=== PATIENT | male | born 1955 | race Caucasian/White ===

== ENCOUNTER 2016-11-26 14:43 | Inpatient (IN) | payer OTHER ==
[~2016-11-26] VITALS: Ht 177.8 cm; Wt 92.1 kg
[2016-11-26] VITALS (14 sets, daily range): BP systolic 104–161; BP diastolic 73–104; PULSE 106–140; RESP 16–26; TEMP 97.7–98.8; O2SAT 97–100
[~2016-11-26 14:43] MED LIST: Z.0.NO CURRENT MEDS
[2016-11-26] MEDS ORDERED: LORazepam 2 MG/ML VIAL IV PUSH ONE (15:15)
[2016-11-26] MEDS ORDERED: SODIUM CHLOR 0.9% 1000 ML INJ 1,000 ML IV ONE (15:15)
[2016-11-26] MEDS ORDERED: THIAMINE INJ 100 MG in SODIUM CHLORIDE 0.9% INJ 100 ML IV ONE (15:15)
--- NOTE | 2016-11-26 15:18 | PD ---
HPI Chief Complaint: Alcohol/Drug Intoxication Time Seen by Provider: 14:57 Travel History International Travel<30 days: No Contact w/Intl Traveler<30days: No Traveled to known affect area: No History of Present Illness HPI 61-year-old male complains of feeling shaky generalized malaise and weakness. Patient states that the symptoms started a few months ago and got worse today. Patient denies any headache. Patient denies any visual change. Patient denies any chest pain or shortness of breath. Patient face that he has nausea but no vomiting or diarrhea. Patient denies abdominal pain. Patient denies any dysuria or frequency. Patient denies any fever chills. Patient states that he used to drink a lot of vodka daily. Patient states that he changes to drinking beers recently. Patient states that he usually drinks about 9 beers a day. Patient states that he had one beer today. Patient denies illicit drug use. Patient denies any past medical problem. Patient states that he is not on any regular medication. Patient states that he is allergic to penicillin. PFSH Past Medical History Medical History: Denies Significant Hx Diminished Hearing: No Tetanus Vaccination: Unknown Influenza Vaccination: No Past Surgical History Surgical History: No Previous Surgery Social History Alcohol Use: Yes (8 BEERS DAILY) Tobacco Use: Yes (1 CIG DAILY) Substance Use: No Allergies-Medications (Allergen,Severity, Reaction): Coded Allergies: No Known Allergies (Verified , 11/26/16) Reported Meds & Prescriptions Reported Meds & Active Scripts Active No Active Prescriptions or Reported Medications Review of Systems General / Constitutional: No: Fever Eyes: No: Visual changes HENT: No: Headaches Cardiovascular: No: Chest Pain or Discomfort Respiratory: No: Shortness of Breath Gastrointestinal: No: Abdominal Pain Genitourinary: No: Dysuria Musculoskeletal: No: Pain Skin: No Rash Neurologic: No: Weakness Psychiatric: No: Depression Endocrine: No: Polydipsia Hematologic/Lymphatic: No: Easy Bruising Physical Exam Narrative GENERAL: Well-nourished, well-developed patient. SKIN: Warm and dry. HEAD: Normocephalic. EYES: No scleral icterus. No injection or drainage. NECK: Supple, trachea midline. No JVD or lymphadenopathy. CARDIOVASCULAR: Regular rate and rhythm without murmurs, gallops, or rubs. RESPIRATORY: Breath sounds equal bilaterally. No accessory muscle use. GASTROINTESTINAL: Abdomen soft, non-tender, nondistended. MUSCULOSKELETAL: No cyanosis, or edema. BACK: Nontender without obvious deformity. No CVA tenderness. Neurologic exam normal. Data Data Last Documented VS Vital Signs Date Time Temp Pulse Resp B/P Pulse Ox O2 Delivery O2 Flow Rate FiO2 11/26/16 16:33 120 17 140/92 98 Room Air 11/26/16 14:59 97.7 Orders Complete Blood Count With Diff (11/26/16 15:03) Comprehensive Metabolic Panel (11/26/16 15:03) Prothrombin Time / Inr (Pt) (11/26/16 15:03) Act Partial Throm Time (Ptt) (11/26/16:03) Lipase (11/26/16 15:03) Urinalysis - C+S If Indicated (11/26/16 15:03) Alcohol (Ethanol) (11/26/16 15:03) Thyroid Stimulating Hormone (11/26/16 15:03) Chest, Single Ap (11/26/16 15:03) Iv Access Insert/Monitor (11/26/16 15:03) Ecg Monitoring (11/26/16 15:03) Oximetry (11/26/16 15:03) Sodium Chlor 0.9% 1000 Ml Inj (Ns 1000 M (11/26/16 15:15) Thiamine Inj (Thiamine Inj) (11/26/16 15:15) Lorazepam Inj (Ativan Inj) (11/26/16 15:15) Pantoprazole Inj (Protonix Inj) (11/26/16 16:00) Al-Mag Hy-Si 40-40-4 Mg/Ml Liq (Mag-Al P (11/26/16 16:00) Diet Regular Basic (11/26/16 Dinner) Bedside Glucose JULIET.AC&HS (11/26/16 16:18) Alcohol Withdrawal Asmt-Ciwa ONCE (11/26/16 16:18) Ondansetron Inj (Zofran Inj) (11/26/16 16:30) Flumazenil Inj (Romazicon Inj) (11/26/16 16:30) Lorazepam (Ativan) (11/26/16 16:30) Lorazepam Inj (Ativan Inj) (11/26/16 16:30) Lorazepam (Ativan) (11/26/16 16:30) Lorazepam Inj (Ativan Inj) (11/26/16 16:30) Lorazepam Inj (Ativan Inj) (11/26/16 16:30) Lorazepam Inj (Ativan Inj) (11/26/16 16:30) Place In Observation (11/26/16 ) Vital Signs (Adult) Q4H (11/26/16 16:39) Activity Bed Rest With Brp (11/26/16 16:39) Sodium Chloride 0.9% Flush (Ns Flush) (11/26/16 16:45) Sodium Chloride 0.9% Flush (Ns Flush) (11/26/16 21:00) Acetaminophen (Tylenol) (11/26/16 16:45) Basic Metabolic Panel (Bmp) (11/27/16 06:00) Complete Blood Count With Diff (11/27/16 06:00) Admit Order (Ed Use Only) (11/26/16 16:42) Labs Laboratory Tests Test 11/26/16 15:18 White Blood Count 6.9 TH/MM3 Red Blood Count 4.54 MIL/MM3 Hemoglobin 14.2 GM/DL Hematocrit 42.0 % Mean Corpuscular Volume 92.3 FL Mean Corpuscular Hemoglobin 31.3 PG Mean Corpuscular Hemoglobin 33.9 % Concent Red Cell Distribution Width 14.7 % Platelet Count 220 TH/MM3 Mean Platelet Volume 8.2 FL Neutrophils (%) (Auto) 67.6 % Lymphocytes (%) (Auto) 15.7 % Monocytes (%) (Auto) 14.8 % Eosinophils (%) (Auto) 0.9 % Basophils (%) (Auto) 1.0 % Neutrophils # (Auto) 4.6 TH/MM3 Lymphocytes # (Auto) 1.1 TH/MM3 Monocytes # (Auto) 1.0 TH/MM3 Eosinophils # (Auto) 0.1 TH/MM3 Basophils # (Auto) 0.1 TH/MM3 CBC Comment DIFF FINAL Differential Comment Prothrombin Time 10.6 SEC Prothromb Time International 1.0 RATIO Ratio Activated Partial 25.5 SEC Thromboplast Time Sodium Level 127 MEQ/L Potassium Level 4.6 MEQ/L Chloride Level 91 MEQ/L Carbon Dioxide Level 21.2 MEQ/L Anion Gap 15 MEQ/L Blood Urea Nitrogen 10 MG/DL Creatinine 1.30 MG/DL Estimat Glomerular Filtration 56 ML/MIN Rate Random Glucose 204 MG/DL Calcium Level 9.5 MG/DL Total Bilirubin 1.6 MG/DL Aspartate Amino Transf 188 U/L (AST/SGOT) Alanine Aminotransferase 133 U/L (ALT/SGPT) Alkaline Phosphatase 118 U/L Total Protein 7.5 GM/DL Albumin 3.0 GM/DL Lipase 571 U/L Thyroid Stimulating Hormone 4.870 uIU/ML 3rd Gen Ethyl Alcohol Level 45 MG/DL [facility] Medical Decision Making Medical Screen Exam Complete: Yes Emergency Medical Condition: Yes Interpretation(s) 1613 PM. CBC within normal limit. Sodium 127. Glucose 204. Total bili 1.6. AST 188. ALT 133. Alkaline phosphatase 118. Lipase 571. Alcohol 45 Differential Diagnosis Differential diagnosis including dehydration, electrolyte imbalance, alcohol withdrawal, impending DT Narrative Course 61-year-old male with urine shaky, history EtOH abuse. EKG shows sinus tachycardia rate 121. Normal saline solution 1 L IV bolus. Thiamine 100 mg IV. Ativan 1 mg IV. May repeat Ativan for shakiness. WA protocol started Diagnosis Primary Impression: Alcohol withdrawal Qualified Code: F10.230 - Alcohol withdrawal, uncomplicated Additional Impressions: Elevated LFTs Hyponatremia Scripts No Active Prescriptions or Reported Meds Alex Neal MD Nov 26, 2016 15:18
[2016-11-26 15:27] LABS: AUTOMATED NEUTROPHIL # 4.6 TH/MM3 (1.8-7.7); BASOPHIL # 0.1 TH/MM3 (0-0.2); EOSINOPHIL # 0.1 TH/MM3 (0-0.4); EOSINOPHIL % 0.9 % (0.0-4.0); HEMO FLAGS DIFF FINAL; LYMPH % 15.7 % (9.0-44.0); LYMPHOCYTE # 1.1 TH/MM3 (1.0-4.8); MEAN CELL VOLUME 92.3 FL (80.0-100.0); MEAN CORPUSCULAR HEMOGLOBIN 31.3 PG (27.0-34.0); MEAN CORPUSCULAR HGB CONC 33.9 % (32.0-36.0); MONO % 14.8 % (0.0-8.0); NEUT % 67.6 % (16.0-70.0); PLATELET COUNT 220 TH/MM3 (150-450); RED BLOOD COUNT 4.54 MIL/MM3 (4.50-5.90); RED CELL DISTRIBUTION WIDTH 14.7 % (11.6-17.2); WHITE BLOOD COUNT 6.9 TH/MM3 (4.0-11.0)
[2016-11-26 15:39] LABS: CHLORIDE 91 MEQ/L (98-107); POTASSIUM 4.6 MEQ/L (3.5-5.1); SODIUM (NA) 127 MEQ/L (136-145)
[2016-11-26 15:43] LABS: ANION GAP 15 MEQ/L (5-15); APTT (PATIENT) 25.5 SEC (24.3-30.1); BICARBONATE 21.2 MEQ/L (21.0-32.0); BLOOD UREA NITROGEN 10 MG/DL (7-18); PROTHROMBIN TIME - PATIENT 10.6 SEC (9.8-11.6)
[2016-11-26 15:46] LABS: ALT (GPT) 133 U/L (12-78); AST (GOT) 188 U/L (15-37); GLOMERULAR FILTRATION RATE 56 ML/MIN (>89)
[2016-11-26 15:47] LABS: TOTAL BILIRUBIN ADULT 1.6 MG/DL (0.2-1.0)
--- NOTE | 2016-11-26 15:47 | RADHPO ---
EXAM DATE/TIME: 11/26/2016 15:35 [facility] COMPARISON: No previous studies available for comparison. INDICATIONS : Shortness of breath and general weakness. MEDICAL HISTORY : None. SURGICAL HISTORY : None. ENCOUNTER: Initial ACUITY: 1 month PAIN SCORE: 0/10 LOCATION: Bilateral chest FINDINGS: Portable AP view of the chest demonstrates a normal-sized cardiac silhouette. No effusion, consolidat ion, or pneumothorax is visualized. The bones and soft tissues demonstrate no acute abnormality. Ther e are old left rib fractures. CONCLUSION: No acute cardiopulmonary abnormality is identified. Chato Meyer MD on November 26, 2016 at 15:46 Board Certified Radiologist. This report was verified electronically.
[2016-11-26 15:49] LABS: ALKALINE PHOSPHATASE 118 U/L (45-117)
[2016-11-26] MEDS ORDERED: PANTOPRAZOLE SODIUM 40 MG VIAL IV PUSH ONE (16:00)
[2016-11-26] MEDS ORDERED: ALUMINUM/MAGNESIUM/SIMETH 30 ML CUP PO ONE (16:00)
[2016-11-26] MEDS ORDERED: FLUMAZENIL 1 MG/10 ML VIAL IV PUSH PRN (16:30)
[2016-11-26] MEDS ORDERED: LORazepam 2 MG/ML VIAL IV PUSH PRN ×3 (16:30)
[2016-11-26] MEDS ORDERED: ONDANSETRON HCL 4 MG/2 ML VIAL IV PUSH PRN (16:30)
[2016-11-26] MEDS ORDERED: SODIUM CHLORIDE 0.9% FLUSH 5 ML FLUSH FLUSH PRN (16:45)
[2016-11-26] MEDS ORDERED: ACETAMINOPHEN 325 MG TAB PO PRN (16:45)
[2016-11-26 17:05] LABS: BLOOD, URINE NEG (NEG); GLUCOSE,URINE NEG (NEG); KETONE, URINE NEG (NEG); NITRITE,URINE NEG (NEG)
--- NOTE | 2016-11-26 17:07 | HHI.HP ---
[facility] Service [facility] Primary Care Physician No Primary Care Physician Admission Diagnosis alcohol withdrawal. Hyponatremia. Elevated LFTs. Diagnoses: Chief Complaint: EtOH withdrawal Travel History International Travel<30 Days: No Contact w/Intl Traveler <30 Da: No Traveled to Known Affected Are: No History of Present Illness Patient seen in ER as a 61 year old man with minimal PMHx who was brought in by his brothers due to severe and worsening EtOH dependence issues. He has a longstanding history of alcoholism and has become increasingly withdrawn, not eating and had lost his job. They have tried to get him help before and he has been at rehab before. Today he appears disheveled and has abnormal labs with will require medical management. On my review the xray is negative for acute cardiopulmonary disease. Review of Systems Constitutional: DENIES: Diaphoretic episodes, Fatigue, Fever, Weight gain, Weight loss, Chills, Dizziness, Change in appetite, Night Sweats Eyes: DENIES: Blurred vision, Diplopia, Eye inflammation, Eye pain, Vision loss , Photosensitivity, Double Vision Ears, nose, mouth, throat: DENIES: Tinnitus, Hearing loss, Vertigo, Nasal discharge, Oral lesions, Throat pain, Hoarseness, Ear Pain, Running Nose, Epistaxis, Sinus Pain, Toothache, Odynophagia Respiratory: DENIES: Apneas, Cough, Snoring, Wheezing, Hemoptysis, Sputum production, Shortness of breath Cardiovascular: DENIES: Chest pain, Palpitations, Syncope, Dyspnea on Exertion , PND, Lower Extremity Edema, Orthopnea, Claudication Gastrointestinal: DENIES: Abdominal pain, Black stools, Bloody stools, Constipation, Diarrhea, Nausea, Vomiting, Difficulty Swallowing, Anorexia Genitourinary: DENIES: Sexual dysfunction, Urinary frequency, Urinary incontinence, Urgency, Hematuria, Dysuria, Nocturia, Penile Discharge, Testicular Pain, Testicular Swelling Musculoskeletal: DENIES: Joint pain, Muscle aches, Stiffness, Joint Swelling, Back pain, Neck pain Integumentary: DENIES: Abnormal pigmentation, Nail changes, Pruritus, Rash Hematologic/lymphatic: DENIES: Bruising, Lymphadenopathy Immunologic/allergic: DENIES: Eczema, Urticaria Neurologic: DENIES: Abnormal gait, Headache, Localized weakness, Paresthesias, Seizures, Speech Problems, Tremor, Poor Balance Psychiatric: DENIES: Anxiety, Confusion, Mood changes, Depression, Hallucinations, Agitation, Suicidal Ideation, Homicidal Ideation, Delusions Past Family Social History Past Medical History Denies Past Surgical History None Reported Medications None Allergies: Coded Allergies: No Known Allergies (Verified , 11/26/16) Active Ordered Medications reviewed in the ER Family History DM, HTN Social History lives alone; No tobacco, EtOH Daily Physical Exam Vital Signs Vital Signs Date Time Temp Pulse Resp B/P Pulse Ox O2 Delivery O2 Flow Rate FiO2 11/26/16 16:33 120 17 140/92 98 Room Air 11/26/16 15:27 115 17 119/87 98 Room Air 11/26/16 15:05 100 Room Air 11/26/16 14:59 97.7 130 19 108/73 98 Room Air Physical Exam GENERAL: This is a well-nourished, well-developed patient, in no apparent distress. SKIN: No rashes, ecchymoses or lesions. Cool and dry. HEAD: Atraumatic. Normocephalic. No temporal or scalp tenderness. EYES: Bilat eye conjunctival erythema and discharge; Pupils equal round and reactive. Extraocular motions intact. No scleral icterus. No injection or drainage. ENT: Nose without bleeding, purulent drainage or septal hematoma. Throat without erythema, tonsillar hypertrophy or exudate. Uvula midline. Airway patent. NECK: Trachea midline. No JVD or lymphadenopathy. Supple, nontender, no meningeal signs. CARDIOVASCULAR: Regular rate and rhythm without murmurs, gallops, or rubs. RESPIRATORY: Clear to auscultation. Breath sounds equal bilaterally. No wheezes , rales, or rhonchi. GASTROINTESTINAL: Abdomen soft, non-tender, nondistended. No hepato-splenomegaly , or palpable masses. No guarding. MUSCULOSKELETAL: Extremities without clubbing, cyanosis, or edema. No joint tenderness, effusion, or edema noted. No calf tenderness. Negative Homans sign bilaterally. NEUROLOGICAL: Awake and alert. Cranial nerves II through XII intact. Motor and sensory grossly within normal limits. Five out of 5 muscle strength in all muscle groups. Normal speech. Laboratory Laboratory Tests Test 11/26/16 15:18 White Blood Count 6.9 Red Blood Count 4.54 Hemoglobin 14.2 Hematocrit 42.0 Mean Corpuscular Volume 92.3 Mean Corpuscular Hemoglobin 31.3 Mean Corpuscular Hemoglobin 33.9 Concent Red Cell Distribution Width 14.7 Platelet Count 220 Mean Platelet Volume 8.2 Neutrophils (%) (Auto) 67.6 Lymphocytes (%) (Auto) 15.7 Monocytes (%) (Auto) 14.8 Eosinophils (%) (Auto) 0.9 Basophils (%) (Auto) 1.0 Neutrophils # (Auto) 4.6 Lymphocytes # (Auto) 1.1 Monocytes # (Auto) 1.0 Eosinophils # (Auto) 0.1 Basophils # (Auto) 0.1 CBC Comment DIFF FINAL Differential Comment Prothrombin Time 10.6 Prothromb Time International 1.0 Ratio Activated Partial 25.5 Thromboplast Time Sodium Level 127 Potassium Level 4.6 Chloride Level 91 Carbon Dioxide Level 21.2 Anion Gap 15 Blood Urea Nitrogen 10 Creatinine 1.30 Estimat Glomerular Filtration 56 Rate Random Glucose 204 Calcium Level 9.5 Total Bilirubin 1.6 Aspartate Amino Transf 188 (AST/SGOT) Alanine Aminotransferase 133 (ALT/SGPT) Alkaline Phosphatase 118 Total Protein 7.5 Albumin 3.0 Lipase 571 Thyroid Stimulating Hormone 4.870 3rd Gen Ethyl Alcohol Level 45 Result Diagram: 11/26/16 1518 11/26/16 1518 Imaging Last Impressions Chest X-Ray 11/26/16 1503 Signed Impressions: Service Date/Time: Saturday, November 26, 2016 15:35 - CONCLUSION: No acute cardiopulmonary abnormality is identified. Chato Meyer MD Assessment and Plan Problem List: (1) Alcohol withdrawal ICD Code: F10.239 Status: Acute Plan: CIWA protocol, add librium MVi, thiamin folic acid Consider outpatient drug rehab (2) Hyponatremia ICD Code: E87.1 Status: Acute Plan: Beer potomania? Work up in progress; osmolarity pending, echo lipids (3) Elevated LFTs ICD Code: R94.5 Status: Acute Plan: Hepatitis profile pending US liver pending likely due to EtOH Ammonia pending (4) Conjunctivitis ICD Code: H10.9 Status: Acute Plan: Cipro eye gtts BID (5) Hyperglycemia ICD Code: R73.9 Status: Acute Plan: Likely due to poor pancreatic function, HG a1 c Pending Assessment and Plan plan of care to be determined by hospital course Discussed Condition With patient. family and ER MD Physician Certification 2 Midnight Certification Type: Admission for Inpatient Services Order for Inpatient Services The services are ordered in accordance with Medicare regulations or non- Medicare payer requirements, as applicable. In the case of services not specified as inpatient-only, they are appropriately provided as inpatient services in accordance with the 2-midnight benchmark. Estimated LOS (days): 3 3 days is the estimated time the patient will need to remain in the hospital, assuming treatment plan goals are met and no additional complications. Post-Hospital Plan: Not yet determined Problem Qualifiers (1) Alcohol withdrawal: Qualified Code: F10.230 - Alcohol withdrawal, uncomplicated Clary Acuna MD Nov 26, 2016 17:07
[2016-11-26 17:14] LABS: URINE COLOR YELLOW (YELLW/STRAW)
[2016-11-26 17:15] LABS: SQUAMOUS EPITHELIAL CELL URINE 0-5 /hpf (0-5)
[2016-11-26 17:16] LABS: COMMENT (UR) CULT NOT INDICATED; CULTURE IF INDICATED CULT NOT INDICATED
[2016-11-26] MEDS: chlordiazePOXIDE 25 MG CAP PO SCH (18:07)
[2016-11-26] MEDS: CIPROFLOXACIN 0.3% OPTH SOLN 2.5 ML BTL EACH EYE SCH ×2 (18:08→21:01)
[2016-11-26] MEDS: SODIUM CHLORIDE 0.9% FLUSH 5 ML FLUSH FLUSH SCH (18:08)
[2016-11-26] MEDS: LORazepam 2 MG/ML VIAL IV PUSH PRN ×2 (18:08→23:35)
[2016-11-26] MEDS: SODIUM CHLOR 0.9% 1000 ML INJ 1,000 ML IV SCH (18:57)
[2016-11-26 19:44] LABS: THYROXINE (T4) 6.1 MCG/DL (4.5-12.1)
[2016-11-26 22:43] LABS: HEMOGLOBIN A1a 1.3 %; HEMOGLOBIN A1b 1.8 %; HEMOGLOBIN Ao 82.3 %; HEMOGLOBIN P3 4.3 %
[2016-11-27] VITALS (21 sets, daily range): BP systolic 134–189; BP diastolic 94–121; PULSE 80–118; RESP 12–25; TEMP 97.9–98.3; O2SAT 97–99
[2016-11-27] MEDS: CIPROFLOXACIN 0.3% OPTH SOLN 2.5 ML BTL EACH EYE SCH ×6 (01:45→20:26)
[2016-11-27] MEDS: LORazepam 2 MG/ML VIAL IV PUSH PRN ×2 (04:27→22:14)
[2016-11-27 05:18] LABS: BASOPHIL # 0.1 TH/MM3 (0-0.2); BASOPHIL % 1.7 % (0.0-2.0); EOSINOPHIL # 0.1 TH/MM3 (0-0.4); EOSINOPHIL % 0.8 % (0.0-4.0); HEMATOCRIT 37.9 % (39.0-51.0); HEMO FLAGS DIFF FINAL; LYMPH % 16.4 % (9.0-44.0); LYMPHOCYTE # 1.2 TH/MM3 (1.0-4.8); MEAN CELL VOLUME 94.4 FL (80.0-100.0); MEAN CORPUSCULAR HEMOGLOBIN 31.8 PG (27.0-34.0); MEAN CORPUSCULAR HGB CONC 33.7 % (32.0-36.0); MONO % 15.9 % (0.0-8.0); NEUT % 65.2 % (16.0-70.0); PLATELET COUNT 190 TH/MM3 (150-450); RED BLOOD COUNT 4.01 MIL/MM3 (4.50-5.90); WHITE BLOOD COUNT 7.6 TH/MM3 (4.0-11.0)
[2016-11-27 05:20] LABS: POTASSIUM 4.1 MEQ/L (3.5-5.1)
[2016-11-27] MEDS: SODIUM CHLOR 0.9% 1000 ML INJ 1,000 ML IV SCH (05:26)
[2016-11-27 06:53] LABS: BICARBONATE 23.8 MEQ/L (21.0-32.0)
[2016-11-27] MEDS: THIAMINE HCL 100 MG TAB PO SCH (08:43)
[2016-11-27] MEDS: FOLIC ACID 1 MG TAB PO SCH (08:43)
[2016-11-27] MEDS: PANTOPRAZOLE SOD 40 MG DELAYED RELEASE TAB PO SCH (08:43)
[2016-11-27] MEDS: chlordiazePOXIDE 25 MG CAP PO SCH ×3 (08:43→20:26)
[2016-11-27] MEDS: LORazepam 2 MG TAB PO PRN (08:43)
[2016-11-27] MEDS: MULTIVITAMIN TAB PO SCH (08:43)
[2016-11-27] MEDS: SODIUM CHLORIDE 0.9% FLUSH 5 ML FLUSH FLUSH SCH ×2 (08:48→20:26)
[2016-11-27] MEDS ORDERED: INFLUENZA VIRUS VACCINE (QUADRIVALENT) 0.5 ML SYR IM ONE (09:00)
[2016-11-27 09:15] LABS: INDIRECT BILIRUBIN 0.7 MG/DL (0.0-0.8); TOTAL BILIRUBIN ADULT 1.7 MG/DL (0.2-1.0)
[2016-11-27 09:52] LABS: HDL CHOLESTEROL 45.1 MG/DL (40.0-60.0)
--- NOTE | 2016-11-27 12:40 | HHI.PR ---
Subjective Remarks Patient seen and evaluated today in follow-up for alcoholic dependency. Tolerating current management. Tearful and admits history of depression. Discussed with ELEMENTARY TEACHER Objective Vitals Vital Signs Date Time Temp Pulse Resp B/P Pulse Ox O2 Delivery O2 Flow Rate FiO2 11/27/16 11:07 97 11/27/16 09:00 116 15 134/94 11/27/16 09:00 108 11/27/16 08:43 118 25 136/107 11/27/16 08:15 97.9 107 18 11/27/16 07:45 102 11/27/16 05:01 106 11/27/16 04:43 98 18 136/100 11/27/16 04:02 98.3 104 12 157/107 97 11/27/16 03:09 105 11/27/16 01:27 111 11/27/16 00:00 98.3 112 16 98 11/26/16 23:41 106 16 129/89 97 11/26/16 23:41 110 19 129/89 11/26/16 23:26 126 17 157/104 98 11/26/16 23:26 98.3 126 17 157/104 98 11/26/16 23:00 114 11/26/16 22:00 114 11/26/16 20:00 97.8 138 18 121/93 11/26/16 20:00 97.8 138 18 121/93 97 11/26/16 20:00 130 11/26/16 19:00 140 17 104/90 11/26/16 19:00 140 17 104/90 11/26/16 18:30 98.8 11/26/16 18:00 122 19 113/91 97 11/26/16 18:00 122 19 113/91 97 11/26/16 17:55 122 19 161/94 98 11/26/16 16:33 120 17 140/92 98 Room Air 11/26/16 15:27 115 17 119/87 98 Room Air 11/26/16 15:05 100 Room Air 11/26/16 14:59 97.7 130 19 108/73 98 Room Air I/O 11/26/16 11/26/16 11/26/16 11/27/16 11/27/16 11/27/16 07:00 15:00 23:00 07:00 15:00 23:00 Intake Total 1820 ml 870 ml Output Total 550 ml 350 ml Balance 1270 ml 520 ml Intake Oral 420 ml 220 ml IV Total 1400 ml 650 ml Output Urine Total 550 ml 350 ml Stool Total 0 ml 0 ml # Voids 2 1 Result Diagram: 11/27/1645411/27/16454 A/P Problem List: (1) Alcohol withdrawal ICD Code: F10.239 Status: Acute Plan: CIWA protocol, meme librium MVI, thiamin folic acid Consider outpatient drug rehab add celexa (2) Hyponatremia ICD Code: E87.1 Status: Acute Plan: Beer potomania? Improved Work up in progress; osmolarity within range for potomania, echo pending lipids normal (3) Elevated LFTs ICD Code: R94.5 Status: Acute Plan: Hepatitis profile pending US liver pending likely due to EtOH Ammonia 35 (4) Conjunctivitis ICD Code: H10.9 Status: Acute Plan: Cipro eye gtts BID x7days (5) Hyperglycemia ICD Code: R73.9 Status: Acute Plan: Likely due to poor pancreatic function, HG a1 c 6.6 Discharge Planning pending progress Problem Qualifiers (1) Alcohol withdrawal: Qualified Code: F10.230 - Alcohol withdrawal, uncomplicated Clary Acuna MD Nov 27, 2016 12:40
--- NOTE | 2016-11-27 13:36 | ECHLIM ---
Study Study Date:11/27/2016 STUDY CONCLUSIONS SUMMARY - Procedure narrative: Transthoracic echocardiography. Image quality was extremely poor. The study was technically limited due to poor acoustic window availability. - Left ventricle: Unable to determine an estimated ejection fraction, views are extremely limited of the left ventricle. Unable to determine wall motion abnormalities. Impressions: If clinical concern for ejection fraction, consider other modality. If LV function is below 40, please consider prescribing an ACEI or ARB or document rationale for non-use. PROCEDURE DATA Procedure: Transthoracic echocardiography. Image quality was extremely poor. The study was technically limited due to poor acoustic window availability. Scanning was performed from the parasternal, apical, and subcostal acoustic windows. Study completion: The patient tolerated the procedure well. Transthoracic echocardiography. M-mode, limited 2D, limited spectral Doppler, and color Doppler. CARDIAC ANATOMY LEFT VENTRICLE: Unable to determine an estimated ejection fraction, views are extremely limited of the left ventricle. Unable to determine wall motion abnormalities. BASIC MEASUREMENTS ADULT NORMAL Left ventricle LV internal dimension, ED, chordal level, 45.7 mm 43-52 PLAX LV internal dimension, ES, chordal level, 36.8 mm 23-38 PLAX Fractional shortening, chordal level, PLAX *19 % >29 LV posterior wall thickness, ED 8.95 mm IVS/LVPW ratio, ED 1.09 <1.3 Ventricular septum Septal thickness, ED 9.79 mm DOPPLER MEASUREMENTS ADULT NORMAL Aortic valve Peak velocity, S 109 cm/s LEGEND: Mean values are shown as u=mean value. Asterisk (*) jane values outside specified normal range. Prepared and signed by Cisco Burns [id number]
[2016-11-27] MEDS: LORazepam 1 MG TAB PO PRN (16:18)
[2016-11-27] MEDS: CITALOPRAM HYDROBROMIDE 20 MG TAB PO SCH (16:18)
--- NOTE | 2016-11-27 16:22 | RADHPO ---
EXAM DATE/TIME: 11/27/2016 15:12 [facility] COMPARISON: No previous studies available for comparison. INDICATIONS : Increased lab values. MEDICAL HISTORY : ETOH dependence. SURGICAL HISTORY : Ankle surgery. ENCOUNTER: Initial ACUITY: 1 day PAIN SCORE: 0/10 LOCATION: Abdomen. MEASUREMENTS: LIVER: 19.2 cm length COMMON DUCT: 5 mm RIGHT KIDNEY: 11.1 x 5.7 x 5.5 cm SPLEEN: 9.0 cm length FINDINGS: LIVER: The liver demonstrates mild enlargement as well as diffuse homogeneous increased echotexture and poor sound transmission consistent with diffuse fatty infiltration. No evidence of mass. COMMON DUCT: Common bile duct was unable to be visualized secondary to extensive bowel gas. GALLBLADDER: The gallbladder is well-distended. Multiple small mobile stones and layering sludge are noted. No dolores dence of wall thickening. PANCREAS: The pancreas is not well-visualized on this exam. RIGHT KIDNEY: The right kidney demonstrates diffuse cortical thinning with increased echogenicity concerning for ch ronic renal disease. No evidence of mass or hydronephrosis. SPLEEN: No focal lesion. CONCLUSION: 1. Mild hepatomegaly. The echotexture of the liver is consistent with hepatic steatosis. 2. Cholelithiasis. The common bile duct is not visualized on this exam secondary to bowel gas. No dolores dence of intrahepatic biliary obstruction. 3. Given the cortical thinning and increased echogenicity concerning for renal disease. Recommend cor relating with the patient's GFR.. Kateryna Lopez MD on November 27, 2016 at 16:18 Board Certified Radiologist. This report was verified electronically.
[2016-11-27] MEDS: CALCIUM CARBONATE 500 MG CHEWABLE TAB CHEW SCH (20:26)
--- NOTE | 2016-11-27 22:45 | EKG ---
Date Performed: 11/26/2016 Time Performed: 14:47:18 PTAGE: 61 years EKG: Sinus tachycardia with PAC(s) Possible inferior infarct - age undetermined Low QRS voltages in precordial leads Abnormal ECG NO PREVIOUS TRACING DOCTOR: Franki Chacko Interpretating Date/Time 11/27/2016 22:41:05
[2016-11-28] VITALS (10 sets, daily range): BP systolic 123–148; BP diastolic 65–107; PULSE 78–114; RESP 14–20; TEMP 97.2–98.5; O2SAT 96–98
[2016-11-28] MEDS: CIPROFLOXACIN 0.3% OPTH SOLN 2.5 ML BTL EACH EYE SCH ×6 (01:16→21:12)
[2016-11-28] MEDS: LORazepam 2 MG/ML VIAL IV PUSH PRN ×2 (02:14→05:25)
[2016-11-28 04:56] LABS: CHLORIDE 101 MEQ/L (98-107); POTASSIUM 3.9 MEQ/L (3.5-5.1); SODIUM (NA) 136 MEQ/L (136-145)
[2016-11-28 05:00] LABS: ANION GAP 13 MEQ/L (5-15); BICARBONATE 21.7 MEQ/L (21.0-32.0); BLOOD UREA NITROGEN 14 MG/DL (7-18)
[2016-11-28 05:03] LABS: ALT (GPT) 102 U/L (12-78); AST (GOT) 158 U/L (15-37); GLOMERULAR FILTRATION RATE 88 ML/MIN (>89)
[2016-11-28 05:04] LABS: TOTAL BILIRUBIN ADULT 1.7 MG/DL (0.2-1.0)
[2016-11-28] MEDS: chlordiazePOXIDE 25 MG CAP PO SCH ×3 (05:04→21:11)
[2016-11-28 05:06] LABS: ALKALINE PHOSPHATASE 87 U/L (45-117)
[2016-11-28] MEDS: CALCIUM CARBONATE 500 MG CHEWABLE TAB CHEW SCH ×2 (08:37→21:12)
[2016-11-28] MEDS: MULTIVITAMIN TAB PO SCH (08:37)
[2016-11-28] MEDS: CITALOPRAM HYDROBROMIDE 20 MG TAB PO SCH (08:37)
[2016-11-28] MEDS: FOLIC ACID 1 MG TAB PO SCH (08:37)
[2016-11-28] MEDS: PANTOPRAZOLE SOD 40 MG DELAYED RELEASE TAB PO SCH (08:37)
[2016-11-28] MEDS: SODIUM CHLORIDE 0.9% FLUSH 5 ML FLUSH FLUSH SCH ×2 (08:38→21:11)
[2016-11-28] MEDS: THIAMINE HCL 100 MG TAB PO SCH (08:38)
--- NOTE | 2016-11-28 09:57 | HHI.PR ---
Subjective Remarks Patient seen today in follow-up for alcohol withdrawal. Liver enzymes remained stable. Blood pressures a bit elevated Objective Vitals Vital Signs Date Time Temp Pulse Resp B/P Pulse Ox O2 Delivery O2 Flow Rate FiO2 11/28/16 05:00 108 11/28/16 04:00 98.5 98 16 140/96 96 11/28/16 03:00 100 11/28/16 01:00 99 11/28/16 00:00 98.2 99 14 148/99 98 11/27/16 23:00 99 11/27/16 22:00 94 19 159/111 99 11/27/16 21:00 22 189/100 99 11/27/16 21:00 80 11/27/16 20:00 98.0 80 22 179/121 99 11/27/16 19:00 98 11/27/16 17:02 108 11/27/16 16:27 98.2 95 18 149/110 99 11/27/16 16:20 103 11/27/16 13:47 92 11/27/16 12:10 97 11/27/16 12:10 98.1 97 17 150/98 11/27/16 11:07 97 I/O 11/27/16 11/27/16 11/27/16 11/28/16 11/28/16 11/28/16 07:00 15:00 23:00 07:00 15:00 23:00 Intake Total 870 ml 1180 ml 440 ml 560 ml Output Total 350 ml 550 ml 250 ml 800 ml 375 ml Balance 520 ml 630 ml 190 ml -240 ml -375 ml Intake Oral 220 ml 400 ml 120 ml 560 ml IV Total 650 ml 780 ml 320 ml Output Urine Total 350 ml 550 ml 250 ml 800 ml 375 ml Stool Total 0 ml # Voids 1 1 # Bowel Movements 0 0 Result Diagram: 11/27/16 0455 11/28/16 0435 Objective Remarks GENERAL: This is a well-nourished, well-developed patient, in no apparent distress. CARDIOVASCULAR: Regular rate and rhythm without murmurs, gallops, or rubs. RESPIRATORY: Clear to auscultation. Breath sounds equal bilaterally. No wheezes , rales, or rhonchi. GASTROINTESTINAL: Abdomen soft, non-tender, nondistended. Normal active bowel sounds MUSCULOSKELETAL: Extremities without clubbing, cyanosis, or edema. NEURO: Alert & Oriented x4 to person, place, time, situation. Moves all ext x4 A/P Problem List: (1) Alcohol withdrawal ICD Code: F10.239 Status: Acute Plan: CIWA protocol, scheduled Librium MVI, thiamin folic acid Consider outpatient drug rehab Continue celexa for depression (2) Hyponatremia ICD Code: E87.1 Status: Acute Plan: Resolved (3) Elevated LFTs ICD Code: R94.5 Status: Acute Plan: Hepatitis profile negative US liver consistent with hepatic steatosis likely due to EtOH Ammonia 35 (4) Conjunctivitis ICD Code: H10.9 Status: Acute Plan: Improved Cipro eye gtts BID x7days (5) Hyperglycemia ICD Code: R73.9 Status: Acute Plan: With evidence of diabetes Hemoglobin A1c 6.6 (6) HTN (hypertension) ICD Code: I10 Status: Acute Plan: Add atenolol Discharge Planning pending progress Problem Qualifiers (1) Alcohol withdrawal: Qualified Code: F10.230 - Alcohol withdrawal, uncomplicated Clary Acuna MD Nov 28, 2016 09:57
[2016-11-28] MEDS: ATENOLOL 50 MG TAB PO SCH (10:57)
[2016-11-28] MEDS: ALUMINUM/MAGNESIUM/SIMETH 30 ML CUP PO PRN (12:25)
[2016-11-28] MEDS: LORazepam 1 MG TAB PO PRN ×2 (17:00→20:18)
[2016-11-29] VITALS: BP 133/87; PULSE 83; RESP 16; TEMP 98; O2SAT 96
[2016-11-29] MEDS: LORazepam 2 MG TAB PO PRN ×3 (00:05→04:23)
[2016-11-29] MEDS: CIPROFLOXACIN 0.3% OPTH SOLN 2.5 ML BTL EACH EYE SCH ×6 (00:06→22:09)
[2016-11-29 04:00] VITALS: BP 136/93; PULSE 83; RESP 18; TEMP 98.4; O2SAT 95
[2016-11-29 04:40] LABS: AUTOMATED NEUTROPHIL # 2.9 TH/MM3 (1.8-7.7); BASOPHIL # 0.1 TH/MM3 (0-0.2); BASOPHIL % 1.4 % (0.0-2.0); EOSINOPHIL # 0.2 TH/MM3 (0-0.4); HEMATOCRIT 36.7 % (39.0-51.0); MEAN CELL VOLUME 93.7 FL (80.0-100.0); MEAN CORPUSCULAR HEMOGLOBIN 31.9 PG (27.0-34.0); MONO % 18.5 % (0.0-8.0); NEUT % 57.1 % (16.0-70.0); PLATELET COUNT 197 TH/MM3 (150-450); RED BLOOD COUNT 3.91 MIL/MM3 (4.50-5.90); RED CELL DISTRIBUTION WIDTH 15.6 % (11.6-17.2); WHITE BLOOD COUNT 5.1 TH/MM3 (4.0-11.0)
[2016-11-29 04:46] LABS: HEMO FLAGS DIFF FINAL
[2016-11-29 04:47] LABS: CHLORIDE 102 MEQ/L (98-107); SODIUM (NA) 137 MEQ/L (136-145)
[2016-11-29 04:51] LABS: ANION GAP 12 MEQ/L (5-15); BICARBONATE 23.2 MEQ/L (21.0-32.0); BLOOD UREA NITROGEN 17 MG/DL (7-18)
[2016-11-29 04:54] LABS: ALT (GPT) 115 U/L (12-78); AST (GOT) 217 U/L (15-37); GLOMERULAR FILTRATION RATE 93 ML/MIN (>89)
[2016-11-29 04:56] LABS: TOTAL BILIRUBIN ADULT 1.9 MG/DL (0.2-1.0)
[2016-11-29 04:57] LABS: ALKALINE PHOSPHATASE 89 U/L (45-117)
[2016-11-29] MEDS: chlordiazePOXIDE 25 MG CAP PO SCH ×3 (05:26→22:09)
[2016-11-29 08:19] VITALS: BP 133/102; PULSE 81; RESP 16; TEMP 98.4; O2SAT 97
[2016-11-29] MEDS: THIAMINE HCL 100 MG TAB PO SCH (08:53)
[2016-11-29] MEDS: CALCIUM CARBONATE 500 MG CHEWABLE TAB CHEW SCH ×2 (08:53→22:09)
[2016-11-29] MEDS: FOLIC ACID 1 MG TAB PO SCH (08:53)
[2016-11-29] MEDS: PANTOPRAZOLE SOD 40 MG DELAYED RELEASE TAB PO SCH (08:53)
[2016-11-29] MEDS: CITALOPRAM HYDROBROMIDE 20 MG TAB PO SCH (08:53)
[2016-11-29] MEDS: MULTIVITAMIN TAB PO SCH (08:54)
[2016-11-29] MEDS: ATENOLOL 50 MG TAB PO SCH (08:54)
[2016-11-29] MEDS: SODIUM CHLORIDE 0.9% FLUSH 5 ML FLUSH FLUSH SCH ×2 (08:54→22:09)
--- NOTE | 2016-11-29 11:41 | HHI.PR ---
Subjective Remarks Patient seen and evaluated today in follow-up for alcohol withdrawal symptoms and for diabetes and hypertension. Patient will more confused today. Heart rate is improved. Blood pressure still a bit elevated. No new events overnight Objective Vitals Vital Signs Date Time Temp Pulse Resp B/P Pulse Ox O2 Delivery O2 Flow Rate FiO2 11/29/16 08:19 98.4 81 16 133/102 97 11/29/16 04:00 98.4 83 18 136/93 95 11/29/16 00:00 98.0 83 16 133/87 96 11/28/16 20:00 98.2 81 16 138/92 98 11/28/16 16:23 98.0 78 14 130/99 96 11/28/16 12:15 97.2 114 20 126/96 96 I/O 11/28/16 11/28/16 11/28/16 11/29/16 11/29/16 11/29/16 07:00 15:00 23:00 07:00 15:00 23:00 Intake Total 560 ml 480 ml 720 ml 240 ml Output Total 800 ml 375 ml 500 ml Balance -240 ml 105 ml 720 ml -260 ml Intake Oral 560 ml 480 ml 720 ml 240 ml Output Urine Total 800 ml 375 ml 500 ml # Voids 1 1 1 # Bowel Movements 0 0 1 Result Diagram: 11/29/1641211/29/16412 Objective Remarks GENERAL: This is a well-nourished, well-developed patient, in no apparent distress. CARDIOVASCULAR: Regular rate and rhythm without murmurs, gallops, or rubs. RESPIRATORY: Clear to auscultation. Breath sounds equal bilaterally. No wheezes , rales, or rhonchi. GASTROINTESTINAL: Abdomen soft, non-tender, nondistended. Normal active bowel sounds MUSCULOSKELETAL: Extremities without clubbing, cyanosis, or edema. NEURO: Alert & Oriented x4 to person, place, time, situation. Moves all ext x4 A/P Problem List: (1) Alcohol withdrawal ICD Code: F10.239 Status: Acute Plan: CIWA protocol, scheduled Librium MVI, thiamin folic acid Consider outpatient drug rehab celexa for depression Very unsteady with physical therapy. Patient will need to be more ambulatory prior to discharge (2) Elevated LFTs ICD Code: R94.5 Status: Acute Plan: Hepatitis profile negative US liver consistent with hepatic steatosis likely due to EtOH Ammonia 75, will add lactulose (3) Conjunctivitis ICD Code: H10.9 Status: Acute Plan: Improved Cipro eye gtts BID x7days (4) Hyperglycemia ICD Code: R73.9 Status: Acute Plan: With evidence of diabetes Hemoglobin A1c 6.6 diet controlled (5) HTN (hypertension) ICD Code: I10 Status: Acute Plan: Continue atenolol, add Cozaar repeat echo pending Discharge Planning pending progress with ambulation status Problem Qualifiers (1) Alcohol withdrawal: Qualified Code: F10.230 - Alcohol withdrawal, uncomplicated Clary Acuna MD Nov 29, 2016 11:40
[2016-11-29 12:00] VITALS: BP 111/90; PULSE 75; RESP 12; TEMP 98; O2SAT 97
[2016-11-29] MEDS: LACTULOSE SYRUP 20 GM/30 ML CUP PO SCH ×3 (12:13→22:09)
[2016-11-29] MEDS: LOSARTAN 25 MG TAB PO SCH (12:13)
[2016-11-29 16:00] VITALS: BP 127/87; PULSE 72; RESP 20; TEMP 98.2; O2SAT 99
--- NOTE | 2016-11-29 18:24 | EKG ---
Date Performed: 11/28/2016 Time Performed: 12:44:00 PTAGE: 61 years EKG: Sinus rhythm with PAC(s). Possible anterior infarct - age undetermined Low QRS voltages in precordial leads Abnor mal ECG PREVIOUS TRACING : 11/26/2016 14.47 Since previous tracing, no significant change noted DOCTOR: Kierra Medrano Interpretating Date/Time 11/29/2016 18:23:06
[2016-11-29 20:00] VITALS: BP 109/74; PULSE 74; RESP 22; TEMP 97.7; O2SAT 98
[2016-11-30] VITALS: BP 131/89; PULSE 73; RESP 18; TEMP 98.2; O2SAT 97
[2016-11-30] MEDS: CIPROFLOXACIN 0.3% OPTH SOLN 2.5 ML BTL EACH EYE SCH ×6 (01:05→19:51)
[2016-11-30] MEDS: ALUMINUM/MAGNESIUM/SIMETH 30 ML CUP PO PRN ×2 (01:06→12:07)
[2016-11-30 04:00] VITALS: BP 138/95; PULSE 64; RESP 18; TEMP 98.3; O2SAT 96
[2016-11-30] MEDS: chlordiazePOXIDE 25 MG CAP PO SCH ×3 (05:23→22:17)
[2016-11-30 06:29] LABS: CHLORIDE 102 MEQ/L (98-107); POTASSIUM 3.7 MEQ/L (3.5-5.1); SODIUM (NA) 136 MEQ/L (136-145)
[2016-11-30 06:33] LABS: BLOOD UREA NITROGEN 16 MG/DL (7-18)
[2016-11-30 06:34] LABS: ANION GAP 9 MEQ/L (5-15); BICARBONATE 25.4 MEQ/L (21.0-32.0)
[2016-11-30 06:36] LABS: ALT (GPT) 111 U/L (12-78); AST (GOT) 189 U/L (15-37); GLOMERULAR FILTRATION RATE 81 ML/MIN (>89)
[2016-11-30 06:39] LABS: ALKALINE PHOSPHATASE 94 U/L (45-117)
[2016-11-30 08:00] VITALS: BP 143/96; PULSE 82; RESP 16; TEMP 98.3; O2SAT 96
[2016-11-30] MEDS: ATENOLOL 50 MG TAB PO SCH (09:06)
[2016-11-30] MEDS: FOLIC ACID 1 MG TAB PO SCH (09:06)
[2016-11-30] MEDS: SODIUM CHLORIDE 0.9% FLUSH 5 ML FLUSH FLUSH SCH ×2 (09:06→19:44)
[2016-11-30] MEDS: PANTOPRAZOLE SOD 40 MG DELAYED RELEASE TAB PO SCH (09:06)
[2016-11-30] MEDS: CITALOPRAM HYDROBROMIDE 20 MG TAB PO SCH (09:06)
[2016-11-30] MEDS: MULTIVITAMIN TAB PO SCH (09:06)
[2016-11-30] MEDS: LACTULOSE SYRUP 20 GM/30 ML CUP PO SCH ×4 (09:06→22:17)
[2016-11-30] MEDS: LOSARTAN 25 MG TAB PO SCH (09:06)
[2016-11-30] MEDS: THIAMINE HCL 100 MG TAB PO SCH (09:06)
[2016-11-30] MEDS: CALCIUM CARBONATE 500 MG CHEWABLE TAB CHEW SCH ×2 (09:06→19:51)
[2016-11-30 12:00] VITALS: BP 113/75; PULSE 73; RESP 14; TEMP 98.4; O2SAT 96
--- NOTE | 2016-11-30 14:43 | HHI.PR ---
Subjective Remarks Patient seen in follow-up today for sequelae of chronic alcoholism. He is out of bed to chair with nursing team. Poor oral intake. Ammonia level improved Objective Vitals Vital Signs Date Time Temp Pulse Resp B/P Pulse Ox O2 Delivery O2 Flow Rate FiO2 11/30/16 12:00 98.4 73 14 113/75 96 11/30/16 08:00 98.3 82 16 143/96 96 11/30/16 04:00 98.3 64 18 138/95 96 11/30/16 00:00 98.2 73 18 131/89 97 11/29/16 20:00 97.7 74 22 109/74 98 11/29/16 16:00 98.2 72 20 127/87 99 I/O 11/29/16 11/29/16 11/29/16 11/30/16 11/30/16 11/30/16 07:00 15:00 23:00 07:00 15:00 23:00 Intake Total 240 ml 520 ml 460 ml 320 ml Output Total 500 ml Balance -260 ml 520 ml 460 ml 320 ml Intake Oral 240 ml 520 ml 460 ml 320 ml Output Urine Total 500 ml # Voids 1 3 1 3 # Bowel Movements 1 0 2 2 Result Diagram: 11/29/16 0413 11/30/16 0605 Objective Remarks GENERAL: This is a well-nourished, well-developed patient, in no apparent distress. CARDIOVASCULAR: Regular rate and rhythm without murmurs, gallops, or rubs. RESPIRATORY: Clear to auscultation. Breath sounds equal bilaterally. No wheezes , rales, or rhonchi. GASTROINTESTINAL: Abdomen soft, non-tender, nondistended. Normal active bowel sounds MUSCULOSKELETAL: Extremities without clubbing, cyanosis, or edema. NEURO: Alert & Oriented x4 to person, place, time, situation. Moves all ext x4 A/P Problem List: (1) Alcohol withdrawal ICD Code: F10.239 Status: Acute Plan: CIWA protocol, taper scheduled Librium MVI, thiamin folic acid Consider outpatient drug rehab celexa for depression Very unsteady with physical therapy. Patient will need to be more ambulatory prior to discharge (2) Elevated LFTs ICD Code: R94.5 Status: Acute Plan: Hepatitis profile negative US liver consistent with hepatic steatosis likely due to EtOH Ammonia 56 after lactulose (3) Conjunctivitis ICD Code: H10.9 Status: Acute Plan: Improved Cipro eye gtts BID x7days (4) Hyperglycemia ICD Code: R73.9 Status: Acute Plan: With evidence of diabetes Hemoglobin A1c 6.6 diet controlled (5) HTN (hypertension) ICD Code: I10 Status: Acute Plan: Continue atenolol, Cozaar controlled Discharge Planning pending progress with ambulation status Problem Qualifiers (1) Alcohol withdrawal: Qualified Code: F10.230 - Alcohol withdrawal, uncomplicated Clary Acuna MD Nov 30, 2016 14:43
[2016-11-30 16:00] VITALS: BP 116/85; PULSE 71; RESP 17; TEMP 98.3; O2SAT 96
[2016-11-30 20:00] VITALS: BP 107/77; PULSE 89; RESP 20; TEMP 98.1; O2SAT 96
[2016-12-01] VITALS: BP 96/65; PULSE 74; RESP 20; TEMP 97.6; O2SAT 97
[2016-12-01] MEDS: CIPROFLOXACIN 0.3% OPTH SOLN 2.5 ML BTL EACH EYE SCH ×7 (00:56→23:50)
[2016-12-01 04:00] VITALS: BP 108/71; PULSE 81; RESP 16; TEMP 98.8; O2SAT 95
[2016-12-01 08:00] VITALS: BP 108/73; PULSE 82; RESP 15; TEMP 98.7; O2SAT 98
--- NOTE | 2016-12-01 08:52 | HHI.PR ---
Subjective Remarks Follow-up for chronic alcoholism. Spoke with [employer]. Patient is having pasty bowel movements with lactulose use. Patient admits to having flatulence and BMs. Denies any chest pain or abdominal pain. Admits to shortness of breath "sometimes". Objective Vitals Vital Signs Date Time Temp Pulse Resp B/P Pulse Ox O2 Delivery O2 Flow Rate FiO2 12/01/16 04:00 98.8 81 16 108/71 95 12/01/16 00:00 97.6 74 20 96/65 97 11/30/16 20:00 98.1 89 20 107/77 96 11/30/16 16:00 98.3 71 17 116/85 96 11/30/16 12:00 98.4 73 14 113/75 96 I/O 11/30/16 11/30/16 11/30/16 12/01/16 12/01/16 12/01/16 07:00 15:00 23:00 07:00 15:00 23:00 Intake Total 460 ml 320 ml 240 ml 120 ml Balance 460 ml 320 ml 240 ml 120 ml Intake Oral 460 ml 320 ml 240 ml 120 ml # Voids 1 3 2 # Bowel Movements 2 2 1 2 Result Diagram: 11/29/16 0413 11/30/16 0605 Objective Remarks GENERAL: Well-developed male in no apparent distress sleeping when I enter the room. SKIN: Warm and dry. HEAD: Atraumatic. Normocephalic. EYES: Pupils equal, round, and reactive. .Mild nystagmus with extraocular movements. CARDIOVASCULAR: Regular rate and rhythm. RESPIRATORY: No accessory muscle use. Clear to auscultation. Breath sounds equal bilaterally. GASTROINTESTINAL: Abdomen distended with generalized tenderness. Initially bowel sounds were tinkling and hyperactive. No guarding. NEUROLOGICAL: Awake and alert. When asked what month it is he states a series of months. [facility] [place] [facility]. No obvious cranial nerve deficits. Five out of 5 muscle strength in the arms and legs. Normal speech. Urinary Catheter: No Vascular Central Line Catheter: No A/P Problem List: (1) Alcohol withdrawal ICD Code: F10.239 Status: Acute (2) Elevated LFTs ICD Code: R94.5 Status: Acute (3) Conjunctivitis ICD Code: H10.9 Status: Acute (4) Hyperglycemia ICD Code: R73.9 Status: Acute (5) HTN (hypertension) ICD Code: I10 Status: Acute Assessment and Plan (1) Alcohol withdrawal Acute CIWA protocol, taper scheduled Librium MVI, thiamine, folic acid Consider outpatient drug rehab Celexa for depression Continue PT, drags feet with gait training. (2) Elevated LFTs Acute Hepatitis profile negative US liver consistent with hepatic steatosis likely due to EtOH Currently on Lactulose. Ammonia 56-->66. Add Rifaximin 550 bid. Monitor ammonia level. (3) Conjunctivitis Acute Improved Cipro eye gtts BID x7days while awake (4) Hyperglycemia Acute With evidence of diabetes Hemoglobin A1c 6.6 diet controlled (5) HTN (hypertension) Controlled RN later informed me that patient was hypotensive with BP of 81/64 (MAP 70). Will hold Atenolol and Cozaar which were started on 11/28 and 11/29 respectively. Patient is likely overmedicated at this time as he was initially hypertensive possibly due to alcohol withdrawal. Hypotension could also be due to diarrhea from lactulose use. Will hold medications and administer 500 bolus of NS IV. Dr. Acuna made aware. Monitor BP. Will likely have to decrease medications. Reassess to determine need for further fluids. Problem Qualifiers (1) Alcohol withdrawal: Qualified Code: F10.230 - Alcohol withdrawal, uncomplicated Selam Lui Dec 01, 2016 08:52
[2016-12-01] MEDS: CALCIUM CARBONATE 500 MG CHEWABLE TAB CHEW SCH ×2 (10:09→20:21)
[2016-12-01] MEDS: MULTIVITAMIN TAB PO SCH (10:09)
[2016-12-01] MEDS: THIAMINE HCL 100 MG TAB PO SCH (10:09)
[2016-12-01] MEDS: ATENOLOL 50 MG TAB PO SCH (10:09)
[2016-12-01] MEDS: FOLIC ACID 1 MG TAB PO SCH (10:09)
[2016-12-01] MEDS: PANTOPRAZOLE SOD 40 MG DELAYED RELEASE TAB PO SCH (10:09)
[2016-12-01] MEDS: LOSARTAN 25 MG TAB PO SCH (10:09)
[2016-12-01] MEDS: CITALOPRAM HYDROBROMIDE 20 MG TAB PO SCH (10:09)
[2016-12-01] MEDS: chlordiazePOXIDE 25 MG CAP PO SCH ×2 (10:10→20:21)
[2016-12-01] MEDS: LACTULOSE SYRUP 20 GM/30 ML CUP PO SCH ×4 (10:11→20:21)
[2016-12-01] MEDS: SODIUM CHLORIDE 0.9% FLUSH 5 ML FLUSH FLUSH SCH ×2 (10:11→20:23)
[2016-12-01 12:00] VITALS: BP 107/58; PULSE 70; RESP 16; TEMP 97.8; O2SAT 98
[2016-12-01 16:00] VITALS: BP 81/64; PULSE 71; RESP 15; TEMP 98.2; O2SAT 98
[2016-12-01] MEDS ORDERED: SODIUM CHLORID 0.9% 500 ML INJ 500 ML IV ONE (16:00)
[2016-12-01 20:00] VITALS: BP_SYST 88; BP_SYST 93; BP_DIAS 60; BP_DIAS 73; PULSE 53; PULSE 69; RESP 18; TEMP 97.1; TEMP 98.5; O2SAT 94; O2SAT 98
[2016-12-01] MEDS: RIFAXIMIN 550 MG TAB PO SCH (20:23)
[2016-12-01] MEDS: diphenhydrAMINE HCL 25 MG CAP PO PRN (21:18)
[2016-12-02] VITALS: BP 89/64; PULSE 69; RESP 20; TEMP 96.7; O2SAT 95
[2016-12-02 04:00] VITALS: BP 90/60; PULSE 69; RESP 16; TEMP 97.3; O2SAT 94
[2016-12-02] MEDS: CIPROFLOXACIN 0.3% OPTH SOLN 2.5 ML BTL EACH EYE SCH ×5 (04:00→22:21)
[2016-12-02 08:00] VITALS: BP 99/68; PULSE 68; RESP 20; TEMP 97.2; O2SAT 94
[2016-12-02] MEDS: LACTULOSE SYRUP 20 GM/30 ML CUP PO SCH ×4 (08:11→21:00)
[2016-12-02] MEDS: CITALOPRAM HYDROBROMIDE 20 MG TAB PO SCH (08:15)
[2016-12-02] MEDS: chlordiazePOXIDE 25 MG CAP PO SCH (08:15)
[2016-12-02] MEDS: MULTIVITAMIN TAB PO SCH (08:16)
[2016-12-02] MEDS: THIAMINE HCL 100 MG TAB PO SCH (08:16)
[2016-12-02] MEDS: PANTOPRAZOLE SOD 40 MG DELAYED RELEASE TAB PO SCH (08:16)
[2016-12-02] MEDS: RIFAXIMIN 550 MG TAB PO SCH ×2 (08:16→22:23)
[2016-12-02] MEDS: FOLIC ACID 1 MG TAB PO SCH (08:16)
[2016-12-02] MEDS: CALCIUM CARBONATE 500 MG CHEWABLE TAB CHEW SCH ×2 (08:18→22:23)
[2016-12-02] MEDS: SODIUM CHLORIDE 0.9% FLUSH 5 ML FLUSH FLUSH SCH ×2 (08:18→22:22)
--- NOTE | 2016-12-02 09:58 | HHI.PR ---
Subjective Remarks Patient seen in follow-up for chronic alcoholism with metabolic encephalopathy. Patient still quite dependent on staff for movement and for activity. Objective Vitals Vital Signs Date Time Temp Pulse Resp B/P Pulse Ox O2 Delivery O2 Flow Rate FiO2 12/02/16 08:00 97.2 68 20 99/68 94 12/02/16 04:00 97.3 69 16 90/60 94 12/02/16 00:00 96.7 69 20 89/64 95 12/01/16 20:00 97.1 69 18 88/73 98 12/01/16 20:00 98.5 53 18 93/60 94 12/01/16 16:00 98.2 71 15 81/64 98 12/01/16 12:00 97.8 70 16 107/58 98 I/O 12/01/16 12/01/16 12/01/16 12/02/16 12/02/16 12/02/16 07:00 15:00 23:00 07:00 15:00 23:00 Intake Total 120 ml 520 ml 320 ml 60 ml Balance 120 ml 520 ml 320 ml 60 ml Intake Oral 120 ml 520 ml 320 ml 60 ml IV Total 0 ml # Voids 2 3 2 5 # Bowel Movements 2 3 1 2 Result Diagram: 11/29/16 0413 11/30/16 0605 Objective Remarks GENERAL: This is a well-nourished, well-developed patient, in no apparent distress. CARDIOVASCULAR: Regular rate and rhythm without murmurs, gallops, or rubs. RESPIRATORY: Clear to auscultation. Breath sounds equal bilaterally. No wheezes , rales, or rhonchi. GASTROINTESTINAL: Abdomen soft, non-tender, nondistended. Normal active bowel sounds MUSCULOSKELETAL: Extremities without clubbing, cyanosis, or edema. NEURO: Alert & Oriented x4 to person, place, time, situation. Moves all ext x4 A/P Problem List: (1) Alcohol withdrawal ICD Code: F10.239 Status: Acute Plan: CIWA protocol, taper scheduled Librium MVI, thiamine folic acid Consider outpatient drug rehab Celexa for depression Very unsteady with physical therapy. Patient will need to be more ambulatory prior to discharge OOB BID (2) Elevated LFTs ICD Code: R94.5 Status: Acute Plan: Hepatitis profile negative US liver consistent with hepatic steatosis likely due to EtOH Ammonia 66, continue lactulose and rifaximin Patient with metabolic encephalopathy (3) Conjunctivitis ICD Code: H10.9 Status: Acute Plan: Improved Cipro eye gtts BID x7days (4) Hyperglycemia ICD Code: R73.9 Status: Acute Plan: With evidence of diabetes Hemoglobin A1c 6.6 diet controlled (5) HTN (hypertension) ICD Code: I10 Status: Acute Plan: Some hypotension, we'll hold atenolol and Cozaar for now Discharge Planning pending progress with ambulation status Problem Qualifiers (1) Alcohol withdrawal: Qualified Code: F10.230 - Alcohol withdrawal, uncomplicated Clary Acuna MD Dec 02, 2016 09:58
[2016-12-02 12:00] VITALS: BP 98/66; PULSE 70; RESP 20; TEMP 96.9; O2SAT 93
[2016-12-02 16:00] VITALS: BP 130/72; PULSE 72; RESP 22; TEMP 97.8; O2SAT 94
--- NOTE | 2016-12-02 16:04 | RADHPO ---
EXAM DATE/TIME: 12/02/2016 15:51 [facility] COMPARISON: No previous studies available for comparison. INDICATIONS : Generalized weakness. RADIATION DOSE: 55.88 CTDIvol (mGy) MEDICAL HISTORY : None SURGICAL HISTORY : None. ENCOUNTER: Initial ACUITY: 1 day PAIN SCALE: 0/10 LOCATION: cranial TECHNIQUE: Multiple contiguous axial images were obtained of the head. Using automated exposure control and adj ustment of the mA and/or kV according to patient size, radiation dose was kept as low as reasonably a chievable to obtain optimal diagnostic quality images. FINDINGS: CEREBRUM: The ventricles are normal for age. No evidence of midline shift, mass lesion, hemorrhage or acute in farction. No extra-axial fluid collections are seen. POSTERIOR FOSSA: The cerebellum and brainstem are intact. The 4th ventricle is midline. The cerebellopontine angle i s unremarkable. EXTRACRANIAL: The visualized portion of the orbits is intact. SKULL: The calvaria is intact. No evidence of skull fracture. CONCLUSION: No acute disease. Juwan Rodríguez MD FACR on December 02, 2016 at 16:02 Board Certified Radiologist. This report was verified electronically.
[2016-12-02 20:00] VITALS: BP 87/63; PULSE 69; RESP 20; TEMP 96.6; O2SAT 96
[2016-12-03] VITALS: BP 97/76; PULSE 90; RESP 18; TEMP 96; O2SAT 96
[2016-12-03 04:00] VITALS: BP 90/66; PULSE 82; RESP 20; TEMP 96; O2SAT 95
[2016-12-03] MEDS: CIPROFLOXACIN 0.3% OPTH SOLN 2.5 ML BTL EACH EYE SCH ×6 (05:14→20:52)
[2016-12-03 06:09] LABS: AUTOMATED NEUTROPHIL # 4.7 TH/MM3 (1.8-7.7); BASOPHIL # 0.1 TH/MM3 (0-0.2); BASOPHIL % 1.4 % (0.0-2.0); EOSINOPHIL # 0.1 TH/MM3 (0-0.4); EOSINOPHIL % 1.7 % (0.0-4.0); HEMATOCRIT 39.1 % (39.0-51.0); LYMPH % 17.7 % (9.0-44.0); LYMPHOCYTE # 1.2 TH/MM3 (1.0-4.8); MEAN CELL VOLUME 95.9 FL (80.0-100.0); MEAN CORPUSCULAR HGB CONC 33.4 % (32.0-36.0); MONO % 12.3 % (0.0-8.0); NEUT % 66.9 % (16.0-70.0); PLATELET COUNT 185 TH/MM3 (150-450); RED BLOOD COUNT 4.08 MIL/MM3 (4.50-5.90); RED CELL DISTRIBUTION WIDTH 16.9 % (11.6-17.2)
[2016-12-03 06:15] LABS: HEMO FLAGS AUTO DIFF
[2016-12-03 06:22] LABS: CHLORIDE 105 MEQ/L (98-107); SODIUM (NA) 141 MEQ/L (136-145)
[2016-12-03 06:27] LABS: ANION GAP 13 MEQ/L (5-15); BICARBONATE 23.4 MEQ/L (21.0-32.0)
[2016-12-03 06:37] LABS: ALKALINE PHOSPHATASE 75 U/L (45-117); ALT (GPT) 55 U/L (12-78); AST (GOT) 55 U/L (15-37); BLOOD UREA NITROGEN 46 MG/DL (7-18); GLOMERULAR FILTRATION RATE 18 ML/MIN (>89); TOTAL BILIRUBIN ADULT 1.3 MG/DL (0.2-1.0)
[2016-12-03 06:51] LABS: SCAN/DIFF AUTO DIFF CONFIRMED
[2016-12-03 08:00] VITALS: BP 102/74; PULSE 72; RESP 19; TEMP 97.5; O2SAT 95
[2016-12-03] MEDS: MULTIVITAMIN TAB PO SCH (08:24)
[2016-12-03] MEDS: FOLIC ACID 1 MG TAB PO SCH (08:24)
[2016-12-03] MEDS: CALCIUM CARBONATE 500 MG CHEWABLE TAB CHEW SCH ×2 (08:24→20:58)
[2016-12-03] MEDS: THIAMINE HCL 100 MG TAB PO SCH (08:24)
[2016-12-03] MEDS: LACTULOSE SYRUP 20 GM/30 ML CUP PO SCH ×2 (08:24→20:54)
[2016-12-03] MEDS: PANTOPRAZOLE SOD 40 MG DELAYED RELEASE TAB PO SCH (08:24)
[2016-12-03] MEDS: CITALOPRAM HYDROBROMIDE 20 MG TAB PO SCH (08:24)
[2016-12-03] MEDS: RIFAXIMIN 550 MG TAB PO SCH (08:24)
[2016-12-03] MEDS: SODIUM CHLORIDE 0.9% FLUSH 5 ML FLUSH FLUSH SCH ×2 (08:27→20:54)
[2016-12-03] MEDS ORDERED: chlordiazePOXIDE 25 MG CAP PO SCH (09:00)
[2016-12-03 09:19] LABS: BICARBONATE 22.4 MEQ/L (21.0-32.0); MAGNESIUM 2.8 MG/DL (1.5-2.5)
[2016-12-03 09:24] LABS: POTASSIUM 2.9 MEQ/L (3.5-5.1)
[2016-12-03] MEDS ORDERED: POTASSIUM PHOSPHATE INJ 30 MMOL in SODIUM CHLOR 0.9% 250 ML INJ 250 ML IV ONE (10:00)
--- NOTE | 2016-12-03 10:32 | HHI.PR ---
Subjective Remarks Patient seen today in follow-up for alcoholic dependency, withdrawal and metabolic encephalopathy. Renal function abnormal. Ammonia improved Objective Vitals Vital Signs Date Time Temp Pulse Resp B/P Pulse Ox O2 Delivery O2 Flow Rate FiO2 12/03/16 08:00 97.5 72 19 102/74 95 12/03/16 04:00 96.0 82 20 90/66 95 12/03/16 00:00 96.0 90 18 97/76 96 12/02/16 20:00 96.6 69 20 87/63 96 12/02/16 16:00 97.8 72 22 130/72 94 12/02/16 12:00 96.9 70 20 98/66 93 I/O 12/02/16 12/02/16 12/02/16 12/03/16 12/03/16 12/03/16 07:00 15:00 23:00 07:00 15:00 23:00 Intake Total 60 ml 525 ml 122 ml 60 ml Balance 60 ml 525 ml 122 ml 60 ml Intake Oral 60 ml 525 ml 120 ml 60 ml IV Total 0 ml 2 ml # Voids 5 2 2 1 # Bowel Movements 2 2 4 1 Result Diagram: 12/03/16 0500 12/03/16 0747 Imaging Last Impressions Head CT 12/02/16 0000 Signed Impressions: Service Date/Time: Friday, December 02, 2016 15:51 - CONCLUSION: No acute disease. Juwan Rodríguez MD FACR Liver Ultrasound 11/27/16 0000 Signed Impressions: Service Date/Time: Sunday, November 27, 2016 15:12 - CONCLUSION: 1. Mild hepatomegaly. The echotexture of the liver is consistent with hepatic steatosis. 2. Cholelithiasis. The common bile duct is not visualized on this exam secondary to bowel gas. No evidence of intrahepatic biliary obstruction. 3. Given the cortical thinning and increased echogenicity concerning for renal disease. Recommend correlating with the patient's GFR.. Kateryna Lopez MD Chest X-Ray 11/26/16 1503 Signed Impressions: Service Date/Time: Saturday, November 26, 2016 15:35 - CONCLUSION: No acute cardiopulmonary abnormality is identified. Chato Meyer MD Objective Remarks GENERAL: This is a well-nourished, well-developed patient, in no apparent distress. CARDIOVASCULAR: Regular rate and rhythm without murmurs, gallops, or rubs. RESPIRATORY: Clear to auscultation. Breath sounds equal bilaterally. No wheezes , rales, or rhonchi. GASTROINTESTINAL: Abdomen soft, non-tender, nondistended. Normal active bowel sounds MUSCULOSKELETAL: Extremities without clubbing, cyanosis, or edema. NEURO: Alert & Oriented x4 to person, place and time although still somewhat encephalopathic A/P Problem List: (1) Alcohol withdrawal ICD Code: F10.239 Status: Acute Plan: Ativan as needed, DC Librium MVI, thiamine folic acid Consider outpatient drug rehab Celexa for depression Very unsteady with physical therapy. Patient will need to be more ambulatory prior to discharge OOB BID (2) Elevated LFTs ICD Code: R94.5 Status: Acute Plan: Hepatitis profile negative US liver consistent with hepatic steatosis likely due to EtOH Ammonia 20, continue lactulose twice a day Patient with metabolic encephalopathy (3) Conjunctivitis ICD Code: H10.9 Status: Acute Plan: Resolved (4) Hyperglycemia ICD Code: R73.9 Status: Acute Plan: With evidence of diabetes Hemoglobin A1c 6.6 diet controlled (5) HTN (hypertension) ICD Code: I10 Status: Acute Plan: Some hypotension, we'll hold atenolol and Cozaar for now (6) Acute kidney injury ICD Code: N17.9 Status: Acute Plan: May be leftover from hypotension. We'll continue with holding blood pressure medications, renal ultrasound pending Replace electrolytes, renal consult UA (7) Anemia ICD Code: D64.9 Status: Acute Plan: Likely of chronic disease, Hemoccult pending Discharge Planning pending progress with ambulation status patient was home independently Problem Qualifiers (1) Alcohol withdrawal: Qualified Code: F10.230 - Alcohol withdrawal, uncomplicated Clary Acuna MD Dec 03, 2016 10:32
[2016-12-03 12:00] VITALS: BP 110/85; PULSE 68; RESP 18; TEMP 97.7; O2SAT 94
[2016-12-03 13:41] LABS: TRANSFERRIN IRON PROFILE 148 MG/DL (200-360)
[2016-12-03 16:00] VITALS: BP 108/76; PULSE 75; RESP 20; TEMP 97.4; O2SAT 95
--- NOTE | 2016-12-03 16:10 | RADHPO ---
EXAM DATE/TIME: 12/03/2016 14:57 [facility] COMPARISON: No previous studies available for comparison. INDICATIONS : Increased BUN and creatinine. MEDICAL HISTORY : Dyspnea. ETOH abuse. Hallucinations from withdrawal. SURGICAL HISTORY : Ankle surgery. ENCOUNTER: Initial ACUITY: 1 day PAIN SCORE: 2/10 LOCATION: Bilateral flank MEASUREMENTS: RIGHT KIDNEY: 11.3 x 7.4 x 7.9 cm LEFT KIDNEY: 11.5 x 7.3 x 6.8 cm FINDINGS: The kidneys are normal bilaterally without evidence of mass or hydronephrosis. There is a 1.8 cm ston e in the midpole the right kidney without obstruction. There is a single simple cyst in the left kid minerva measuring 4.9 CM with a second cyst measuring 1.9 CM. Debris is present in the dependent portion of the bladder. CONCLUSION: 1. No evidence of obstruction 2. Debris within the bladder which may be related to infection or hemorrhage Jez Tay MD on December 03, 2016 at 16:07 Board Certified Radiologist. This report was verified electronically.
[2016-12-03 20:00] VITALS: BP 86/70; PULSE 71; RESP 20; TEMP 97.6; O2SAT 97
[2016-12-04] VITALS: BP 98/77; PULSE 76; RESP 20; TEMP 96.3; O2SAT 98
[2016-12-04] MEDS: CIPROFLOXACIN 0.3% OPTH SOLN 2.5 ML BTL EACH EYE SCH ×6 (00:21→23:34)
[2016-12-04 04:00] VITALS: BP 88/66; PULSE 71; RESP 20; TEMP 96; O2SAT 97
[2016-12-04 07:08] LABS: BLOOD, URINE NEG (NEG); GLUCOSE,URINE NEG (NEG); KETONE, URINE NEG (NEG); NITRITE,URINE NEG (NEG); PH, URINE 5.5 (5.0-8.5)
[2016-12-04 07:10] LABS: ALKALINE PHOSPHATASE 93 U/L (45-117); ALT (GPT) 43 U/L (12-78); ANION GAP 12 MEQ/L (5-15); AST (GOT) 46 U/L (15-37); BICARBONATE 20.7 MEQ/L (21.0-32.0); BLOOD UREA NITROGEN 53 MG/DL (7-18); CHLORIDE 109 MEQ/L (98-107); GLOMERULAR FILTRATION RATE 30 ML/MIN (>89); SODIUM (NA) 142 MEQ/L (136-145); TOTAL BILIRUBIN ADULT 0.9 MG/DL (0.2-1.0)
[2016-12-04 07:23] LABS: POTASSIUM 2.8 MEQ/L (3.5-5.1)
[2016-12-04 07:34] LABS: HYALINE CAST, URINE 0-2 /lpf (RARE); METHOD OF COLLECTION CLEAN CATCH; URINE COLOR YELLOW (YELLW/STRAW)
[2016-12-04 07:35] LABS: COMMENT (UR) CULT NOT INDICATED; CULTURE IF INDICATED CULT NOT INDICATED; SQUAMOUS EPITHELIAL CELL URINE 0-5 /hpf (0-5); WBC, URINE 0-2 /hpf (0-5)
--- NOTE | 2016-12-04 07:49 | PD.CONS ---
HPI Service Nephrology Consult Requested By Dr. Acuna Reason for Consult Dehydration with renal insufficiency Primary Care Physician No Primary Care Physician History of Present Illness Patient is 61-year-old white male with history of alcoholism he admits to drinking about 6 beers a day on daily basis, he denies any medical issues he was brought in confused by his family, he has alcoholic hepatitis and initially sodium was low due to alcoholism but this got corrected after hydration, however he has poor intake and his creatinine was higher yesterday 3.3 with creatinine dropped to 2.2 today as she started drinking water. A kidney ultrasound was done which showed no evidence of obstruction and there was debris in the bladder. Review of Systems Constitutional: COMPLAINS OF: Fatigue Neurologic: COMPLAINS OF: Abnormal gait Psychiatric: COMPLAINS OF: Anxiety Past Family Social History Allergies: Coded Allergies: No Known Allergies (Verified , 11/26/16) Past Medical History Alcoholism Past Surgical History None Reported Medications Reported Meds & Active Scripts Active No Active Prescriptions or Reported Medications Active Ordered Medications Current Medications Medications (Trade) Dose Ordered Sig/Ludwig Route Start Time Stop Time Status Last Admin (Zofran Inj) 4 mg Q8H PRN IV PUSH 11/26/16 16:30 12/01/16 10:23 (Ativan) 1 mg Q4H PRN PO 11/26/16 16:30 11/28/16 20:18 (Ativan Inj) 1 mg Q4H PRN IV PUSH 11/26/16 16:30 (Ativan) 2 mg Q2H PRN PO 11/26/16 16:30 11/29/16 04:23 (Ativan Inj) 2 mg Q2H PRN IV PUSH 11/26/16 16:30 11/28/16 05:25 (Ativan Inj) 2 mg Q1H PRN IV PUSH 11/26/16 16:30 (Ativan Inj) 2 mg Q15M PRN IV PUSH 11/26/16 16:30 (NS Flush) 2 ml UNSCH PRN FLUSH 11/26/16 16:45 (NS Flush) 2 ml BID FLUSH 11/26/16 21:00 12/03/16 20:54 (Tylenol) 650 mg Q4H PRN PO 11/26/16 16:45 (Vitamin B1) 100 mg DAILY PO 11/27/16 09:00 12/03/16 08:24 (Theragran) 1 tab DAILY PO 11/27/16 09:00 12/03/16 08:24 (Folate) 1 mg DAILY PO 11/27/16 09:00 12/03/16 08:24 (Protonix) 40 mg DAILY PO 11/27/16 09:00 12/03/16 08:24 (CeleXA) 20 mg DAILY PO 11/27/16 12:35 12/03/16 08:24 (Tums Chew) 500 mg Q12HR CHEW 11/27/16 21:00 12/03/16 20:58 (Mag-Al Plus Susp Liq) 30 ml Q6H PRN PO 11/28/16 12:15 11/30/16 12:07 (Ciloxan 0.3% Opth Soln) 1 drop Q4H EACH EYE 11/28/16 16:00 12/05/16 15:59 12/04/16 00:21 (Benadryl) 25 mg HS PRN PO 11/29/16 11:45 12/01/16 21:18 (Lactulose Liq) 30 ml BID PO 12/03/16 21:00 12/03/16 20:54 Family History Noncontributory Social History Denies tobacco use admits to 6 beers a day Physical Exam Vital Signs Vital Signs Date Time Temp Pulse Resp B/P Pulse Ox O2 Delivery O2 Flow Rate FiO2 12/04/16 04:00 96.0 71 20 88/66 97 12/04/16 00:00 96.3 76 20 98/77 98 12/03/16 20:00 97.6 71 20 86/70 97 12/03/16 16:00 97.4 75 20 108/76 95 12/03/16 12:00 97.7 68 18 110/85 94 12/03/16 08:00 97.5 72 19 102/74 95 Physical Exam GENERAL: Well-nourished, disheveled patient. SKIN: Warm and dry. HEAD: Normocephalic. EYES: No scleral icterus. No injection or drainage. NECK: Supple, trachea midline. No JVD or lymphadenopathy. CARDIOVASCULAR: Regular rate and rhythm without murmurs, gallops, or rubs. RESPIRATORY: Breath sounds equal bilaterally. No accessory muscle use. GASTROINTESTINAL: Abdomen soft, non-tender, nondistended. EXTREMITIES: No cyanosis, or edema. NEUROLOGICAL: Awake, alert, and oriented x 3. Non-focal. Laboratory Laboratory Tests Test 12/03/16 12/04/16 12/04/16 07:47 06:30 06:40 Sodium Level 140 142 Potassium Level 2.9 2.8 Chloride Level 105 109 Carbon Dioxide Level 22.4 20.7 Anion Gap 13 12 Blood Urea Nitrogen 47 53 Creatinine 3.30 2.20 Estimat Glomerular Filtration 19 30 Rate Random Glucose 91 105 Calcium Level 9.0 8.6 Magnesium Level 2.8 Ammonia 20 56 Total Bilirubin 0.9 Aspartate Amino Transf 46 (AST/SGOT) Alanine Aminotransferase 43 (ALT/SGPT) Alkaline Phosphatase 93 Total Protein 6.3 Albumin 1.9 Urine Collection Type CLEAN CATCH Urine Color YELLOW Urine Turbidity CLEAR Urine pH 5.5 Urine Specific [place] 1.023 Urine Protein 30 Urine Glucose (UA) NEG Urine Ketones NEG Urine Occult Blood NEG Urine Nitrite NEG Urine Bilirubin NEG Urine Leukocyte Esterase TRACE Urine WBC 0-2 Urine Squamous Epithelial 0-5 Cells Urine Hyaline Casts 0-2 Microscopic Urinalysis Comment CULT NOT INDICATED Urine Collection Time 06:40 Result Diagram: 12/03/16 0500 12/04/16 0630 Assessment and Plan Problem List: (1) Acute kidney insufficiency Plan: This is likely due to poor oral intake and I will start him on D5 half normal saline with 20 mEq of potassium had 100 cc an hour Check urine sodium Continue to monitor electrolytes (2) Dehydration Plan: As above (3) Alcoholic hepatitis Plan: Continue to hydrate avoid alcohol intake Problem Qualifiers (1) Alcoholic hepatitis: Qualified Code: K70.10 - Alcoholic hepatitis without ascites Blanca Goodson MD Dec 04, 2016 07:49
[2016-12-04 08:37] VITALS: BP 114/77; PULSE 77; RESP 18; TEMP 97.3; O2SAT 95
[2016-12-04] MEDS: PANTOPRAZOLE SOD 40 MG DELAYED RELEASE TAB PO SCH (09:28)
[2016-12-04] MEDS: CALCIUM CARBONATE 500 MG CHEWABLE TAB CHEW SCH ×2 (09:28→23:35)
[2016-12-04] MEDS: CITALOPRAM HYDROBROMIDE 20 MG TAB PO SCH (09:28)
[2016-12-04] MEDS: LACTULOSE SYRUP 20 GM/30 ML CUP PO SCH (09:28)
[2016-12-04] MEDS: FOLIC ACID 1 MG TAB PO SCH (09:28)
[2016-12-04] MEDS: THIAMINE HCL 100 MG TAB PO SCH (09:28)
[2016-12-04] MEDS: MULTIVITAMIN TAB PO SCH (09:28)
[2016-12-04] MEDS: SODIUM CHLORIDE 0.9% FLUSH 5 ML FLUSH FLUSH SCH ×2 (09:29→21:00)
[2016-12-04] MEDS: D5-1/2 NS + KCL 20 MEQ INJ 1,000 ML IV SCH ×2 (09:29→18:08)
[2016-12-04] MEDS: POTASSIUM CHLOR 20 MEQ PREMIX 100 ML IV SCH ×2 (09:47→12:23)
[2016-12-04 13:00] VITALS: BP 118/74; PULSE 72; RESP 18; TEMP 97; O2SAT 94
--- NOTE | 2016-12-04 16:07 | HHI.PR ---
Subjective Remarks Patient sleeping, awakens and appears confused. I asked him what month it is and he states it is November. He is unable to tell me the name of the president. Patient falls back asleep and does not answer further questions. Patient having copious loose stools from the lactulose and getting excoriated rash. Objective Vitals Vital Signs Date Time Temp Pulse Resp B/P Pulse Ox O2 Delivery O2 Flow Rate FiO2 12/04/16 08:37 97.3 77 18 114/77 95 12/04/16 04:00 96.0 71 20 88/66 97 12/04/16 00:00 96.3 76 20 98/77 98 12/03/16 20:00 97.6 71 20 86/70 97 I/O 12/03/16 12/03/16 12/03/16 12/04/16 12/04/16 12/04/16 07:00 15:00 23:00 07:00 15:00 23:00 Intake Total 60 ml 360 ml 240 ml Output Total 1 ml 0 ml Balance 60 ml -1 ml 360 ml 240 ml Intake Oral 60 ml 360 ml 240 ml Output Urine Total 0 ml Stool Total 1 ml # Voids 1 1 0 # Bowel Movements 1 2 4 8 Result Diagram: 12/03/16 0500 12/04/16 0630 Objective Remarks GENERAL: Well-nourished, well-developed obese male patient with cushingoid facies. SKIN: Warm and dry. HEAD: Normocephalic. EYES: No scleral icterus. No injection or drainage. NECK: Supple, trachea midline. No JVD or lymphadenopathy. CARDIOVASCULAR: Regular rate and rhythm without murmurs, gallops, or rubs. RESPIRATORY: Breath sounds equal bilaterally. No accessory muscle use. GASTROINTESTINAL: Abdomen soft, non-tender, nondistended. EXTREMITIES: No cyanosis, or edema. NEUROLOGICAL: Asleep. Becomes awake and briefly alert. Seems oriented to month only. Further exam limited by patient's somnolence. A/P Problem List: (1) Alcohol withdrawal ICD Code: F10.239 Status: Acute (2) Elevated LFTs ICD Code: R94.5 Status: Acute (3) Conjunctivitis ICD Code: H10.9 Status: Acute (4) Hyperglycemia ICD Code: R73.9 Status: Acute (5) HTN (hypertension) ICD Code: I10 Status: Acute (6) Acute kidney injury ICD Code: N17.9 Status: Acute (7) Anemia ICD Code: D64.9 Status: Acute Assessment and Plan (1) Alcohol withdrawal ICD Code: F10.239 Status: Acute Plan: Ativan as needed per KATHLEENWA MVI, thiamine folic acid Celexa for depression Very unsteady with physical therapy. Patient will need to be more ambulatory prior to discharge OOB BID (2) Elevated LFTs ICD Code: R94.5 Status: Acute Plan: Hepatitis profile negative US liver consistent with hepatic steatosis likely due to EtOH Ammonia 20, DC lactulose secondary to explosive diarrhea and will place on rifaximin instead. Patient with metabolic encephalopathy (3) Conjunctivitis ICD Code: H10.9 Status: Acute Plan: Resolved (4) Hyperglycemia ICD Code: R73.9 Status: Acute Plan: With evidence of diabetes Hemoglobin A1c 6.6 diet controlled (5) HTN (hypertension) ICD Code: I10 Status: Acute Plan: Some hypotension, hold atenolol and Cozaar for now (6) Acute kidney injury ICD Code: N17.9 Status: Acute - now improving. Plan: May be leftover from hypotension. Improved with IV fluids. We'll continue with holding blood pressure medications, renal ultrasound was negative for obstruction Replace electrolytes, renal consult appreciated UA (7) Anemia ICD Code: D64.9 Mild. Hemoglobin stable. No evidence of bleeding. Discharge Planning pending progress with ambulation status patient was home independently Problem Qualifiers (1) Alcohol withdrawal: Qualified Code: F10.230 - Alcohol withdrawal, uncomplicated Heather Paniagua MD Dec 04, 2016 16:07
[2016-12-04 17:00] VITALS: BP 107/78; PULSE 70; RESP 16; TEMP 96.6; O2SAT 99
[2016-12-04 20:00] VITALS: BP 118/99; PULSE 78; RESP 18; TEMP 96.4; O2SAT 99
[2016-12-04] MEDS: LOPERAMIDE HCL 2 MG CAP PO PRN (23:35)
[2016-12-04] MEDS: RIFAXIMIN 550 MG TAB PO SCH (23:35)
[2016-12-04] MEDS: diphenhydrAMINE HCL 25 MG CAP PO PRN (23:35)
[2016-12-05] VITALS: BP 131/101; PULSE 73; RESP 18; TEMP 98.5; O2SAT 100
[2016-12-05] MEDS: D5-1/2 NS + KCL 20 MEQ INJ 1,000 ML IV SCH ×3 (00:05→20:07)
[2016-12-05] MEDS: CIPROFLOXACIN 0.3% OPTH SOLN 2.5 ML BTL EACH EYE SCH ×4 (03:21→10:25)
[2016-12-05 06:29] LABS: PROTHROMBIN TIME - PATIENT 11.4 SEC (9.8-11.6)
[2016-12-05 07:21] LABS: CHLORIDE 112 MEQ/L (98-107); POTASSIUM 3.1 MEQ/L (3.5-5.1); SODIUM (NA) 143 MEQ/L (136-145)
[2016-12-05 07:25] LABS: ANION GAP 10 MEQ/L (5-15); BICARBONATE 21.3 MEQ/L (21.0-32.0); MAGNESIUM 2.2 MG/DL (1.5-2.5)
[2016-12-05 07:32] LABS: ALKALINE PHOSPHATASE 75 U/L (45-117); ALT (GPT) 41 U/L (12-78); AST (GOT) 52 U/L (15-37); BLOOD UREA NITROGEN 41 MG/DL (7-18); GLOMERULAR FILTRATION RATE 56 ML/MIN (>89)
--- NOTE | 2016-12-05 07:32 | HHI.NPPN ---
Subjective History of Present Illness 61 year old with Alcoholism, ABBY, Dehydration Review of Systems General Constitutional: Fatigue Objective Data Data 12/04/16 12/05/16 19:00 07:00 Intake Total 1634 ml Output Total 600 ml Balance 1034 ml IV Total 1634 ml Stool Total 600 ml # Bowel Movements 20 Vital Signs Date Time Temp Pulse Resp B/P Pulse Ox O2 Delivery O2 Flow Rate FiO2 12/05/16 00:00 98.5 73 18 131/101 100 12/04/16 20:00 96.4 78 18 118/99 99 12/04/16 17:00 96.6 70 16 107/78 99 12/04/16 13:00 97.0 72 18 118/74 94 12/04/16 08:37 97.3 77 18 114/77 95 -: 12/03/16 0500 12/05/16 0535 Physical Exam General Appearance: Well Developed, Well Nourished Neck Neck Exam: Neck Supple Pulmonary Resp Exam: Clear Bilaterally, Breath Sounds Equal Cardiology CV Exam: Regular, Normal Sinus Rhythm Gastrointestinal/Abdomen GI Exam: Soft, Non-Tender, Bowel Sounds Present Integumentary Skin Exam: Clear Extremeties Extremities Exam: No Edema Neurologic Neuro Exam: Alert Assessment/Plan Problem List: (1) Acute kidney insufficiency Plan: This is likely due to poor oral intake he is on D5 half normal saline with 20 mEq of potassium had 100 cc an hour K 3.1 continue to replace he is getting with IVF Cr pending Nephrology to follow PRN Bases (2) Dehydration Plan: As above (3) Alcoholic hepatitis Plan: Continue to hydrate avoid alcohol intake Problem Qualifiers (1) Alcoholic hepatitis: Qualified Code: K70.10 - Alcoholic hepatitis without ascites Blanca Goodson MD Dec 05, 2016 07:32
[2016-12-05 08:00] VITALS: BP 128/82; PULSE 75; RESP 19; TEMP 98.2; O2SAT 96
[2016-12-05] MEDS: SODIUM CHLORIDE 0.9% FLUSH 5 ML FLUSH FLUSH SCH ×2 (09:00→20:06)
[2016-12-05] MEDS: LOPERAMIDE HCL 2 MG CAP PO PRN ×2 (09:13→20:06)
[2016-12-05] MEDS: PANTOPRAZOLE SOD 40 MG DELAYED RELEASE TAB PO SCH (09:13)
[2016-12-05] MEDS: RIFAXIMIN 550 MG TAB PO SCH ×2 (09:13→20:06)
[2016-12-05] MEDS: CITALOPRAM HYDROBROMIDE 20 MG TAB PO SCH (09:13)
[2016-12-05] MEDS: THIAMINE HCL 100 MG TAB PO SCH (09:13)
[2016-12-05] MEDS: MULTIVITAMIN TAB PO SCH (09:13)
[2016-12-05] MEDS: CALCIUM CARBONATE 500 MG CHEWABLE TAB CHEW SCH ×2 (09:13→20:06)
[2016-12-05] MEDS: FOLIC ACID 1 MG TAB PO SCH (09:13)
[2016-12-05 12:00] VITALS: BP 125/80; PULSE 77; RESP 18; TEMP 98; O2SAT 98
--- NOTE | 2016-12-05 15:53 | HHI.PR ---
Subjective Remarks pt a little more alert today. states "I missed my lunch." Objective Vitals Vital Signs Date Time Temp Pulse Resp B/P Pulse Ox O2 Delivery O2 Flow Rate FiO2 12/05/16 12:00 98.0 77 18 125/80 98 12/05/16 08:00 98.2 75 19 128/82 96 12/05/16 00:00 98.5 73 18 131/101 100 12/04/16 20:00 96.4 78 18 118/99 99 12/04/16 17:00 96.6 70 16 107/78 99 I/O 12/04/16 12/04/16 12/04/16 12/05/16 12/05/16 12/05/16 07:00 15:00 23:00 07:00 15:00 23:00 Intake Total 240 ml 1634 ml 280 ml Output Total 0 ml 600 ml Balance 240 ml 1034 ml 280 ml Intake Oral 240 ml 280 ml IV Total 1634 ml Output Urine Total 0 ml Stool Total 600 ml # Voids 0 # Bowel Movements 8 20 Result Diagram: 12/03/16 0500 12/05/16 0535 Objective Remarks GENERAL: Well-nourished, well-developed obese male patient with cushingoid facies. SKIN: Warm and dry. HEAD: Normocephalic. EYES: No scleral icterus. No injection or drainage. NECK: Supple, trachea midline. No JVD or lymphadenopathy. CARDIOVASCULAR: Regular rate and rhythm without murmurs, gallops, or rubs. RESPIRATORY: Breath sounds equal bilaterally. No accessory muscle use. GASTROINTESTINAL: Abdomen soft, non-tender, nondistended. EXTREMITIES: No cyanosis, or edema. NEUROLOGICAL: Awake, alert, oriented to month, year, president, not day of week. A/P Problem List: (1) Alcohol withdrawal ICD Code: F10.239 Status: Acute (2) Elevated LFTs ICD Code: R94.5 Status: Acute (3) Conjunctivitis ICD Code: H10.9 Status: Acute (4) Hyperglycemia ICD Code: R73.9 Status: Acute (5) HTN (hypertension) ICD Code: I10 Status: Acute (6) Acute kidney injury ICD Code: N17.9 Status: Acute (7) Anemia ICD Code: D64.9 Status: Acute Assessment and Plan (1) Alcohol withdrawal SEEMS TO BE MOSTLY RESOLVED. Plan: Ativan as needed per CIWA MVI, thiamine folic acid Celexa for depression Very unsteady with physical therapy. Patient will need to be more ambulatory prior to discharge OOB BID (2) Elevated LFTs ICD Code: R94.5 Status: Acute Plan: Hepatitis profile negative US liver consistent with hepatic steatosis likely due to EtOH Ammonia 20, DC'ed lactulose secondary to explosive diarrhea and will place on rifaximin instead. Patient with metabolic encephalopathy - MENTATION IMPROVING (3) Conjunctivitis ICD Code: H10.9 Status: Acute Plan: Resolved (4) Hyperglycemia ICD Code: R73.9 Status: Acute Plan: With evidence of diabetes Hemoglobin A1c 6.6 diet controlled (5) HTN (hypertension) ICD Code: I10 Status: Acute Plan: hold atenolol and Cozaar for now bp WAS RUNNING LOWER PREVIOUSLY (6) Acute kidney injury ICD Code: N17.9 Status: Acute - now improving/RESOLVED. Plan: WAS LIKELY DUE TO hypotension AND POOR PO INTAKE. Improved with IV fluids. We'll continue with holding blood pressure medications, renal ultrasound was negative for obstruction Replace electrolytes, renal consult appreciated REPEAT BMP IN A.M. TO REPLACE K (7) Anemia ICD Code: D64.9 Mild. Hemoglobin stable. No evidence of bleeding. Discharge Planning pending progress with ambulation status patient was home independently Problem Qualifiers (1) Alcohol withdrawal: Qualified Code: F10.230 - Alcohol withdrawal, uncomplicated Heather Paniagua MD Dec 05, 2016 15:53
[2016-12-05 16:00] VITALS: BP 114/88; PULSE 80; RESP 20; TEMP 97.7; O2SAT 97
[2016-12-05 20:00] VITALS: BP 131/98; PULSE 98; RESP 18; TEMP 98.1; O2SAT 96
[2016-12-05] MEDS: diphenhydrAMINE HCL 25 MG CAP PO PRN (20:07)
[2016-12-06] VITALS: BP 146/102; PULSE 87; RESP 18; TEMP 98.3; O2SAT 99
[2016-12-06 08:00] VITALS: BP 139/99; PULSE 93; RESP 19; TEMP 97.8; O2SAT 95
[2016-12-06] MEDS: CITALOPRAM HYDROBROMIDE 20 MG TAB PO SCH (08:27)
[2016-12-06] MEDS: THIAMINE HCL 100 MG TAB PO SCH (08:27)
[2016-12-06] MEDS: PANTOPRAZOLE SOD 40 MG DELAYED RELEASE TAB PO SCH (08:27)
[2016-12-06] MEDS: FOLIC ACID 1 MG TAB PO SCH (08:27)
[2016-12-06] MEDS: RIFAXIMIN 550 MG TAB PO SCH ×2 (08:27→20:53)
[2016-12-06] MEDS: MULTIVITAMIN TAB PO SCH (08:28)
[2016-12-06] MEDS: CALCIUM CARBONATE 500 MG CHEWABLE TAB CHEW SCH ×2 (08:28→20:53)
[2016-12-06] MEDS: SODIUM CHLORIDE 0.9% FLUSH 5 ML FLUSH FLUSH SCH ×2 (08:29→20:53)
[2016-12-06 12:00] VITALS: BP 116/83; PULSE 102; RESP 20; TEMP 95.7; O2SAT 97
--- NOTE | 2016-12-06 12:51 | HHI.PR ---
Subjective Remarks patient denies pain, complains of being weak. Objective Vitals Vital Signs Date Time Temp Pulse Resp B/P Pulse Ox O2 Delivery O2 Flow Rate FiO2 12/06/16 08:00 97.8 93 19 139/99 95 12/06/16 00:00 98.3 87 18 146/102 99 12/05/16 20:00 98.1 98 18 131/98 96 12/05/16 16:00 97.7 80 20 114/88 97 I/O 12/05/16 12/05/16 12/05/16 12/06/16 12/06/16 12/06/16 07:00 15:00 23:00 07:00 15:00 23:00 Intake Total 1634 ml 280 ml Output Total 600 ml Balance 1034 ml 280 ml Intake Oral 280 ml IV Total 1634 ml Stool Total 600 ml Result Diagram: 12/03/16 0500 12/05/16 0535 Objective Remarks GENERAL: Well-nourished, well-developed obese male patient with cushingoid facies. SKIN: Warm and dry. HEAD: Normocephalic. EYES: No scleral icterus. No injection or drainage. NECK: Supple, trachea midline. No JVD or lymphadenopathy. CARDIOVASCULAR: Regular rate and rhythm without murmurs, gallops, or rubs. RESPIRATORY: Breath sounds equal bilaterally. No accessory muscle use. GASTROINTESTINAL: Abdomen soft, non-tender, nondistended. EXTREMITIES: No cyanosis, or edema. NEUROLOGICAL: Awake, alert, oriented to year, president, not month or day of week. A/P Problem List: (1) Alcohol withdrawal ICD Code: F10.239 Status: Acute (2) Elevated LFTs ICD Code: R94.5 Status: Acute (3) Conjunctivitis ICD Code: H10.9 Status: Acute (4) Hyperglycemia ICD Code: R73.9 Status: Acute (5) HTN (hypertension) ICD Code: I10 Status: Acute (6) Acute kidney injury ICD Code: N17.9 Status: Acute (7) Anemia ICD Code: D64.9 Status: Acute Assessment and Plan (1) Alcohol withdrawal SEEMS TO BE MOSTLY RESOLVED. Plan: Ativan as needed per CIWA MVI, thiamine folic acid Celexa for depression Very unsteady with physical therapy. Patient will need to be more ambulatory prior to discharge. AWAITING PT EVAL TODAY. OOB BID (2) Elevated LFTs ICD Code: R94.5 Status: Acute Plan: Hepatitis profile negative US liver consistent with hepatic steatosis likely due to EtOH Ammonia 20, DC'ed lactulose secondary to explosive diarrhea and HAVE placed on rifaximin instead. Patient with metabolic encephalopathy - MENTATION IMPROVING (3) Conjunctivitis ICD Code: H10.9 Status: Acute Plan: Resolved (4) Hyperglycemia ICD Code: R73.9 Status: Acute Plan: With evidence of diabetes Hemoglobin A1c 6.6 diet controlled (5) HTN (hypertension) ICD Code: I10 Status: Acute Plan: hold atenolol and Cozaar for now bp WAS RUNNING LOWER PREVIOUSLY (6) Acute kidney injury ICD Code: N17.9 Status: Acute - now improving/RESOLVED. Plan: WAS LIKELY DUE TO hypotension AND POOR PO INTAKE. Improved with IV fluids. We'll continue with holding blood pressure medications, renal ultrasound was negative for obstruction Replace electrolytes, renal consult appreciated BMP PENDING TODAY. REPEAT BMP IN A.M. TO REPLACE K (7) Anemia ICD Code: D64.9 Mild. Hemoglobin stable. No evidence of bleeding. Discharge Planning pending progress with ambulation status patient was home independently Discharge Planning pending progress with ambulation status patient was home independently Problem Qualifiers (1) Alcohol withdrawal: Qualified Code: F10.230 - Alcohol withdrawal, uncomplicated Heather Paniagua MD Dec 06, 2016 12:50
[2016-12-06 14:00] VITALS: BP 134/94; PULSE 93; RESP 20; TEMP 98.7; O2SAT 98
[2016-12-06 14:03] LABS: POTASSIUM 3.7 MEQ/L (3.5-5.1)
[2016-12-06 14:06] LABS: BICARBONATE 20.1 MEQ/L (21.0-32.0)
[2016-12-06] MEDS: LOPERAMIDE HCL 2 MG CAP PO PRN (17:44)
[2016-12-06 20:01] VITALS: BP 135/104; PULSE 92; RESP 14; TEMP 98.7; O2SAT 94
[2016-12-07 00:01] VITALS: BP 143/110; PULSE 87; RESP 16; TEMP 98.6; O2SAT 93
[2016-12-07 05:33] VITALS: BP 150/106; PULSE 98; RESP 20; TEMP 97.7; O2SAT 96
[2016-12-07 07:39] LABS: POTASSIUM 3.4 MEQ/L (3.5-5.1)
[2016-12-07 07:43] LABS: BICARBONATE 20.6 MEQ/L (21.0-32.0)
[2016-12-07 08:00] VITALS: BP 141/84; PULSE 85; RESP 18; TEMP 97.2; O2SAT 96
[2016-12-07] MEDS: FOLIC ACID 1 MG TAB PO SCH (09:26)
[2016-12-07] MEDS: CITALOPRAM HYDROBROMIDE 20 MG TAB PO SCH (09:26)
[2016-12-07] MEDS: CALCIUM CARBONATE 500 MG CHEWABLE TAB CHEW SCH ×2 (09:26→20:43)
[2016-12-07] MEDS: RIFAXIMIN 550 MG TAB PO SCH ×2 (09:26→20:43)
[2016-12-07] MEDS: THIAMINE HCL 100 MG TAB PO SCH (09:26)
[2016-12-07] MEDS: PANTOPRAZOLE SOD 40 MG DELAYED RELEASE TAB PO SCH (09:26)
[2016-12-07] MEDS: SODIUM CHLORIDE 0.9% FLUSH 5 ML FLUSH FLUSH SCH ×2 (09:26→20:43)
[2016-12-07] MEDS: MULTIVITAMIN TAB PO SCH (09:26)
[2016-12-07 12:00] VITALS: BP 122/86; PULSE 102; RESP 20; TEMP 98.3; O2SAT 95
--- NOTE | 2016-12-07 14:22 | HHI.PR ---
Subjective Remarks Patient seen and examined today with Dr. Paniagua. Patient is awake. He is participating conversation. Orientation is still questionable. Patient indicates that he is in [place], however when proctored more he does that he is in [place]. He believes William Mata was a president until notify him of the presidential inauguration yesterday he knows that Mr Torres is the president. Objective Vitals Vital Signs Date Time Temp Pulse Resp B/P Pulse Ox O2 Delivery O2 Flow Rate FiO2 12/07/16 12:00 98.3 102 20 122/86 95 12/07/16 08:00 97.2 85 18 141/84 96 12/07/16 05:33 97.7 98 20 150/106 96 12/07/16 00:01 98.6 87 16 143/110 93 12/06/16 20:01 98.7 92 14 135/104 94 I/O 12/06/16 12/06/16 12/06/16 12/07/16 12/07/16 12/07/16 07:00 15:00 23:00 07:00 15:00 23:00 Intake Total 800 ml 100 ml Output Total 200 ml 220 ml Balance 800 ml -200 ml -120 ml Intake Oral 800 ml 100 ml Output Urine Total 200 ml 220 ml # Bowel Movements 1 Result Diagram: 12/03/16 0500 12/07/16 0650 Objective Remarks GENERAL: Well-developed, well-nourished, in no acute distress. alert and orientated to person, initially not orientated to place, time, cardiac events. However if prompted he knows the appropriate answers HEENT: Head is normocephalic without any lesions or masses noted. Facial features are symmetric. Eyes: Extraocular muscles are intact. Conjunctivae were clear. NECK: Supple without any masses. Trachea midline no deviation. No JVD, CARDIAC: Regular rhythm, regular rate. S1/S2 are heard. No murmurs gallops or rubs. LUNGS: Clear to auscultation bilaterally. No wheeze, rhonchi or rales. No use of accessory muscles on inspiration or expiration. ABDOMEN: Soft, nontender. Nondistended. Bowel sounds heard in all 4 quadrants. No organomegaly or masses. Negative rebound, negative guarding EXTREMITIES: No edema, pulses are equal bilaterally. No cyanosis or clubbing NEUROLOGY: Mood and affect appear appropriate. Cranial nerves II through XII grossly intact. Moving all extremities, speech is clear Urinary Catheter: No Vascular Central Line Catheter: No A/P Assessment and Plan Metabolic encephalopathy, likely secondary to alcohol withdrawal, hepatic encephalopathy Continue monitor ammonia level Continue rifaximin Lactulose discontinued due to diarrhea Alcohol withdrawal, improved Ativan as needed per CIWA, has not needed Ativan since 11/29/16. We'll discontinue today MVI, thiamine folic acid Celexa for depression Elevated liver enzymes, improved Likely secondary to chronic alcohol use Continue follow liver enzymes intermittently US liver consistent with hepatic steatosis Hepatitis panel was negative Conjunctivitis, resolved Status post ciprofloxacin eyedrops Hyperglycemia Hemoglobin A1c 6.6 diet controlled Hypertension, starting to elevate again Blood pressure was running low and atenolol and Cozaar were discontinued Start lisinopril 5 mg daily Acute kidney injury, resolved Likely secondary to hypotension and poor by mouth intake Improved with IV fluids Renal ultrasound was negative for any obstruction Anemia, resolved Hemoglobin stable. No evidence of bleeding. Physical deconditioning Continue physical therapy 7 days a week Written by Shawn Curry PA-C, acting as scribe for Dr. Paniagua on 12/07/16 at [Time]. The documentation accurately reflects the work and decisions performed face-to- face by Dr. Paniagua on 12/07/16 at [Time]. Discharge Planning Discharge planning when patient is able to ambulate, mentation improved. Patient did live at home by himself. Shawn Curry Dec 07, 2016 14:22
[2016-12-07] MEDS: LISINOPRIL 5 MG TAB PO SCH (15:21)
[2016-12-07 20:00] VITALS: BP 130/90; PULSE 85; RESP 20; TEMP 95.3; O2SAT 97
[2016-12-08 06:27] LABS: POTASSIUM 3.3 MEQ/L (3.5-5.1)
[2016-12-08 06:31] LABS: BICARBONATE 21.2 MEQ/L (21.0-32.0)
[2016-12-08 08:00] VITALS: BP 129/95; PULSE 94; RESP 22; TEMP 96.5; O2SAT 96
[2016-12-08] MEDS: RIFAXIMIN 550 MG TAB PO SCH (09:00)
--- NOTE | 2016-12-08 09:21 | HHI.PR ---
Subjective Remarks Patient seen and examined today. Patient denies any new complaints. Patient mentation improving on a daily basis. Awaiting case management for discharge planning Objective Vitals Vital Signs Date Time Temp Pulse Resp B/P Pulse Ox O2 Delivery O2 Flow Rate FiO2 12/07/16 20:00 95.3 85 20 130/90 97 12/07/16 12:00 98.3 102 20 122/86 95 I/O 12/07/16 12/07/16 12/07/16 12/08/16 12/08/16 12/08/16 07:00 15:00 23:00 07:00 15:00 23:00 Intake Total 100 ml 525 ml 480 ml 480 ml Output Total 220 ml Balance -120 ml 525 ml 480 ml 480 ml Intake Oral 100 ml 525 ml 480 ml 480 ml Output Urine Total 220 ml # Voids 1 2 1 # Bowel Movements 2 2 2 Result Diagram: 12/08/16 0612 Objective Remarks GENERAL: Well-developed, well-nourished, in no acute distress. alert and orientated to person, initially not orientated to place, time, cardiac events. However if prompted he knows the appropriate answers HEENT: Head is normocephalic without any lesions or masses noted. Facial features are symmetric. Eyes: Extraocular muscles are intact. Conjunctivae were clear. NECK: Supple without any masses. Trachea midline no deviation. No JVD, CARDIAC: Regular rhythm, regular rate. S1/S2 are heard. No murmurs gallops or rubs. LUNGS: Clear to auscultation bilaterally. No wheeze, rhonchi or rales. No use of accessory muscles on inspiration or expiration. ABDOMEN: Soft, nontender. Nondistended. Bowel sounds heard in all 4 quadrants. No organomegaly or masses. Negative rebound, negative guarding EXTREMITIES: No edema, pulses are equal bilaterally. No cyanosis or clubbing NEUROLOGY: Mood and affect appear appropriate. Cranial nerves II through XII grossly intact. Moving all extremities, speech is clear Urinary Catheter: Yes (condom catheter) Assessment to: Continue Vascular Central Line Catheter: No A/P Assessment and Plan Metabolic encephalopathy, likely secondary to alcohol withdrawal, hepatic encephalopathy. Improving Continue monitor ammonia level. Less than 10 Decreased rifaximin Lactulose discontinued due to diarrhea Alcohol withdrawal, improved Ativan as needed per CIWA, has not needed Ativan since 11/29/16. We'll discontinue today MVI, thiamine folic acid Celexa for depression Elevated liver enzymes, improved Likely secondary to chronic alcohol use Continue follow liver enzymes intermittently US liver consistent with hepatic steatosis Hepatitis panel was negative Conjunctivitis, resolved Status post ciprofloxacin eyedrops Hyperglycemia Hemoglobin A1c 6.6 diet controlled Hypertension, Blood pressure was running low and atenolol and Cozaar were discontinued lisinopril 5 mg daily Acute kidney injury, resolved Likely secondary to hypotension and poor by mouth intake Improved with IV fluids Renal ultrasound was negative for any obstruction Anemia, resolved Hemoglobin stable. No evidence of bleeding. Physical deconditioning Continue physical therapy 7 days a week Discharge Planning Discharge planning when patient is able to ambulate, mentation improved. Patient did live at home by himself. Case management following patient for discharge planning Shawn Curry Dec 08, 2016 09:21
[2016-12-08] MEDS: LISINOPRIL 5 MG TAB PO SCH (09:55)
[2016-12-08] MEDS: CITALOPRAM HYDROBROMIDE 20 MG TAB PO SCH (09:55)
[2016-12-08] MEDS: CALCIUM CARBONATE 500 MG CHEWABLE TAB CHEW SCH ×2 (09:55→20:53)
[2016-12-08] MEDS: PANTOPRAZOLE SOD 40 MG DELAYED RELEASE TAB PO SCH (09:55)
[2016-12-08] MEDS: THIAMINE HCL 100 MG TAB PO SCH (09:55)
[2016-12-08] MEDS: FOLIC ACID 1 MG TAB PO SCH (09:55)
[2016-12-08] MEDS: MULTIVITAMIN TAB PO SCH (09:55)
[2016-12-08] MEDS ORDERED: POTASSIUM CHLORIDE 20 MEQ CONTROLLED RELEASE TAB PO ONE (10:00)
[2016-12-08 20:00] VITALS: BP 146/100; PULSE 85; RESP 20; TEMP 95.8; O2SAT 94
[2016-12-09] MEDS: diphenhydrAMINE HCL 25 MG CAP PO PRN ×2 (01:03→20:47)
[2016-12-09 07:15] VITALS: BP 144/101; PULSE 80; RESP 20; TEMP 96.5; O2SAT 96
[2016-12-09] MEDS: FOLIC ACID 1 MG TAB PO SCH (10:01)
[2016-12-09] MEDS: CITALOPRAM HYDROBROMIDE 20 MG TAB PO SCH (10:01)
[2016-12-09] MEDS: RIFAXIMIN 550 MG TAB PO SCH (10:01)
[2016-12-09] MEDS: CALCIUM CARBONATE 500 MG CHEWABLE TAB CHEW SCH ×2 (10:01→20:47)
[2016-12-09] MEDS: THIAMINE HCL 100 MG TAB PO SCH (10:01)
[2016-12-09] MEDS: LISINOPRIL 5 MG TAB PO SCH (10:01)
[2016-12-09] MEDS: PANTOPRAZOLE SOD 40 MG DELAYED RELEASE TAB PO SCH (10:01)
[2016-12-09] MEDS: MULTIVITAMIN TAB PO SCH (10:02)
--- NOTE | 2016-12-09 12:06 | HHI.PR ---
Subjective Remarks Patient seen and examined today. Patient has any new complaints. No change in clinical status. Awaiting case management for discharge planning Objective Vitals Vital Signs Date Time Temp Pulse Resp B/P Pulse Ox O2 Delivery O2 Flow Rate FiO2 12/09/16 07:15 96.5 80 20 144/101 96 12/08/16 20:00 95.8 85 20 146/100 94 I/O 12/08/16 12/08/16 12/08/16 12/09/16 12/09/16 12/09/16 07:00 15:00 23:00 07:00 15:00 23:00 Intake Total 480 ml 320 ml 700 ml Output Total 400 ml Balance 480 ml 320 ml 700 ml -400 ml Intake Oral 480 ml 320 ml 480 ml Oral Supplement 220 ml Output Urine Total 400 ml # Voids 1 2 # Bowel Movements 2 3 2 3 Result Diagram: 12/08/16 0612 Objective Remarks GENERAL: Well-developed, well-nourished, in no acute distress. alert and orientated to person, initially not orientated to place, time, cardiac events. However if prompted he knows the appropriate answers HEENT: Head is normocephalic without any lesions or masses noted. Facial features are symmetric. Eyes: Extraocular muscles are intact. Conjunctivae were clear. NECK: Supple without any masses. Trachea midline no deviation. No JVD, CARDIAC: Regular rhythm, regular rate. S1/S2 are heard. No murmurs gallops or rubs. LUNGS: Clear to auscultation bilaterally. No wheeze, rhonchi or rales. No use of accessory muscles on inspiration or expiration. ABDOMEN: Soft, nontender. Nondistended. Bowel sounds heard in all 4 quadrants. No organomegaly or masses. Negative rebound, negative guarding EXTREMITIES: No edema, pulses are equal bilaterally. No cyanosis or clubbing NEUROLOGY: Mood and affect appear appropriate. Cranial nerves II through XII grossly intact. Moving all extremities, speech is clear Urinary Catheter: No Vascular Central Line Catheter: No A/P Assessment and Plan Metabolic encephalopathy, likely secondary to alcohol withdrawal, hepatic encephalopathy. Improving Continue monitor ammonia level. Less than 10, monitor weekly Continue rifaximin Lactulose discontinued due to diarrhea Alcohol withdrawal, improved Ativan as needed per CIWA, has not needed Ativan since 11/29/16. We'll discontinue today MVI, thiamine folic acid Celexa for depression Elevated liver enzymes, improved Likely secondary to chronic alcohol use Continue follow liver enzymes intermittently US liver consistent with hepatic steatosis Hepatitis panel was negative Conjunctivitis, resolved Status post ciprofloxacin eyedrops Hyperglycemia Hemoglobin A1c 6.6 diet controlled Hypertension, Blood pressure was running low and atenolol and Cozaar were discontinued lisinopril 5 mg daily Acute kidney injury, resolved Likely secondary to hypotension and poor by mouth intake Improved with IV fluids Renal ultrasound was negative for any obstruction Anemia, resolved Hemoglobin stable. No evidence of bleeding. Physical deconditioning Continue physical therapy 7 days a week Discharge Planning Discharge planning when patient is able to ambulate, mentation improved. Patient did live at home by himself. Case management following patient for discharge planning Shawn Curry Dec 09, 2016 12:06
[2016-12-09 20:00] VITALS: BP 141/95; PULSE 86; RESP 18; TEMP 97.5; O2SAT 95
[2016-12-09] MEDS: LOPERAMIDE HCL 2 MG CAP PO PRN (20:47)
[2016-12-10 08:00] VITALS: BP 125/91; PULSE 81; RESP 18; TEMP 95.5; O2SAT 96
[2016-12-10] MEDS: FOLIC ACID 1 MG TAB PO SCH (09:28)
[2016-12-10] MEDS: MULTIVITAMIN TAB PO SCH (09:28)
[2016-12-10] MEDS: CITALOPRAM HYDROBROMIDE 20 MG TAB PO SCH (09:28)
[2016-12-10] MEDS: CALCIUM CARBONATE 500 MG CHEWABLE TAB CHEW SCH ×2 (09:28→20:10)
[2016-12-10] MEDS: RIFAXIMIN 550 MG TAB PO SCH (09:28)
[2016-12-10] MEDS: PANTOPRAZOLE SOD 40 MG DELAYED RELEASE TAB PO SCH (09:28)
[2016-12-10] MEDS: THIAMINE HCL 100 MG TAB PO SCH (09:28)
[2016-12-10] MEDS: LISINOPRIL 5 MG TAB PO SCH (09:30)
[2016-12-10 09:48] LABS: BICARBONATE 23.2 MEQ/L (21.0-32.0)
[2016-12-10 09:55] LABS: POTASSIUM 3.5 MEQ/L (3.5-5.1)
[2016-12-10] MEDS: LOPERAMIDE HCL 2 MG CAP PO PRN (14:14)
[2016-12-10] MEDS: ONDANSETRON ODT 4 MG TAB PO PRN (14:24)
--- NOTE | 2016-12-10 18:19 | HHI.PR ---
Subjective Remarks Patient evaluated this morning. Follow-up for metabolic encephalopathy. Patient has no acute complaints. Objective Vitals Vital Signs Date Time Temp Pulse Resp B/P Pulse Ox O2 Delivery O2 Flow Rate FiO2 12/10/16 08:00 95.5 81 18 125/91 96 12/09/16 20:00 97.5 86 18 141/95 95 Automatic Cuff I/O 12/09/16 12/09/16 12/09/16 12/10/16 12/10/16 12/10/16 07:00 15:00 23:00 07:00 15:00 23:00 Intake Total 800 ml 0 ml 0 ml Output Total 400 ml 300 ml 50 ml Balance -400 ml 800 ml -300 ml -50 ml Intake Oral 800 ml IV Total 0 ml 0 ml Output Urine Total 400 ml 300 ml 50 ml # Voids 4 # Bowel Movements 3 2 2 Result Diagram: 12/10/16 0850 Objective Remarks GENERAL: Well-developed male in no apparent distress. HEAD: Atraumatic. Normocephalic. CARDIOVASCULAR: Regular rate and rhythm. RESPIRATORY: No accessory muscle use. Clear to auscultation. Breath sounds equal bilaterally. GASTROINTESTINAL: Hyperactive bowel sounds. Abdomen soft, nontender, nondistended. NEUROLOGICAL: Awake and alert. Improved. Patient is able to tell me the correct month, city, and hospital today. Corrects himself quickly regarding the year. Urinary Catheter: No Vascular Central Line Catheter: No A/P Problem List: (1) Alcohol withdrawal ICD Code: F10.239 Status: Acute (2) Elevated LFTs ICD Code: R94.5 Status: Acute (3) Conjunctivitis ICD Code: H10.9 Status: Acute (4) Hyperglycemia ICD Code: R73.9 Status: Acute (5) HTN (hypertension) ICD Code: I10 Status: Acute (6) Acute kidney injury ICD Code: N17.9 Status: Acute (7) Anemia ICD Code: D64.9 Status: Acute Assessment and Plan Metabolic encephalopathy, likely secondary to alcohol withdrawal, hepatic encephalopathy. Improving Continue monitor ammonia level. Less than 10, monitor weekly Continue rifaximin Lactulose discontinued due to diarrhea Alcohol withdrawal, improved Ativan as needed per CIWA, has not needed Ativan since 11/29/16. Discontinued. MVI, thiamine, folic acid Celexa for depression Elevated liver enzymes, improved Likely secondary to chronic alcohol use Continue follow liver enzymes intermittently US liver consistent with hepatic steatosis Hepatitis panel was negative Conjunctivitis, resolved Status post ciprofloxacin eyedrops Hyperglycemia Hemoglobin A1c 6.6 diet controlled Hypertension, Blood pressure was running low and atenolol and Cozaar were discontinued Lisinopril 5 mg daily Acute kidney injury, resolved Likely secondary to hypotension and poor by mouth intake Improved with IV fluids Renal ultrasound was negative for any obstruction Hypokalemia: Resolved. K+ 3.3 on 12/08; improved to 3.5 today status post repletion. Anemia, resolved Hemoglobin stable. No evidence of bleeding. Physical deconditioning Continue physical therapy 7 days a week Discharge Planning Plan is for patient to return home once improved cognitively and also cleared by PT. Problem Qualifiers (1) Alcohol withdrawal: Qualified Code: F10.230 - Alcohol withdrawal, uncomplicated Selam Lui Dec 10, 2016 18:19
[2016-12-10 19:15] VITALS: BP 132/96; PULSE 84; RESP 18; TEMP 98.7; O2SAT 97
[2016-12-11 08:00] VITALS: BP 129/85; PULSE 81; RESP 20; TEMP 98.7; O2SAT 94
--- NOTE | 2016-12-11 09:03 | HHI.PR ---
Subjective Remarks Patient complains that he has been unable to sleep. No other complaints. Objective Vitals Vital Signs Date Time Temp Pulse Resp B/P Pulse Ox O2 Delivery O2 Flow Rate FiO2 12/11/16 08:00 98.7 81 20 129/85 94 12/10/16 19:15 98.7 84 18 132/96 97 I/O 12/10/16 12/10/16 12/10/16 12/11/16 12/11/16 12/11/16 07:00 15:00 23:00 07:00 15:00 23:00 Intake Total 0 ml 360 ml 240 ml Output Total 50 ml 450 ml 300 ml Balance -50 ml -90 ml -60 ml Intake Oral 360 ml 240 ml IV Total 0 ml Output Urine Total 50 ml 450 ml 300 ml # Voids 8 # Bowel Movements 0 Result Diagram: 12/10/16 0850 Objective Remarks GENERAL: Well-developed male in no apparent distress sitting in recliner. HEAD: Atraumatic. Normocephalic. CARDIOVASCULAR: Regular rate and rhythm. RESPIRATORY: No accessory muscle use. Clear to auscultation. Breath sounds equal bilaterally. GASTROINTESTINAL: Abdomen soft, nontender, nondistended. NEUROLOGICAL: Awake and alert. Urinary Catheter: No Vascular Central Line Catheter: No A/P Problem List: (1) Alcohol withdrawal ICD Code: F10.239 Status: Acute (2) Elevated LFTs ICD Code: R94.5 Status: Acute (3) Conjunctivitis ICD Code: H10.9 Status: Acute (4) Hyperglycemia ICD Code: R73.9 Status: Acute (5) HTN (hypertension) ICD Code: I10 Status: Acute (6) Acute kidney injury ICD Code: N17.9 Status: Acute (7) Anemia ICD Code: D64.9 Status: Acute Assessment and Plan Metabolic encephalopathy, likely secondary to alcohol withdrawal, hepatic encephalopathy. Improving Continue monitor ammonia level. Less than 10, monitor weekly Continue rifaximin Lactulose discontinued due to diarrhea Alcohol withdrawal, improved Ativan as needed per CIWA, has not needed Ativan since 11/29/16. Discontinued. MVI, thiamine, folic acid Celexa for depression Elevated liver enzymes, improved Likely secondary to chronic alcohol use Continue follow liver enzymes intermittently US liver consistent with hepatic steatosis Hepatitis panel was negative Conjunctivitis, resolved Status post ciprofloxacin eyedrops Hyperglycemia Hemoglobin A1c 6.6 diet controlled Hypertension, Blood pressure was running low and atenolol and Cozaar were discontinued Lisinopril 5 mg daily Acute kidney injury, resolved Likely secondary to hypotension and poor by mouth intake Improved with IV fluids Renal ultrasound was negative for any obstruction Hypokalemia: Resolved. K+ 3.3 on 12/08; improved to 3.5 today status post repletion. Anemia, resolved Hemoglobin stable. No evidence of bleeding. Insomnia: Patient complains of being unable to sleep but has been receiving Benadryl 25 mg daily at bedtime as needed. Will not increase dose in this patient due to risk of adverse effects. If insomnia continues, may need to switch medication. Physical deconditioning Continue physical therapy 7 days a week Discharge Planning Plan is for patient to return home once improved cognitively and also cleared by PT. Problem Qualifiers (1) Alcohol withdrawal: Qualified Code: F10.230 - Alcohol withdrawal, uncomplicated Selam Lui Dec 11, 2016 09:03
[2016-12-11] MEDS: LISINOPRIL 5 MG TAB PO SCH (09:33)
[2016-12-11] MEDS: MULTIVITAMIN TAB PO SCH (09:33)
[2016-12-11] MEDS: CITALOPRAM HYDROBROMIDE 20 MG TAB PO SCH (09:34)
[2016-12-11] MEDS: PANTOPRAZOLE SOD 40 MG DELAYED RELEASE TAB PO SCH (09:34)
[2016-12-11] MEDS: FOLIC ACID 1 MG TAB PO SCH (09:34)
[2016-12-11] MEDS: THIAMINE HCL 100 MG TAB PO SCH (09:34)
[2016-12-11] MEDS: CALCIUM CARBONATE 500 MG CHEWABLE TAB CHEW SCH ×2 (09:34→20:48)
[2016-12-11] MEDS: RIFAXIMIN 550 MG TAB PO SCH (09:34)
[2016-12-11 20:00] VITALS: BP 128/92; PULSE 81; RESP 20; TEMP 98.5; O2SAT 96
[2016-12-12 08:00] VITALS: BP 138/104; PULSE 76; RESP 20; TEMP 98.3; O2SAT 96
[2016-12-12] MEDS: CITALOPRAM HYDROBROMIDE 20 MG TAB PO SCH (08:47)
[2016-12-12] MEDS: THIAMINE HCL 100 MG TAB PO SCH (08:47)
[2016-12-12] MEDS: CALCIUM CARBONATE 500 MG CHEWABLE TAB CHEW SCH ×2 (08:47→20:15)
[2016-12-12] MEDS: PANTOPRAZOLE SOD 40 MG DELAYED RELEASE TAB PO SCH (08:47)
[2016-12-12] MEDS: FOLIC ACID 1 MG TAB PO SCH (08:47)
[2016-12-12] MEDS: MULTIVITAMIN TAB PO SCH (08:47)
[2016-12-12] MEDS: RIFAXIMIN 550 MG TAB PO SCH (08:47)
[2016-12-12] MEDS: LISINOPRIL 5 MG TAB PO SCH (08:47)
--- NOTE | 2016-12-12 12:23 | HHI.PR ---
Subjective Remarks Patient again complains of being unable to sleep stating he did not sleep from 7 PM to 7 AM. He does not recall receiving Benadryl last night though. It appears he has not taken it since 12/09/16. Objective Vitals Vital Signs Date Time Temp Pulse Resp B/P Pulse Ox O2 Delivery O2 Flow Rate FiO2 12/12/16 08:00 98.3 76 20 138/104 96 12/11/16 20:00 98.5 81 20 128/92 96 I/O 12/11/16 12/11/16 12/11/16 12/12/16 12/12/16 12/12/16 07:00 15:00 23:00 07:00 15:00 23:00 Intake Total 240 ml 480 ml 480 ml 720 ml Output Total 300 ml 300 ml 450 ml Balance -60 ml 180 ml 480 ml 270 ml Intake Oral 240 ml 480 ml 480 ml 720 ml Output Urine Total 300 ml 300 ml 450 ml # Voids 2 1 2 # Bowel Movements 0 0 0 0 Result Diagram: 12/10/16 0850 Objective Remarks GENERAL: Well-developed male in no apparent distress sitting in recliner. HEAD: Atraumatic. Normocephalic. CARDIOVASCULAR: Regular rate and rhythm. RESPIRATORY: No accessory muscle use. Clear to auscultation. Breath sounds equal bilaterally. GASTROINTESTINAL: Abdomen soft, nontender, nondistended. NEUROLOGICAL: Awake and alert. Urinary Catheter: No Vascular Central Line Catheter: No A/P Problem List: (1) Alcohol withdrawal ICD Code: F10.239 Status: Acute (2) Elevated LFTs ICD Code: R94.5 Status: Acute (3) Conjunctivitis ICD Code: H10.9 Status: Acute (4) Hyperglycemia ICD Code: R73.9 Status: Acute (5) HTN (hypertension) ICD Code: I10 Status: Acute (6) Acute kidney injury ICD Code: N17.9 Status: Acute (7) Anemia ICD Code: D64.9 Status: Acute Assessment and Plan Metabolic encephalopathy, likely secondary to alcohol withdrawal, hepatic encephalopathy. Improving Continue monitor ammonia level. Less than 10, monitor weekly Continue rifaximin Lactulose discontinued due to diarrhea Alcohol withdrawal, improved Ativan as needed per CIWA, has not needed Ativan since 11/29/16. Discontinued. MVI, thiamine, folic acid Celexa for depression Librium 5 mg tid prn Elevated liver enzymes, improved Likely secondary to chronic alcohol use Continue follow liver enzymes intermittently US liver consistent with hepatic steatosis Hepatitis panel was negative Conjunctivitis, resolved Status post ciprofloxacin eyedrops Hyperglycemia Hemoglobin A1c 6.6 diet controlled Hypertension, Blood pressure was running low and atenolol and Cozaar were discontinued Lisinopril 5 mg daily Acute kidney injury, resolved Likely secondary to hypotension and poor by mouth intake Improved with IV fluids Renal ultrasound was negative for any obstruction Hypokalemia: Resolved. K+ 3.3 on 12/08; improved to 3.5 today status post repletion. Anemia, resolved Hemoglobin stable. No evidence of bleeding. Insomnia: Patient complains of being unable to sleep yesterday and today but it appears patient has not taken available Benadryl since 12/09/16. Nursing order to offer patient medication. Physical deconditioning Continue physical therapy 7 days a week Discharge Planning Plan is for patient to return home once improved cognitively and also cleared by PT. 12/12/16: Still has poor balance and requires moderate assist with walker per PT. Problem Qualifiers (1) Alcohol withdrawal: Qualified Code: F10.230 - Alcohol withdrawal, uncomplicated Selam Lui Dec 12, 2016 12:23
[2016-12-12 20:00] VITALS: BP 125/97; PULSE 80; RESP 19; TEMP 97.5; O2SAT 96
[2016-12-12] MEDS: diphenhydrAMINE HCL 25 MG CAP PO PRN (20:15)
[2016-12-13 08:00] VITALS: BP 118/81; PULSE 76; RESP 17; TEMP 98.1; O2SAT 95
[2016-12-13] MEDS: CITALOPRAM HYDROBROMIDE 20 MG TAB PO SCH (08:39)
[2016-12-13] MEDS: LISINOPRIL 5 MG TAB PO SCH (08:39)
[2016-12-13] MEDS: PANTOPRAZOLE SOD 40 MG DELAYED RELEASE TAB PO SCH (08:39)
[2016-12-13] MEDS: MULTIVITAMIN TAB PO SCH (08:39)
[2016-12-13] MEDS: THIAMINE HCL 100 MG TAB PO SCH (08:39)
[2016-12-13] MEDS: CALCIUM CARBONATE 500 MG CHEWABLE TAB CHEW SCH ×2 (08:39→21:15)
[2016-12-13] MEDS: FOLIC ACID 1 MG TAB PO SCH (08:39)
[2016-12-13] MEDS: RIFAXIMIN 550 MG TAB PO SCH (08:39)
--- NOTE | 2016-12-13 13:21 | HHI.PR ---
Subjective Remarks Patient states he took the Benadryl last night and was able to sleep. Objective Vitals Vital Signs Date Time Temp Pulse Resp B/P Pulse Ox O2 Delivery O2 Flow Rate FiO2 12/13/16 08:00 98.1 76 17 118/81 95 12/12/16 20:00 97.5 80 19 125/97 96 I/O 12/12/16 12/12/16 12/12/16 12/13/16 12/13/16 12/13/16 07:00 15:00 23:00 07:00 15:00 23:00 Intake Total 720 ml 240 ml 480 ml 240 ml Output Total 450 ml 600 ml 300 ml Balance 270 ml -360 ml 480 ml -60 ml Intake Oral 720 ml 240 ml 480 ml 240 ml Output Urine Total 450 ml 600 ml 300 ml # Voids 2 2 2 1 # Bowel Movements 0 0 1 0 Result Diagram: 12/10/16 0850 Objective Remarks GENERAL: Well-developed male in no apparent distress. CARDIOVASCULAR: Regular rate and rhythm. RESPIRATORY: No accessory muscle use. Clear to auscultation. Breath sounds equal bilaterally. GASTROINTESTINAL: Abdomen soft, nontender, nondistended. NEUROLOGICAL: Awake and alert. Urinary Catheter: No Vascular Central Line Catheter: No A/P Problem List: (1) Alcohol withdrawal ICD Code: F10.239 Status: Acute (2) Elevated LFTs ICD Code: R94.5 Status: Acute (3) Conjunctivitis ICD Code: H10.9 Status: Acute (4) Hyperglycemia ICD Code: R73.9 Status: Acute (5) HTN (hypertension) ICD Code: I10 Status: Acute (6) Acute kidney injury ICD Code: N17.9 Status: Acute (7) Anemia ICD Code: D64.9 Status: Acute Assessment and Plan Metabolic encephalopathy, likely secondary to alcohol withdrawal, hepatic encephalopathy. Improving Continue monitor ammonia level. Less than 10, monitor weekly Continue rifaximin Lactulose discontinued due to diarrhea Alcohol withdrawal, improved Ativan as needed per CIWA, has not needed Ativan since 11/29/16. Discontinued. MVI, thiamine, folic acid Celexa for depression Librium 5 mg tid prn Elevated liver enzymes, improved Likely secondary to chronic alcohol use Continue follow liver enzymes intermittently US liver consistent with hepatic steatosis Hepatitis panel was negative Conjunctivitis, resolved Status post ciprofloxacin eyedrops Hyperglycemia Hemoglobin A1c 6.6 diet controlled Hypertension, Blood pressure was running low and atenolol and Cozaar were discontinued Lisinopril 5 mg daily Acute kidney injury, resolved Likely secondary to hypotension and poor by mouth intake Improved with IV fluids Renal ultrasound was negative for any obstruction Hypokalemia: Resolved. K+ 3.3 on 12/08; improved to 3.5 today status post repletion. Anemia, resolved Hemoglobin stable. No evidence of bleeding. Insomnia: Controlled with Benadryl. Physical deconditioning Continue physical therapy 7 days a week Discharge Planning Plan is for patient to return home once improved cognitively and also cleared by PT. 12/13/16: Patient still with poor balance and ataxic gait but endurance and gait distance improved per PT. Problem Qualifiers (1) Alcohol withdrawal: Qualified Code: F10.230 - Alcohol withdrawal, uncomplicated Selam Lui Dec 13, 2016 13:21
[2016-12-13 20:00] VITALS: BP 134/95; PULSE 88; RESP 18; TEMP 97.6; O2SAT 98
[2016-12-13] MEDS: diphenhydrAMINE HCL 25 MG CAP PO PRN (21:15)
[2016-12-14 08:00] VITALS: BP 128/105; PULSE 78; RESP 18; TEMP 99.6; O2SAT 97
[2016-12-14] MEDS: CALCIUM CARBONATE 500 MG CHEWABLE TAB CHEW SCH ×2 (08:53→21:13)
[2016-12-14] MEDS: MULTIVITAMIN TAB PO SCH (08:53)
[2016-12-14] MEDS: RIFAXIMIN 550 MG TAB PO SCH (08:53)
[2016-12-14] MEDS: THIAMINE HCL 100 MG TAB PO SCH (08:53)
[2016-12-14] MEDS: LISINOPRIL 5 MG TAB PO SCH (08:53)
[2016-12-14] MEDS: PANTOPRAZOLE SOD 40 MG DELAYED RELEASE TAB PO SCH (08:53)
[2016-12-14] MEDS: FOLIC ACID 1 MG TAB PO SCH (08:53)
[2016-12-14] MEDS: CITALOPRAM HYDROBROMIDE 20 MG TAB PO SCH (08:54)
[2016-12-14] MEDS ORDERED: NALOXONE HCL 0.4 MG/ML AMP IV PRN (11:15)
[2016-12-14] MEDS ORDERED: MORPHINE SULFATE 4 MG/ML INJ IV PRN (11:15)
[2016-12-14 11:33] LABS: AUTOMATED NEUTROPHIL # 4.7 TH/MM3 (1.8-7.7); BASOPHIL # 0.1 TH/MM3 (0-0.2); EOSINOPHIL # 0.2 TH/MM3 (0-0.4); EOSINOPHIL % 2.2 % (0.0-4.0); HEMATOCRIT 37.2 % (39.0-51.0); HEMO FLAGS DIFF FINAL; LYMPH % 16.1 % (9.0-44.0); LYMPHOCYTE # 1.2 TH/MM3 (1.0-4.8); MEAN CELL VOLUME 94.9 FL (80.0-100.0); MEAN CORPUSCULAR HEMOGLOBIN 31.5 PG (27.0-34.0); MEAN CORPUSCULAR HGB CONC 33.2 % (32.0-36.0); MONO % 13.6 % (0.0-8.0); NEUT % 67.1 % (16.0-70.0); PLATELET COUNT 394 TH/MM3 (150-450); RED BLOOD COUNT 3.92 MIL/MM3 (4.50-5.90); RED CELL DISTRIBUTION WIDTH 16.4 % (11.6-17.2); WHITE BLOOD COUNT 7.2 TH/MM3 (4.0-11.0)
[2016-12-14 11:39] LABS: CHLORIDE 106 MEQ/L (98-107); POTASSIUM 3.8 MEQ/L (3.5-5.1); SODIUM (NA) 140 MEQ/L (136-145)
[2016-12-14 11:42] LABS: ANION GAP 9 MEQ/L (5-15); BICARBONATE 25.2 MEQ/L (21.0-32.0)
--- NOTE | 2016-12-14 11:42 | HHI.PR ---
Subjective Remarks Follow-up for encephalopathy due to EtOH. RN informs me the patient had sharp right sided abdominal pain last night, but K Thermia was ordered and provided relief. The patient indicates pain over the right upper quadrant stating that it feels like a "star" coming out. States he had sudden onset of pain at 8 AM this morning. He currently rates his pain a 7/10. He does not know if the pain is associated with eating. He denies any relief with the K thermia stating it did not heat up. He denies any fevers, nausea, vomiting, diarrhea, or constipation. States his last bowel movement was this morning and was normal. Nurse confirms he had a large bowel movement this morning. Objective Vitals Vital Signs Date Time Temp Pulse Resp B/P Pulse Ox O2 Delivery O2 Flow Rate FiO2 12/14/16 08:00 99.6 78 18 128/105 97 12/13/16 20:00 97.6 88 18 134/95 98 I/O 12/13/16 12/13/16 12/13/16 12/14/16 12/14/16 12/14/16 07:00 15:00 23:00 07:00 15:00 23:00 Intake Total 240 ml 240 ml Output Total 300 ml 300 ml Balance -60 ml 240 ml -300 ml Intake Oral 240 ml 240 ml Output Urine Total 300 ml 300 ml # Voids 1 # Bowel Movements 0 1 1 Result Diagram: 12/14/16 1122 12/14/16 1122 Imaging Last Impressions Gall Bladder Ultrasound 12/14/16 1110 Signed Impressions: Service Date/Time: Wednesday, December 14, 2016 12:41 - CONCLUSION: 1. There is sludge in the gallbladder with thickening of the gallbladder wall at 5 mm. This is characteristic of chronic gallbladder disease. 2. No biliary tract obstruction. 3. Fatty infiltration of the liver. Feng Singh MD Renal Ultrasound 12/03/16 0000 Signed Impressions: Service Date/Time: Saturday, December 03, 2016 14:57 - CONCLUSION: 1. No evidence of obstruction 2. Debris within the bladder which may be related to infection or hemorrhage Jez Tay MD Head CT 12/02/16 0000 Signed Impressions: Service Date/Time: Friday, December 02, 2016 15:51 - CONCLUSION: No acute disease. Juwan Rodríguez MD FACR Liver Ultrasound 11/27/16 0000 Signed Impressions: Service Date/Time: Sunday, November 27, 2016 15:12 - CONCLUSION: 1. Mild hepatomegaly. The echotexture of the liver is consistent with hepatic steatosis. 2. Cholelithiasis. The common bile duct is not visualized on this exam secondary to bowel gas. No evidence of intrahepatic biliary obstruction. 3. Given the cortical thinning and increased echogenicity concerning for renal disease. Recommend correlating with the patient's GFR.. Kateryna Lopez MD Chest X-Ray 11/26/16 1503 Signed Impressions: Service Date/Time: Saturday, November 26, 2016 15:35 - CONCLUSION: No acute cardiopulmonary abnormality is identified. Chato Meyer MD Objective Remarks GENERAL: Well-developed male in no apparent distress. SKIN: Normal pigmentation. CARDIOVASCULAR: Regular rate and rhythm. RESPIRATORY: No accessory muscle use. Clear to auscultation. Breath sounds equal bilaterally. GASTROINTESTINAL: Normoactive bowel sounds over right upper quadrant and bilateral lower quadrants. Tender over right upper quadrant and epigastric region with guarding present. Positive Miner's sign. Abdomen appears mildly distended. NEUROLOGICAL: Awake and alert. Patient is oriented to month, city, president. He does know the year after a subsequent attempt. He does not know the day of the week. Urinary Catheter: No Vascular Central Line Catheter: No A/P Problem List: (1) Alcohol withdrawal ICD Code: F10.239 Status: Acute (2) RUQ pain ICD Code: R10.11 Status: Acute (3) Elevated LFTs ICD Code: R94.5 Status: Acute (4) Conjunctivitis ICD Code: H10.9 Status: Resolved (5) Hyperglycemia ICD Code: R73.9 Status: Acute (6) HTN (hypertension) ICD Code: I10 Status: Acute (7) Acute kidney injury ICD Code: N17.9 Status: Resolved (8) Anemia ICD Code: D64.9 Status: Acute Assessment and Plan Metabolic encephalopathy, likely secondary to alcohol withdrawal, hepatic encephalopathy. Improving Continue monitor ammonia level. Less than 10, monitor weekly Continue rifaximin Lactulose discontinued due to diarrhea Alcohol withdrawal, improved Ativan as needed per CIWA, has not needed Ativan since 11/29/16. Discontinued. MVI, thiamine, folic acid Celexa for depression Librium 5 mg tid prn RUQ pain 12/14: Patient has significant right upper quadrant and epigastric pain on exam today. States pain increases to 10/10 with palpation. Positive Miner' s sign. Temperature 99.6 degrees. -CBC reviewed with normal white blood cell count 7.2. -CMP with T bili of 1.1 (1.0 on 12/05), AST 61 (52 on 12/05), normal ALT and alkaline phosphatase, and normal lipase level. -GB US reveals sludge in the gallbladder with thickening of the gallbladder wall at 5 mm characteristic of chronic gallbladder disease. No biliary tract obstruction. Fatty infiltration of the liver, but no ascites. -Change diet to low fat. -Monitor patient. If patient's pain persists and LFTs become elevated, will consult GI for further evaluation. -Patient received one dose of morphine. Will change to oxycodone prn pain as directed for short term basis and monitor clinically. Elevated liver enzymes, improved Likely secondary to chronic alcohol use Continue follow liver enzymes periodically US liver consistent with hepatic steatosis Hepatitis panel was negative Conjunctivitis, resolved Status post ciprofloxacin eyedrops Hyperglycemia Hemoglobin A1c 6.6 diet controlled Hypertension, Blood pressure was running low and atenolol and Cozaar were discontinued Lisinopril 5 mg daily Acute kidney injury, resolved Likely secondary to hypotension and poor by mouth intake Improved with IV fluids Renal ultrasound was negative for any obstruction Hypokalemia: Resolved. Anemia: Improved Hemoglobin stable. No evidence of bleeding. Insomnia: Controlled with Benadryl. Physical deconditioning Continue physical therapy 7 days a week Discussed patient with Dr. Acuna. Discharge Planning Plan is for patient to return home once improved cognitively and also cleared by PT. 12/13/16: Patient still with poor balance and ataxic gait but endurance and gait distance improved per PT. Problem Qualifiers (1) Alcohol withdrawal: Qualified Code: F10.230 - Alcohol withdrawal, uncomplicated Selam Lui Dec 14, 2016 11:42
[2016-12-14 11:43] LABS: BLOOD UREA NITROGEN 15 MG/DL (7-18)
[2016-12-14 11:46] LABS: ALT (GPT) 31 U/L (12-78); AST (GOT) 61 U/L (15-37); GLOMERULAR FILTRATION RATE 106 ML/MIN (>89)
[2016-12-14 11:47] LABS: TOTAL BILIRUBIN ADULT 1.1 MG/DL (0.2-1.0)
[2016-12-14 11:48] LABS: ALKALINE PHOSPHATASE 79 U/L (45-117)
--- NOTE | 2016-12-14 13:29 | RADHPO ---
EXAM DATE/TIME: 12/14/2016 12:41 [facility] COMPARISON: No previous studies available for comparison. INDICATIONS : Right upper quadrant pain. MEDICAL HISTORY : Abdominal pain. Chest pain. Hallucinations. Dyspnea. Depression. Anxiety. SURGICAL HISTORY : Ankle surgery. ENCOUNTER: Subsequent ACUITY: 1 day PAIN SCORE: 9/10 LOCATION: Right upper quadrant MEASUREMENTS: LIVER: 18.7 cm length COMMON DUCT: 7 mm RIGHT KIDNEY: 10.8 x 4.6 x 7.2 cm FINDINGS: LIVER: There is increased echogenicity suggestive of fatty infiltration. No dilated biliary ducts are demons trated. There is no evidence of ascites. The portal system is patent. COMMON DUCT: No intraluminal mass or stone visualized. GALLBLADDER: There is some sludge in the gallbladder. No definite stones are seen. The gallbladder wall is thicken ed at 5 mm. No fluid is seen around the gallbladder. PANCREAS: Not visualized RIGHT KIDNEY: No evidence of hydronephrosis, stone, or mass. CONCLUSION: 1. There is sludge in the gallbladder with thickening of the gallbladder wall at 5 mm. This is charac teristic of chronic gallbladder disease. 2. No biliary tract obstruction. 3. Fatty infiltration of the liver. Feng Singh MD on December 14, 2016 at 13:26 Board Certified Radiologist. This report was verified electronically.
[2016-12-14 20:00] VITALS: BP 132/104; PULSE 79; RESP 18; TEMP 98; O2SAT 99
[2016-12-14] MEDS: diphenhydrAMINE HCL 25 MG CAP PO PRN (21:13)
[2016-12-15 08:00] VITALS: BP 129/105; PULSE 88; RESP 18; TEMP 96.8; O2SAT 94
[2016-12-15] MEDS: PANTOPRAZOLE SOD 40 MG DELAYED RELEASE TAB PO SCH (09:01)
[2016-12-15] MEDS: RIFAXIMIN 550 MG TAB PO SCH (09:01)
[2016-12-15] MEDS: FOLIC ACID 1 MG TAB PO SCH (09:02)
[2016-12-15] MEDS: MULTIVITAMIN TAB PO SCH (09:02)
[2016-12-15] MEDS: LISINOPRIL 5 MG TAB PO SCH (09:04)
[2016-12-15] MEDS: CALCIUM CARBONATE 500 MG CHEWABLE TAB CHEW SCH ×2 (09:04→22:23)
[2016-12-15] MEDS: THIAMINE HCL 100 MG TAB PO SCH (09:05)
[2016-12-15] MEDS: CITALOPRAM HYDROBROMIDE 20 MG TAB PO SCH (09:05)
[2016-12-15 14:02] LABS: INDIRECT BILIRUBIN 0.3 MG/DL (0.0-0.8); TOTAL BILIRUBIN ADULT 0.8 MG/DL (0.2-1.0)
--- NOTE | 2016-12-15 17:28 | HHI.PR ---
Subjective Remarks Patient seen and evaluated today in follow-up for alcoholic encephalopathy. Abdominal pain is persistent. Today he says it is a 12 out of 10. Is relieved with some pain medicine however recurs pretty easily. There is no nausea or vomiting and patient is a little bit of diarrhea. Ultrasound results noted and discussed with patient and nurse at bedside Objective Vitals Vital Signs Date Time Temp Pulse Resp B/P Pulse Ox O2 Delivery O2 Flow Rate FiO2 12/15/16 10:18 12 12/15/16 08:00 96.8 88 18 129/105 94 12/14/16 20:00 98.0 79 18 132/104 99 I/O 12/14/16 12/14/16 12/14/16 12/15/16 12/15/16 12/15/16 07:00 15:00 23:00 07:00 15:00 23:00 Intake Total 480 ml 80 ml 480 ml Output Total 300 ml Balance -300 ml 480 ml 80 ml 480 ml Intake Oral 480 ml 80 ml 480 ml Output Urine Total 300 ml # Voids 3 3 2 # Bowel Movements 1 0 1 Result Diagram: 12/14/16 1122 12/14/16 1122 Objective Remarks GENERAL: This is a well-nourished, well-developed patient, in no apparent distress. CARDIOVASCULAR: Regular rate and rhythm without murmurs, gallops, or rubs. RESPIRATORY: Clear to auscultation. Breath sounds equal bilaterally. No wheezes , rales, or rhonchi. GASTROINTESTINAL: Abdomen soft, tender diffusely, mildly distended. Hypoactive active bowel sounds MUSCULOSKELETAL: Extremities without clubbing, cyanosis, or edema. NEURO: Alert & Oriented x4 to person, place and time A/P Assessment and Plan We will evaluate abdominal pain with CT abdomen pelvis. LFTs are unremarkable. if CT abdomen pelvis unremarkable consider GI consult Discharge Planning pending progress with ambulation status patient was home independently Clary Acuna MD Dec 15, 2016 17:28
[2016-12-15] MEDS ORDERED: DIATRIZOATE MEGLUM/DIATRIZOATE SOD 9 ML CUP PO ONE (18:00)
[2016-12-15 20:00] VITALS: BP 124/84; PULSE 80; RESP 18; TEMP 98.6; O2SAT 100
[2016-12-15] MEDS ORDERED: IOHEXOL 350 MG/ML 10 ML VIAL (for RAD DIAG) IV ONE (22:01)
--- NOTE | 2016-12-15 22:18 | RADHPO ---
EXAM DATE/TIME: 12/15/2016 21:28 [facility] COMPARISON: US ABDOMEN - GALLBLADDER, December 14, 2016, 12:41. INDICATIONS : Diffuse abdominal pain. IV CONTRAST: 94 cc Omnipaque 350 (iohexol) IV ORAL CONTRAST: Prescribed oral contrast ingested. RADIATION DOSE: 20.21 CTDIvol (mGy) MEDICAL HISTORY : Gastroesophageal reflux disease. SURGICAL HISTORY : None. ENCOUNTER: Initial ACUITY: 1 day PAIN SCALE: 8/10 LOCATION: Abdomen. TECHNIQUE: Volumetric scanning of the abdomen and pelvis was performed. Using automated exposure control and ad justment of the mA and/or kV according to patient size, radiation dose was kept as low as reasonably achievable to obtain optimal diagnostic quality images. FINDINGS: LOWER LUNGS: There is right basilar atelectasis with increased opacity in the atelectatic lung. LIVER: Regional fatty change with most of the liver having fatty opacity. The gallbladder is abnormal in ap pearance with multiple small septa, gallbladder wall thickening and some questionable induration of t he fat about the gallbladder. No calcified gallstones seen. The common bile duct is normal dimensio n. SPLEEN: Normal size without lesion. PANCREAS: Within normal limits. KIDNEYS: Normal in size and shape. There is no mass, stone or hydronephrosis. Simple cyst in the midpole lef t kidney measuring 1.9 cm and in the upper medial pole of the left kidney measuring 4.0 cm. ADRENAL GLANDS: Within normal limits. VASCULAR: There is no aortic aneurysm. BOWEL/MESENTERY: No dilated loops of small or large bowel. Mild amount of stool in the colon. ABDOMINAL WALL: Within normal limits. RETROPERITONEUM: There is no lymphadenopathy. BLADDER: No wall thickening or mass. REPRODUCTIVE: Within normal limits. INGUINAL: There is no lymphadenopathy or hernia. MUSCULOSKELETAL: Within normal limits for patient age. CONCLUSION: 1. Abnormal appearance of the gallbladder with distention, diffuse wall thickening, septation, and pr ominent sinuses. Ultrasound also demonstrated some sludge in the lumen. There is also induration of the surrounding fat inferior and anterior to the distended gallbladder. Given the multiplicity of f indings, recommend further evaluation with nuclear medicine hepatobiliary tract scan to evaluate for evidence of cystic duct obstruction (acalculus cholecystitis) Luis Padgett MD on December 15, 2016 at 22:12 Board Certified Radiologist. This report was verified electronically.
[2016-12-15] MEDS: diphenhydrAMINE HCL 25 MG CAP PO PRN (22:22)
[2016-12-16] MEDS: CITALOPRAM HYDROBROMIDE 20 MG TAB PO SCH (07:42)
[2016-12-16] MEDS: CALCIUM CARBONATE 500 MG CHEWABLE TAB CHEW SCH ×2 (07:42→20:25)
[2016-12-16] MEDS: LISINOPRIL 5 MG TAB PO SCH (07:42)
[2016-12-16] MEDS: MULTIVITAMIN TAB PO SCH (07:42)
[2016-12-16] MEDS: PANTOPRAZOLE SOD 40 MG DELAYED RELEASE TAB PO SCH (07:42)
[2016-12-16] MEDS: RIFAXIMIN 550 MG TAB PO SCH (07:43)
[2016-12-16] MEDS: THIAMINE HCL 100 MG TAB PO SCH (07:43)
[2016-12-16] MEDS: FOLIC ACID 1 MG TAB PO SCH (07:43)
[2016-12-16 08:19] VITALS: BP 140/103; PULSE 75; RESP 19; TEMP 97.8; O2SAT 97
[2016-12-16 09:53] LABS: CHLORIDE 103 MEQ/L (98-107); POTASSIUM 3.8 MEQ/L (3.5-5.1); SODIUM (NA) 137 MEQ/L (136-145)
[2016-12-16 09:55] LABS: ANION GAP 10 MEQ/L (5-15); BICARBONATE 24.3 MEQ/L (21.0-32.0)
[2016-12-16 09:58] LABS: ALT (GPT) 31 U/L (12-78); AST (GOT) 56 U/L (15-37); GLOMERULAR FILTRATION RATE 104 ML/MIN (>89)
[2016-12-16 10:00] LABS: TOTAL BILIRUBIN ADULT 1.1 MG/DL (0.2-1.0)
[2016-12-16 10:01] LABS: ALKALINE PHOSPHATASE 78 U/L (45-117)
[2016-12-16 10:04] LABS: BLOOD UREA NITROGEN 12 MG/DL (7-18)
--- NOTE | 2016-12-16 11:45 | HHI.PR ---
Subjective Remarks Follow-up for alcoholic encephalopathy, abdominal pain. The patient admits to abdominal pain 06/26. Initially was RUQ but today patient states it is spreading. He states the pain medication is helping 100%. He admits to cough but denies any sputum production. Denies any fevers or chills, shortness of breath, nausea, vomiting, or diarrhea. Objective Vitals Vital Signs Date Time Temp Pulse Resp B/P Pulse Ox O2 Delivery O2 Flow Rate FiO2 12/16/16 08:19 97.8 75 19 140/103 97 12/16/16 07:46 14 12/15/16 20:00 98.6 80 18 124/84 100 I/O 12/15/16 12/15/16 12/15/16 12/16/16 12/16/16 12/16/16 07:00 15:00 23:00 07:00 15:00 23:00 Intake Total 80 ml 480 ml 320 ml Output Total 500 ml Balance 80 ml 480 ml -180 ml Intake Oral 80 ml 480 ml 320 ml Output Urine Total 500 ml # Voids 3 2 3 # Bowel Movements 0 1 0 Result Diagram: 12/14/16 1122 12/16/16 0905 Imaging Last Impressions Abdomen/Pelvis CT 12/15/16 0000 Signed Impressions: Service Date/Time: Thursday, December 15, 2016 21:28 - CONCLUSION: 1. Abnormal appearance of the gallbladder with distention, diffuse wall thickening, septation, and prominent sinuses. Ultrasound also demonstrated some sludge in the lumen. There is also induration of the surrounding fat inferior and anterior to the distended gallbladder. Given the multiplicity of findings, recommend further evaluation with nuclear medicine hepatobiliary tract scan to evaluate for evidence of cystic duct obstruction (acalculus cholecystitis) Luis Padgett MD Gall Bladder Ultrasound 12/14/16 1110 Signed Impressions: Service Date/Time: Wednesday, December 14, 2016 12:41 - CONCLUSION: 1. There is sludge in the gallbladder with thickening of the gallbladder wall at 5 mm. This is characteristic of chronic gallbladder disease. 2. No biliary tract obstruction. 3. Fatty infiltration of the liver. Feng Singh MD Renal Ultrasound 12/03/16 0000 Signed Impressions: Service Date/Time: Saturday, December 03, 2016 14:57 - CONCLUSION: 1. No evidence of obstruction 2. Debris within the bladder which may be related to infection or hemorrhage Jez Tay MD Head CT 12/02/16 0000 Signed Impressions: Service Date/Time: Friday, December 02, 2016 15:51 - CONCLUSION: No acute disease. Juwan Rodríguez MD FACR Liver Ultrasound 11/27/16 0000 Signed Impressions: Service Date/Time: Sunday, November 27, 2016 15:12 - CONCLUSION: 1. Mild hepatomegaly. The echotexture of the liver is consistent with hepatic steatosis. 2. Cholelithiasis. The common bile duct is not visualized on this exam secondary to bowel gas. No evidence of intrahepatic biliary obstruction. 3. Given the cortical thinning and increased echogenicity concerning for renal disease. Recommend correlating with the patient's GFR.. Kateryna Lopez MD Chest X-Ray 11/26/16 1503 Signed Impressions: Service Date/Time: Saturday, November 26, 2016 15:35 - CONCLUSION: No acute cardiopulmonary abnormality is identified. Chato Meyer MD Objective Remarks GENERAL: Well-developed male in no apparent distress. SKIN: No jaundice. CARDIOVASCULAR: Regular rate and rhythm. RESPIRATORY: No accessory muscle use. Clear to auscultation. Breath sounds equal bilaterally. GASTROINTESTINAL: Normoactive bowel sounds x4. Tender over right upper quadrant and epigastric region with guarding present. Abdomen appears distended. Admits to pain when he breathes. NEUROLOGICAL: Awake and alert. Normal speech. Urinary Catheter: No Vascular Central Line Catheter: No A/P Problem List: (1) Alcohol withdrawal ICD Code: F10.239 Status: Acute (2) RUQ pain ICD Code: R10.11 Status: Acute (3) Elevated LFTs ICD Code: R94.5 Status: Acute (4) Conjunctivitis ICD Code: H10.9 Status: Resolved (5) Hyperglycemia ICD Code: R73.9 Status: Acute (6) HTN (hypertension) ICD Code: I10 Status: Acute (7) Acute kidney injury ICD Code: N17.9 Status: Resolved (8) Anemia ICD Code: D64.9 Status: Acute Assessment and Plan Metabolic encephalopathy, likely secondary to alcohol withdrawal, hepatic encephalopathy. Improving Continue monitor ammonia level. Less than 10, monitor weekly Continue rifaximin Lactulose discontinued due to diarrhea Alcohol withdrawal, improved Ativan as needed per CIWA, has not needed Ativan since 11/29/16. Discontinued. MVI, thiamine, folic acid Celexa for depression Librium 5 mg tid prn RUQ pain: Patient has continued significant right upper quadrant and epigastric pain. Positive Miner's sign. -CBC reviewed with normal white blood cell count 7.2. LFTs remain stable. Normal lipase level. -GB US reveals sludge in the gallbladder with thickening of the gallbladder wall at 5 mm characteristic of chronic gallbladder disease. No biliary tract obstruction. Fatty infiltration of the liver, but no ascites. -CT abdomen with abnormal appearance of the gallbladder with distention, diffuse wall thickening, septation, and prominent sinuses. HIDA scan recommended by radiologist. -HIDA scan ordered. GI consulted. -Oxycodone for pain prn -Low fat diet. Elevated liver enzymes, improved Likely secondary to chronic alcohol use Continue follow liver enzymes periodically US liver consistent with hepatic steatosis Hepatitis panel was negative Conjunctivitis, resolved Status post ciprofloxacin eyedrops Hyperglycemia Hemoglobin A1c 6.6 diet controlled Hypertension Blood pressure was running low and atenolol and Cozaar were discontinued Lisinopril 5 mg daily Acute kidney injury, resolved Likely secondary to hypotension and poor by mouth intake Improved with IV fluids Renal ultrasound was negative for any obstruction Hypokalemia: Resolved. Anemia: Improved Hemoglobin stable. No evidence of bleeding. Insomnia: Controlled with Benadryl. Physical deconditioning Continue physical therapy 7 days a week Discussed patient with Dr. Acuna. Discharge Planning Plan is for patient to return home once improved cognitively and also cleared by PT. 12/13/16: Patient still with poor balance and ataxic gait but endurance and gait distance improved per PT. Problem Qualifiers (1) Alcohol withdrawal: Qualified Code: F10.230 - Alcohol withdrawal, uncomplicated Selam Lui Dec 16, 2016 11:45
--- NOTE | 2016-12-16 15:28 | RADHPO ---
EXAM DATE/TIME: 12/16/2016 13:03 This report includes an Addendum and supersedes previous reports for this exam. [facility] COMPARISON: CT ABDOMEN & PELVIS W CONTRAST, December 15, 2016, 21:28. INDICATIONS : Abdominal pain in right upper quadrant for 3 days. DOSE: 4.1 mCi Tc99m Mebrofenin IV MEDICAL HISTORY : None SURGICAL HISTORY : Ankle surgery. ENCOUNTER: Initial ACUITY: 3 days PAIN SCALE: 3/10 LOCATION: Right upper quadrant TECHNIQUE: Following the intravenous administration of radiotracer, dynamic sequential with continuous acquisiti on. FINDINGS: HEPATIC KINETICS: There is prompt uptake of radiotracer in the liver. No focal defects are seen. There is normal rate of washout from the hepatic parenchyma. BILIARY CLEARANCE: Activity is first seen in the extrahepatic biliary system at 15 minutes. There is normal excretion i nto the small bowel. GALLBLADDER: The gallbladder is not visualized throughout the examination. BILIARY ENTRIC REFLUX: There is prominent biliary gastric reflux which is a nonspecific finding in the face of cholecystitis CONCLUSION: 1. Nonvisualization of the gallbladder characteristic of acute cholecystitis Jez Tay MD on December 16, 2016 at 15:19 Board Certified Radiologist. This report was verified electronically. ADDENDUM: The patient was brought back for imaging at 24 hours. Still no gallbladder activity is identified. Co ncerning for calculus or acalculous cholecystitis. Karri Barnes MD on December 17, 2016 at 9:38 Board Certified Radiologist. This report was verified electronically.
[2016-12-16 20:00] VITALS: BP 119/94; PULSE 76; RESP 18; TEMP 96; O2SAT 95
[2016-12-17] VITALS (16 sets, daily range): BP systolic 93–146; BP diastolic 65–100; PULSE 75–82; RESP 10–21; TEMP 96–98.7; O2SAT 92–98
[2016-12-17] MEDS: MULTIVITAMIN TAB PO SCH (08:28)
[2016-12-17] MEDS: PANTOPRAZOLE SOD 40 MG DELAYED RELEASE TAB PO SCH (08:28)
[2016-12-17] MEDS: RIFAXIMIN 550 MG TAB PO SCH (08:28)
[2016-12-17] MEDS: CITALOPRAM HYDROBROMIDE 20 MG TAB PO SCH (08:28)
[2016-12-17] MEDS: FOLIC ACID 1 MG TAB PO SCH (08:28)
[2016-12-17] MEDS: THIAMINE HCL 100 MG TAB PO SCH (08:28)
[2016-12-17] MEDS: LISINOPRIL 5 MG TAB PO SCH (08:28)
[2016-12-17] MEDS: CALCIUM CARBONATE 500 MG CHEWABLE TAB CHEW SCH ×2 (08:28→21:07)
--- NOTE | 2016-12-17 10:19 | HHI.PR ---
Subjective Remarks Patient seen and examined today. Patient appears to be much more alert. Still having some abdominal pain. Workup does indicate cholecystitis. Discussed with GI who evaluated the patient this morning, they indicate patient will need surgical consultation. Objective Vitals Vital Signs Date Time Temp Pulse Resp B/P Pulse Ox O2 Delivery O2 Flow Rate FiO2 12/17/16 09:51 14 12/17/16 08:00 96.0 81 18 146/100 96 12/16/16 20:00 96.0 76 18 119/94 95 I/O 12/16/16 12/16/16 12/16/16 12/17/16 12/17/16 12/17/16 07:00 15:00 23:00 07:00 15:00 23:00 Intake Total 320 ml 240 ml Output Total 500 ml 1200 ml 300 ml 300 ml Balance -180 ml -960 ml -300 ml -300 ml Intake Oral 320 ml 240 ml Output Urine Total 500 ml 1200 ml 300 ml 300 ml # Voids 3 1 # Bowel Movements 0 1 0 Result Diagram: 12/14/16 1122 12/16/16 0905 Objective Remarks GENERAL: Well-developed, well-nourished, in no acute distress. alert and orientated to person, initially not orientated to place, time, cardiac events. However if prompted he knows the appropriate answers HEENT: Head is normocephalic without any lesions or masses noted. Facial features are symmetric. Eyes: Extraocular muscles are intact. Conjunctivae were clear. NECK: Supple without any masses. Trachea midline no deviation. No JVD, CARDIAC: Regular rhythm, regular rate. S1/S2 are heard. No murmurs gallops or rubs. LUNGS: Clear to auscultation bilaterally. No wheeze, rhonchi or rales. No use of accessory muscles on inspiration or expiration. ABDOMEN: Soft, right upper quadrant tenderness. Nondistended. Bowel sounds heard in all 4 quadrants. No organomegaly or masses. Negative rebound, negative guarding EXTREMITIES: No edema, pulses are equal bilaterally. No cyanosis or clubbing NEUROLOGY: Mood and affect appear appropriate. Cranial nerves II through XII grossly intact. Moving all extremities, speech is clear Urinary Catheter: No Vascular Central Line Catheter: No A/P Assessment and Plan Cholecystitis, developing abdominal pain while in the hospital Laboratory studies were unremarkable for any obstructive process Gallbladder ultrasound indicated sludge in the gallbladder with thickening of the gallbladder wall at 5 mm, this is characteristic of chronic bladder disease CT scan done of the abdomen shows abnormal gallbladder with distention, diffuse wall thickening, septation and prominent sinuses. Recommending HIDA scan to evaluate for cystic duct obstruction. HIDA scan shows nonvisualization the gallbladder characteristic of acute cholecystitis. GI consultation was requested and indicating need for surgical consultation Gen. surgery consultation has been requested Metabolic encephalopathy, likely secondary to alcohol withdrawal, hepatic encephalopathy. Improving Continue monitor ammonia level. Less than 10, monitor weekly Continue rifaximin Lactulose discontinued due to diarrhea Alcohol withdrawal, improved Ativan as needed per CIWA, has not needed Ativan since 11/29/16. Discontinued MVI, thiamine folic acid Celexa for depression Discontinue Librium Elevated liver enzymes, improved Likely secondary to chronic alcohol use Continue follow liver enzymes intermittently US liver consistent with hepatic steatosis Hepatitis panel was negative Conjunctivitis, resolved Status post ciprofloxacin eyedrops Hyperglycemia Hemoglobin A1c 6.6 diet controlled Hypertension, Blood pressure was running low and atenolol and Cozaar were discontinued lisinopril 5 mg daily Acute kidney injury, resolved Likely secondary to hypotension and poor by mouth intake Improved with IV fluids Renal ultrasound was negative for any obstruction Anemia, resolved Hemoglobin stable. No evidence of bleeding. Physical deconditioning Continue physical therapy 7 days a week Discharge Planning Discharge planning when patient is able to ambulate, mentation improved. Patient did live at home by himself. Case management following patient for discharge planning Shawn Curry Dec 17, 2016 10:19
[2016-12-17] MEDS ORDERED: LEVOFLOXACIN 500 MG PREMIX INJ 100 ML IV ONE (16:15)
[2016-12-17] MEDS ORDERED: fentaNYL CITRATE 250 MCG/5 ML AMP IV ONE (16:30)
--- NOTE | 2016-12-17 17:06 | PD.RAD ---
Post Procedure Progress Note Pre Procedure Diagnosis: (1) Cholecystitis Post Procedure Diagnosis: (1) Cholecystitis Procedure Date: Dec 17, 2016 Supervising Radiologist: Chato Glass Proceduralist/Assist: RT Scott(R)() Anesthesia: Local, Conscious Sedation Plan of Activity Patient to Unit: Critical Care Patient Condition: Fair See PACS Report for procedural detail/treatment Drainage Procedure Procedure 1 Imaging Guidance: Fluoroscopy, Ultrasound Procedure Type: Cholecystostomy Procedure: Placement Khmer: 6 Drainage: [place] drainage Fluid Description: Purulent Chato Glass MD Dec 17, 2016 17:06
--- NOTE | 2016-12-17 17:48 | RADHPO ---
EXAM DATE/TIME: 12/17/2016 16:18 [facility] COMPARISON: None. INDICATIONS : Patient with a history of cholecystitis. MEDICAL HISTORY : Denies SURGICAL HISTORY : None ENCOUNTER: Initial ACUITY: 1 day PAIN SCORE: 6/10 LOCATION: Right upper quadrant are FLUORO TIME: 0.8 minutes MEDICATION(S): 1.) 500 mg levofloxacin (Levaquin) IV DEVICE(S): 1.) 6 Norwegian Locking Skater catheter PROCEDURE : 1. Ultrasound and fluoroscopic guided puncture of the gallbladder. 2. Percutaneous cholecystostomy tube placement. 3. Conscious sedation with continuous EKG and oximetry monitoring. The risks, benefits and alternatives to the procedure were explained and verbal and written consent w as obtained. The site was prepped in sterile fashion. Full sterile technique was used, including ca p, mask, sterile gloves and gown and a large sterile sheet. Hand hygiene and 2% chlorhexidine and/or betadine/alcohol prep was utilized per protocol for cutaneous antisepsis. The skin and subcutaneous tissues were infiltrated with local anesthetic solution. With ultrasound and fluoroscopic guidance the gallbladder was punctured with a micropuncture set and a 4 Norwegian dilator was placed. A 0.035 guidewire was placed within the gallbladder lumen and dilatati on was performed to accept the prescribed catheter. There was spontaneous return of thin purulent fluid. The tube was connected to gravity drainage and s ecured with silk suture and a Percu-Stay dressing. Conscious sedation was performed with the prescribed dosages and duration as above. The patient tole rated the procedure well and there were no complications. EKG and oximetry remained stable throughou t the procedure. The patient was sent to post anesthesia recovery in stable condition. CONCLUSION: Uncomplicated percutaneous cholecystostomy as above. Chato Glass MD Board Certified Radiologist. This report was verified electronically.
--- NOTE | 2016-12-17 18:16 | PD.CONS ---
HPI History of Present Illness This is a 61 year old male who was admitted initially on 11/26/16 with worsening alcohol issues, has a long standing Hx of alcohol use. LFt's elevated on admission and trending down, Hepatitis profile was negative. He developed abdominal pain and an US of the abdomen showed gall bladder sludge and wall thickening characteristic of chronic gallbladder disease. CT scan of the abdomen also showed abnomral gallbladder with with distention, diffuse wall thickening, HIDA scan was abnormal showing non-visualization of the gallbladder. Still having abdominal pain on exam today. PFSH Past Medical History ETOH abuse Past Surgical History None Coded Allergies: No Known Allergies (Verified , 11/26/16) Medications Reported Meds & Active Scripts Active No Active Prescriptions or Reported Medications Family History DM, HTN Social History lives alone; No tobacco, EtOH Daily Review of Systems Gastrointestinal: COMPLAINS OF: Abdominal pain GI Exam Vitals I&O Vital Signs Date Time Temp Pulse Resp B/P Pulse Ox O2 Delivery O2 Flow Rate FiO2 12/17/16 09:51 14 12/17/16 08:00 96.0 81 18 146/100 96 12/16/16 20:00 96.0 76 18 119/94 95 I/O 12/16/16 12/16/16 12/16/16 12/17/16 12/17/16 12/17/16 07:00 15:00 23:00 07:00 15:00 23:00 Intake Total 320 ml 240 ml 210 ml Output Total 500 ml 1200 ml 300 ml 300 ml Balance -180 ml -960 ml -300 ml -300 ml 210 ml Intake Oral 320 ml 240 ml 210 ml Output Urine Total 500 ml 1200 ml 300 ml 300 ml # Voids 3 1 1 # Bowel Movements 0 1 0 1 Imaging Last 72 hours Impressions Percutaneous Cholangiogram 12/17/16 0000 Signed Impressions: Service Date/Time: Saturday, December 17, 2016 16:18 - CONCLUSION: Uncomplicated percutaneous cholecystostomy as above. Chato Glass MD Hepatobiliary Scan Nuclear Medicine 12/16/16 0000 Signed Impressions: Service Date/Time: Friday, December 16, 2016 13:03 - CONCLUSION: 1. Nonvisualization of the gallbladder characteristic of acute cholecystitis Jez Tay MD ADDENDUM: The patient was brought back for imaging at 24 hours. Still no gallbladder activity is identified. Concerning for calculus or acalculous cholecystitis. Karri A. Sevigny, MD Abdomen/Pelvis CT 12/15/16 0000 Signed Impressions: Service Date/Time: Thursday, December 15, 2016 21:28 - CONCLUSION: 1. Abnormal appearance of the gallbladder with distention, diffuse wall thickening, septation, and prominent sinuses. Ultrasound also demonstrated some sludge in the lumen. There is also induration of the surrounding fat inferior and anterior to the distended gallbladder. Given the multiplicity of findings, recommend further evaluation with nuclear medicine hepatobiliary tract scan to evaluate for evidence of cystic duct obstruction (acalculus cholecystitis) Luis Padgett MD Physical Examination HEENT: Pupils round and reactive to light; normocephalic; atraumatic; no jaundice. Throat is clear. NECK: Neck is supple, no JVD, no lymphadenopathy. CHEST: Chest is clear to auscultation and percussion. CARDIAC: Regular rate and rhythm with no murmur gallop or rubs. ABDOMEN: Soft, nondistended,tender epigastric; no hepatosplenomegaly; bowel sounds are present in all four quadrants. EXTREMITIES: No clubbing, cyanosis, or edema. SKIN: Normal; no rash; no jaundice. [employer]: No focal deficits; alert and oriented times three. Assessment and Plan Assessment: (1) Cholecystitis (2) RUQ pain Plan: Secondary to cholecystitis (3) Elevated LFTs Plan: improving likely secondary to ETOH Hepatitis profile negative No signs of obstruction Plan Hepatobiliary Scan Nuclear Medicine 12/16/16 0000 Signed Impressions: Service Date/Time: Friday, December 16, 2016 13:03 - CONCLUSION: 1. Nonvisualization of the gallbladder characteristic of acute cholecystitisMD ADDENDUM: The patient was brought back for imaging at 24 hours. Still no gallbladder activity is identified. Concerning for calculus or acalculous cholecystitis. Abdomen/Pelvis CT 12/15/16 0000 Signed CONCLUSION: 1. Abnormal appearance of the gallbladder with distention, diffuse wall thickening, septation, and prominent sinuses. Ultrasound also demonstrated some sludge in the lumen. There is also induration of the surrounding fat inferior and anterior to the distended gallbladder. Given the multiplicity of findings, recommend further evaluation with nuclear medicine hepatobiliary tract scan to evaluate for evidence of cystic duct obstruction (acalculus cholecystitis) This a 61 year old male with RUQ/epigastric pain and evidence of acute cholecystitis, LFT's do not show any obstruction, and were likely elevated secondary to ETOH. Plan -Will consult surgery -No GI procedures at this time -Needs to stop ETOH -Supportive care Further recommendations will follow, patient was seen and examined by Dr. Wall and myself, this note is written on his behalf. Melissa Aldana Dec 17, 2016 18:16
[2016-12-18] VITALS (17 sets, daily range): BP systolic 77–122; BP diastolic 60–93; PULSE 70–98; RESP 11–26; TEMP 98–99.4; O2SAT 92–97
--- NOTE | 2016-12-18 09:56 | HHI.PR ---
Subjective Remarks Patient seen and examined today. Patient states that his abdominal pain is much improved after placement of percutaneous cholecystotomy tube, however still experiencing right upper quadrant tenderness. Objective Vitals Vital Signs Date Time Temp Pulse Resp B/P Pulse Ox O2 Delivery O2 Flow Rate FiO2 12/18/16 06:29 74 16 112/79 92 12/18/16 05:29 80 22 113/82 12/18/16 04:29 72 14 99/70 94 12/18/16 03:29 98.6 84 14 98/74 12/18/16 02:29 80 19 109/77 12/18/16 01:29 76 11 104/76 12/18/16 00:29 98.0 76 19 112/76 94 12/17/16 23:29 76 12 104/75 12/17/16 22:29 76 19 99/78 12/17/16 21:29 82 15 97/65 95 12/17/16 21:10 95 Nasal Cannula 2.00 12/17/16 20:29 76 12 110/84 95 12/17/16 19:30 76 14 93/74 95 Manual Cuff/Auscultation 12/17/16 19:15 98.6 78 14 95/70 95 Manual Cuff/Auscultation 12/17/16 19:00 78 15 99/71 93 Manual Cuff/Auscultation 12/17/16 18:45 76 14 107/81 95 Manual Cuff/Auscultation 12/17/16 18:30 76 13 120/86 96 Manual Cuff/Auscultation 12/17/16 18:30 75 21 120/86 98 12/17/16 18:17 77 10 112/83 93 12/17/16 18:15 76 11 112/83 92 Manual Cuff/Auscultation 12/17/16 18:00 78 10 104/82 93 12/17/16 18:00 76 16 104/82 94 Manual Cuff/Auscultation 12/17/16 17:45 98.7 78 20 121/80 95 I/O 12/17/16 12/17/16 12/17/16 12/18/16 12/18/16 12/18/16 07:00 15:00 23:00 07:00 15:00 23:00 Intake Total 210 ml 0 ml Output Total 300 ml 350 ml 426 ml Balance -300 ml 210 ml -350 ml -426 ml Intake Oral 210 ml 0 ml Output Urine Total 300 ml 0 ml 1 ml Drainage Total 350 ml 425 ml # Voids 1 1 # Bowel Movements 0 1 Result Diagram: 12/14/16 1122 12/16/16 0905 Objective Remarks GENERAL: Well-developed, well-nourished, in no acute distress. alert and orientated to person, initially not orientated to place, time, cardiac events. However if prompted he knows the appropriate answers HEENT: Head is normocephalic without any lesions or masses noted. Facial features are symmetric. Eyes: Extraocular muscles are intact. Conjunctivae were clear. NECK: Supple without any masses. Trachea midline no deviation. No JVD, CARDIAC: Regular rhythm, regular rate. S1/S2 are heard. No murmurs gallops or rubs. LUNGS: Clear to auscultation bilaterally. No wheeze, rhonchi or rales. No use of accessory muscles on inspiration or expiration. ABDOMEN: Soft, right upper quadrant tenderness. Nondistended. Bowel sounds heard in all 4 quadrants. No organomegaly or masses. Negative rebound, negative guarding EXTREMITIES: No edema, pulses are equal bilaterally. No cyanosis or clubbing NEUROLOGY: Mood and affect appear appropriate. Cranial nerves II through XII grossly intact. Moving all extremities, speech is clear Urinary Catheter: No Vascular Central Line Catheter: No A/P Assessment and Plan Cholecystitis, developing abdominal pain while in the hospital Laboratory studies were unremarkable for any obstructive process Gallbladder ultrasound indicated sludge in the gallbladder with thickening of the gallbladder wall at 5 mm, this is characteristic of chronic bladder disease CT scan done of the abdomen shows abnormal gallbladder with distention, diffuse wall thickening, septation and prominent sinuses. Recommending HIDA scan to evaluate for cystic duct obstruction. HIDA scan shows nonvisualization the gallbladder characteristic of acute cholecystitis. GI consultation was requested and indicating need for surgical consultation Gen. surgery consultation was requested, spoke with surgeon directly indicated patient may need surgery. Awaiting further recommendations from surgery Surgeon requested percutaneous cholecystotomy drain to be placed. Metabolic encephalopathy, likely secondary to alcohol withdrawal, hepatic encephalopathy. Improving Continue monitor ammonia level. Less than 10, monitor weekly Continue rifaximin Lactulose discontinued due to diarrhea Alcohol withdrawal, improved Ativan as needed per CIWA, has not needed Ativan since 11/29/16. Discontinued MVI, thiamine folic acid Celexa for depression Discontinue Librium Elevated liver enzymes, improved Likely secondary to chronic alcohol use Continue follow liver enzymes intermittently US liver consistent with hepatic steatosis Hepatitis panel was negative Conjunctivitis, resolved Status post ciprofloxacin eyedrops Hyperglycemia Hemoglobin A1c 6.6 diet controlled Hypertension, Blood pressure was running low and atenolol and Cozaar were discontinued lisinopril 5 mg daily Acute kidney injury, resolved Likely secondary to hypotension and poor by mouth intake Improved with IV fluids Renal ultrasound was negative for any obstruction Anemia, resolved Hemoglobin stable. No evidence of bleeding. Physical deconditioning Continue physical therapy 7 days a week Written by Shawn Curry PA-C, acting as scribe for Dr. Paniagua on 12/18/16 at 1150. The documentation accurately reflects the work and decisions performed face-to- face by Dr. Paniagua on 12/18/16 at 1150. Discharge Planning Discharge planning when patient is able to ambulate, mentation improved. Patient did live at home by himself. Case management following patient for discharge planning Shawn Curry Dec 18, 2016 09:56
[2016-12-18] MEDS: CALCIUM CARBONATE 500 MG CHEWABLE TAB CHEW SCH ×2 (10:52→21:00)
[2016-12-18] MEDS: RIFAXIMIN 550 MG TAB PO SCH (10:52)
[2016-12-18] MEDS: LISINOPRIL 5 MG TAB PO SCH (10:52)
[2016-12-18] MEDS: CITALOPRAM HYDROBROMIDE 20 MG TAB PO SCH (10:52)
[2016-12-18] MEDS: THIAMINE HCL 100 MG TAB PO SCH (10:52)
[2016-12-18] MEDS: PANTOPRAZOLE SOD 40 MG DELAYED RELEASE TAB PO SCH (10:52)
[2016-12-18] MEDS: FOLIC ACID 1 MG TAB PO SCH (10:53)
[2016-12-18] MEDS: MULTIVITAMIN TAB PO SCH (10:53)
[2016-12-18] MEDS: LEVOFLOXACIN 750 MG TAB PO SCH (12:19)
--- NOTE | 2016-12-18 15:34 | HHI.PR ---
Subjective Subjective Notes tolerating liquids, pain better but now incisional site pain, no nausea, Objective Vitals/I&O Vital Signs Date Time Temp Pulse Resp B/P Pulse Ox O2 Delivery O2 Flow Rate FiO2 12/18/16 15:01 98.5 98 14 107/74 97 12/17/16 21:10 Nasal Cannula 2.00 Cardiovascular: Regular Lungs: Clear Abdomen: Other (mild ttp, no rebound, worse ruq, BRENDAN puruent drainge more serosang) A/P Assessment and Plan acalculus cholecystitis s/p IR drain with puss POD 1 Plan clear liq diet Full discussion with patient that no surgery would be done this hospital stay. Patient may need surgery 6-8 week when infection has cooled off discussed with patient that he will not need to stay in the hospital the entire time drain to leg bag pain control recheck labs in am will continue to follow Nicolas Berg MD Dec 18, 2016 15:34
--- NOTE | 2016-12-18 16:39 | MB ---
cc: PEGGY JOY MD DATE OF CONSULTATION: 12/17/2016 REASON FOR CONSULTATION: Acalculous cholecystitis HISTORY OF PRESENT ILLNESS: The patient is a 61 year-old male with past medical history significant for ETOH dependence. The patient was admitted due to hyponatremia and alcohol withdrawal symptoms. He was evaluated, finding significant elevation in LFTs, T-bili, ammonia levels and mild elevation in lipase. He underwent treatment for this, resuscitation and pain control, and was slowly improving. The patient was noted to have several days ago recurrence of right upper quadrant abdominal pain. The pain was severe and significant, located on the right side, slow migration from the epigastric lesion. It was sharp. It was 10 out of 10, and some relief with IV pain medication. He had further workup including a CT scan which showed significantly very dilated, thickened gallbladder wall, significant for gangrenous cholecystitis with gallbladder sludge. He had further workup including ultrasound confirming this and workup with HIDA scan showing acute cholecystitis. Therefore, general surgery was consulted for evaluation. On my exam the patient is resting relatively comfortably. Neurologically, the patient has significantly improved. His laboratory values are also improving. The patient has severe persistent right upper quadrant pain and was noted not to have issues with his gallbladder in the past. The patient denies nausea and vomiting. Also GI has been consulted along with nephrology. PAST MEDICAL HISTORY: 1. Alcohol abuse. PAST SURGICAL HISTORY: No surgeries. MEDICATIONS: See EMR. ALLERGIES: NO KNOWN DRUG ALLERGIES. FAMILY HISTORY: Father with diabetes and hypertension. SOCIAL HISTORY: Lives alone, positive ETOH daily. Denies smoking or IVDA. REVIEW OF SYSTEMS: GENERAL: Recent altered mental status, currently improved. HEENT: Denies eye pain, ear pain. NECK: Denies swallowing or pain. HEART: Denies palpitations, chest pain. LUNGS: Denies cough or wheeze. ABDOMEN: Complains of abdominal pain. Denies nausea and vomiting. GENITOURINARY: Denies dysuria, hematuria. ENDOCRINE: Denies polyuria, polydipsia. MUSCULOSKELETAL: Denies arthralgias, myalgias. NEUROLOGIC: GCS currently at 15, moving all extremities. PHYSICAL EXAMINATION: GENERAL: The patient is in no acute distress. VITAL SIGNS: Temperature 98.6, pulse 78, respiratory rate 14, blood pressure 95/70, 95% saturation, two liters nasal cannula. HEENT: PERRLA, EOMI. Pupils equal and reactive. NECK: Supple. Trachea midline. HEART: S1-S2, regular rhythm. LUNGS: Bilateral expansion, no wheeze. ABDOMEN: Soft, nondistended. Positive tenderness to palpation in the right upper quadrant. Mild tenderness in the right lower quadrant. No rebound, no guarding. EXTREMITIES: Well perfused, warm. VASCULAR: 2+ pulses, all extremities. GENITOURINARY: Within normal limits. NEUROLOGIC: GCS 15, 5/5 all extremities. LABORATORY/DIAGNOSTIC DATA: WBC 7.2, hemoglobin 12.3, hematocrit 37.2, platelets 394. Sodium 137, potassium 3.8, chloride 103, CO2 24.3, BUN 10, creatinine 0.76. Glucose 110. T-bili 1.1, AST 56, ALT 31, alk phos 78. Lipase 67, ammonia 55, albumin 1.9. Chest x-ray, no acute pathology. Liver ultrasound, mild hepatosplenomegaly. Echotexture of the liver consistent with hepatic steatosis. Gallbladder sludge. Common bile duct not visualized. Head CT: No acute intracranial pathology. Gallbladder ultrasound, thickening of the gallbladder wall [address] of the abdomen and pelvis: Abnormal gallbladder appearance, distension, diffuse wall thickening, prominent sinuses, septation, sludge in the lumen. HIDA scan: Nonvisualization gallbladder, characteristic of acute cholecystitis. ASSESSMENT: The patient is a 61 year-old male with ETOH abuse withdrawal. The patient has been currently in the process of [facility] protocol treatment for this, now with sludge in gallbladder, acalculous cholecystitis. PLAN: After full radiological and clinical laboratory assessment, the patient with the above named issues including acalculous cholecystitis. The patient has a massively dilated gallbladder with a very thickened wall and has had some improvement in his liver enzymes. At this point and time, recommend percutaneous cholecystectomy tube by interventional radiology. The patient will benefit from antibiotics, initially n.p.o., IV fluids and continue close monitoring. Recommend the patient may need surgical intervention in the future, however, will attempt nonoperative management with radiology. If the patient improves, may consider laparoscopic cholecystectomy in 6 to 8 weeks. If the patient does not improve, then the patient may benefit from laparoscopic cholecystectomy this hospitalization. Again will continue currently nonoperative management and will continue to follow along with you. Thank you for the consultation. MD DARYL Baker /3:39 PM /3:50 PM
[2016-12-18] MEDS: diphenhydrAMINE HCL 25 MG CAP PO PRN (21:01)
[2016-12-18] MEDS: ONDANSETRON ODT 4 MG TAB PO PRN (21:01)
[2016-12-19 02:00] VITALS: BP 119/79; PULSE 73; RESP 16; TEMP 98; O2SAT 96
[2016-12-19 04:00] VITALS: BP 118/79; PULSE 75; RESP 18; TEMP 98; O2SAT 96
[2016-12-19 06:24] LABS: AUTOMATED NEUTROPHIL # 2.9 TH/MM3 (1.8-7.7); BASOPHIL # 0.1 TH/MM3 (0-0.2); EOSINOPHIL # 0.3 TH/MM3 (0-0.4); EOSINOPHIL % 4.3 % (0.0-4.0); HEMATOCRIT 34.8 % (39.0-51.0); LYMPH % 27.8 % (9.0-44.0); LYMPHOCYTE # 1.7 TH/MM3 (1.0-4.8); MEAN CORPUSCULAR HEMOGLOBIN 31.3 PG (27.0-34.0); MONO % 17.4 % (0.0-8.0); NEUT % 49.5 % (16.0-70.0); PLATELET COUNT 389 TH/MM3 (150-450); RED BLOOD COUNT 3.66 MIL/MM3 (4.50-5.90); RED CELL DISTRIBUTION WIDTH 14.8 % (11.6-17.2); WHITE BLOOD COUNT 6.1 TH/MM3 (4.0-11.0)
[2016-12-19 06:25] LABS: HEMO FLAGS DIFF FINAL
[2016-12-19 06:42] LABS: CHLORIDE 106 MEQ/L (98-107); POTASSIUM 3.7 MEQ/L (3.5-5.1); SODIUM (NA) 140 MEQ/L (136-145)
[2016-12-19 06:46] LABS: ANION GAP 10 MEQ/L (5-15); BICARBONATE 24.4 MEQ/L (21.0-32.0); BLOOD UREA NITROGEN 14 MG/DL (7-18)
[2016-12-19 06:48] LABS: ALT (GPT) 19 U/L (12-78); AST (GOT) 35 U/L (15-37)
[2016-12-19 06:49] LABS: GLOMERULAR FILTRATION RATE 102 ML/MIN (>89)
[2016-12-19 06:50] LABS: TOTAL BILIRUBIN ADULT 0.6 MG/DL (0.2-1.0)
[2016-12-19 06:51] LABS: ALKALINE PHOSPHATASE 65 U/L (45-117)
[2016-12-19 08:00] VITALS: BP 150/103; PULSE 74; RESP 20; TEMP 97.2; O2SAT 97
[2016-12-19] MEDS: CITALOPRAM HYDROBROMIDE 20 MG TAB PO SCH (08:19)
[2016-12-19] MEDS: CALCIUM CARBONATE 500 MG CHEWABLE TAB CHEW SCH ×2 (08:19→20:45)
[2016-12-19] MEDS: FOLIC ACID 1 MG TAB PO SCH (08:19)
[2016-12-19] MEDS: PANTOPRAZOLE SOD 40 MG DELAYED RELEASE TAB PO SCH (08:19)
[2016-12-19] MEDS: THIAMINE HCL 100 MG TAB PO SCH (08:19)
[2016-12-19] MEDS: LISINOPRIL 5 MG TAB PO SCH (08:20)
[2016-12-19] MEDS: MULTIVITAMIN TAB PO SCH (08:20)
[2016-12-19] MEDS: RIFAXIMIN 550 MG TAB PO SCH (08:20)
--- NOTE | 2016-12-19 09:43 | HHI.PR ---
Subjective Remarks Patient seen and examined today. Patient states that the pain is improved. Usually is a 2/10 on a pain scale does get colicky pain that can go up to 10/10 on a pain scale that last for 2 seconds. Drain is in place with serosanguineous fluid Objective Vitals Vital Signs Date Time Temp Pulse Resp B/P Pulse Ox O2 Delivery O2 Flow Rate FiO2 12/19/16 07:48 14 12/19/16 04:00 98.0 75 18 118/79 96 12/19/16 02:00 98.0 73 16 119/79 96 12/18/16 23:33 98.1 80 18 117/79 95 12/18/16 20:00 98.3 75 20 122/93 97 12/18/16 15:01 98.5 98 14 107/74 97 12/18/16 11:53 98.6 76 20 112/68 95 12/18/16 10:00 74 14 12/18/16 09:55 26 119/81 I/O 12/18/16 12/18/16 12/18/16 12/19/16 12/19/16 12/19/16 07:00 15:00 23:00 07:00 15:00 23:00 Intake Total 0 ml 330 ml 640 ml 420 ml Output Total 426 ml 100 ml 450 ml Balance -426 ml 230 ml 640 ml -30 ml Intake Oral 0 ml 330 ml 640 ml 420 ml Output Urine Total 1 ml 400 ml Drainage Total 425 ml 100 ml 50 ml # Voids 1 3 # Bowel Movements 0 2 0 Result Diagram: 12/19/16 0557 12/19/16 0557 Objective Remarks GENERAL: Well-developed, well-nourished, in no acute distress. alert and orientated to person, initially not orientated to place, time, cardiac events. However if prompted he knows the appropriate answers HEENT: Head is normocephalic without any lesions or masses noted. Facial features are symmetric. Eyes: Extraocular muscles are intact. Conjunctivae were clear. NECK: Supple without any masses. Trachea midline no deviation. No JVD, CARDIAC: Regular rhythm, regular rate. S1/S2 are heard. No murmurs gallops or rubs. LUNGS: Clear to auscultation bilaterally. No wheeze, rhonchi or rales. No use of accessory muscles on inspiration or expiration. ABDOMEN: Soft, right upper quadrant tenderness. Nondistended. Bowel sounds heard in all 4 quadrants. No organomegaly or masses. Negative rebound, negative guarding. Cholecystotomy drain noted EXTREMITIES: No edema, pulses are equal bilaterally. No cyanosis or clubbing NEUROLOGY: Mood and affect appear appropriate. Cranial nerves II through XII grossly intact. Moving all extremities, speech is clear Urinary Catheter: No Vascular Central Line Catheter: No A/P Assessment and Plan Cholecystitis, acalculous Laboratory studies were unremarkable for any obstructive process Gallbladder ultrasound indicated sludge in the gallbladder with thickening of the gallbladder wall at 5 mm, this is characteristic of chronic bladder disease CT scan done of the abdomen shows abnormal gallbladder with distention, diffuse wall thickening, septation and prominent sinuses. Recommending HIDA scan to evaluate for cystic duct obstruction. HIDA scan shows nonvisualization the gallbladder characteristic of acute cholecystitis. GI consultation was requested and indicating need for surgical consultation Gen. surgery consultation was requested, if patient tolerates management with cholecystotomy tube then outpatient laparoscopic cholecystectomy can be performed in 6-8 weeks. If patient continues to have pain and does not improve then he may benefit from cholecystectomy while in the hospital. Surgeon requested percutaneous cholecystotomy drain to be placed and remain in place for 6-8 weeks. Metabolic encephalopathy, likely secondary to alcohol withdrawal, hepatic encephalopathy. Improving Continue monitor ammonia level. Less than 10, monitor weekly Continue rifaximin Lactulose discontinued due to diarrhea Alcohol withdrawal, improved Ativan as needed per CIWA, has not needed Ativan since 11/29/16. Discontinued MVI, thiamine folic acid Celexa for depression Discontinue Librium Elevated liver enzymes, improved Likely secondary to chronic alcohol use Continue follow liver enzymes intermittently US liver consistent with hepatic steatosis Hepatitis panel was negative Conjunctivitis, resolved Status post ciprofloxacin eyedrops Hyperglycemia Hemoglobin A1c 6.6 diet controlled Hypertension, Blood pressure was running low and atenolol and Cozaar were discontinued lisinopril 5 mg daily Acute kidney injury, resolved Likely secondary to hypotension and poor by mouth intake Improved with IV fluids Renal ultrasound was negative for any obstruction Anemia, resolved Hemoglobin stable. No evidence of bleeding. Physical deconditioning Continue physical therapy 7 days a week Discharge Planning Discharge planning when patient is able to ambulate, mentation improved. Patient did live at home by himself. Case management following patient for discharge planning Shawn Curry Dec 19, 2016 09:43
[2016-12-19] MEDS: LEVOFLOXACIN 750 MG TAB PO SCH (11:48)
[2016-12-19 12:00] VITALS: BP 137/92; PULSE 76; RESP 20; TEMP 97.3; O2SAT 94
--- NOTE | 2016-12-19 12:07 | HHI.PR ---
Subjective Subjective Notes Seems confused Objective Vitals/I&O Vital Signs Date Time Temp Pulse Resp B/P Pulse Ox O2 Delivery O2 Flow Rate FiO2 12/19/16 08:00 97.2 74 20 150/103 97 12/17/16 21:10 Nasal Cannula 2.00 Labs Laboratory Tests Test 12/19/16 05:57 White Blood Count 6.1 Red Blood Count 3.66 Hemoglobin 11.5 Hematocrit 34.8 Mean Corpuscular Volume 95.0 Mean Corpuscular Hemoglobin 31.3 Mean Corpuscular Hemoglobin 33.0 Concent Red Cell Distribution Width 14.8 Platelet Count 389 Mean Platelet Volume 9.2 Neutrophils (%) (Auto) 49.5 Lymphocytes (%) (Auto) 27.8 Monocytes (%) (Auto) 17.4 Eosinophils (%) (Auto) 4.3 Basophils (%) (Auto) 1.0 Neutrophils # (Auto) 2.9 Lymphocytes # (Auto) 1.7 Monocytes # (Auto) 1.1 Eosinophils # (Auto) 0.3 Basophils # (Auto) 0.1 CBC Comment DIFF FINAL Differential Comment Sodium Level 140 Potassium Level 3.7 Chloride Level 106 Carbon Dioxide Level 24.4 Anion Gap 10 Blood Urea Nitrogen 14 Creatinine 0.77 Estimat Glomerular Filtration 102 Rate Random Glucose 86 Calcium Level 7.9 Total Bilirubin 0.6 Aspartate Amino Transf 35 (AST/SGOT) Alanine Aminotransferase 19 (ALT/SGPT) Alkaline Phosphatase 65 Total Protein 6.6 Albumin 1.7 Lipase 31 Cardiovascular: Regular Lungs: Clear Abdomen: Other (RUQ pain at drain site; michael tube draining bile ) Extremities: No edema A/P Assessment and Plan 61 year old male with acalculus cholecystitis s/p IR drain placement -Tolerating heart healthy diet -OOB -Continue draining to gravity -Pain control Attending Statement pt seen at bedside pain improving michael tube draining Attestation The exam, history, and the medical decision-making described in the above note were completed with the assistance of the mid-level provider. I reviewed and agree with the findings presented. I attest that I had a [id number] encounter with the patient on the same day, and personally performed and documented my assessment and findings in the medical record. Selam England Dec 19, 2016 12:07 Nicolas Berg MD Dec 25, 2016 12:46
[2016-12-19 16:00] VITALS: BP_SYST 123; BP_SYST 127; BP_DIAS 82; BP_DIAS 92; PULSE 72; PULSE 75; RESP 20; TEMP 97; TEMP 97.3; O2SAT 96; O2SAT 98
[2016-12-19 20:00] VITALS: BP 145/99; PULSE 71; RESP 18; TEMP 96.1; O2SAT 98
[2016-12-19] MEDS: diphenhydrAMINE HCL 25 MG CAP PO PRN (20:45)
[2016-12-20 08:00] VITALS: BP 133/97; PULSE 75; RESP 19; TEMP 98.1; O2SAT 93
[2016-12-20] MEDS: PANTOPRAZOLE SOD 40 MG DELAYED RELEASE TAB PO SCH (09:39)
[2016-12-20] MEDS: RIFAXIMIN 550 MG TAB PO SCH (09:39)
[2016-12-20] MEDS: CALCIUM CARBONATE 500 MG CHEWABLE TAB CHEW SCH ×2 (09:39→21:14)
[2016-12-20] MEDS: FOLIC ACID 1 MG TAB PO SCH (09:39)
[2016-12-20] MEDS: MULTIVITAMIN TAB PO SCH (09:39)
[2016-12-20] MEDS: LISINOPRIL 5 MG TAB PO SCH (09:40)
[2016-12-20] MEDS: THIAMINE HCL 100 MG TAB PO SCH (09:40)
[2016-12-20] MEDS: CITALOPRAM HYDROBROMIDE 20 MG TAB PO SCH (09:40)
--- NOTE | 2016-12-20 10:23 | HHI.PR ---
Subjective Remarks Patient's examined today. Patient denies any new complaints. No change in clinical status. Objective Vitals Vital Signs Date Time Temp Pulse Resp B/P Pulse Ox O2 Delivery O2 Flow Rate FiO2 12/20/16 08:00 98.1 75 19 133/97 93 12/19/16 20:00 96.1 71 18 145/99 98 12/19/16 18:58 16 12/19/16 16:00 97.3 75 20 123/92 96 12/19/16 12:00 97.3 76 20 137/92 94 I/O 12/19/16 12/19/16 12/19/16 12/20/16 12/20/16 12/20/16 07:00 15:00 23:00 07:00 15:00 23:00 Intake Total 420 ml 900 ml Output Total 450 ml 625 ml 100 ml 580 ml Balance -30 ml 275 ml -100 ml -580 ml Intake Oral 420 ml 900 ml Output Urine Total 400 ml 625 ml 500 ml Drainage Total 50 ml 100 ml 80 ml # Voids 1 # Bowel Movements 0 1 1 Result Diagram: 12/19/16 0557 12/19/16 0557 Objective Remarks GENERAL: Well-developed, well-nourished, in no acute distress. alert and orientated to person, initially not orientated to place, time, cardiac events. However if prompted he knows the appropriate answers HEENT: Head is normocephalic without any lesions or masses noted. Facial features are symmetric. Eyes: Extraocular muscles are intact. Conjunctivae were clear. NECK: Supple without any masses. Trachea midline no deviation. No JVD, CARDIAC: Regular rhythm, regular rate. S1/S2 are heard. No murmurs gallops or rubs. LUNGS: Clear to auscultation bilaterally. No wheeze, rhonchi or rales. No use of accessory muscles on inspiration or expiration. ABDOMEN: Soft, right upper quadrant tenderness. Nondistended. Bowel sounds heard in all 4 quadrants. No organomegaly or masses. Negative rebound, negative guarding. Cholecystotomy drain noted EXTREMITIES: No edema, pulses are equal bilaterally. No cyanosis or clubbing NEUROLOGY: Mood and affect appear appropriate. Cranial nerves II through XII grossly intact. Moving all extremities, speech is clear Urinary Catheter: No Vascular Central Line Catheter: No A/P Assessment and Plan Cholecystitis, acalculous Laboratory studies were unremarkable for any obstructive process Gallbladder ultrasound indicated sludge in the gallbladder with thickening of the gallbladder wall at 5 mm, this is characteristic of chronic bladder disease CT scan done of the abdomen shows abnormal gallbladder with distention, diffuse wall thickening, septation and prominent sinuses. Recommending HIDA scan to evaluate for cystic duct obstruction. HIDA scan shows nonvisualization the gallbladder characteristic of acute cholecystitis. GI consultation was requested and indicating need for surgical consultation Gen. surgery consultation was requested, if patient tolerates management with cholecystotomy tube then outpatient laparoscopic cholecystectomy can be performed in 6-8 weeks. If patient continues to have pain and does not improve then he may benefit from cholecystectomy while in the hospital. Surgeon requested percutaneous cholecystotomy drain to be placed and remain in place for 6-8 weeks. Continue Levaquin Metabolic encephalopathy, likely secondary to alcohol withdrawal, hepatic encephalopathy. Improving Continue monitor ammonia level. Less than 10, monitor weekly Continue rifaximin Lactulose discontinued due to diarrhea Alcohol withdrawal, improved Ativan as needed per CIWA, has not needed Ativan since 11/29/16. Discontinued MVI, thiamine folic acid Celexa for depression Discontinue Librium Elevated liver enzymes, improved Likely secondary to chronic alcohol use Continue follow liver enzymes intermittently US liver consistent with hepatic steatosis Hepatitis panel was negative Conjunctivitis, resolved Status post ciprofloxacin eyedrops Hyperglycemia Hemoglobin A1c 6.6 diet controlled Hypertension, Blood pressure was running low and atenolol and Cozaar were discontinued lisinopril 5 mg daily Acute kidney injury, resolved Likely secondary to hypotension and poor by mouth intake Improved with IV fluids Renal ultrasound was negative for any obstruction Anemia, resolved Hemoglobin stable. No evidence of bleeding. Physical deconditioning Continue physical therapy 7 days a week Discharge Planning Discharge planning when patient is able to ambulate, mentation improved. Patient did live at home by himself. Case management following patient for discharge planning Shawn Curry Dec 20, 2016 10:23
[2016-12-20 12:00] VITALS: BP 131/97; PULSE 75; RESP 20; TEMP 97.4; O2SAT 97
[2016-12-20] MEDS: LEVOFLOXACIN 750 MG TAB PO SCH (12:33)
[2016-12-20 16:00] VITALS: BP 129/103; PULSE 79; RESP 20; TEMP 97.5; O2SAT 99
[2016-12-20 16:30] VITALS: BP 128/96; PULSE 74
[2016-12-20 20:51] VITALS: BP 157/106; PULSE 80; RESP 16; TEMP 97.3; O2SAT 97
[2016-12-21 00:12] VITALS: BP 110/83; PULSE 81; RESP 18; TEMP 97.7; O2SAT 98
[2016-12-21 04:00] VITALS: BP 132/94; PULSE 74; RESP 20; TEMP 97.9; O2SAT 97
[2016-12-21 08:00] VITALS: BP 118/98; PULSE 78; RESP 19; TEMP 98.4; O2SAT 96
[2016-12-21] MEDS: FOLIC ACID 1 MG TAB PO SCH (08:10)
[2016-12-21] MEDS: CITALOPRAM HYDROBROMIDE 20 MG TAB PO SCH (08:10)
[2016-12-21] MEDS: RIFAXIMIN 550 MG TAB PO SCH (08:10)
[2016-12-21] MEDS: MULTIVITAMIN TAB PO SCH (08:10)
[2016-12-21] MEDS: CALCIUM CARBONATE 500 MG CHEWABLE TAB CHEW SCH ×2 (08:10→20:47)
[2016-12-21] MEDS: PANTOPRAZOLE SOD 40 MG DELAYED RELEASE TAB PO SCH (08:10)
[2016-12-21] MEDS: THIAMINE HCL 100 MG TAB PO SCH (08:10)
[2016-12-21] MEDS: LISINOPRIL 5 MG TAB PO SCH (08:13)
--- NOTE | 2016-12-21 11:29 | HHI.PR ---
Subjective Remarks Patient seen and examined today. Patient denies any new complaints. No change in clinical status. Awaiting case management for discharge planning. Objective Vitals Vital Signs Date Time Temp Pulse Resp B/P Pulse Ox O2 Delivery O2 Flow Rate FiO2 12/21/16 09:19 14 12/21/16 08:00 98.4 78 19 118/98 96 12/21/16 04:00 97.9 74 20 132/94 97 12/21/16 00:12 97.7 81 18 110/83 98 12/20/16 20:51 97.3 80 16 157/106 97 12/20/16 16:30 74 128/96 12/20/16 16:00 97.5 79 20 129/103 99 12/20/16 12:00 97.4 75 20 131/97 97 I/O 12/20/16 12/20/16 12/20/16 12/21/16 12/21/16 12/21/16 07:00 15:00 23:00 07:00 15:00 23:00 Intake Total 480 ml Output Total 580 ml 650 ml 300 ml Balance -580 ml 480 ml -650 ml -300 ml Intake Oral 480 ml Output Urine Total 500 ml 600 ml 300 ml Drainage Total 80 ml 50 ml # Voids 1 2 # Bowel Movements 1 2 1 Result Diagram: 12/19/16 0557 12/19/16 0557 Objective Remarks GENERAL: Well-developed, well-nourished, in no acute distress. alert and orientated to person, initially not orientated to place, time, cardiac events. However if prompted he knows the appropriate answers HEENT: Head is normocephalic without any lesions or masses noted. Facial features are symmetric. Eyes: Extraocular muscles are intact. Conjunctivae were clear. NECK: Supple without any masses. Trachea midline no deviation. No JVD, CARDIAC: Regular rhythm, regular rate. S1/S2 are heard. No murmurs gallops or rubs. LUNGS: Clear to auscultation bilaterally. No wheeze, rhonchi or rales. No use of accessory muscles on inspiration or expiration. ABDOMEN: Soft, right upper quadrant tenderness. Nondistended. Bowel sounds heard in all 4 quadrants. No organomegaly or masses. Negative rebound, negative guarding. Cholecystotomy drain noted EXTREMITIES: No edema, pulses are equal bilaterally. No cyanosis or clubbing NEUROLOGY: Mood and affect appear appropriate. Cranial nerves II through XII grossly intact. Moving all extremities, speech is clear Urinary Catheter: No Vascular Central Line Catheter: No A/P Assessment and Plan Cholecystitis, acalculous Laboratory studies were unremarkable for any obstructive process Gallbladder ultrasound indicated sludge in the gallbladder with thickening of the gallbladder wall at 5 mm, this is characteristic of chronic bladder disease CT scan done of the abdomen shows abnormal gallbladder with distention, diffuse wall thickening, septation and prominent sinuses. Recommending HIDA scan to evaluate for cystic duct obstruction. HIDA scan shows nonvisualization the gallbladder characteristic of acute cholecystitis. GI consultation was requested and indicating need for surgical consultation Gen. surgery consultation was requested, if patient tolerates management with cholecystotomy tube then outpatient laparoscopic cholecystectomy can be performed in 6-8 weeks. If patient continues to have pain and does not improve then he may benefit from cholecystectomy while in the hospital. Surgeon requested percutaneous cholecystotomy drain to be placed and remain in place for 6-8 weeks. Continue Levaquin Metabolic encephalopathy, likely secondary to alcohol withdrawal, hepatic encephalopathy. Improving Continue monitor ammonia level. Less than 10, monitor weekly Continue rifaximin Lactulose discontinued due to diarrhea Alcohol withdrawal, improved Ativan as needed per CIWA, has not needed Ativan since 11/29/16. Discontinued MVI, thiamine folic acid Celexa for depression Discontinue Librium Elevated liver enzymes, improved Likely secondary to chronic alcohol use Continue follow liver enzymes intermittently US liver consistent with hepatic steatosis Hepatitis panel was negative Conjunctivitis, resolved Status post ciprofloxacin eyedrops Hyperglycemia Hemoglobin A1c 6.6 diet controlled Hypertension, Blood pressure was running low and atenolol and Cozaar were discontinued lisinopril 5 mg daily Acute kidney injury, resolved Likely secondary to hypotension and poor by mouth intake Improved with IV fluids Renal ultrasound was negative for any obstruction Anemia, resolved Hemoglobin stable. No evidence of bleeding. Physical deconditioning Continue physical therapy 7 days a week Discharge Planning Discharge planning when patient is able to ambulate, mentation improved. Patient did live at home by himself. Case management following patient for discharge planning Shawn Curry Dec 21, 2016 11:29
[2016-12-21] MEDS: LEVOFLOXACIN 750 MG TAB PO SCH (11:57)
[2016-12-21 20:00] VITALS: BP 102/79; PULSE 87; RESP 20; TEMP 97.2; O2SAT 94
[2016-12-22 08:00] VITALS: BP 136/93; PULSE 74; RESP 20; TEMP 96.7; O2SAT 94
[2016-12-22] MEDS: PANTOPRAZOLE SOD 40 MG DELAYED RELEASE TAB PO SCH (09:17)
[2016-12-22] MEDS: RIFAXIMIN 550 MG TAB PO SCH (09:17)
[2016-12-22] MEDS: THIAMINE HCL 100 MG TAB PO SCH (09:17)
[2016-12-22] MEDS: CITALOPRAM HYDROBROMIDE 20 MG TAB PO SCH (09:17)
[2016-12-22] MEDS: FOLIC ACID 1 MG TAB PO SCH (09:17)
[2016-12-22] MEDS: LISINOPRIL 5 MG TAB PO SCH (09:17)
[2016-12-22] MEDS: MULTIVITAMIN TAB PO SCH (09:17)
[2016-12-22] MEDS: CALCIUM CARBONATE 500 MG CHEWABLE TAB CHEW SCH ×2 (09:17→20:56)
--- NOTE | 2016-12-22 10:26 | HHI.PR ---
Subjective Remarks Patient seen and examined today. Patient denies any new complaints. No change in clinical status. Awaiting case management for discharge planning. Objective Vitals Vital Signs Date Time Temp Pulse Resp B/P Pulse Ox O2 Delivery O2 Flow Rate FiO2 12/22/16 08:00 96.7 74 20 136/93 94 12/21/16 20:00 97.2 87 20 102/79 94 I/O 12/21/16 12/21/16 12/21/16 12/22/16 12/22/16 12/22/16 07:00 15:00 23:00 07:00 15:00 23:00 Intake Total 620 ml 480 ml 480 ml Output Total 300 ml 650 ml Balance -300 ml 620 ml 480 ml -170 ml Intake Oral 620 ml 480 ml 480 ml Output Urine Total 300 ml 650 ml # Voids 2 2 # Bowel Movements 1 0 1 0 Result Diagram: 12/19/16 0557 12/19/16 0557 Objective Remarks GENERAL: Well-developed, well-nourished, in no acute distress. alert and orientated to person, initially not orientated to place, time, cardiac events. However if prompted he knows the appropriate answers HEENT: Head is normocephalic without any lesions or masses noted. Facial features are symmetric. Eyes: Extraocular muscles are intact. Conjunctivae were clear. NECK: Supple without any masses. Trachea midline no deviation. No JVD, CARDIAC: Regular rhythm, regular rate. S1/S2 are heard. No murmurs gallops or rubs. LUNGS: Clear to auscultation bilaterally. No wheeze, rhonchi or rales. No use of accessory muscles on inspiration or expiration. ABDOMEN: Soft, right upper quadrant tenderness. Nondistended. Bowel sounds heard in all 4 quadrants. No organomegaly or masses. Negative rebound, negative guarding. Cholecystotomy drain noted EXTREMITIES: No edema, pulses are equal bilaterally. No cyanosis or clubbing NEUROLOGY: Mood and affect appear appropriate. Cranial nerves II through XII grossly intact. Moving all extremities, speech is clear Urinary Catheter: No Vascular Central Line Catheter: No A/P Assessment and Plan Cholecystitis, acalculous Laboratory studies were unremarkable for any obstructive process Gallbladder ultrasound indicated sludge in the gallbladder with thickening of the gallbladder wall at 5 mm, this is characteristic of chronic bladder disease CT scan done of the abdomen shows abnormal gallbladder with distention, diffuse wall thickening, septation and prominent sinuses. Recommending HIDA scan to evaluate for cystic duct obstruction. HIDA scan shows nonvisualization the gallbladder characteristic of acute cholecystitis. GI consultation was requested and indicating need for surgical consultation Gen. surgery consultation was requested, if patient tolerates management with cholecystotomy tube then outpatient laparoscopic cholecystectomy can be performed in 6-8 weeks. If patient continues to have pain and does not improve then he may benefit from cholecystectomy while in the hospital. Surgeon requested percutaneous cholecystotomy drain to be placed and remain in place for 6-8 weeks. Continue Levaquin Metabolic encephalopathy, likely secondary to alcohol withdrawal, hepatic encephalopathy. Improving Continue monitor ammonia level. Less than 10, monitor weekly Continue rifaximin Lactulose discontinued due to diarrhea Alcohol withdrawal, improved Ativan as needed per CIWA, has not needed Ativan since 11/29/16. Discontinued MVI, thiamine folic acid Celexa for depression Discontinue Librium Elevated liver enzymes, improved Likely secondary to chronic alcohol use Continue follow liver enzymes intermittently US liver consistent with hepatic steatosis Hepatitis panel was negative Conjunctivitis, resolved Status post ciprofloxacin eyedrops Hyperglycemia Hemoglobin A1c 6.6 diet controlled Hypertension, Blood pressure was running low and atenolol and Cozaar were discontinued lisinopril 5 mg daily Acute kidney injury, resolved Likely secondary to hypotension and poor by mouth intake Improved with IV fluids Renal ultrasound was negative for any obstruction Anemia, resolved Hemoglobin stable. No evidence of bleeding. Physical deconditioning Continue physical therapy 7 days a week Discharge Planning Discharge planning when patient is able to ambulate, mentation improved. Patient did live at home by himself. Case management following patient for discharge planning Shawn Curry Dec 22, 2016 10:26
[2016-12-22] MEDS: LEVOFLOXACIN 750 MG TAB PO SCH (12:08)
[2016-12-22 20:00] VITALS: BP 117/97; PULSE 81; RESP 16; TEMP 98; O2SAT 97
[2016-12-23 08:00] VITALS: BP 153/74; PULSE 87; RESP 18; TEMP 97.7; O2SAT 96
[2016-12-23] MEDS: PANTOPRAZOLE SOD 40 MG DELAYED RELEASE TAB PO SCH (09:06)
[2016-12-23] MEDS: CALCIUM CARBONATE 500 MG CHEWABLE TAB CHEW SCH ×2 (09:06→20:27)
[2016-12-23] MEDS: CITALOPRAM HYDROBROMIDE 20 MG TAB PO SCH (09:06)
[2016-12-23] MEDS: THIAMINE HCL 100 MG TAB PO SCH (09:06)
[2016-12-23] MEDS: RIFAXIMIN 550 MG TAB PO SCH (09:06)
[2016-12-23] MEDS: LISINOPRIL 5 MG TAB PO SCH (09:06)
[2016-12-23] MEDS: FOLIC ACID 1 MG TAB PO SCH (09:06)
[2016-12-23] MEDS: MULTIVITAMIN TAB PO SCH (09:06)
[2016-12-23] MEDS: LEVOFLOXACIN 750 MG TAB PO SCH (09:09)
--- NOTE | 2016-12-23 09:21 | HHI.PR ---
Subjective Remarks Patient seen and examined today. Patient denies any new complaints. No change in clinical status. Patient states that his bowel pain is much improved. Patient is under the understanding that he was to have his gallbladder taken out during this hospitalization. Objective Vitals Vital Signs Date Time Temp Pulse Resp B/P Pulse Ox O2 Delivery O2 Flow Rate FiO2 12/22/16 20:00 98.0 81 16 117/97 97 I/O 12/22/16 12/22/16 12/22/16 12/23/16 12/23/16 12/23/16 07:00 15:00 23:00 07:00 15:00 23:00 Intake Total 480 ml 840 ml 480 ml 480 ml Output Total 650 ml 35 ml 500 ml Balance -170 ml 840 ml 445 ml -20 ml Intake Oral 480 ml 840 ml 480 ml 480 ml Output Urine Total 650 ml 500 ml Drainage Total 35 ml # Voids 3 2 # Bowel Movements 0 2 2 0 Result Diagram: 12/19/16 0557 12/19/16 0557 Objective Remarks GENERAL: Well-developed, well-nourished, in no acute distress. alert and orientated to person, initially not orientated to place, time, cardiac events. However if prompted he knows the appropriate answers HEENT: Head is normocephalic without any lesions or masses noted. Facial features are symmetric. Eyes: Extraocular muscles are intact. Conjunctivae were clear. NECK: Supple without any masses. Trachea midline no deviation. No JVD, CARDIAC: Regular rhythm, regular rate. S1/S2 are heard. No murmurs gallops or rubs. LUNGS: Clear to auscultation bilaterally. No wheeze, rhonchi or rales. No use of accessory muscles on inspiration or expiration. ABDOMEN: Soft, right upper quadrant tenderness. Nondistended. Bowel sounds heard in all 4 quadrants. No organomegaly or masses. Negative rebound, negative guarding. Cholecystotomy drain noted EXTREMITIES: No edema, pulses are equal bilaterally. No cyanosis or clubbing NEUROLOGY: Mood and affect appear appropriate. Cranial nerves II through XII grossly intact. Moving all extremities, speech is clear Urinary Catheter: No Vascular Central Line Catheter: No A/P Assessment and Plan Cholecystitis, acalculous Laboratory studies were unremarkable for any obstructive process Gallbladder ultrasound indicated sludge in the gallbladder with thickening of the gallbladder wall at 5 mm, this is characteristic of chronic bladder disease CT scan done of the abdomen shows abnormal gallbladder with distention, diffuse wall thickening, septation and prominent sinuses. Recommending HIDA scan to evaluate for cystic duct obstruction. HIDA scan shows nonvisualization the gallbladder characteristic of acute cholecystitis. GI consultation was requested and indicating need for surgical consultation Gen. surgery consultation was requested, if patient tolerates management with cholecystotomy tube then outpatient laparoscopic cholecystectomy can be performed in 6-8 weeks. If patient continues to have pain and does not improve then he may benefit from cholecystectomy while in the hospital. Surgeon requested percutaneous cholecystotomy drain to be placed and remain in place for 6-8 weeks. Continue Levaquin Metabolic encephalopathy, likely secondary to alcohol withdrawal, hepatic encephalopathy. Resolved Continue monitor ammonia level. Less than 10, monitor weekly Continue rifaximin Lactulose discontinued due to diarrhea Alcohol withdrawal, resolved Ativan as needed per CIWA, has not needed Ativan since 11/29/16. Discontinued MVI, thiamine folic acid Celexa for depression Discontinue Librium Elevated liver enzymes, improved Likely secondary to chronic alcohol use Continue follow liver enzymes intermittently US liver consistent with hepatic steatosis Hepatitis panel was negative Conjunctivitis, resolved Status post ciprofloxacin eyedrops Hyperglycemia Hemoglobin A1c 6.6 diet controlled Hypertension, Blood pressure was running low and atenolol and Cozaar were discontinued lisinopril 5 mg daily Acute kidney injury, resolved Likely secondary to hypotension and poor by mouth intake Improved with IV fluids Renal ultrasound was negative for any obstruction Anemia, resolved Hemoglobin stable. No evidence of bleeding. Physical deconditioning Continue physical therapy 7 days a week Discharge Planning Discharge planning when patient is able to ambulate, mentation improved. Patient did live at home by himself. Case management following patient for discharge planning Shawn Curry Dec 23, 2016 09:21
[2016-12-23 20:00] VITALS: BP 107/82; PULSE 86; RESP 18; TEMP 97; O2SAT 86
[2016-12-24 08:00] VITALS: BP 143/102; RESP 19; TEMP 97.6; O2SAT 98
[2016-12-24] MEDS: MULTIVITAMIN TAB PO SCH (09:44)
[2016-12-24] MEDS: THIAMINE HCL 100 MG TAB PO SCH (09:44)
[2016-12-24] MEDS: RIFAXIMIN 550 MG TAB PO SCH (09:44)
[2016-12-24] MEDS: LISINOPRIL 5 MG TAB PO SCH (09:44)
[2016-12-24] MEDS: CALCIUM CARBONATE 500 MG CHEWABLE TAB CHEW SCH ×2 (09:44→21:30)
[2016-12-24] MEDS: FOLIC ACID 1 MG TAB PO SCH (09:45)
[2016-12-24] MEDS: PANTOPRAZOLE SOD 40 MG DELAYED RELEASE TAB PO SCH (09:45)
[2016-12-24] MEDS: CITALOPRAM HYDROBROMIDE 20 MG TAB PO SCH (09:45)
[2016-12-24] MEDS: LEVOFLOXACIN 750 MG TAB PO SCH (12:19)
--- NOTE | 2016-12-24 13:37 | HHI.PR ---
Subjective Remarks Follow-up for abdominal pain, encephalopathy. Patient admits to less abdominal pain than he had before and also states it feels less hard. Objective Vitals Vital Signs Date Time Temp Pulse Resp B/P Pulse Ox O2 Delivery O2 Flow Rate FiO2 12/24/16 08:00 97.6 19 143/102 98 12/23/16 20:00 97.0 86 18 107/82 86 I/O 12/23/16 12/23/16 12/23/16 12/24/16 12/24/16 12/24/16 07:00 15:00 23:00 07:00 15:00 23:00 Intake Total 480 ml 600 ml 240 ml Output Total 500 ml 1 ml 100 ml Balance -20 ml 599 ml 140 ml Intake Oral 480 ml 600 ml 240 ml Output Urine Total 500 ml Stool Total 1 ml Drainage Total 100 ml # Voids 7 4 # Bowel Movements 0 0 1 Objective Remarks GENERAL: Well-developed male in no apparent distress. CARDIOVASCULAR: Regular rate and rhythm. RESPIRATORY: No accessory muscle use. Clear to auscultation. Breath sounds equal bilaterally. GASTROINTESTINAL: Abdomen soft, nontender, nondistended. No tenderness to palpation. NEUROLOGICAL: Awake and alert. Normal speech. Urinary Catheter: No Vascular Central Line Catheter: No A/P Problem List: (1) Alcohol withdrawal ICD Code: F10.239 Status: Acute (2) RUQ pain ICD Code: R10.11 Status: Acute (3) Elevated LFTs ICD Code: R94.5 Status: Acute (4) Conjunctivitis ICD Code: H10.9 Status: Resolved (5) Hyperglycemia ICD Code: R73.9 Status: Acute (6) HTN (hypertension) ICD Code: I10 Status: Acute (7) Acute kidney injury ICD Code: N17.9 Status: Resolved (8) Anemia ICD Code: D64.9 Status: Acute Assessment and Plan Cholecystitis, acalculous Laboratory studies were unremarkable for any obstructive process Gallbladder ultrasound indicated sludge in the gallbladder with thickening of the gallbladder wall at 5 mm, this is characteristic of chronic bladder disease CT scan done of the abdomen shows abnormal gallbladder with distention, diffuse wall thickening, septation and prominent sinuses. Recommending HIDA scan to evaluate for cystic duct obstruction. HIDA scan shows nonvisualization the gallbladder characteristic of acute cholecystitis. GI consultation was requested and indicating need for surgical consultation General surgery was consulted. Dr. Berg indicates if patient tolerates management with cholecystotomy tube then outpatient laparoscopic cholecystectomy can be performed in 6-8 weeks. If patient continues to have pain and does not improve then he may benefit from cholecystectomy while in the hospital. Cholecystotomy drain currently in place. Continue po Levaquin, on day 7 today. Follow-up with Dr. Berg in 2-3 weeks. Surgery option in 6 weeks. Metabolic encephalopathy, likely secondary to alcohol withdrawal, hepatic encephalopathy. Resolved Continue monitor ammonia level. Less than 10, monitor weekly Continue rifaximin Lactulose discontinued due to diarrhea Alcohol withdrawal, resolved Ativan as needed per CIWA, has not needed Ativan since 11/29/16. Discontinued MVI, thiamine folic acid Celexa for depression Discontinue Librium Elevated liver enzymes, improved Likely secondary to chronic alcohol use Continue follow liver enzymes intermittently US liver consistent with hepatic steatosis Hepatitis panel was negative Conjunctivitis, resolved Status post ciprofloxacin eyedrops Hyperglycemia Hemoglobin A1c 6.6 diet controlled Hypertension, Blood pressure was running low and atenolol and Cozaar were discontinued lisinopril 5 mg daily Acute kidney injury, resolved Likely secondary to hypotension and poor by mouth intake Improved with IV fluids Renal ultrasound was negative for any obstruction Anemia: Hemoglobin stable. No evidence of bleeding. Physical deconditioning Continue physical therapy 7 days a week Discharge Planning Plan is for patient to return home once improved cognitively and also cleared by PT. 12/24/16: Patient's balance and mobility improving per PT. Problem Qualifiers (1) Alcohol withdrawal: Qualified Code: F10.230 - Alcohol withdrawal, uncomplicated Selam Lui Dec 24, 2016 13:37
[2016-12-24 20:00] VITALS: BP 96/76; PULSE 98; RESP 18; TEMP 96.8; O2SAT 97
--- NOTE | 2016-12-24 20:43 | HHI.PR ---
Subjective Subjective Notes no acute issues, see watching tv in common room Objective Vitals/I&O Vital Signs Date Time Temp Pulse Resp B/P Pulse Ox O2 Delivery O2 Flow Rate FiO2 12/24/16 08:00 97.6 19 143/102 98 12/23/16 20:00 86 Cardiovascular: Regular Lungs: Clear Abdomen: Other (soft ir tube cd/i serosang) A/P Assessment and Plan acalculus cholecystitis s/p IR drain continue drain discussed surgery option in 6weeks will follow prn f/u with Dr. Berg in 2-3 weeks Nicolas Berg MD Dec 24, 2016 20:43
[2016-12-25 08:00] VITALS: BP 127/96; PULSE 67; RESP 18; TEMP 97.3; O2SAT 98
[2016-12-25] MEDS: RIFAXIMIN 550 MG TAB PO SCH (08:59)
[2016-12-25] MEDS: FOLIC ACID 1 MG TAB PO SCH (08:59)
[2016-12-25] MEDS: MULTIVITAMIN TAB PO SCH (08:59)
[2016-12-25] MEDS: THIAMINE HCL 100 MG TAB PO SCH (09:00)
[2016-12-25] MEDS: PANTOPRAZOLE SOD 40 MG DELAYED RELEASE TAB PO SCH (09:00)
[2016-12-25] MEDS: CITALOPRAM HYDROBROMIDE 20 MG TAB PO SCH (09:00)
[2016-12-25] MEDS: LISINOPRIL 5 MG TAB PO SCH (09:00)
[2016-12-25] MEDS: CALCIUM CARBONATE 500 MG CHEWABLE TAB CHEW SCH ×2 (09:00→21:24)
[2016-12-25] MEDS: LEVOFLOXACIN 750 MG TAB PO SCH (12:07)
--- NOTE | 2016-12-25 12:14 | HHI.PR ---
Subjective Remarks Follow-up for cholecystitis, encephalopathy. Patient denies any current pain. Objective Vitals Vital Signs Date Time Temp Pulse Resp B/P Pulse Ox O2 Delivery O2 Flow Rate FiO2 12/25/16 08:00 97.3 67 18 127/96 98 12/24/16 20:00 96.8 98 18 96/76 97 I/O 12/24/16 12/24/16 12/24/16 12/25/16 12/25/16 12/25/16 07:00 15:00 23:00 07:00 15:00 23:00 Intake Total 240 ml 1000 ml 240 ml 240 ml Output Total 100 ml 250 ml Balance 140 ml 1000 ml 240 ml -10 ml Intake Oral 240 ml 1000 ml 240 ml 240 ml Output Urine Total 250 ml Drainage Total 100 ml # Voids 4 5 2 # Bowel Movements 1 1 0 0 Objective Remarks GENERAL: Well-developed male in no apparent distress. SKIN: Bleeding noted under Tegaderm to L elbow. CARDIOVASCULAR: Regular rate and rhythm. RESPIRATORY: No accessory muscle use. RR normal. GASTROINTESTINAL: Abdomen soft, nontender. NEUROLOGICAL: Awake and alert. Normal speech. Urinary Catheter: No Vascular Central Line Catheter: No A/P Problem List: (1) Alcohol withdrawal ICD Code: F10.239 Status: Acute (2) RUQ pain ICD Code: R10.11 Status: Acute (3) Elevated LFTs ICD Code: R94.5 Status: Acute (4) Conjunctivitis ICD Code: H10.9 Status: Resolved (5) Hyperglycemia ICD Code: R73.9 Status: Acute (6) HTN (hypertension) ICD Code: I10 Status: Acute (7) Acute kidney injury ICD Code: N17.9 Status: Resolved (8) Anemia ICD Code: D64.9 Status: Acute Assessment and Plan Cholecystitis, acalculous Laboratory studies were unremarkable for any obstructive process Gallbladder ultrasound indicated sludge in the gallbladder with thickening of the gallbladder wall at 5 mm, this is characteristic of chronic bladder disease CT scan done of the abdomen shows abnormal gallbladder with distention, diffuse wall thickening, septation and prominent sinuses. Recommending HIDA scan to evaluate for cystic duct obstruction. HIDA scan shows nonvisualization the gallbladder characteristic of acute cholecystitis. GI consultation was requested and indicating need for surgical consultation General surgery was consulted. Dr. Berg indicates if patient tolerates management with cholecystotomy tube then outpatient laparoscopic cholecystectomy can be performed in 6-8 weeks. If patient continues to have pain and does not improve then he may benefit from cholecystectomy while in the hospital. Cholecystotomy drain currently in place. Continue po Levaquin x 10 days. Follow-up with Dr. Berg in 2-3 weeks. Surgery option in 6 weeks. Metabolic encephalopathy, likely secondary to alcohol withdrawal, hepatic encephalopathy. Resolved Continue monitor ammonia level. Less than 10, monitor weekly Continue rifaximin Lactulose discontinued due to diarrhea Alcohol withdrawal, resolved Ativan as needed per CIWA, has not needed Ativan since 11/29/16. Discontinued MVI, thiamine folic acid Celexa for depression Discontinue Librium Elevated liver enzymes, improved Likely secondary to chronic alcohol use Continue follow liver enzymes intermittently US liver consistent with hepatic steatosis Hepatitis panel was negative Conjunctivitis, resolved Status post ciprofloxacin eyedrops Hyperglycemia Hemoglobin A1c 6.6 diet controlled Hypertension, Blood pressure was running low and atenolol and Cozaar were discontinued lisinopril 5 mg daily Acute kidney injury, resolved Likely secondary to hypotension and poor by mouth intake Improved with IV fluids Renal ultrasound was negative for any obstruction Anemia: Hemoglobin stable. No evidence of bleeding. Physical deconditioning Continue physical therapy 7 days a week Discharge Planning Plan is for patient to return home once improved cognitively and also cleared by PT. 12/24/16: Patient's balance and mobility improving per PT. Problem Qualifiers (1) Alcohol withdrawal: Qualified Code: F10.230 - Alcohol withdrawal, uncomplicated Selam Lui Dec 25, 2016 12:14
[2016-12-25 20:00] VITALS: BP 116/95; PULSE 70; RESP 20; TEMP 98; O2SAT 98
[2016-12-26] MEDS: CITALOPRAM HYDROBROMIDE 20 MG TAB PO SCH (08:28)
[2016-12-26] MEDS: RIFAXIMIN 550 MG TAB PO SCH (08:28)
[2016-12-26] MEDS: MULTIVITAMIN TAB PO SCH (08:28)
[2016-12-26] MEDS: CALCIUM CARBONATE 500 MG CHEWABLE TAB CHEW SCH ×2 (08:29→20:48)
[2016-12-26] MEDS: THIAMINE HCL 100 MG TAB PO SCH (08:29)
[2016-12-26] MEDS: FOLIC ACID 1 MG TAB PO SCH (08:29)
[2016-12-26] MEDS: PANTOPRAZOLE SOD 40 MG DELAYED RELEASE TAB PO SCH (08:29)
[2016-12-26] MEDS: LISINOPRIL 5 MG TAB PO SCH (08:29)
[2016-12-26 09:19] VITALS: BP 135/99; PULSE 68; RESP 17; TEMP 98.2; O2SAT 100
--- NOTE | 2016-12-26 12:29 | HHI.PR ---
Subjective Remarks Follow-up for cholecystitis, encephalopathy. Patient denies any abdominal pain , nausea, or vomiting. Objective Vitals Vital Signs Date Time Temp Pulse Resp B/P Pulse Ox O2 Delivery O2 Flow Rate FiO2 12/26/16 09:19 98.2 68 17 135/99 100 12/25/16 20:00 98.0 70 20 116/95 98 I/O 12/25/16 12/25/16 12/25/16 12/26/16 12/26/16 12/26/16 07:00 15:00 23:00 07:00 15:00 23:00 Intake Total 240 ml 750 ml 1080 ml 240 ml Output Total 250 ml 450 ml 910 ml Balance -10 ml 750 ml 630 ml -670 ml Intake Oral 240 ml 750 ml 1080 ml 240 ml Output Urine Total 250 ml 400 ml 900 ml Drainage Total 50 ml 10 ml # Voids 4 3 # Bowel Movements 0 1 1 0 Objective Remarks GENERAL: Well-developed male in no apparent distress. CARDIOVASCULAR: Regular rate and rhythm. RESPIRATORY: No accessory muscle use. CTAB. GASTROINTESTINAL: Abdomen soft, nontender, non-distended. Drainage noted in cholecystectomy tube bag. NEUROLOGICAL: Awake and alert. Normal speech. Urinary Catheter: No Vascular Central Line Catheter: No A/P Problem List: (1) Alcohol withdrawal ICD Code: F10.239 Status: Acute (2) RUQ pain ICD Code: R10.11 Status: Acute (3) Elevated LFTs ICD Code: R94.5 Status: Acute (4) Conjunctivitis ICD Code: H10.9 Status: Resolved (5) Hyperglycemia ICD Code: R73.9 Status: Acute (6) HTN (hypertension) ICD Code: I10 Status: Acute (7) Acute kidney injury ICD Code: N17.9 Status: Resolved (8) Anemia ICD Code: D64.9 Status: Acute Assessment and Plan Cholecystitis, acalculous Laboratory studies were unremarkable for any obstructive process Gallbladder ultrasound indicated sludge in the gallbladder with thickening of the gallbladder wall at 5 mm, this is characteristic of chronic bladder disease CT scan done of the abdomen shows abnormal gallbladder with distention, diffuse wall thickening, septation and prominent sinuses. Recommending HIDA scan to evaluate for cystic duct obstruction. HIDA scan shows nonvisualization the gallbladder characteristic of acute cholecystitis. GI consultation was requested and indicating need for surgical consultation General surgery was consulted. Dr. Berg indicates if patient tolerates management with cholecystotomy tube then outpatient laparoscopic cholecystectomy can be performed in 6-8 weeks. If patient continues to have pain and does not improve then he may benefit from cholecystectomy while in the hospital. Cholecystotomy drain currently in place. Continue po Levaquin x 10 days. Follow-up with Dr. Berg in 2-3 weeks. Surgery option in 6 weeks. Metabolic encephalopathy, likely secondary to alcohol withdrawal, hepatic encephalopathy. Resolved Continue monitor ammonia level. Less than 10, monitor weekly Continue rifaximin Lactulose discontinued due to diarrhea Alcohol withdrawal, resolved Ativan as needed per CIWA, has not needed Ativan since 11/29/16. Discontinued MVI, thiamine folic acid Celexa for depression Discontinue Librium Elevated liver enzymes, improved Likely secondary to chronic alcohol use Continue follow liver enzymes intermittently US liver consistent with hepatic steatosis Hepatitis panel was negative Conjunctivitis, resolved Status post ciprofloxacin eyedrops Hyperglycemia Hemoglobin A1c 6.6 diet controlled Hypertension, Blood pressure was running low and atenolol and Cozaar were discontinued. BP fluctuates. Continue Lisinopril 5 mg daily Acute kidney injury, resolved Likely secondary to hypotension and poor by mouth intake Improved with IV fluids Renal ultrasound was negative for any obstruction Anemia: Hemoglobin stable. No evidence of bleeding. Physical deconditioning Continue physical therapy 7 days a week Discharge Planning Plan is for patient to return home once improved cognitively and also cleared by PT. 12/26/16: Requires CGA when ambulating. Needs wheeled walker. If patient were to go home, he would ideally need C to manage cholecystectomy tube. I have discussed this with Daniel Friedman case management director who will look into home health care for patient. Problem Qualifiers (1) Alcohol withdrawal: Qualified Code: F10.230 - Alcohol withdrawal, uncomplicated Selam Lui Dec 26, 2016 12:29
[2016-12-26] MEDS: LEVOFLOXACIN 750 MG TAB PO SCH (12:30)
[2016-12-26 20:00] VITALS: BP 130/95; PULSE 82; RESP 20; TEMP 96.7; O2SAT 96
[2016-12-27 09:08] VITALS: BP 141/91; PULSE 67; RESP 16; TEMP 96.7; O2SAT 100
--- NOTE | 2016-12-27 09:25 | HHI.PR ---
Subjective Remarks Follow-up for encephalopathy, cholecystitis. Patient tells me he has h/o abnormal heart rhythm. No acute complaints. Objective Vitals Vital Signs Date Time Temp Pulse Resp B/P Pulse Ox O2 Delivery O2 Flow Rate FiO2 12/27/16 09:08 96.7 67 16 141/91 100 12/26/16 20:00 96.7 82 20 130/95 96 I/O 12/26/16 12/26/16 12/26/16 12/27/16 12/27/16 12/27/16 07:00 15:00 23:00 07:00 15:00 23:00 Intake Total 240 ml 1680 ml 240 ml Output Total 910 ml 550 ml 450 ml Balance -670 ml 1130 ml -210 ml Intake Oral 240 ml 1680 ml 240 ml Output Urine Total 900 ml 550 ml 450 ml Drainage Total 10 ml # Voids 6 # Bowel Movements 0 1 0 Objective Remarks GENERAL: Well-developed male in no apparent distress. CARDIOVASCULAR: Heart sounds significantly muffled. Regular rate and rhythm. One skipped beat noted with palpation of radial pulse. RESPIRATORY: No accessory muscle use. CTAB. GASTROINTESTINAL: Cholecystectomy tube noted in RUQ. Normoactive bowel sounds. Abdomen soft, nontender, non-distended. NEUROLOGICAL: Awake and alert. Normal speech. Urinary Catheter: No Vascular Central Line Catheter: No A/P Problem List: (1) Alcohol withdrawal ICD Code: F10.239 Status: Acute (2) RUQ pain ICD Code: R10.11 Status: Acute (3) Elevated LFTs ICD Code: R94.5 Status: Acute (4) Conjunctivitis ICD Code: H10.9 Status: Resolved (5) Hyperglycemia ICD Code: R73.9 Status: Acute (6) HTN (hypertension) ICD Code: I10 Status: Acute (7) Acute kidney injury ICD Code: N17.9 Status: Resolved (8) Anemia ICD Code: D64.9 Status: Acute Assessment and Plan Cholecystitis, acalculous Laboratory studies were unremarkable for any obstructive process Gallbladder ultrasound indicated sludge in the gallbladder with thickening of the gallbladder wall at 5 mm, this is characteristic of chronic bladder disease CT scan done of the abdomen shows abnormal gallbladder with distention, diffuse wall thickening, septation and prominent sinuses. Recommending HIDA scan to evaluate for cystic duct obstruction. HIDA scan shows nonvisualization the gallbladder characteristic of acute cholecystitis. GI consultation was requested and indicating need for surgical consultation General surgery was consulted. Dr. Berg indicates if patient tolerates management with cholecystotomy tube then outpatient laparoscopic cholecystectomy can be performed in 6-8 weeks. If patient continues to have pain and does not improve then he may benefit from cholecystectomy while in the hospital. Cholecystotomy drain currently in place. S/p 10 day course of Levaquin. 12/24: Follow-up with Dr. Berg in 2-3 weeks. Surgery option in 6 weeks. Metabolic encephalopathy, likely secondary to alcohol withdrawal, hepatic encephalopathy. Resolved Continue monitor ammonia level. Less than 10, monitor weekly Continue rifaximin Lactulose discontinued due to diarrhea Alcohol withdrawal, resolved Ativan as needed per CIWA, has not needed Ativan since 11/29/16. Discontinued MVI, thiamine folic acid Celexa for depression Discontinue Librium Elevated liver enzymes, improved Likely secondary to chronic alcohol use Continue follow liver enzymes intermittently US liver consistent with hepatic steatosis Hepatitis panel was negative Conjunctivitis, resolved Status post ciprofloxacin eyedrops Hyperglycemia Hemoglobin A1c 6.6 diet controlled Hypertension, Blood pressure was running low and Atenolol and Cozaar were discontinued. Patient currently on Lisinopril 5 mg daily. Since 12/19, aside from a few intermittent episodes of lower BP, the patient has had relatively persistent diastolic hypertension ranging from stage I to stage II. Increase Lisinopril to 10 mg po daily. Acute kidney injury, resolved Likely secondary to hypotension and poor by mouth intake Improved with IV fluids Renal ultrasound was negative for any obstruction Anemia: Hemoglobin stable. No evidence of bleeding. Physical deconditioning Continue physical therapy 7 days a week Patient tells me today that he has a history of abnormal heart rhythm. There is no arrhythmia noted on exam. Previous EKG personally interpreted with sinus rhythm and one PAC. Discharge Planning Plan is for patient to return home once improved cognitively and also cleared by PT. 12/26/16: Requires CGA when ambulating. Needs wheeled walker. If patient were to go home, he would ideally need HHC to manage cholecystectomy tube. I have discussed this with Daniel Friedman shelter case manager who will look into home health care for patient. Problem Qualifiers (1) Alcohol withdrawal: Qualified Code: F10.230 - Alcohol withdrawal, uncomplicated Selam Lui Dec 27, 2016 09:25
[2016-12-27] MEDS: MULTIVITAMIN TAB PO SCH (09:41)
[2016-12-27] MEDS: CALCIUM CARBONATE 500 MG CHEWABLE TAB CHEW SCH ×2 (09:41→21:04)
[2016-12-27] MEDS: CITALOPRAM HYDROBROMIDE 20 MG TAB PO SCH (09:41)
[2016-12-27] MEDS: THIAMINE HCL 100 MG TAB PO SCH (09:41)
[2016-12-27] MEDS: PANTOPRAZOLE SOD 40 MG DELAYED RELEASE TAB PO SCH (09:41)
[2016-12-27] MEDS: FOLIC ACID 1 MG TAB PO SCH (09:41)
[2016-12-27] MEDS: LISINOPRIL 5 MG TAB PO SCH (09:41)
[2016-12-27] MEDS: RIFAXIMIN 550 MG TAB PO SCH (09:41)
[2016-12-27] MEDS: LEVOFLOXACIN 750 MG TAB PO SCH (12:02)
[2016-12-27] MEDS ORDERED: fentaNYL CITRATE 250 MCG/5 ML AMP IV ONE (16:20)
--- NOTE | 2016-12-27 16:43 | PD.RAD ---
Post Procedure Progress Note Pre Procedure Diagnosis: (1) Cholecystitis Post Procedure Diagnosis: (1) Cholecystitis Procedure Date: Dec 27, 2016 Supervising Radiologist: Hemant Muñoz Proceduralist/Assist: Ya Meyer, RT(R), RT Mese[place](R)() Anesthesia: Local Plan of Activity Patient to Unit: Nursing Unit Patient Condition: Good See PACS Report for procedural detail/treatment Drainage Procedure Procedure 1 Imaging Guidance: Fluoroscopy Side: Right Procedure Type: Cholecystostomy Procedure: Replacement Drainage: [place] drainage Fluid Description: Bilious Hemant Muñoz MD Dec 27, 2016 16:43
[2016-12-27] MEDS ORDERED: IODIXANOL 320 MG/ML 50 ML VIAL (for Cath Lab) TUBE ONE (16:46)
--- NOTE | 2016-12-27 17:12 | RADHPO ---
EXAM DATE/TIME: 12/27/2016 16:47 CORRECTION Corrected on: January 02, 2017; Corrected date [facility] COMPARISON: No previous studies available for comparison. INDICATIONS : Patient with a history of cholecystitis. MEDICAL HISTORY : Denies SURGICAL HISTORY : None ENCOUNTER: Subsequent ACUITY: 2 weeks PAIN SCORE: 5/10 LOCATION: Bilateral Abdomen FLUORO TIME: 0.34 minutes SEDATION TIME: 15 minutes CONTRAST: 5 cc Visipaque (iodixanol) MEDICATION(S): 1.) 100 mcg fentanyl (Sublimaze) IV DEVICE(S): 1.) 8 [place] Skater catheter PROCEDURE : 1. Cholangiogram through existing catheter. 2. Biliary stent change. 3. Conscious sedation with continuous EKG and oximetry monitoring. The risks, benefits and alternatives to the procedure were explained and verbal and written consent w as obtained. The site was prepped in sterile fashion. Full sterile technique was used, including ca p, mask, sterile gloves and gown and a large sterile sheet. Hand hygiene and 2% chlorhexidine and/or betadine/alcohol prep was utilized per protocol for cutaneous antisepsis. The skin and subcutaneous tissues were infiltrated with local anesthetic solution. A cholecystogram was performed through a 6 [place] cholecystostomy tube. The tube remains well-positio antoine within the gallbladder. The tube was removed over guidewire and an 8 [place] tube inserted Conscious sedation was performed with the prescribed dosages and duration as above. The patient [place] ated the procedure well and there were no complications. EKG and oximetry remained stable throughout the procedure. The patient was sent to post anesthesia recovery in stable condition. CONCLUSION: Uncomplicated biliary catheter change. Hemant Muñoz MD on December 27, 2016 at 17:09 Board Certified Radiologist. Board Certified Radiologist. This report was verified electronically.
[2016-12-27 17:24] VITALS: BP 120/85; PULSE 76; RESP 15; TEMP 96.9; O2SAT 98
[2016-12-27 17:45] VITALS: BP 108/88; PULSE 77; RESP 15; TEMP 97.1; O2SAT 98
[2016-12-27 18:18] VITALS: BP 95/75; PULSE 92; RESP 14; TEMP 96.9; O2SAT 97
[2016-12-27 20:00] VITALS: BP 100/77; PULSE 81; RESP 18; TEMP 98.5; O2SAT 99
[2016-12-28 08:00] VITALS: BP 116/91; PULSE 65; RESP 20; TEMP 97.6; O2SAT 98
[2016-12-28] MEDS ORDERED: LISINOPRIL 10 MG TAB PO SCH (09:00)
[2016-12-28] MEDS: CITALOPRAM HYDROBROMIDE 20 MG TAB PO SCH (09:05)
[2016-12-28] MEDS: PANTOPRAZOLE SOD 40 MG DELAYED RELEASE TAB PO SCH (09:06)
[2016-12-28] MEDS: FOLIC ACID 1 MG TAB PO SCH (09:06)
[2016-12-28] MEDS: CALCIUM CARBONATE 500 MG CHEWABLE TAB CHEW SCH ×2 (09:06→20:50)
[2016-12-28] MEDS: LISINOPRIL 5 MG TAB PO SCH (09:06)
[2016-12-28] MEDS: THIAMINE HCL 100 MG TAB PO SCH (09:06)
[2016-12-28] MEDS: MULTIVITAMIN TAB PO SCH (09:06)
[2016-12-28] MEDS: RIFAXIMIN 550 MG TAB PO SCH (09:06)
--- NOTE | 2016-12-28 09:39 | HHI.PR ---
Subjective Remarks Follow-up for encephalopathy, cholecystitis. Nurse informs me that the patient' s cholecystectomy tube was not draining properly yesterday evening after flushing. Interventional radiology replaced the tube yesterday. Patient admits to some pain at the tube site but denies any nausea, vomiting, or diarrhea. Denies fevers or chills. Objective Vitals Vital Signs Date Time Temp Pulse Resp B/P Pulse Ox O2 Delivery O2 Flow Rate FiO2 12/27/16 20:00 98.5 81 18 100/77 99 12/27/16 18:18 96.9 92 14 95/75 97 12/27/16 17:45 97.1 77 15 108/88 98 12/27/16 17:24 96.9 76 15 120/85 98 12/27/16 17:20 15 I/O 12/27/16 12/27/16 12/27/16 12/28/16 12/28/16 12/28/16 07:00 15:00 23:00 07:00 15:00 23:00 Intake Total 240 ml 1000 ml 480 ml Output Total 450 ml 50 ml 40 ml Balance -210 ml 950 ml 440 ml Intake Oral 240 ml 1000 ml 480 ml Output Urine Total 450 ml Drainage Total 50 ml 40 ml # Voids 6 1 # Bowel Movements 0 2 0 Objective Remarks GENERAL: Pleasant well-developed male in no apparent distress. CARDIOVASCULAR: Regular rate and rhythm. RESPIRATORY: No accessory muscle use. CTAB. GASTROINTESTINAL: NABS x 4. Cholecystostomy tube noted in RUQ, small amount of bilious drainage in bag. Abdomen soft, nontender, non-distended. MUSCULOSKELETAL: No lower extremity edema bilaterally. NEUROLOGICAL: Awake and alert. Normal speech. Procedures 12/17/16: Cholecystostomy tube placement 12/27/16: Cholecystostomy tube exchanged Urinary Catheter: No Vascular Central Line Catheter: No A/P Problem List: (1) Alcohol withdrawal ICD Code: F10.239 Status: Acute (2) RUQ pain ICD Code: R10.11 Status: Acute (3) Elevated LFTs ICD Code: R94.5 Status: Acute (4) Conjunctivitis ICD Code: H10.9 Status: Resolved (5) Hyperglycemia ICD Code: R73.9 Status: Acute (6) HTN (hypertension) ICD Code: I10 Status: Acute (7) Acute kidney injury ICD Code: N17.9 Status: Resolved (8) Anemia ICD Code: D64.9 Status: Acute Assessment and Plan Cholecystitis, acalculous Laboratory studies were unremarkable for any obstructive process Gallbladder ultrasound indicated sludge in the gallbladder with thickening of the gallbladder wall at 5 mm, this is characteristic of chronic bladder disease CT scan done of the abdomen shows abnormal gallbladder with distention, diffuse wall thickening, septation and prominent sinuses. Recommending HIDA scan to evaluate for cystic duct obstruction. HIDA scan shows nonvisualization the gallbladder characteristic of acute cholecystitis. GI consultation was requested and indicating need for surgical consultation General surgery was consulted. Dr. Berg indicates if patient tolerates management with cholecystotomy tube then outpatient laparoscopic cholecystectomy can be performed in 6-8 weeks. If patient continues to have pain and does not improve then he may benefit from cholecystectomy while in the hospital. Cholecystotomy drain currently in place. S/p 10 day course of Levaquin. 12/24: Follow-up with Dr. Berg in 2-3 weeks. Surgery option in 6 weeks. Tube exchanged on 12/27. Metabolic encephalopathy, likely secondary to alcohol withdrawal, hepatic encephalopathy. Resolved Continue monitor ammonia level. Less than 10, monitor weekly Continue rifaximin Lactulose discontinued due to diarrhea Alcohol withdrawal, resolved Ativan as needed per [facility], has not needed Ativan since 11/29/16. Discontinued MVI, thiamine folic acid Celexa for depression Discontinue Librium Elevated liver enzymes, improved Likely secondary to chronic alcohol use Continue follow liver enzymes intermittently US liver consistent with hepatic steatosis Hepatitis panel was negative Conjunctivitis, resolved Status post ciprofloxacin eyedrops Hyperglycemia Hemoglobin A1c 6.6 diet controlled Hypertension, Blood pressure was running low and Atenolol and Cozaar were discontinued. Patient has diastolic hypertension ranging from stage I to stage II. Planned to increase Lisinopril yesterday but patient again hypotensive yesterday evening , so will continue Lisinopril at 5 mg daily dose. Acute kidney injury, resolved Likely secondary to hypotension and poor by mouth intake Improved with IV fluids Renal ultrasound was negative for any obstruction Anemia: Hemoglobin stable. No evidence of bleeding. Physical deconditioning Continue physical therapy 7 days a week Discharge Planning Plan is for patient to return home once improved cognitively and also cleared by PT. 12/26/16: Requires CGA when ambulating. Needs wheeled walker. If patient were to go home, he would ideally need HHC to manage cholecystostomy tube. I have discussed this with Daniel Friedman case investigator who will look into home health care for patient. Problem Qualifiers (1) Alcohol withdrawal: Qualified Code: F10.230 - Alcohol withdrawal, uncomplicated Selam Lui Dec 28, 2016 09:39
[2016-12-28 20:00] VITALS: BP 93/61; PULSE 70; RESP 18; TEMP 96.1; O2SAT 100
[2016-12-29 08:00] VITALS: BP 113/94; PULSE 66; RESP 16; TEMP 97.7; O2SAT 99
--- NOTE | 2016-12-29 08:31 | HHI.PR ---
Subjective Remarks Follow-up for encephalopathy, cholecystitis. Patient admits to pain around the site of the cholecystostomy tube and increased pain at the site with deep breaths, same as prior. He states his pain is "not bad" but rates it a 7/10. Objective Vitals Vital Signs Date Time Temp Pulse Resp B/P Pulse Ox O2 Delivery O2 Flow Rate FiO2 12/29/16 08:00 97.7 66 16 113/94 99 12/28/16 20:00 96.1 70 18 93/61 100 12/28/16 15:03 18 I/O 12/28/16 12/28/16 12/28/16 12/29/16 12/29/16 12/29/16 07:00 15:00 23:00 07:00 15:00 23:00 Intake Total 480 ml 1390 ml 240 ml Output Total 40 ml 825 ml 60 ml 400 ml 310 ml Balance 440 ml 565 ml -60 ml -160 ml -310 ml Intake Oral 480 ml 1390 ml 240 ml Output Urine Total 775 ml 400 ml 250 ml Drainage Total 40 ml 50 ml 60 ml 60 ml # Voids 1 # Bowel Movements 0 0 Objective Remarks GENERAL: Pleasant well-developed male in no apparent distress. CARDIOVASCULAR: Regular rate and rhythm. RESPIRATORY: No accessory muscle use. CTAB. GASTROINTESTINAL: NABS x 4. Cholecystostomy tube noted in RUQ with bilious drainage in bag. Abdomen soft, nontender, non-distended. NEUROLOGICAL: Awake and alert. Normal speech. Procedures 12/17/16: Cholecystostomy tube placement 12/27/16: Cholecystostomy tube exchanged Urinary Catheter: No Vascular Central Line Catheter: No A/P Problem List: (1) Cholecystitis ICD Code: K81.9 Status: Acute (2) HTN (hypertension) ICD Code: I10 Status: Acute (3) Metabolic encephalopathy ICD Code: G93.41 Status: Resolved (4) Alcohol withdrawal ICD Code: F10.239 Status: Resolved (5) Elevated LFTs ICD Code: R94.5 Status: Resolved (6) Anemia ICD Code: D64.9 Status: Acute (7) Acute kidney injury ICD Code: N17.9 Status: Resolved (8) Hyperglycemia ICD Code: R73.9 Status: Resolved (9) Conjunctivitis ICD Code: H10.9 Status: Resolved Assessment and Plan Cholecystitis, acalculous Laboratory studies were unremarkable for any obstructive process Gallbladder ultrasound indicated sludge in the gallbladder with thickening of the gallbladder wall at 5 mm, this is characteristic of chronic bladder disease CT scan done of the abdomen shows abnormal gallbladder with distention, diffuse wall thickening, septation and prominent sinuses. Recommending HIDA scan to evaluate for cystic duct obstruction. HIDA scan shows nonvisualization the gallbladder characteristic of acute cholecystitis. GI consultation was requested and indicated need for surgical consultation General surgery was consulted. Dr. Berg indicates if patient tolerates management with cholecystotomy tube then outpatient laparoscopic cholecystectomy can be performed in 6-8 weeks. If patient continues to have pain and does not improve then he may benefit from cholecystectomy while in the hospital. Cholecystotomy drain currently in place. S/p 10 day course of Levaquin. 12/24: Follow-up with Dr. Berg in 2-3 weeks. Surgery option in 6 weeks. Tube exchanged on 12/27. Patient has pain at the site since exchange, but appears comfortable. Afebrile. Oxycodone as needed for pain. Hypertension, Blood pressure was running low and Atenolol and Cozaar were discontinued. Patient has diastolic hypertension ranging from stage I to stage II. Plan was to increase Lisinopril but patient was again hypotensive, so will continue Lisinopril at 5 mg daily dose. Metabolic encephalopathy, likely secondary to alcohol withdrawal, hepatic encephalopathy. Resolved Ammonia level less than 10 on 12/08. Continue rifaximin Lactulose discontinued due to diarrhea Alcohol withdrawal, resolved Ativan as needed per CIWA, has not needed Ativan since 11/29/16. Discontinued MVI, thiamine, folic acid Celexa for depression Discontinue Librium Elevated liver enzymes, resolved Likely secondary to chronic alcohol use US liver consistent with hepatic steatosis Hepatitis panel was negative Avoid hepatotoxins Anemia: Hemoglobin stable. No evidence of bleeding. Acute kidney injury, resolved Likely secondary to hypotension and poor by mouth intake Improved with IV fluids Renal ultrasound was negative for any obstruction Hyperglycemia Hemoglobin A1c 6.6 diet controlled Conjunctivitis, resolved Status post ciprofloxacin eyedrops Physical deconditioning Continue physical therapy 7 days a week Discharge Planning Plan is for patient to return home once improved cognitively and also cleared by PT. 12/26/16: Requires CGA when ambulating. Needs wheeled walker. If patient were to go home, he would ideally need HHC to manage cholecystostomy tube. I have discussed this with Daniel Friedman bilingual patient support caseworker who will look into home health care for patient. Problem Qualifiers (1) Alcohol withdrawal: Qualified Code: F10.230 - Alcohol withdrawal, uncomplicated Selam Lui Dec 29, 2016 08:31
[2016-12-29] MEDS: RIFAXIMIN 550 MG TAB PO SCH (09:34)
[2016-12-29] MEDS: CALCIUM CARBONATE 500 MG CHEWABLE TAB CHEW SCH ×2 (09:35→20:01)
[2016-12-29] MEDS: LISINOPRIL 5 MG TAB PO SCH (09:35)
[2016-12-29] MEDS: THIAMINE HCL 100 MG TAB PO SCH (09:35)
[2016-12-29] MEDS: PANTOPRAZOLE SOD 40 MG DELAYED RELEASE TAB PO SCH (09:35)
[2016-12-29] MEDS: MULTIVITAMIN TAB PO SCH (09:35)
[2016-12-29] MEDS: FOLIC ACID 1 MG TAB PO SCH (09:35)
[2016-12-29] MEDS: CITALOPRAM HYDROBROMIDE 20 MG TAB PO SCH (09:35)
[2016-12-29 20:00] VITALS: BP 97/78; PULSE 73; RESP 20; TEMP 97.9; O2SAT 98
[2016-12-30 08:00] VITALS: BP 120/79; PULSE 90; RESP 18; TEMP 97.4; O2SAT 97
[2016-12-30] MEDS: LISINOPRIL 5 MG TAB PO SCH (08:58)
[2016-12-30] MEDS: MULTIVITAMIN TAB PO SCH (08:58)
[2016-12-30] MEDS: CALCIUM CARBONATE 500 MG CHEWABLE TAB CHEW SCH ×2 (08:58→21:12)
[2016-12-30] MEDS: THIAMINE HCL 100 MG TAB PO SCH (08:58)
[2016-12-30] MEDS: CITALOPRAM HYDROBROMIDE 20 MG TAB PO SCH (08:58)
[2016-12-30] MEDS: FOLIC ACID 1 MG TAB PO SCH (08:58)
[2016-12-30] MEDS: RIFAXIMIN 550 MG TAB PO SCH (08:58)
[2016-12-30] MEDS: PANTOPRAZOLE SOD 40 MG DELAYED RELEASE TAB PO SCH (08:58)
--- NOTE | 2016-12-30 13:14 | HHI.PR ---
Subjective Remarks Follow-up for encephalopathy, cholecystitis. Patient still admits to some pain around the cholecystostomy tube site. No new complaints. Objective Vitals Vital Signs Date Time Temp Pulse Resp B/P Pulse Ox O2 Delivery O2 Flow Rate FiO2 12/30/16 08:00 97.4 90 18 120/79 97 12/29/16 20:00 97.9 73 20 97/78 98 12/29/16 16:24 18 I/O 12/29/16 12/29/16 12/29/16 12/30/16 12/30/16 12/30/16 07:00 15:00 23:00 07:00 15:00 23:00 Intake Total 240 ml 1800 ml Output Total 400 ml 935 ml Balance -160 ml 865 ml Intake Oral 240 ml 1800 ml Output Urine Total 400 ml 875 ml Drainage Total 60 ml # Voids 3 # Bowel Movements 0 1 Objective Remarks GENERAL: Pleasant well-developed male in no apparent distress. CARDIOVASCULAR: Regular rate and rhythm. RESPIRATORY: No accessory muscle use. CTAB. GASTROINTESTINAL: Abdomen distended, but non-tender. NEUROLOGICAL: Awake and alert. Normal speech. Procedures 12/17/16: Cholecystostomy tube placement 12/27/16: Cholecystostomy tube exchanged Urinary Catheter: No Vascular Central Line Catheter: No A/P Problem List: (1) Cholecystitis ICD Code: K81.9 Status: Acute (2) HTN (hypertension) ICD Code: I10 Status: Acute (3) Metabolic encephalopathy ICD Code: G93.41 Status: Resolved (4) Alcohol withdrawal ICD Code: F10.239 Status: Resolved (5) Elevated LFTs ICD Code: R94.5 Status: Resolved (6) Anemia ICD Code: D64.9 Status: Acute (7) Acute kidney injury ICD Code: N17.9 Status: Resolved (8) Hyperglycemia ICD Code: R73.9 Status: Resolved (9) Conjunctivitis ICD Code: H10.9 Status: Resolved Assessment and Plan Cholecystitis, acalculous Laboratory studies were unremarkable for any obstructive process Gallbladder ultrasound indicated sludge in the gallbladder with thickening of the gallbladder wall at 5 mm, this is characteristic of chronic bladder disease CT scan done of the abdomen shows abnormal gallbladder with distention, diffuse wall thickening, septation and prominent sinuses. Recommending HIDA scan to evaluate for cystic duct obstruction. HIDA scan shows nonvisualization the gallbladder characteristic of acute cholecystitis. GI consultation was requested and indicated need for surgical consultation General surgery was consulted. Dr. Berg indicates if patient tolerates management with cholecystotomy tube then outpatient laparoscopic cholecystectomy can be performed in 6-8 weeks. If patient continues to have pain and does not improve then he may benefit from cholecystectomy while in the hospital. Cholecystotomy drain currently in place. S/p 10 day course of Levaquin. 12/24: Follow-up with Dr. Berg in 2-3 weeks. Surgery option in 6 weeks. Tube exchanged on 12/27. Patient has pain at the site since exchange, but appears comfortable. Afebrile. Oxycodone as needed for pain. Hypertension: BP good at 120/79 this morning, but patient fluctuates becoming hypotensive at times and other times having persistent diastolic hypertension. Blood pressure was running low and Atenolol and Cozaar were discontinued. Continue Lisinopril at 5 mg daily dose. Monitor and adjust regimen as needed. Metabolic encephalopathy, likely secondary to alcohol withdrawal, hepatic encephalopathy. Resolved Ammonia level less than 10 on 12/08. Continue rifaximin Lactulose discontinued due to diarrhea Alcohol withdrawal, resolved Ativan as needed per CIWA, has not needed Ativan since 11/29/16. Discontinued MVI, thiamine, folic acid Celexa for depression Discontinue Librium Elevated liver enzymes, resolved Likely secondary to chronic alcohol use US liver consistent with hepatic steatosis Hepatitis panel was negative Avoid hepatotoxins Anemia: Hemoglobin stable. No evidence of bleeding. Acute kidney injury, resolved Likely secondary to hypotension and poor by mouth intake Improved with IV fluids Renal ultrasound was negative for any obstruction Hyperglycemia Hemoglobin A1c 6.6 diet controlled Conjunctivitis, resolved Status post ciprofloxacin eyedrops Physical deconditioning Continue physical therapy 7 days a week Discharge Planning Plan is for patient to return home once improved cognitively and also cleared by PT. 12/26/16: Requires CGA when ambulating. Needs wheeled walker. If patient were to go home, he would ideally need HHC to manage cholecystostomy tube. I have discussed this with Daniel Friedman case assembler who will look into home health care for patient. Problem Qualifiers (1) Alcohol withdrawal: Qualified Code: F10.230 - Alcohol withdrawal, uncomplicated Selam Lui Dec 30, 2016 13:14
[2016-12-30 20:00] VITALS: BP 109/83; PULSE 64; RESP 18; TEMP 98.3; O2SAT 98
[2016-12-31] MEDS: PANTOPRAZOLE SOD 40 MG DELAYED RELEASE TAB PO SCH (08:33)
[2016-12-31] MEDS: CALCIUM CARBONATE 500 MG CHEWABLE TAB CHEW SCH ×2 (08:33→22:12)
[2016-12-31] MEDS: THIAMINE HCL 100 MG TAB PO SCH (08:33)
[2016-12-31] MEDS: MULTIVITAMIN TAB PO SCH (08:33)
[2016-12-31] MEDS: FOLIC ACID 1 MG TAB PO SCH (08:34)
[2016-12-31] MEDS: RIFAXIMIN 550 MG TAB PO SCH (08:34)
[2016-12-31] MEDS: CITALOPRAM HYDROBROMIDE 20 MG TAB PO SCH (08:34)
[2016-12-31] MEDS: LISINOPRIL 5 MG TAB PO SCH (08:34)
[2016-12-31 08:58] VITALS: BP 122/83; PULSE 71; RESP 18; TEMP 98.6; O2SAT 96
--- NOTE | 2016-12-31 10:40 | HHI.PR ---
Subjective Remarks Patient seen and examined today. Patient still having abdominal pain. Pain isn 't male localized in the right upper quadrant. He states that his worsening at the insertion of the cholecystotomy tube. Objective Vitals Vital Signs Date Time Temp Pulse Resp B/P Pulse Ox O2 Delivery O2 Flow Rate FiO2 12/31/16 08:58 98.6 71 18 122/83 96 12/30/16 20:00 98.3 64 18 109/83 98 I/O 12/30/16 12/30/16 12/30/16 12/31/16 12/31/16 12/31/16 07:00 15:00 23:00 07:00 15:00 23:00 Intake Total 540 ml 480 ml 220 ml Output Total 825 ml Balance 540 ml 480 ml -605 ml Intake Oral 540 ml 480 ml 220 ml Output Urine Total 700 ml Drainage Total 125 ml # Voids 3 3 # Bowel Movements 1 0 0 Objective Remarks GENERAL: Well-developed, well-nourished, in no acute distress. alert and orientated to person, initially not orientated to place, time, cardiac events. However if prompted he knows the appropriate answers HEENT: Head is normocephalic without any lesions or masses noted. Facial features are symmetric. Eyes: Extraocular muscles are intact. Conjunctivae were clear. NECK: Supple without any masses. Trachea midline no deviation. No JVD, CARDIAC: Regular rhythm, regular rate. S1/S2 are heard. No murmurs gallops or rubs. LUNGS: Clear to auscultation bilaterally. No wheeze, rhonchi or rales. No use of accessory muscles on inspiration or expiration. ABDOMEN: Soft, right upper quadrant tenderness. Nondistended. Bowel sounds heard in all 4 quadrants. No organomegaly or masses. Patient with positive rebound tenderness, guarding upon abdominal evaluation. Cholecystotomy drain noted EXTREMITIES: No edema, pulses are equal bilaterally. No cyanosis or clubbing NEUROLOGY: Mood and affect appear appropriate. Cranial nerves II through XII grossly intact. Moving all extremities, speech is clear Procedures 12/17/16: Cholecystostomy tube placement 12/27/16: Cholecystostomy tube exchanged Urinary Catheter: No Vascular Central Line Catheter: No A/P Assessment and Plan Cholecystitis, acalculous. Patient still with continued pain, physical findings signs of rebound tenderness, right upper quadrant pain, guarding Laboratory studies were unremarkable for any obstructive process Gallbladder ultrasound indicated sludge in the gallbladder with thickening of the gallbladder wall at 5 mm, this is characteristic of chronic bladder disease CT scan done of the abdomen shows abnormal gallbladder with distention, diffuse wall thickening, septation and prominent sinuses. Recommending HIDA scan to evaluate for cystic duct obstruction. HIDA scan shows nonvisualization the gallbladder characteristic of acute cholecystitis. GI consultation was requested and indicating need for surgical consultation Gen. surgery reconsultation is been requested, patient still with abdominal pain, abdominal pain, positive rebound. Patient will likely need cholecystectomy during this hospitalization. Surgeon requested percutaneous cholecystotomy drain to be placed and remain in place for 6-8 weeks. Continue Levaquin Metabolic encephalopathy, likely secondary to alcohol withdrawal, hepatic encephalopathy. Resolved Continue monitor ammonia level. Less than 10 Continue rifaximin Lactulose discontinued due to diarrhea Alcohol withdrawal, resolved Ativan as needed per CIWA, has not needed Ativan since 11/29/16. Discontinued MVI, thiamine folic acid Celexa for depression Discontinue Librium Elevated liver enzymes, improved Likely secondary to chronic alcohol use Continue follow liver enzymes intermittently US liver consistent with hepatic steatosis Hepatitis panel was negative Conjunctivitis, resolved Status post ciprofloxacin eyedrops Hyperglycemia Hemoglobin A1c 6.6 diet controlled Hypertension, Blood pressure was running low and atenolol and Cozaar were discontinued lisinopril 5 mg daily Acute kidney injury, resolved Likely secondary to hypotension and poor by mouth intake Improved with IV fluids Renal ultrasound was negative for any obstruction Anemia, resolved Hemoglobin stable. No evidence of bleeding. Physical deconditioning Continue physical therapy 7 days a week Discharge Planning Discharge planning when patient is able to ambulate, mentation improved. Patient did live at home by himself. Case management following patient for discharge planning. Physical therapy indicating patient is walking or 500 feet continuously with standby assist. However there still indicating patient requires PT at rehabilitation Shawn Curry Dec 31, 2016 10:40
[2016-12-31 20:00] VITALS: BP 112/87; PULSE 65; RESP 16; TEMP 96.6; O2SAT 98
--- NOTE | 2016-12-31 21:07 | HHI.PR ---
Subjective Subjective Notes reconsult requested due to persistent abdominal pain. Pt seen and examined. He stated continued pain in all quadrants more in RUQ at drain site. Pain is 5/10, significantly improved since initial tube placement. No fevers, cholecystotomy tube no longer producing puss now bilious. He is tolerating diet and having bms Objective Vitals/I&O Vital Signs Date Time Temp Pulse Resp B/P Pulse Ox O2 Delivery O2 Flow Rate FiO2 12/31/16 08:58 98.6 71 18 122/83 96 Cardiovascular: Regular Lungs: Clear Abdomen: Other (soft mild ttp diffuse, more at drain site, drain c/d/i) A/P Assessment and Plan acalculus cholecystitis s/p IR drain Reconsult for evaluation for possible lap cholecystectomy Plan The patient appears overall improved but does have some pain. I discussed with the patient that he is currently high risk for surgery and even high risk for an open cholecystectomy and potential injury to other structures given potential scaring and inflammation due to infected process. He appears over all well. I will offer and discuss potential cholecystectomy in 4 weeks from now. He states understanding. Nicolas Berg MD Dec 31, 2016 21:07
[2017-01-01 06:13] LABS: HEMATOCRIT 37.4 % (39.0-51.0); MEAN CELL VOLUME 95.3 FL (80.0-100.0); MEAN CORPUSCULAR HEMOGLOBIN 31.1 PG (27.0-34.0); MEAN CORPUSCULAR HGB CONC 32.7 % (32.0-36.0); PLATELET COUNT 309 TH/MM3 (150-450); RED BLOOD COUNT 3.92 MIL/MM3 (4.50-5.90); RED CELL DISTRIBUTION WIDTH 15.5 % (11.6-17.2); REVIEW FLAG FINAL
[2017-01-01 06:33] LABS: CHLORIDE 106 MEQ/L (98-107); POTASSIUM 3.9 MEQ/L (3.5-5.1); SODIUM (NA) 141 MEQ/L (136-145)
[2017-01-01 06:37] LABS: ANION GAP 9 MEQ/L (5-15); BICARBONATE 26.3 MEQ/L (21.0-32.0); BLOOD UREA NITROGEN 14 MG/DL (7-18)
[2017-01-01 06:40] LABS: ALT (GPT) 21 U/L (12-78); AST (GOT) 30 U/L (15-37); GLOMERULAR FILTRATION RATE 104 ML/MIN (>89)
[2017-01-01 06:42] LABS: TOTAL BILIRUBIN ADULT 0.4 MG/DL (0.2-1.0)
[2017-01-01 06:43] LABS: ALKALINE PHOSPHATASE 52 U/L (45-117)
[2017-01-01] MEDS: THIAMINE HCL 100 MG TAB PO SCH (10:00)
[2017-01-01] MEDS: RIFAXIMIN 550 MG TAB PO SCH (10:00)
[2017-01-01] MEDS: MULTIVITAMIN TAB PO SCH (10:00)
[2017-01-01] MEDS: FOLIC ACID 1 MG TAB PO SCH (10:00)
[2017-01-01] MEDS: PANTOPRAZOLE SOD 40 MG DELAYED RELEASE TAB PO SCH (10:00)
[2017-01-01] MEDS: CALCIUM CARBONATE 500 MG CHEWABLE TAB CHEW SCH ×2 (10:01→19:57)
[2017-01-01] MEDS: CITALOPRAM HYDROBROMIDE 20 MG TAB PO SCH (10:01)
[2017-01-01] MEDS: LISINOPRIL 5 MG TAB PO SCH (10:01)
[2017-01-01 10:17] VITALS: BP 119/90; PULSE 83; RESP 18; TEMP 97.5; O2SAT 98
--- NOTE | 2017-01-01 14:00 | HHI.PR ---
Subjective Remarks Patient seen and examined today. Patient still complaining of abdominal pain. He states that the pain woke him up in the middle the night last night. Objective Vitals Vital Signs Date Time Temp Pulse Resp B/P Pulse Ox O2 Delivery O2 Flow Rate FiO2 01/01/17 11:36 14 01/01/17 10:17 97.5 83 18 119/90 98 12/31/16 20:00 96.6 65 16 112/87 98 I/O 12/31/16 12/31/16 12/31/16 01/01/17 01/01/17 01/01/17 07:00 15:00 23:00 07:00 15:00 23:00 Intake Total 220 ml 720 ml 480 ml 240 ml Output Total 825 ml 125 ml 430 ml Balance -605 ml 720 ml 355 ml -190 ml Intake Oral 220 ml 720 ml 480 ml 240 ml Output Urine Total 700 ml 400 ml Drainage Total 125 ml 125 ml 30 ml # Voids 3 2 # Bowel Movements 0 0 0 Result Diagram: 01/01/17 0530 01/01/17 0530 Objective Remarks GENERAL: Well-developed, well-nourished, in no acute distress. alert and orientated to person, initially not orientated to place, time, cardiac events. However if prompted he knows the appropriate answers HEENT: Head is normocephalic without any lesions or masses noted. Facial features are symmetric. Eyes: Extraocular muscles are intact. Conjunctivae were clear. NECK: Supple without any masses. Trachea midline no deviation. No JVD, CARDIAC: Regular rhythm, regular rate. S1/S2 are heard. No murmurs gallops or rubs. LUNGS: Clear to auscultation bilaterally. No wheeze, rhonchi or rales. No use of accessory muscles on inspiration or expiration. ABDOMEN: Soft, right upper quadrant tenderness. Nondistended. Bowel sounds heard in all 4 quadrants. No organomegaly or masses. Patient with positive rebound tenderness, guarding upon abdominal evaluation. Cholecystotomy drain noted EXTREMITIES: No edema, pulses are equal bilaterally. No cyanosis or clubbing NEUROLOGY: Mood and affect appear appropriate. Cranial nerves II through XII grossly intact. Moving all extremities, speech is clear Procedures 12/17/16: Cholecystostomy tube placement 12/27/16: Cholecystostomy tube exchanged Urinary Catheter: No Vascular Central Line Catheter: No A/P Assessment and Plan Cholecystitis, acalculous. Patient still with continued pain, physical findings signs of rebound tenderness, right upper quadrant pain, Laboratory studies were unremarkable for any obstructive process Gallbladder ultrasound indicated sludge in the gallbladder with thickening of the gallbladder wall at 5 mm, this is characteristic of chronic bladder disease CT scan done of the abdomen shows abnormal gallbladder with distention, diffuse wall thickening, septation and prominent sinuses. Recommending HIDA scan to evaluate for cystic duct obstruction. HIDA scan shows nonvisualization the gallbladder characteristic of acute cholecystitis. GI consultation was requested and indicating need for surgical consultation Gen. surgery reconsultation is been requested, patient still with abdominal pain, abdominal pain, positive rebound. Reconsultation was performed by surgeon who indicated patient still not a candidate for surgery this time. Plan for surgery in 4 weeks. Surgeon requested percutaneous cholecystotomy drain to be placed and remain in place for 6-8 weeks. Status post Levaquin Metabolic encephalopathy, likely secondary to alcohol withdrawal, hepatic encephalopathy. Resolved Continue monitor ammonia level. Less than 10 Continue rifaximin Lactulose discontinued due to diarrhea Alcohol withdrawal, resolved Ativan as needed per CIWA, has not needed Ativan since 11/29/16. Discontinued MVI, thiamine folic acid Celexa for depression Discontinue Librium Elevated liver enzymes, improved Likely secondary to chronic alcohol use Continue follow liver enzymes intermittently US liver consistent with hepatic steatosis Hepatitis panel was negative Conjunctivitis, resolved Status post ciprofloxacin eyedrops Hyperglycemia Hemoglobin A1c 6.6 diet controlled Hypertension, Blood pressure was running low and atenolol and Cozaar were discontinued lisinopril 5 mg daily Acute kidney injury, resolved Likely secondary to hypotension and poor by mouth intake Improved with IV fluids Renal ultrasound was negative for any obstruction Anemia, resolved Hemoglobin stable. No evidence of bleeding. Physical deconditioning Continue physical therapy 7 days a week Discharge Planning Discharge planning when patient is able to ambulate, mentation improved. Patient did live at home by himself. Case management following patient for discharge planning. Physical therapy indicating patient is walking or 500 feet continuously with standby assist. However there still indicating patient requires PT at rehabilitation Shawn Curry Jan 01, 2017 14:00
[2017-01-01 20:00] VITALS: BP 106/81; PULSE 64; RESP 20; TEMP 97.8; O2SAT 97
[2017-01-02 08:00] VITALS: BP 122/81; PULSE 65; RESP 20; TEMP 97.6; O2SAT 98
[2017-01-02] MEDS: THIAMINE HCL 100 MG TAB PO SCH (08:13)
[2017-01-02] MEDS: CALCIUM CARBONATE 500 MG CHEWABLE TAB CHEW SCH ×2 (08:13→20:32)
[2017-01-02] MEDS: CITALOPRAM HYDROBROMIDE 20 MG TAB PO SCH (08:13)
[2017-01-02] MEDS: PANTOPRAZOLE SOD 40 MG DELAYED RELEASE TAB PO SCH (08:13)
[2017-01-02] MEDS: RIFAXIMIN 550 MG TAB PO SCH (08:13)
[2017-01-02] MEDS: FOLIC ACID 1 MG TAB PO SCH (08:13)
[2017-01-02] MEDS: MULTIVITAMIN TAB PO SCH (08:13)
[2017-01-02] MEDS: LISINOPRIL 5 MG TAB PO SCH (08:13)
--- NOTE | 2017-01-02 10:35 | HHI.PR ---
Subjective Remarks Patient seen and examined today. Patient states that he still has constant abdominal pain. He states that it does wake him up in the middle and night sometimes. He indicates that whenever he sneezes, coughs or takes a deep breath he gets a significant pain in his right upper quadrant restraint 10/10 on a pain scale. Objective Vitals Vital Signs Date Time Temp Pulse Resp B/P Pulse Ox O2 Delivery O2 Flow Rate FiO2 01/02/17 10:21 16 01/02/17 08:00 97.6 65 20 122/81 98 01/01/17 20:00 97.8 64 20 106/81 97 I/O 01/01/17 01/01/17 01/01/17 01/02/17 01/02/17 01/02/17 07:00 15:00 23:00 07:00 15:00 23:00 Intake Total 240 ml 960 ml Output Total 430 ml 50 ml 450 ml Balance -190 ml 960 ml -50 ml -450 ml Intake Oral 240 ml 960 ml Output Urine Total 400 ml 375 ml Drainage Total 30 ml 50 ml 75 ml # Voids 2 2 # Bowel Movements 0 1 Result Diagram: 01/01/17 0530 01/01/17 0530 Objective Remarks GENERAL: Well-developed, well-nourished, in no acute distress. alert and orientated to person, initially not orientated to place, time, cardiac events. However if prompted he knows the appropriate answers HEENT: Head is normocephalic without any lesions or masses noted. Facial features are symmetric. Eyes: Extraocular muscles are intact. Conjunctivae were clear. NECK: Supple without any masses. Trachea midline no deviation. No JVD, CARDIAC: Regular rhythm, regular rate. S1/S2 are heard. No murmurs gallops or rubs. LUNGS: Clear to auscultation bilaterally. No wheeze, rhonchi or rales. No use of accessory muscles on inspiration or expiration. ABDOMEN: Soft, right upper quadrant tenderness. Nondistended. Bowel sounds heard in all 4 quadrants. No organomegaly or masses. Patient with positive rebound tenderness, guarding upon abdominal evaluation. Patient with peritoneal signs still. Cholecystotomy drain noted EXTREMITIES: No edema, pulses are equal bilaterally. No cyanosis or clubbing NEUROLOGY: Mood and affect appear appropriate. Cranial nerves II through XII grossly intact. Moving all extremities, speech is clear Procedures 12/17/16: Cholecystostomy tube placement 12/27/16: Cholecystostomy tube exchanged Urinary Catheter: No Vascular Central Line Catheter: No A/P Assessment and Plan Cholecystitis, acalculous. Patient still with continued pain, physical findings signs of rebound tenderness, right upper quadrant pain, Laboratory studies were unremarkable for any obstructive process Gallbladder ultrasound indicated sludge in the gallbladder with thickening of the gallbladder wall at 5 mm, this is characteristic of chronic bladder disease CT scan done of the abdomen shows abnormal gallbladder with distention, diffuse wall thickening, septation and prominent sinuses. Recommending HIDA scan to evaluate for cystic duct obstruction. HIDA scan shows nonvisualization the gallbladder characteristic of acute cholecystitis. GI consultation was requested and indicating need for surgical consultation Surgeon requested percutaneous cholecystotomy drain to be placed and remain in place for 6-8 weeks. Gen. surgery reconsultation is been requested, patient still with abdominal pain, abdominal pain, positive rebound. Reconsultation was performed by surgeon who indicated patient still not a candidate for surgery this time. Plan for surgery in 4 weeks. Status post Levaquin Metabolic encephalopathy, likely secondary to alcohol withdrawal, hepatic encephalopathy. Resolved Continue monitor ammonia level. Less than 10 Continue rifaximin Lactulose discontinued due to diarrhea Alcohol withdrawal, resolved Ativan as needed per CIWA, has not needed Ativan since 11/29/16. Discontinued MVI, thiamine folic acid Celexa for depression Discontinue Librium Elevated liver enzymes, improved Likely secondary to chronic alcohol use Continue follow liver enzymes intermittently US liver consistent with hepatic steatosis Hepatitis panel was negative Conjunctivitis, resolved Status post ciprofloxacin eyedrops Hyperglycemia Hemoglobin A1c 6.6 diet controlled Hypertension, Blood pressure was running low and atenolol and Cozaar were discontinued lisinopril 5 mg daily Acute kidney injury, resolved Likely secondary to hypotension and poor by mouth intake Improved with IV fluids Renal ultrasound was negative for any obstruction Anemia, resolved Hemoglobin stable. No evidence of bleeding. Physical deconditioning Continue physical therapy 7 days a week Discharge Planning Discharge planning per case management Shawn Curry Jan 02, 2017 10:35
[2017-01-02] MEDS ORDERED: DIATRIZOATE MEGLUM/DIATRIZOATE SOD 9 ML CUP PO ONE (18:30)
--- NOTE | 2017-01-02 19:47 | HHI.PR ---
Subjective Subjective Notes Feels "bloated" today Had BM today Ambulating in room Objective Vitals/I&O Vital Signs Date Time Temp Pulse Resp B/P Pulse Ox O2 Delivery O2 Flow Rate FiO2 01/02/17 18:47 14 01/02/17 08:00 97.6 65 122/81 98 Cardiovascular: Regular Lungs: Clear Abdomen: Other (distended; michael tube in place ) Extremities: No edema A/P Assessment and Plan 61 year old male with acalculus cholecystitis s/p IR drain placement -Repeat CT today to eval abd pain and distention -Tolerating heart healthy diet -OOB -Continue draining to gravity Attending Statement Patient seen at bedside some bloating, no peritoneal signs wait ct results Selam England Jan 02, 2017 19:47 Nicolas Berg MD Jan 19, 2017 20:51
[2017-01-02 20:00] VITALS: BP 118/81; PULSE 80; RESP 18; TEMP 98.3; O2SAT 97
[2017-01-02] MEDS ORDERED: IOHEXOL 350 MG/ML 10 ML VIAL (for RAD DIAG) IV ONE (21:17)
--- NOTE | 2017-01-02 22:35 | RADHPO ---
EXAM DATE/TIME: 01/02/2017 21:17 [facility] COMPARISON: CT ABDOMEN & PELVIS W CONTRAST, December 15, 2016, 21:28. INDICATIONS : Abdominal distention post gall bladder drain insertion. Pain. IV CONTRAST: 75 cc Omnipaque 350 (iohexol) IV ORAL CONTRAST: Prescribed oral contrast ingested. RADIATION DOSE: 20.12 CTDIvol (mGy) MEDICAL HISTORY : None SURGICAL HISTORY : None. ENCOUNTER: Initial ACUITY: 1 day PAIN SCALE: 10/10 LOCATION: Bilateral abdomen. TECHNIQUE: Volumetric scanning of the abdomen and pelvis was performed. Using automated exposure control and adjustment of the mA and/or kV according to patient size, radiation dose was kept as low as reasonably achievable to obtain optimal diagnostic quality images. FINDINGS: There is a cholecystostomy tube in place. The gallbladder is decompressed. There is mi ld fatty infiltration of the liver. No focal hepatic lesions are seen. The spleen, pancreas and adr enal glands are normal. Both kidneys demonstrate normal enhancement. There is a 1.7 cm cyst at the l ateral mid left kidney. There is also a 4.5 cm cyst at the anterior inferior left kidney. The aorta and IVC are intact. The bowel is unremarkable. The pelvic structures appear grossly intact. There i s some degenerative change in the lumbar spine. The lung bases are grossly clear. CONCLUSION: Cholecystoscopy tube in good position. Chato Amezcua MD on January 02, 2017 at 22:25 Board Certified Radiologist. This report was verified electronically.
[2017-01-03 08:00] VITALS: BP 100/78; PULSE 60; RESP 16; TEMP 96.5; O2SAT 96
[2017-01-03] MEDS: PANTOPRAZOLE SOD 40 MG DELAYED RELEASE TAB PO SCH (09:14)
[2017-01-03] MEDS: CITALOPRAM HYDROBROMIDE 20 MG TAB PO SCH (09:14)
[2017-01-03] MEDS: THIAMINE HCL 100 MG TAB PO SCH (09:14)
[2017-01-03] MEDS: LISINOPRIL 5 MG TAB PO SCH (09:14)
[2017-01-03] MEDS: MULTIVITAMIN TAB PO SCH (09:14)
[2017-01-03] MEDS: CALCIUM CARBONATE 500 MG CHEWABLE TAB CHEW SCH ×2 (09:14→20:15)
[2017-01-03] MEDS: FOLIC ACID 1 MG TAB PO SCH (09:14)
[2017-01-03] MEDS: RIFAXIMIN 550 MG TAB PO SCH (09:14)
--- NOTE | 2017-01-03 12:39 | HHI.PR ---
Subjective Remarks Patient seen and examined today. Patient still complaining of abdominal pain. Patient is hoping that surgery will perform cholecystectomy soon. Objective Vitals Vital Signs Date Time Temp Pulse Resp B/P Pulse Ox O2 Delivery O2 Flow Rate FiO2 01/03/17 11:46 18 01/03/17 08:00 96.5 60 16 100/78 96 01/02/17 20:00 98.3 80 18 118/81 97 I/O 01/02/17 01/02/17 01/02/17 01/03/17 01/03/17 01/03/17 07:00 15:00 23:00 07:00 15:00 23:00 Intake Total 1000 ml 820 ml Output Total 450 ml 80 ml Balance -450 ml 1000 ml 820 ml -80 ml Intake Oral 1000 ml 820 ml Output Urine Total 375 ml Drainage Total 75 ml 80 ml # Voids 5 3 # Bowel Movements 1 1 Result Diagram: 01/01/17 0530 01/01/17 0530 Objective Remarks GENERAL: Well-developed, well-nourished, in no acute distress. alert and orientated to person, initially not orientated to place, time, cardiac events. However if prompted he knows the appropriate answers HEENT: Head is normocephalic without any lesions or masses noted. Facial features are symmetric. Eyes: Extraocular muscles are intact. Conjunctivae were clear. NECK: Supple without any masses. Trachea midline no deviation. No JVD, CARDIAC: Regular rhythm, regular rate. S1/S2 are heard. No murmurs gallops or rubs. LUNGS: Clear to auscultation bilaterally. No wheeze, rhonchi or rales. No use of accessory muscles on inspiration or expiration. ABDOMEN: Soft, right upper quadrant tenderness. Nondistended. Bowel sounds heard in all 4 quadrants. No organomegaly or masses. Patient with positive rebound tenderness, guarding upon abdominal evaluation. Patient with peritoneal signs still. Cholecystotomy drain noted EXTREMITIES: No edema, pulses are equal bilaterally. No cyanosis or clubbing NEUROLOGY: Mood and affect appear appropriate. Cranial nerves II through XII grossly intact. Moving all extremities, speech is clear Procedures 12/17/16: Cholecystostomy tube placement 12/27/16: Cholecystostomy tube exchanged Urinary Catheter: No Vascular Central Line Catheter: No A/P Assessment and Plan Cholecystitis, acalculous. Patient still with continued pain, physical findings signs of rebound tenderness, right upper quadrant pain, Laboratory studies were unremarkable for any obstructive process Gallbladder ultrasound indicated sludge in the gallbladder with thickening of the gallbladder wall at 5 mm, this is characteristic of chronic bladder disease CT scan done of the abdomen shows abnormal gallbladder with distention, diffuse wall thickening, septation and prominent sinuses. Recommending HIDA scan to evaluate for cystic duct obstruction. HIDA scan shows nonvisualization the gallbladder characteristic of acute cholecystitis. GI consultation was requested and indicating need for surgical consultation Surgeon requested percutaneous cholecystotomy drain to be placed and remain in place for 6-8 weeks. Gen. surgery reconsultation is been requested, patient still with abdominal pain, abdominal pain, positive rebound. Reconsultation was performed by surgeon who indicated patient still not a candidate for surgery this time. Plan for surgery in [address] scan of the abdomen indicates cholecystotomy tube in good position Metabolic encephalopathy, likely secondary to alcohol withdrawal, hepatic encephalopathy. Resolved Continue monitor ammonia level. Less than 10 Continue rifaximin Lactulose discontinued due to diarrhea Alcohol withdrawal, resolved Ativan as needed per CIWA, has not needed Ativan since 11/29/16. Discontinued MVI, thiamine folic acid Celexa for depression Discontinue Librium Elevated liver enzymes, improved Likely secondary to chronic alcohol use Continue follow liver enzymes intermittently US liver consistent with hepatic steatosis Hepatitis panel was negative Conjunctivitis, resolved Status post ciprofloxacin eyedrops Hyperglycemia Hemoglobin A1c 6.6 diet controlled Hypertension, Blood pressure was running low and atenolol and Cozaar were discontinued lisinopril 5 mg daily Acute kidney injury, resolved Likely secondary to hypotension and poor by mouth intake Improved with IV fluids Renal ultrasound was negative for any obstruction Anemia, resolved Hemoglobin stable. No evidence of bleeding. Physical deconditioning Continue physical therapy 7 days a week Discharge Planning Discharge planning per case management Shawn Curry Jan 03, 2017 12:39
[2017-01-03 22:04] VITALS: BP 111/71; PULSE 60; RESP 16; TEMP 98.8; O2SAT 97
[2017-01-04 08:00] VITALS: BP 121/88; PULSE 66; RESP 18; TEMP 97.3; O2SAT 99
[2017-01-04] MEDS: PANTOPRAZOLE SOD 40 MG DELAYED RELEASE TAB PO SCH (08:59)
[2017-01-04] MEDS: CALCIUM CARBONATE 500 MG CHEWABLE TAB CHEW SCH ×2 (08:59→20:19)
[2017-01-04] MEDS: LISINOPRIL 5 MG TAB PO SCH (08:59)
[2017-01-04] MEDS: THIAMINE HCL 100 MG TAB PO SCH (09:00)
[2017-01-04] MEDS: CITALOPRAM HYDROBROMIDE 20 MG TAB PO SCH (09:00)
[2017-01-04] MEDS: MULTIVITAMIN TAB PO SCH (09:00)
[2017-01-04] MEDS: RIFAXIMIN 550 MG TAB PO SCH (09:00)
[2017-01-04] MEDS: FOLIC ACID 1 MG TAB PO SCH (09:00)
--- NOTE | 2017-01-04 10:34 | HHI.PR ---
Subjective Remarks Patient seen and examined today. Patient states that he still experiencing waves of abdominal pain Objective Vitals Vital Signs Date Time Temp Pulse Resp B/P Pulse Ox O2 Delivery O2 Flow Rate FiO2 01/04/17 08:00 97.3 66 18 121/88 99 01/04/17 01:00 18 01/03/17 22:04 98.8 60 16 111/71 97 I/O 01/03/17 01/03/17 01/03/17 01/04/17 01/04/17 01/04/17 07:00 15:00 23:00 07:00 15:00 23:00 Intake Total 1470 ml Output Total 80 ml 75 ml 350 ml Balance -80 ml 1470 ml -75 ml -350 ml Intake Oral 1470 ml Output Urine Total 300 ml Drainage Total 80 ml 75 ml 50 ml # Voids 5 2 # Bowel Movements 1 Result Diagram: 01/01/17 0530 01/01/17 0530 Objective Remarks GENERAL: Well-developed, well-nourished, in no acute distress. alert and orientated to person, initially not orientated to place, time, cardiac events. However if prompted he knows the appropriate answers HEENT: Head is normocephalic without any lesions or masses noted. Facial features are symmetric. Eyes: Extraocular muscles are intact. Conjunctivae were clear. NECK: Supple without any masses. Trachea midline no deviation. No JVD, CARDIAC: Regular rhythm, regular rate. S1/S2 are heard. No murmurs gallops or rubs. LUNGS: Clear to auscultation bilaterally. No wheeze, rhonchi or rales. No use of accessory muscles on inspiration or expiration. ABDOMEN: Soft, right upper quadrant tenderness. Nondistended. Bowel sounds heard in all 4 quadrants. No organomegaly or masses. Patient with positive rebound tenderness, guarding upon abdominal evaluation. Patient with peritoneal signs still. Cholecystotomy drain noted EXTREMITIES: No edema, pulses are equal bilaterally. No cyanosis or clubbing NEUROLOGY: Mood and affect appear appropriate. Cranial nerves II through XII grossly intact. Moving all extremities, speech is clear Procedures 12/17/16: Cholecystostomy tube placement 12/27/16: Cholecystostomy tube exchanged Urinary Catheter: No Vascular Central Line Catheter: No A/P Assessment and Plan Cholecystitis, acalculous. Patient still with continued pain, physical findings signs of rebound tenderness, right upper quadrant pain, Laboratory studies were unremarkable for any obstructive process Gallbladder ultrasound indicated sludge in the gallbladder with thickening of the gallbladder wall at 5 mm, this is characteristic of chronic bladder disease CT scan done of the abdomen shows abnormal gallbladder with distention, diffuse wall thickening, septation and prominent sinuses. Recommending HIDA scan to evaluate for cystic duct obstruction. HIDA scan shows nonvisualization the gallbladder characteristic of acute cholecystitis. GI consultation was requested and indicating need for surgical consultation Surgeon requested percutaneous cholecystotomy drain to be placed and remain in place for 6-8 weeks. Gen. surgery reconsultation is been requested, patient still with abdominal pain, abdominal pain, positive rebound. Reconsultation was performed by surgeon who indicated patient still not a candidate for surgery this time. Plan for surgery in [address] scan of the abdomen indicates cholecystotomy tube in good position Metabolic encephalopathy, likely secondary to alcohol withdrawal, hepatic encephalopathy. Resolved Continue monitor ammonia level. Less than 10 Continue rifaximin Lactulose discontinued due to diarrhea Alcohol withdrawal, resolved Ativan as needed per CIWA, has not needed Ativan since 11/29/16. Discontinued MVI, thiamine folic acid Celexa for depression Discontinue Librium Elevated liver enzymes, improved Likely secondary to chronic alcohol use Continue follow liver enzymes intermittently US liver consistent with hepatic steatosis Hepatitis panel was negative Conjunctivitis, resolved Status post ciprofloxacin eyedrops Hyperglycemia Hemoglobin A1c 6.6 diet controlled Hypertension, Blood pressure was running low and atenolol and Cozaar were discontinued lisinopril 5 mg daily Acute kidney injury, resolved Likely secondary to hypotension and poor by mouth intake Improved with IV fluids Renal ultrasound was negative for any obstruction Anemia, resolved Hemoglobin stable. No evidence of bleeding. Physical deconditioning Continue physical therapy 7 days a week Discharge Planning Discharge planning per case management Shawn Curry Jan 04, 2017 10:34
--- NOTE | 2017-01-04 19:58 | HHI.PR ---
Subjective Subjective Notes Patient reports right sided abdominal pain, but tolerating PO's and moving bowels. Repeat CT stable. Objective Vitals/I&O Vital Signs Date Time Temp Pulse Resp B/P Pulse Ox O2 Delivery O2 Flow Rate FiO2 01/04/17 19:48 20 01/04/17 08:00 97.3 66 121/88 99 Abdomen: Non-distended, Other (Mildly tender on right side; no tenderness on left side) A/P Assessment and Plan Chronic cholecystitis in pt. with EtOH abuse; now past DT stage. Plan: Needs to keep michael tube for at least three weeks; can perform cholangiogram through tube and if cystic duct patent, can pull tube and send home. Pb Martin MD Jan 04, 2017 19:58
[2017-01-04 20:00] VITALS: BP 116/82; PULSE 92; RESP 18; TEMP 97.5; O2SAT 98
[2017-01-05 08:00] VITALS: BP 117/83; PULSE 61; RESP 20; TEMP 98.2; O2SAT 95
[2017-01-05] MEDS: CITALOPRAM HYDROBROMIDE 20 MG TAB PO SCH (09:05)
[2017-01-05] MEDS: PANTOPRAZOLE SOD 40 MG DELAYED RELEASE TAB PO SCH (09:05)
[2017-01-05] MEDS: CALCIUM CARBONATE 500 MG CHEWABLE TAB CHEW SCH ×2 (09:05→20:48)
[2017-01-05] MEDS: RIFAXIMIN 550 MG TAB PO SCH (09:05)
[2017-01-05] MEDS: LISINOPRIL 5 MG TAB PO SCH (09:05)
[2017-01-05] MEDS: MULTIVITAMIN TAB PO SCH (09:05)
[2017-01-05] MEDS: FOLIC ACID 1 MG TAB PO SCH (09:05)
[2017-01-05] MEDS: THIAMINE HCL 100 MG TAB PO SCH (09:05)
--- NOTE | 2017-01-05 10:54 | HHI.PR ---
Subjective Remarks Patient seen and examined today. Patient states he still experiencing abdominal discomfort. Patient still has cholecystitis drain in with persistent output Objective Vitals Vital Signs Date Time Temp Pulse Resp B/P Pulse Ox O2 Delivery O2 Flow Rate FiO2 01/05/17 10:28 14 01/05/17 08:00 98.2 61 20 117/83 95 01/04/17 20:00 97.5 92 18 116/82 98 I/O 01/04/17 01/04/17 01/04/17 01/05/17 01/05/17 01/05/17 07:00 15:00 23:00 07:00 15:00 23:00 Intake Total 1200 ml 720 ml 220 ml Output Total 350 ml 60 ml 700 ml Balance -350 ml 1140 ml 720 ml -480 ml Intake Oral 1200 ml 720 ml 220 ml Output Urine Total 300 ml 600 ml Drainage Total 50 ml 60 ml 100 ml # Voids 2 5 2 # Bowel Movements 0 1 0 Result Diagram: 01/01/17 0530 01/01/17 0530 Objective Remarks GENERAL: Well-developed, well-nourished, in no acute distress. alert and orientated to person, initially not orientated to place, time, cardiac events. However if prompted he knows the appropriate answers HEENT: Head is normocephalic without any lesions or masses noted. Facial features are symmetric. Eyes: Extraocular muscles are intact. Conjunctivae were clear. NECK: Supple without any masses. Trachea midline no deviation. No JVD, CARDIAC: Regular rhythm, regular rate. S1/S2 are heard. No murmurs gallops or rubs. LUNGS: Clear to auscultation bilaterally. No wheeze, rhonchi or rales. No use of accessory muscles on inspiration or expiration. ABDOMEN: Soft, right upper quadrant tenderness. Nondistended. Bowel sounds heard in all 4 quadrants. No organomegaly or masses. Patient with positive rebound tenderness, guarding upon abdominal evaluation. Patient with peritoneal signs still. Cholecystotomy drain noted EXTREMITIES: No edema, pulses are equal bilaterally. No cyanosis or clubbing NEUROLOGY: Mood and affect appear appropriate. Cranial nerves II through XII grossly intact. Moving all extremities, speech is clear Procedures 12/17/16: Cholecystostomy tube placement 12/27/16: Cholecystostomy tube exchanged Urinary Catheter: No Vascular Central Line Catheter: No A/P Assessment and Plan Cholecystitis, acalculous. Patient still with continued pain, physical findings signs of rebound tenderness, right upper quadrant pain, Laboratory studies were unremarkable for any obstructive process Gallbladder ultrasound indicated sludge in the gallbladder with thickening of the gallbladder wall at 5 mm, this is characteristic of chronic bladder disease CT scan done of the abdomen shows abnormal gallbladder with distention, diffuse wall thickening, septation and prominent sinuses. Recommending HIDA scan to evaluate for cystic duct obstruction. HIDA scan shows nonvisualization the gallbladder characteristic of acute cholecystitis. GI consultation was requested and indicating need for surgical consultation Surgeon requested percutaneous cholecystotomy drain to be placed and remain in place for 6-8 weeks. Gen. surgery reconsultation is been requested, patient still with abdominal pain, abdominal pain, positive rebound. Reconsultation was performed by surgeon who indicated patient still not a candidate for surgery this time. Plan for surgery in [address] scan of the abdomen indicates cholecystotomy tube in good position Metabolic encephalopathy, likely secondary to alcohol withdrawal, hepatic encephalopathy. Resolved Continue monitor ammonia level. Less than 10 Continue rifaximin Lactulose discontinued due to diarrhea Alcohol withdrawal, resolved Ativan as needed per CIWA, has not needed Ativan since 11/29/16. Discontinued MVI, thiamine folic acid Celexa for depression Discontinue Librium Elevated liver enzymes, improved Likely secondary to chronic alcohol use Continue follow liver enzymes intermittently US liver consistent with hepatic steatosis Hepatitis panel was negative Conjunctivitis, resolved Status post ciprofloxacin eyedrops Hyperglycemia Hemoglobin A1c 6.6 diet controlled Hypertension, Blood pressure was running low and atenolol and Cozaar were discontinued lisinopril 5 mg daily Acute kidney injury, resolved Likely secondary to hypotension and poor by mouth intake Improved with IV fluids Renal ultrasound was negative for any obstruction Anemia, resolved Hemoglobin stable. No evidence of bleeding. Physical deconditioning Continue physical therapy 7 days a week Discharge Planning Discharge planning per case management Shawn Curry Jan 05, 2017 10:54
[2017-01-05 20:00] VITALS: BP 100/58; PULSE 68; RESP 16; TEMP 98; O2SAT 97
[2017-01-06] MEDS: RIFAXIMIN 550 MG TAB PO SCH (07:40)
[2017-01-06] MEDS: FOLIC ACID 1 MG TAB PO SCH (07:40)
[2017-01-06] MEDS: MULTIVITAMIN TAB PO SCH (07:40)
[2017-01-06] MEDS: PANTOPRAZOLE SOD 40 MG DELAYED RELEASE TAB PO SCH (07:40)
[2017-01-06] MEDS: CALCIUM CARBONATE 500 MG CHEWABLE TAB CHEW SCH ×2 (07:40→21:31)
[2017-01-06] MEDS: THIAMINE HCL 100 MG TAB PO SCH (07:41)
[2017-01-06] MEDS: LISINOPRIL 5 MG TAB PO SCH (07:41)
[2017-01-06] MEDS: CITALOPRAM HYDROBROMIDE 20 MG TAB PO SCH (07:42)
[2017-01-06 08:00] VITALS: BP 142/104; PULSE 73; RESP 16; TEMP 96.5; O2SAT 97
--- NOTE | 2017-01-06 11:38 | HHI.PR ---
Subjective Remarks Patient seen and examined today. Patient denies any new complaints. Patient has been trying to hold off on taking pain medication. However he states that it feels like someone is hitting him in the abdomen intermittently. Objective Vitals Vital Signs Date Time Temp Pulse Resp B/P Pulse Ox O2 Delivery O2 Flow Rate FiO2 01/06/17 10:09 14 01/06/17 08:00 96.5 73 16 142/104 97 01/05/17 20:00 98.0 68 16 100/58 97 I/O 01/05/17 01/05/17 01/05/17 01/06/17 01/06/17 01/06/17 07:00 15:00 23:00 07:00 15:00 23:00 Intake Total 220 ml 1440 ml 220 ml Output Total 700 ml 100 ml 500 ml Balance -480 ml 1340 ml -280 ml Intake Oral 220 ml 1440 ml 220 ml Output Urine Total 600 ml 500 ml Drainage Total 100 ml 100 ml # Voids 2 9 # Bowel Movements 0 0 0 Objective Remarks GENERAL: Well-developed, well-nourished, in no acute distress. alert and orientated to person, initially not orientated to place, time, cardiac events. However if prompted he knows the appropriate answers HEENT: Head is normocephalic without any lesions or masses noted. Facial features are symmetric. Eyes: Extraocular muscles are intact. Conjunctivae were clear. NECK: Supple without any masses. Trachea midline no deviation. No JVD, CARDIAC: Regular rhythm, regular rate. S1/S2 are heard. No murmurs gallops or rubs. LUNGS: Clear to auscultation bilaterally. No wheeze, rhonchi or rales. No use of accessory muscles on inspiration or expiration. ABDOMEN: Soft, right upper quadrant tenderness. Nondistended. Bowel sounds heard in all 4 quadrants. No organomegaly or masses. Cholecystotomy drain noted EXTREMITIES: No edema, pulses are equal bilaterally. No cyanosis or clubbing NEUROLOGY: Mood and affect appear appropriate. Cranial nerves II through XII grossly intact. Moving all extremities, speech is clear Procedures 12/17/16: Cholecystostomy tube placement 12/27/16: Cholecystostomy tube exchanged Urinary Catheter: No Vascular Central Line Catheter: No A/P Assessment and Plan Cholecystitis, acalculous. Patient still with continued intermittent pain Laboratory studies were unremarkable for any obstructive process Gallbladder ultrasound indicated sludge in the gallbladder with thickening of the gallbladder wall at 5 mm, this is characteristic of chronic bladder disease CT scan done of the abdomen shows abnormal gallbladder with distention, diffuse wall thickening, septation and prominent sinuses. Recommending HIDA scan to evaluate for cystic duct obstruction. HIDA scan shows nonvisualization the gallbladder characteristic of acute cholecystitis. GI consultation was requested and indicating need for surgical consultation Surgeon requested percutaneous cholecystotomy drain to be placed and remain in place for 6-8 weeks. Gen. surgery reconsultation is been requested, patient still with abdominal pain, abdominal pain, positive rebound. Reconsultation was performed by surgeon who indicated patient still not a candidate for surgery this time. Plan for surgery in [address] scan of the abdomen indicates cholecystotomy tube in good position Metabolic encephalopathy, likely secondary to alcohol withdrawal, hepatic encephalopathy. Resolved Continue monitor ammonia level. Less than 10 Continue rifaximin Lactulose discontinued due to diarrhea Alcohol withdrawal, resolved Ativan as needed per CIWA, has not needed Ativan since 11/29/16. Discontinued MVI, thiamine folic acid Celexa for depression Discontinue Librium Elevated liver enzymes, improved Likely secondary to chronic alcohol use Continue follow liver enzymes intermittently US liver consistent with hepatic steatosis Hepatitis panel was negative Conjunctivitis, resolved Status post ciprofloxacin eyedrops Hyperglycemia Hemoglobin A1c 6.6 diet controlled Hypertension, Blood pressure was running low and atenolol and Cozaar were discontinued lisinopril 5 mg daily Acute kidney injury, resolved Likely secondary to hypotension and poor by mouth intake Improved with IV fluids Renal ultrasound was negative for any obstruction Anemia, resolved Hemoglobin stable. No evidence of bleeding. Physical deconditioning Continue physical therapy 7 days a week Discharge Planning Discharge planning per case management Shawn Curry Jan 06, 2017 11:38
[2017-01-06 20:00] VITALS: BP 123/83; PULSE 63; RESP 18; TEMP 98.1; O2SAT 100
[2017-01-07 08:00] VITALS: BP 141/99; PULSE 65; RESP 20; TEMP 96.5; O2SAT 98
[2017-01-07] MEDS: LISINOPRIL 5 MG TAB PO SCH (08:01)
[2017-01-07] MEDS: CALCIUM CARBONATE 500 MG CHEWABLE TAB CHEW SCH ×2 (08:02→20:55)
[2017-01-07] MEDS: THIAMINE HCL 100 MG TAB PO SCH (08:02)
[2017-01-07] MEDS: MULTIVITAMIN TAB PO SCH (08:02)
[2017-01-07] MEDS: RIFAXIMIN 550 MG TAB PO SCH (08:02)
[2017-01-07] MEDS: PANTOPRAZOLE SOD 40 MG DELAYED RELEASE TAB PO SCH (08:02)
[2017-01-07] MEDS: CITALOPRAM HYDROBROMIDE 20 MG TAB PO SCH (08:02)
[2017-01-07] MEDS: FOLIC ACID 1 MG TAB PO SCH (08:02)
--- NOTE | 2017-01-07 12:26 | HHI.PR ---
Subjective Remarks Follow-up for cholecystitis. No notable pain reported. Patient states he is still wobbly when he walks. Objective Vitals Vital Signs Date Time Temp Pulse Resp B/P Pulse Ox O2 Delivery O2 Flow Rate FiO2 01/07/17 12:17 14 01/07/17 08:00 96.5 65 20 141/99 98 01/06/17 20:00 98.1 63 18 123/83 100 01/06/17 12:51 12 I/O 01/06/17 01/06/17 01/06/17 01/07/17 01/07/17 01/07/17 07:00 15:00 23:00 07:00 15:00 23:00 Intake Total 220 ml 480 ml 920 ml Output Total 500 ml 220 ml 545 ml Balance -280 ml 480 ml 700 ml -545 ml Intake Oral 220 ml 480 ml 920 ml Output Urine Total 500 ml 500 ml Drainage Total 220 ml 45 ml # Voids 4 2 # Bowel Movements 0 1 0 Objective Remarks GENERAL: Pleasant well-developed male in no apparent distress sitting in day room. CARDIOVASCULAR: Regular rate and rhythm. RESPIRATORY: No accessory muscle use. CTAB. GASTROINTESTINAL: Abdomen distended, but non-tender. NEUROLOGICAL: Awake and alert. Normal speech. Procedures 12/17/16: Cholecystostomy tube placement 12/27/16: Cholecystostomy tube exchanged Urinary Catheter: No Vascular Central Line Catheter: No A/P Problem List: (1) Cholecystitis ICD Code: K81.9 Status: Acute (2) HTN (hypertension) ICD Code: I10 Status: Acute (3) Metabolic encephalopathy ICD Code: G93.41 Status: Resolved (4) Alcohol withdrawal ICD Code: F10.239 Status: Resolved (5) Elevated LFTs ICD Code: R94.5 Status: Resolved (6) Anemia ICD Code: D64.9 Status: Acute (7) Acute kidney injury ICD Code: N17.9 Status: Resolved (8) Hyperglycemia ICD Code: R73.9 Status: Resolved (9) Conjunctivitis ICD Code: H10.9 Status: Resolved Assessment and Plan Cholecystitis, acalculous Laboratory studies were unremarkable for any obstructive process Gallbladder ultrasound indicated sludge in the gallbladder with thickening of the gallbladder wall at 5 mm, this is characteristic of chronic bladder disease CT scan done of the abdomen shows abnormal gallbladder with distention, diffuse wall thickening, septation and prominent sinuses. Recommending HIDA scan to evaluate for cystic duct obstruction. HIDA scan shows nonvisualization the gallbladder characteristic of acute cholecystitis. GI consultation was requested and indicated need for surgical consultation General surgery was consulted. Dr. Berg indicates if patient tolerates management with cholecystotomy tube then outpatient laparoscopic cholecystectomy can be performed in 6-8 weeks. If patient continues to have pain and does not improve then he may benefit from cholecystectomy while in the hospital. Cholecystotomy drain currently in place. S/p 10 day course of Levaquin. 12/24: Follow-up with Dr. Berg in 2-3 weeks. Surgery option in 6 weeks. Tube exchanged on 12/27. Patient has pain at the site since exchange, but appears comfortable. Afebrile. 01/02: CT scan of the abdomen indicates cholecystoscopy tube in good position 01/04: Dr. Martin reevaluated the patient; states to keep the michael tube for 3 weeks and perform cholangiogram through the tube and if cystic duct is patent can pull the tube and send home. Oxycodone as needed for pain. Hypertension: Blood pressure was running low and Atenolol and Cozaar were discontinued. Continue Lisinopril at 5 mg daily dose. Monitor and adjust regimen as needed. Metabolic encephalopathy, likely secondary to alcohol withdrawal, hepatic encephalopathy. Resolved Ammonia level less than 10 on 12/08. Continue rifaximin Lactulose discontinued due to diarrhea Alcohol withdrawal, resolved Ativan as needed per KATHLEENWA, has not needed Ativan since 11/29/16. Discontinued MVI, thiamine, folic acid Celexa for depression Discontinue Librium Elevated liver enzymes, resolved Likely secondary to chronic alcohol use US liver consistent with hepatic steatosis Hepatitis panel was negative Avoid hepatotoxins Anemia: Hemoglobin stable. No evidence of bleeding. Acute kidney injury, resolved Likely secondary to hypotension and poor by mouth intake Improved with IV fluids Renal ultrasound was negative for any obstruction Hyperglycemia Hemoglobin A1c 6.6 diet controlled Conjunctivitis, resolved Status post ciprofloxacin eyedrops Physical deconditioning Continue physical therapy 7 days a week Discharge Planning 01/07/17: Plan is for patient to return home once either tube is removed or patient can obtain home health to maintain tube only if cleared by general surgery as patient would require follow up. I spoke with physical therapist Best today who states the patient is cleared for discharge from mobility standpoint with walker. Problem Qualifiers (1) Alcohol withdrawal: Qualified Code: F10.230 - Alcohol withdrawal, uncomplicated Selam Lui Jan 07, 2017 12:26
[2017-01-07 20:00] VITALS: BP 126/88; PULSE 65; RESP 20; TEMP 97.8; O2SAT 99
[2017-01-08] MEDS: FOLIC ACID 1 MG TAB PO SCH (08:07)
[2017-01-08] MEDS: CALCIUM CARBONATE 500 MG CHEWABLE TAB CHEW SCH ×2 (08:07→20:41)
[2017-01-08] MEDS: THIAMINE HCL 100 MG TAB PO SCH (08:07)
[2017-01-08] MEDS: LISINOPRIL 5 MG TAB PO SCH (08:07)
[2017-01-08] MEDS: PANTOPRAZOLE SOD 40 MG DELAYED RELEASE TAB PO SCH (08:07)
[2017-01-08] MEDS: CITALOPRAM HYDROBROMIDE 20 MG TAB PO SCH (08:07)
[2017-01-08] MEDS: RIFAXIMIN 550 MG TAB PO SCH (08:07)
[2017-01-08] MEDS: MULTIVITAMIN TAB PO SCH (08:07)
[2017-01-08 08:38] VITALS: BP 139/92; PULSE 66; RESP 15; TEMP 96.1; O2SAT 97
--- NOTE | 2017-01-08 13:00 | HHI.PR ---
Subjective Remarks Patient still has pain over the cholecystostomy tube site but he denies any fevers or chills, nausea, vomiting, or diarrhea. Admits to regular normal bowel movements. Objective Vitals Vital Signs Date Time Temp Pulse Resp B/P Pulse Ox O2 Delivery O2 Flow Rate FiO2 01/08/17 08:38 96.1 66 15 139/92 97 01/08/17 08:07 16 01/07/17 20:00 97.8 65 20 126/88 99 I/O 01/07/17 01/07/17 01/07/17 01/08/17 01/08/17 01/08/17 07:00 15:00 23:00 07:00 15:00 23:00 Intake Total 1000 ml 820 ml Output Total 545 ml 190 ml 890 ml Balance -545 ml 1000 ml -190 ml -70 ml Intake Oral 1000 ml 820 ml Output Urine Total 500 ml 850 ml Drainage Total 45 ml 190 ml 40 ml # Voids 5 # Bowel Movements 0 1 Objective Remarks GENERAL: Pleasant well-developed male in no apparent distress sitting in day room. CARDIOVASCULAR: Regular rate and rhythm. RESPIRATORY: No accessory muscle use. CTAB. GASTROINTESTINAL: Abdomen distended, same. Tender over RUQ. No guarding. NEUROLOGICAL: Awake and alert. Normal speech. Procedures 12/17/16: Cholecystostomy tube placement 12/27/16: Cholecystostomy tube exchanged Urinary Catheter: No Vascular Central Line Catheter: No A/P Problem List: (1) Cholecystitis ICD Code: K81.9 Status: Acute (2) HTN (hypertension) ICD Code: I10 Status: Acute (3) Metabolic encephalopathy ICD Code: G93.41 Status: Resolved (4) Alcohol withdrawal ICD Code: F10.239 Status: Resolved (5) Elevated LFTs ICD Code: R94.5 Status: Resolved (6) Anemia ICD Code: D64.9 Status: Acute (7) Acute kidney injury ICD Code: N17.9 Status: Resolved (8) Hyperglycemia ICD Code: R73.9 Status: Resolved (9) Conjunctivitis ICD Code: H10.9 Status: Resolved Assessment and Plan Cholecystitis, acalculous Laboratory studies were unremarkable for any obstructive process Gallbladder ultrasound indicated sludge in the gallbladder with thickening of the gallbladder wall at 5 mm, this is characteristic of chronic bladder disease CT scan done of the abdomen shows abnormal gallbladder with distention, diffuse wall thickening, septation and prominent sinuses. Recommended HIDA scan to evaluate for cystic duct obstruction. HIDA scan shows nonvisualization the gallbladder characteristic of acute cholecystitis. GI consultation was requested and indicated need for surgical consultation General surgery was consulted. Dr. Berg indicates if patient tolerates management with cholecystotomy tube then outpatient laparoscopic cholecystectomy can be performed in 6-8 weeks. If patient continues to have pain and does not improve then he may benefit from cholecystectomy while in the hospital. Cholecystotomy drain currently in place. S/p 10 day course of Levaquin. 12/24: Follow-up with Dr. Berg in 2-3 weeks. Surgery option in 6 weeks. Tube exchanged on 12/27. Patient has pain at the site since exchange, but appears comfortable. Afebrile. 01/02: CT scan of the abdomen indicates cholecystoscopy tube in good position 01/04: Dr. Martin reevaluated the patient; states to keep the michael tube for 3 weeks and perform cholangiogram through the tube and if cystic duct is patent can pull the tube and send home. Oxycodone as needed for pain. Hypertension: Blood pressure was running low and Atenolol and Cozaar were discontinued. Continue Lisinopril at 5 mg daily dose. Monitor and adjust regimen as needed. Metabolic encephalopathy, likely secondary to alcohol withdrawal, hepatic encephalopathy. Resolved Ammonia level less than 10 on 12/08. Continue rifaximin Lactulose discontinued due to diarrhea Alcohol withdrawal, resolved Ativan as needed per CIWA, has not needed Ativan since 11/29/16. Discontinued MVI, thiamine, folic acid Celexa for depression Discontinue Librium Elevated liver enzymes, resolved Likely secondary to chronic alcohol use US liver consistent with hepatic steatosis Hepatitis panel was negative Avoid hepatotoxins Anemia: Hemoglobin stable. No evidence of bleeding. Acute kidney injury, resolved Likely secondary to hypotension and poor by mouth intake Improved with IV fluids Renal ultrasound was negative for any obstruction Hyperglycemia Hemoglobin A1c 6.6 diet controlled Conjunctivitis, resolved Status post ciprofloxacin eyedrops Physical deconditioning Continue physical therapy 7 days a week Discharge Planning 01/07/17: Plan is for patient to return home once tube is removed. I spoke with physical therapist Best today who states the patient is cleared for discharge from mobility standpoint with walker. Problem Qualifiers (1) Alcohol withdrawal: Qualified Code: F10.230 - Alcohol withdrawal, uncomplicated Selam Lui Jan 08, 2017 12:59
[2017-01-08 20:00] VITALS: BP 108/79; PULSE 64; RESP 16; TEMP 97; TEMP 97.6; O2SAT 99
[2017-01-09] MEDS: RIFAXIMIN 550 MG TAB PO SCH (07:47)
[2017-01-09] MEDS: THIAMINE HCL 100 MG TAB PO SCH (07:47)
[2017-01-09] MEDS: CITALOPRAM HYDROBROMIDE 20 MG TAB PO SCH (07:48)
[2017-01-09] MEDS: FOLIC ACID 1 MG TAB PO SCH (07:48)
[2017-01-09] MEDS: PANTOPRAZOLE SOD 40 MG DELAYED RELEASE TAB PO SCH (07:48)
[2017-01-09] MEDS: CALCIUM CARBONATE 500 MG CHEWABLE TAB CHEW SCH ×2 (07:48→20:36)
[2017-01-09] MEDS: LISINOPRIL 5 MG TAB PO SCH (07:48)
[2017-01-09] MEDS: MULTIVITAMIN TAB PO SCH (07:48)
[2017-01-09 08:47] VITALS: BP 120/86; PULSE 82; RESP 18; TEMP 96.3; O2SAT 96
--- NOTE | 2017-01-09 13:07 | HHI.PR ---
Subjective Remarks Follow-up for cholecystitis. Patient states his pain is a 7/10 same as yesterday. No increase in abdominal distention. Objective Vitals Vital Signs Date Time Temp Pulse Resp B/P Pulse Ox O2 Delivery O2 Flow Rate FiO2 01/09/17 08:47 96.3 82 18 120/86 96 01/09/17 07:32 16 01/08/17 20:00 97.0 64 16 108/79 99 01/08/17 20:00 97.6 64 16 108/79 99 I/O 01/08/17 01/08/17 01/08/17 01/09/17 01/09/17 01/09/17 07:00 15:00 23:00 07:00 15:00 23:00 Intake Total 820 ml 480 ml 220 ml Output Total 890 ml 100 ml 1000 ml Balance -70 ml 380 ml -780 ml Intake Oral 820 ml 480 ml 220 ml Output Urine Total 850 ml 900 ml Drainage Total 40 ml 100 ml 100 ml # Voids 5 # Bowel Movements 1 2 0 Objective Remarks GENERAL: Pleasant well-developed male in no apparent distress sitting in day room. CARDIOVASCULAR: Regular rate and rhythm. RESPIRATORY: No accessory muscle use. CTAB. GASTROINTESTINAL: Normoactive bowel sounds 4 quadrants. Abdomen distended, same. Nontender. Bilious drainage from cholecystostomy tube. NEUROLOGICAL: Awake and alert. Normal speech. Procedures 12/17/16: Cholecystostomy tube placement 12/27/16: Cholecystostomy tube exchanged Urinary Catheter: No Vascular Central Line Catheter: No A/P Problem List: (1) Cholecystitis ICD Code: K81.9 Status: Acute (2) HTN (hypertension) ICD Code: I10 Status: Acute (3) Metabolic encephalopathy ICD Code: G93.41 Status: Resolved (4) Alcohol withdrawal ICD Code: F10.239 Status: Resolved (5) Elevated LFTs ICD Code: R94.5 Status: Resolved (6) Anemia ICD Code: D64.9 Status: Acute (7) Acute kidney injury ICD Code: N17.9 Status: Resolved (8) Hyperglycemia ICD Code: R73.9 Status: Resolved (9) Conjunctivitis ICD Code: H10.9 Status: Resolved Assessment and Plan Cholecystitis, acalculous Laboratory studies were unremarkable for any obstructive process Gallbladder ultrasound indicated sludge in the gallbladder with thickening of the gallbladder wall at 5 mm, this is characteristic of chronic bladder disease CT scan done of the abdomen shows abnormal gallbladder with distention, diffuse wall thickening, septation and prominent sinuses. Recommended HIDA scan to evaluate for cystic duct obstruction. HIDA scan shows nonvisualization the gallbladder characteristic of acute cholecystitis. GI consultation was requested and indicated need for surgical consultation General surgery was consulted. Dr. Berg indicates if patient tolerates management with cholecystotomy tube then outpatient laparoscopic cholecystectomy can be performed in 6-8 weeks. If patient continues to have pain and does not improve then he may benefit from cholecystectomy while in the hospital. Cholecystotomy drain currently in place. S/p 10 day course of Levaquin. 12/24: Follow-up with Dr. Berg in 2-3 weeks. Surgery option in 6 weeks. Tube exchanged on 12/27. Patient has pain at the site since exchange, but appears comfortable. Afebrile. 01/02: CT scan of the abdomen indicates cholecystoscopy tube in good position 01/04: Dr. Martin reevaluated the patient; states to keep the michael tube for 3 weeks and perform cholangiogram through the tube and if cystic duct is patent can pull the tube and send home. Oxycodone as needed for pain. Hypertension: Blood pressure was running low and Atenolol and Cozaar were discontinued. Continue Lisinopril at 5 mg daily dose. Monitor and adjust regimen as needed. Metabolic encephalopathy, likely secondary to alcohol withdrawal, hepatic encephalopathy. Resolved Ammonia level less than 10 on 12/08. Continue rifaximin Lactulose discontinued due to diarrhea Alcohol withdrawal, resolved Ativan as needed per CIWA, has not needed Ativan since 11/29/16. Discontinued MVI, thiamine, folic acid Celexa for depression Discontinue Librium Elevated liver enzymes, resolved Likely secondary to chronic alcohol use US liver consistent with hepatic steatosis Hepatitis panel was negative Avoid hepatotoxins Anemia: Hemoglobin stable. No evidence of bleeding. Acute kidney injury, resolved Likely secondary to hypotension and poor by mouth intake Improved with IV fluids Renal ultrasound was negative for any obstruction Hyperglycemia Hemoglobin A1c 6.6 diet controlled Conjunctivitis, resolved Status post ciprofloxacin eyedrops Physical deconditioning Continue physical therapy 7 days a week Discharge Planning 01/07/17: Plan is for patient to return home once tube is removed. I spoke with physical therapist Best today who states the patient is cleared for discharge from mobility standpoint with walker. Problem Qualifiers (1) Alcohol withdrawal: Qualified Code: F10.230 - Alcohol withdrawal, uncomplicated Selam Lui Jan 09, 2017 13:07
[2017-01-09 20:00] VITALS: BP 113/77; PULSE 86; RESP 20; TEMP 96.7; O2SAT 97
[2017-01-10 08:00] VITALS: BP 140/80; PULSE 67; RESP 20; TEMP 96.8; O2SAT 99
[2017-01-10] MEDS: FOLIC ACID 1 MG TAB PO SCH (08:09)
[2017-01-10] MEDS: RIFAXIMIN 550 MG TAB PO SCH (08:09)
[2017-01-10] MEDS: CITALOPRAM HYDROBROMIDE 20 MG TAB PO SCH (08:09)
[2017-01-10] MEDS: CALCIUM CARBONATE 500 MG CHEWABLE TAB CHEW SCH ×2 (08:09→20:15)
[2017-01-10] MEDS: MULTIVITAMIN TAB PO SCH (08:09)
[2017-01-10] MEDS: PANTOPRAZOLE SOD 40 MG DELAYED RELEASE TAB PO SCH (08:10)
[2017-01-10] MEDS: THIAMINE HCL 100 MG TAB PO SCH (08:11)
[2017-01-10] MEDS: LISINOPRIL 5 MG TAB PO SCH (08:11)
--- NOTE | 2017-01-10 09:17 | HHI.PR ---
Subjective Remarks Follow-up for cholecystitis. Patient still admits to abdominal pain 05/26. He states he was nauseous earlier but this could be due to pain medication. Objective Vitals Vital Signs Date Time Temp Pulse Resp B/P Pulse Ox O2 Delivery O2 Flow Rate FiO2 01/10/17 08:00 96.8 67 20 140/80 99 01/09/17 23:15 14 01/09/17 20:00 96.7 86 20 113/77 97 01/09/17 13:13 16 I/O 01/09/17 01/09/17 01/09/17 01/10/17 01/10/17 01/10/17 07:00 15:00 23:00 07:00 15:00 23:00 Intake Total 220 ml 1640 ml 240 ml Output Total 1000 ml 675 ml Balance -780 ml 1640 ml -435 ml Intake Oral 220 ml 1640 ml 240 ml Output Urine Total 900 ml 675 ml Drainage Total 100 ml # Voids 6 # Bowel Movements 0 2 0 Objective Remarks GENERAL: Pleasant well-developed male in no apparent distress sitting on side of bed. CARDIOVASCULAR: Regular rate and rhythm. RESPIRATORY: No accessory muscle use. CTAB. GASTROINTESTINAL: Abdomen distended, same. Tender over RUQ and now over medial right lower quadrant/right hypogastric region. Patient initially had some guarding which was not apparent on subsequent palpation. No rebound tenderness. Negative Rovsing's sign. Bilious drainage from cholecystostomy tube. NEUROLOGICAL: Awake and alert. Normal speech. Procedures 12/17/16: Cholecystostomy tube placement 12/27/16: Cholecystostomy tube exchanged Urinary Catheter: No Vascular Central Line Catheter: No A/P Problem List: (1) Cholecystitis ICD Code: K81.9 Status: Acute (2) HTN (hypertension) ICD Code: I10 Status: Acute (3) Metabolic encephalopathy ICD Code: G93.41 Status: Resolved (4) Alcohol withdrawal ICD Code: F10.239 Status: Resolved (5) Elevated LFTs ICD Code: R94.5 Status: Resolved (6) Anemia ICD Code: D64.9 Status: Acute (7) Acute kidney injury ICD Code: N17.9 Status: Resolved (8) Hyperglycemia ICD Code: R73.9 Status: Resolved (9) Conjunctivitis ICD Code: H10.9 Status: Resolved Assessment and Plan Cholecystitis, acalculous Laboratory studies were unremarkable for any obstructive process Gallbladder ultrasound indicated sludge in the gallbladder with thickening of the gallbladder wall at 5 mm, this is characteristic of chronic bladder disease CT scan done of the abdomen shows abnormal gallbladder with distention, diffuse wall thickening, septation and prominent sinuses. Recommended HIDA scan to evaluate for cystic duct obstruction. HIDA scan shows nonvisualization the gallbladder characteristic of acute cholecystitis. GI consultation was requested and indicated need for surgical consultation General surgery was consulted. Dr. Berg indicates if patient tolerates management with cholecystotomy tube then outpatient laparoscopic cholecystectomy can be performed in 6-8 weeks. If patient continues to have pain and does not improve then he may benefit from cholecystectomy while in the hospital. Cholecystotomy drain currently in place. S/p 10 day course of Levaquin. 12/24: Follow-up with Dr. Berg in 2-3 weeks. Surgery option in 6 weeks. Tube exchanged on 12/27. Patient has pain at the site since exchange, but appears comfortable. Afebrile. General surgery was reconsulted on 12/31 due to peritoneal signs. 01/02: CT scan of the abdomen indicates cholecystoscopy tube in good position 01/04: Dr. Martin reevaluated the patient; states to keep the michael tube for 3 weeks and perform cholangiogram through the tube and if cystic duct is patent can pull the tube and send home. Oxycodone as needed for pain. 01/10: Patient still has RUQ pain and some distention, but patient was already reevaluated by gen surg b/c of these signs less than 1 week ago. Tube still draining fluid. He had new RLQ pain today which is likely referred pain as it does not appear to be acute appendicitis. Hypertension: Blood pressure was running low and Atenolol and Cozaar were discontinued. Continue Lisinopril at 5 mg daily dose. Monitor and adjust regimen as needed. Metabolic encephalopathy, likely secondary to alcohol withdrawal, hepatic encephalopathy. Resolved Ammonia level less than 10 on 12/08. Continue rifaximin Lactulose discontinued due to diarrhea Alcohol withdrawal, resolved Ativan as needed per CIWA, has not needed Ativan since 11/29/16. Discontinued MVI, thiamine, folic acid Celexa for depression Discontinue Librium Elevated liver enzymes, resolved Likely secondary to chronic alcohol use US liver consistent with hepatic steatosis Hepatitis panel was negative Avoid hepatotoxins Anemia: Hemoglobin stable. No evidence of bleeding. Acute kidney injury, resolved Likely secondary to hypotension and poor by mouth intake Improved with IV fluids Renal ultrasound was negative for any obstruction Hyperglycemia Hemoglobin A1c 6.6 diet controlled Conjunctivitis, resolved Status post ciprofloxacin eyedrops Physical deconditioning Continue physical therapy 7 days a week Discharge Planning 01/07/17: Plan is for patient to return home once tube is removed. I spoke with physical therapist Best today who states the patient is cleared for discharge from mobility standpoint with walker. Problem Qualifiers (1) Alcohol withdrawal: Qualified Code: F10.230 - Alcohol withdrawal, uncomplicated Selam Lui Jan 10, 2017 09:17
[2017-01-10 20:00] VITALS: BP 113/83; PULSE 81; RESP 20; TEMP 98.7; O2SAT 97
[2017-01-11 08:00] VITALS: BP 136/99; PULSE 63; RESP 16; TEMP 97.9; O2SAT 98
[2017-01-11] MEDS: LISINOPRIL 5 MG TAB PO SCH (09:13)
[2017-01-11] MEDS: RIFAXIMIN 550 MG TAB PO SCH (09:13)
[2017-01-11] MEDS: CALCIUM CARBONATE 500 MG CHEWABLE TAB CHEW SCH ×2 (09:14→20:10)
[2017-01-11] MEDS: PANTOPRAZOLE SOD 40 MG DELAYED RELEASE TAB PO SCH (09:14)
[2017-01-11] MEDS: THIAMINE HCL 100 MG TAB PO SCH (09:14)
[2017-01-11] MEDS: FOLIC ACID 1 MG TAB PO SCH (09:14)
[2017-01-11] MEDS: MULTIVITAMIN TAB PO SCH (09:14)
[2017-01-11] MEDS: CITALOPRAM HYDROBROMIDE 20 MG TAB PO SCH (09:14)
--- NOTE | 2017-01-11 16:11 | HHI.PR ---
Subjective Remarks Patient evaluated this morning in follow-up for cholecystitis. Patient states his pain is a little worse today than yesterday but he attributes this to the decrease in frequency of pain medication although states he is fine with the adjustment. He has been having regular bowel movements stating he had 2 BMs today, brown in color, but states they are hard. Objective Vitals Vital Signs Date Time Temp Pulse Resp B/P Pulse Ox O2 Delivery O2 Flow Rate FiO2 01/11/17 08:00 97.9 63 16 136/99 98 01/10/17 20:00 98.7 81 20 113/83 97 I/O 01/10/17 01/10/17 01/10/17 01/11/17 01/11/17 01/11/17 07:00 15:00 23:00 07:00 15:00 23:00 Intake Total 240 ml 1150 ml 840 ml Output Total 675 ml 250 ml 100 ml Balance -435 ml 1150 ml -250 ml -100 ml 840 ml Intake Oral 240 ml 1150 ml 840 ml Output Urine Total 675 ml Drainage Total 250 ml 100 ml # Voids 6 4 4 # Bowel Movements 0 1 Objective Remarks GENERAL: Pleasant well-developed male in no apparent distress. CARDIOVASCULAR: Regular rate and rhythm. RESPIRATORY: No accessory muscle use. CTAB. GASTROINTESTINAL: Abdomen mildly distended, same. Only mild right upper quadrant tenderness. Tender to palpation over right lower quadrant but no guarding with deep palpation. No rebound tenderness in this area and negative Rovsing's sign. Bilious drainage from cholecystostomy tube. NEUROLOGICAL: Awake and alert. Normal speech. Procedures 12/17/16: Cholecystostomy tube placement 12/27/16: Cholecystostomy tube exchanged Urinary Catheter: No Vascular Central Line Catheter: No A/P Problem List: (1) Cholecystitis ICD Code: K81.9 Status: Acute (2) HTN (hypertension) ICD Code: I10 Status: Acute (3) Metabolic encephalopathy ICD Code: G93.41 Status: Resolved (4) Alcohol withdrawal ICD Code: F10.239 Status: Resolved (5) Elevated LFTs ICD Code: R94.5 Status: Resolved (6) Anemia ICD Code: D64.9 Status: Acute (7) Acute kidney injury ICD Code: N17.9 Status: Resolved (8) Hyperglycemia ICD Code: R73.9 Status: Resolved (9) Conjunctivitis ICD Code: H10.9 Status: Resolved Assessment and Plan Cholecystitis, acalculous Laboratory studies were unremarkable for any obstructive process Gallbladder ultrasound indicated sludge in the gallbladder with thickening of the gallbladder wall at 5 mm, this is characteristic of chronic bladder disease CT scan done of the abdomen shows abnormal gallbladder with distention, diffuse wall thickening, septation and prominent sinuses. Recommended HIDA scan to evaluate for cystic duct obstruction. HIDA scan shows nonvisualization the gallbladder characteristic of acute cholecystitis. GI consultation was requested and indicated need for surgical consultation General surgery was consulted. Dr. Berg indicates if patient tolerates management with cholecystotomy tube then outpatient laparoscopic cholecystectomy can be performed in 6-8 weeks. If patient continues to have pain and does not improve then he may benefit from cholecystectomy while in the hospital. Cholecystotomy drain currently in place. S/p 10 day course of Levaquin. 12/24: Follow-up with Dr. Berg in 2-3 weeks. Surgery option in 6 weeks. Tube exchanged on 12/27. Patient has pain at the site since exchange, but appears comfortable. Afebrile. General surgery was reconsulted on 12/31 due to peritoneal signs. 01/02: CT scan of the abdomen indicates cholecystoscopy tube in good position 01/04: Dr. Martin reevaluated the patient; states to keep the michael tube for 3 weeks and perform cholangiogram through the tube and if cystic duct is patent can pull the tube and send home. Oxycodone as needed for pain. Wean. 01/11: In addition to mild right upper quadrant tenderness, patient also has some right lower quadrant tenderness, but does not appear as appendicitis. Vitals stable. Patient does state his stools have been hard, so there may be an element of constipation although he has been having regular bowel movements. Will add Colace twice daily scheduled and monitor clinically. Hypertension: Blood pressure was running low and Atenolol and Cozaar were discontinued. Continue Lisinopril at 5 mg daily dose. Monitor and adjust regimen as needed. Metabolic encephalopathy, likely secondary to alcohol withdrawal, hepatic encephalopathy. Resolved Ammonia level less than 10 on 12/08. Continue rifaximin Lactulose discontinued due to diarrhea Alcohol withdrawal, resolved Ativan as needed per CIWA, has not needed Ativan since 11/29/16. Discontinued MVI, thiamine, folic acid Celexa for depression Discontinue Librium Elevated liver enzymes, resolved Likely secondary to chronic alcohol use US liver consistent with hepatic steatosis Hepatitis panel was negative Avoid hepatotoxins Anemia: Hemoglobin stable. No evidence of bleeding. Acute kidney injury, resolved Likely secondary to hypotension and poor by mouth intake Improved with IV fluids Renal ultrasound was negative for any obstruction Hyperglycemia Hemoglobin A1c 6.6 diet controlled Conjunctivitis, resolved Status post ciprofloxacin eyedrops Physical deconditioning Continue physical therapy 7 days a week Discharge Planning 01/07/17: Plan is for patient to return home once tube is removed. I spoke with physical therapist Best today who states the patient is cleared for discharge from mobility standpoint with walker. Problem Qualifiers (1) Alcohol withdrawal: Qualified Code: F10.230 - Alcohol withdrawal, uncomplicated Selam Lui Jan 11, 2017 16:11
[2017-01-11 20:00] VITALS: BP 140/78; PULSE 73; RESP 18; TEMP 98.4; O2SAT 98
[2017-01-11] MEDS: DOCUSATE SODIUM 100 MG CAP PO SCH (20:10)
[2017-01-12 08:00] VITALS: BP 143/98; PULSE 76; RESP 20; TEMP 96.7; O2SAT 99
[2017-01-12] MEDS: CALCIUM CARBONATE 500 MG CHEWABLE TAB CHEW SCH ×2 (08:29→21:28)
[2017-01-12] MEDS: MULTIVITAMIN TAB PO SCH (08:29)
[2017-01-12] MEDS: DOCUSATE SODIUM 100 MG CAP PO SCH ×2 (08:29→21:28)
[2017-01-12] MEDS: THIAMINE HCL 100 MG TAB PO SCH (08:29)
[2017-01-12] MEDS: FOLIC ACID 1 MG TAB PO SCH (08:29)
[2017-01-12] MEDS: PANTOPRAZOLE SOD 40 MG DELAYED RELEASE TAB PO SCH (08:29)
[2017-01-12] MEDS: CITALOPRAM HYDROBROMIDE 20 MG TAB PO SCH (08:29)
[2017-01-12] MEDS: RIFAXIMIN 550 MG TAB PO SCH (08:29)
[2017-01-12] MEDS: LISINOPRIL 5 MG TAB PO SCH (08:29)
--- NOTE | 2017-01-12 09:14 | HHI.PR ---
Subjective Remarks Follow-up for cholecystitis. No acute complaints. Objective Vitals Vital Signs Date Time Temp Pulse Resp B/P Pulse Ox O2 Delivery O2 Flow Rate FiO2 01/12/17 08:00 96.7 76 20 143/98 99 01/11/17 23:20 18 01/11/17 20:00 98.4 73 18 140/78 98 I/O 01/11/17 01/11/17 01/11/17 01/12/17 01/12/17 01/12/17 07:00 15:00 23:00 07:00 15:00 23:00 Intake Total 840 ml Output Total 100 ml 650 ml Balance -100 ml 840 ml -650 ml Intake Oral 840 ml Output Urine Total 450 ml Drainage Total 100 ml 200 ml # Voids 4 2 # Bowel Movements 1 Objective Remarks GENERAL: Pleasant well-developed male in no apparent distress. CARDIOVASCULAR: Regular rate and rhythm. RESPIRATORY: No accessory muscle use. CTAB. GASTROINTESTINAL: Normoactive bowel sounds in all 4 quadrants. Abdomen soft. Tender over right upper quadrant and entire lower abdomen. Voluntarily guards. Negative Rovsing's sign. Brown drainage from cholecystostomy tube. NEUROLOGICAL: Awake and alert. Normal speech. Procedures 12/17/16: Cholecystostomy tube placement 12/27/16: Cholecystostomy tube exchanged Urinary Catheter: No Vascular Central Line Catheter: No A/P Problem List: (1) Cholecystitis ICD Code: K81.9 Status: Acute (2) HTN (hypertension) ICD Code: I10 Status: Acute (3) Metabolic encephalopathy ICD Code: G93.41 Status: Resolved (4) Alcohol withdrawal ICD Code: F10.239 Status: Resolved (5) Elevated LFTs ICD Code: R94.5 Status: Resolved (6) Anemia ICD Code: D64.9 Status: Acute (7) Acute kidney injury ICD Code: N17.9 Status: Resolved (8) Hyperglycemia ICD Code: R73.9 Status: Resolved (9) Conjunctivitis ICD Code: H10.9 Status: Resolved Assessment and Plan Cholecystitis, acalculous Laboratory studies were unremarkable for any obstructive process Gallbladder ultrasound indicated sludge in the gallbladder with thickening of the gallbladder wall at 5 mm, this is characteristic of chronic bladder disease CT scan done of the abdomen shows abnormal gallbladder with distention, diffuse wall thickening, septation and prominent sinuses. Recommended HIDA scan to evaluate for cystic duct obstruction. HIDA scan shows nonvisualization the gallbladder characteristic of acute cholecystitis. GI consultation was requested and indicated need for surgical consultation General surgery was consulted. Dr. Berg indicates if patient tolerates management with cholecystotomy tube then outpatient laparoscopic cholecystectomy can be performed in 6-8 weeks. If patient continues to have pain and does not improve then he may benefit from cholecystectomy while in the hospital. Cholecystotomy drain currently in place. S/p 10 day course of Levaquin. 12/24: Follow-up with Dr. Berg in 2-3 weeks. Surgery option in 6 weeks. Tube exchanged on 12/27. Patient has pain at the site since exchange, but appears comfortable. Afebrile. General surgery was reconsulted on 12/31 due to peritoneal signs. 01/02: CT scan of the abdomen indicates cholecystoscopy tube in good position 01/04: Dr. Martin reevaluated the patient; states to keep the michael tube for 3 weeks and perform cholangiogram through the tube and if cystic duct is patent can pull the tube and send home. Oxycodone as needed for pain. Wean. 01/12: RUQ pain stable; pain entire lower abdomen may be related to constipation. Although having regular BMs, patient did admit to hard stools. Continue Colace bid. Monitor clinically. Hypertension: Blood pressure was running low and Atenolol and Cozaar were discontinued. Continue Lisinopril at 5 mg daily dose. Monitor and adjust regimen as needed. Metabolic encephalopathy, likely secondary to alcohol withdrawal, hepatic encephalopathy. Resolved Ammonia level less than 10 on 12/08. Continue rifaximin Lactulose discontinued due to diarrhea Alcohol withdrawal, resolved Ativan as needed per CIWA, has not needed Ativan since 11/29/16. Discontinued MVI, thiamine, folic acid Celexa for depression Discontinue Librium Elevated liver enzymes, resolved Likely secondary to chronic alcohol use US liver consistent with hepatic steatosis Hepatitis panel was negative Avoid hepatotoxins Anemia: Hemoglobin stable. No evidence of bleeding. Acute kidney injury, resolved Likely secondary to hypotension and poor by mouth intake Improved with IV fluids Renal ultrasound was negative for any obstruction Hyperglycemia Hemoglobin A1c 6.6 diet controlled Conjunctivitis, resolved Status post ciprofloxacin eyedrops Physical deconditioning Continue physical therapy 7 days a week Discharge Planning 01/07/17: Plan is for patient to return home once tube is removed. I spoke with physical therapist Best today who states the patient is cleared for discharge from mobility standpoint with walker. Problem Qualifiers (1) Alcohol withdrawal: Qualified Code: F10.230 - Alcohol withdrawal, uncomplicated Selam Lui Jan 12, 2017 09:14
[2017-01-12 20:51] VITALS: BP 121/87; PULSE 70; RESP 20; TEMP 98.6; O2SAT 97
[2017-01-13] MEDS: CITALOPRAM HYDROBROMIDE 20 MG TAB PO SCH (07:22)
[2017-01-13] MEDS: CALCIUM CARBONATE 500 MG CHEWABLE TAB CHEW SCH ×2 (07:22→20:10)
[2017-01-13] MEDS: PANTOPRAZOLE SOD 40 MG DELAYED RELEASE TAB PO SCH (07:22)
[2017-01-13] MEDS: LISINOPRIL 5 MG TAB PO SCH (07:22)
[2017-01-13] MEDS: DOCUSATE SODIUM 100 MG CAP PO SCH ×2 (07:22→20:10)
[2017-01-13] MEDS: THIAMINE HCL 100 MG TAB PO SCH (07:23)
[2017-01-13] MEDS: RIFAXIMIN 550 MG TAB PO SCH (07:23)
[2017-01-13] MEDS: MULTIVITAMIN TAB PO SCH (07:23)
[2017-01-13] MEDS: FOLIC ACID 1 MG TAB PO SCH (07:23)
--- NOTE | 2017-01-13 08:53 | HHI.PR ---
Subjective Remarks Follow-up for cholecystitis. No acute complaints. Objective Vitals Vital Signs Date Time Temp Pulse Resp B/P Pulse Ox O2 Delivery O2 Flow Rate FiO2 01/12/17 20:51 98.6 70 20 121/87 97 I/O 01/12/17 01/12/17 01/12/17 01/13/17 01/13/17 01/13/17 07:00 15:00 23:00 07:00 15:00 23:00 Intake Total 1290 ml 240 ml Output Total 650 ml 100 ml 350 ml 125 ml Balance -650 ml 1190 ml 240 ml -350 ml -125 ml Intake Oral 1290 ml 240 ml Output Urine Total 450 ml 350 ml Drainage Total 200 ml 100 ml 125 ml # Voids 4 2 # Bowel Movements 3 1 Objective Remarks GENERAL: Pleasant well-developed male in no apparent distress. CARDIOVASCULAR: Regular rate and rhythm. RESPIRATORY: No accessory muscle use. CTAB. GASTROINTESTINAL: Normoactive bowel sounds in all 4 quadrants. Abdomen soft. Mild tenderness over the right upper quadrant, right lower quadrant, and left lower quadrant without guarding. Negative rebound and negative Rovsing's. Cholecystostomy tube present with drainage. NEUROLOGICAL: Awake and alert. Normal speech. Witnessed to be ambulating well with walker. Procedures 12/17/16: Cholecystostomy tube placement 12/27/16: Cholecystostomy tube exchanged Urinary Catheter: No Vascular Central Line Catheter: No A/P Problem List: (1) Cholecystitis ICD Code: K81.9 Status: Acute (2) HTN (hypertension) ICD Code: I10 Status: Acute (3) Metabolic encephalopathy ICD Code: G93.41 Status: Resolved (4) Alcohol withdrawal ICD Code: F10.239 Status: Resolved (5) Elevated LFTs ICD Code: R94.5 Status: Resolved (6) Anemia ICD Code: D64.9 Status: Acute (7) Acute kidney injury ICD Code: N17.9 Status: Resolved (8) Hyperglycemia ICD Code: R73.9 Status: Resolved (9) Conjunctivitis ICD Code: H10.9 Status: Resolved Assessment and Plan Cholecystitis, acalculous Laboratory studies were unremarkable for any obstructive process Gallbladder ultrasound indicated sludge in the gallbladder with thickening of the gallbladder wall at 5 mm, this is characteristic of chronic bladder disease CT scan done of the abdomen shows abnormal gallbladder with distention, diffuse wall thickening, septation and prominent sinuses. Recommended HIDA scan to evaluate for cystic duct obstruction. HIDA scan shows nonvisualization the gallbladder characteristic of acute cholecystitis. GI consultation was requested and indicated need for surgical consultation General surgery was consulted. Dr. Berg indicates if patient tolerates management with cholecystotomy tube then outpatient laparoscopic cholecystectomy can be performed in 6-8 weeks. If patient continues to have pain and does not improve then he may benefit from cholecystectomy while in the hospital. Cholecystotomy drain currently in place. S/p 10 day course of Levaquin. 12/24: Follow-up with Dr. Berg in 2-3 weeks. Surgery option in 6 weeks. Tube exchanged on 12/27. Patient has pain at the site since exchange, but appears comfortable. Afebrile. General surgery was reconsulted on 12/31 due to peritoneal signs. 01/02: CT scan of the abdomen indicates cholecystoscopy tube in good position 01/04: Dr. Martin reevaluated the patient; states to keep the michael tube for 3 weeks and perform cholangiogram through the tube and if cystic duct is patent can pull the tube and send home. Oxycodone as needed for pain. Wean. 01/12: RUQ pain stable; pain over entire lower abdomen may be related to constipation. Although having regular BMs, patient did admit to hard stools. Continue Colace bid. Monitor clinically. 01/13: Patient had 4 BMs in the last 24 hours. Although still has abdominal pain , it appears improved on exam. Hypertension: Blood pressure was running low and Atenolol and Cozaar were discontinued. Continue Lisinopril at 5 mg daily dose. Monitor and adjust regimen as needed. Metabolic encephalopathy, likely secondary to alcohol withdrawal, hepatic encephalopathy. Resolved Ammonia level less than 10 on 12/08. Continue rifaximin Lactulose discontinued due to diarrhea Alcohol withdrawal, resolved Ativan as needed per CIWA, has not needed Ativan since 11/29/16. Discontinued MVI, thiamine, folic acid Celexa for depression Discontinue Librium Elevated liver enzymes, resolved Likely secondary to chronic alcohol use US liver consistent with hepatic steatosis Hepatitis panel was negative Avoid hepatotoxins Anemia: Hemoglobin stable. No evidence of bleeding. Acute kidney injury, resolved Likely secondary to hypotension and poor by mouth intake Improved with IV fluids Renal ultrasound was negative for any obstruction Hyperglycemia Hemoglobin A1c 6.6 diet controlled Conjunctivitis, resolved Status post ciprofloxacin eyedrops Physical deconditioning Continue physical therapy 7 days a week Discharge Planning 01/07/17: Plan is for patient to return home once tube is removed. I spoke with physical therapist Best today who states the patient is cleared for discharge from mobility standpoint with walker. Problem Qualifiers (1) Alcohol withdrawal: Qualified Code: F10.230 - Alcohol withdrawal, uncomplicated Selam Lui Jan 13, 2017 08:53
[2017-01-13 09:32] VITALS: BP 140/108; PULSE 80; RESP 15; TEMP 96; O2SAT 98
[2017-01-13 20:00] VITALS: BP 117/83; PULSE 86; RESP 16; TEMP 96.8; O2SAT 97
[2017-01-14 08:00] VITALS: BP 130/98; PULSE 67; RESP 16; TEMP 96.9; O2SAT 99
[2017-01-14] MEDS: LISINOPRIL 5 MG TAB PO SCH (08:30)
[2017-01-14] MEDS: CITALOPRAM HYDROBROMIDE 20 MG TAB PO SCH (08:30)
[2017-01-14] MEDS: FOLIC ACID 1 MG TAB PO SCH (08:30)
[2017-01-14] MEDS: THIAMINE HCL 100 MG TAB PO SCH (08:30)
[2017-01-14] MEDS: DOCUSATE SODIUM 100 MG CAP PO SCH ×2 (08:30→21:34)
[2017-01-14] MEDS: MULTIVITAMIN TAB PO SCH (08:30)
[2017-01-14] MEDS: PANTOPRAZOLE SOD 40 MG DELAYED RELEASE TAB PO SCH (08:30)
[2017-01-14] MEDS: RIFAXIMIN 550 MG TAB PO SCH (08:30)
[2017-01-14] MEDS: CALCIUM CARBONATE 500 MG CHEWABLE TAB CHEW SCH ×2 (08:31→21:34)
--- NOTE | 2017-01-14 11:46 | HHI.PR ---
Subjective Subjective Notes Seen in common room this morning Reports pain around drain insertion site Objective Vitals/I&O Vital Signs Date Time Temp Pulse Resp B/P Pulse Ox O2 Delivery O2 Flow Rate FiO2 01/14/17 08:00 96.9 67 16 130/98 99 Cardiovascular: Regular Lungs: Clear Abdomen: Other (michael tube in place with dark brown bile draining; abdomen mildly distended ) Extremities: No edema A/P Assessment and Plan 61 year old male with acalculus cholecystitis s/p IR drain placement -Continue cholecystomy tube to gravity drainage -Cholangiogram today to eval -Tolerating heart healthy diet -OOB -Further plan after cholangiogram today -Discussed with Attending Statement Patient seen at bedside mild abd pain at drain site check michael tube gram if positive may need gi eval pt will be a candidate for lap michael, ioc, possible open in near future Attestation The exam, history, and the medical decision-making described in the above note were completed with the assistance of the mid-level provider. I reviewed and agree with the findings presented. I attest that I had a [id number] encounter with the patient on the same day, and personally performed and documented my assessment and findings in the medical record. Selam England Jan 14, 2017 11:46 Nicolas Berg MD Jan 19, 2017 21:07
--- NOTE | 2017-01-14 16:04 | HHI.PR ---
Subjective Remarks Follow-up on patient for cholecystitis. Patient seen in the common room today. States he feels well and denies any acute complaints at this time. Objective Vitals Vital Signs Date Time Temp Pulse Resp B/P Pulse Ox O2 Delivery O2 Flow Rate FiO2 01/14/17 12:42 14 01/14/17 08:00 96.9 67 16 130/98 99 01/13/17 20:00 96.8 86 16 117/83 97 I/O 01/13/17 01/13/17 01/13/17 01/14/17 01/14/17 01/14/17 07:00 15:00 23:00 07:00 15:00 23:00 Intake Total 600 ml 240 ml 1920 ml Output Total 350 ml 125 ml 75 ml Balance -350 ml -125 ml 600 ml 165 ml 1920 ml Intake Oral 600 ml 240 ml 1920 ml Output Urine Total 350 ml Drainage Total 125 ml 75 ml # Voids 4 2 6 # Bowel Movements 1 0 3 Objective Remarks GENERAL: Well-nourished, well-developed patient in NAD. Pleasant. Talkative. SKIN: Warm and dry. No rash. HEAD: Normocephalic. Atraumatic. CARDIOVASCULAR: Regular rate and rhythm. S1, S2 noted. No murmur appreciated. RESPIRATORY: No accessory muscle use. Clear to auscultation. Breath sounds equal bilaterally. GASTROINTESTINAL: Abdomen soft, non-tender, nondistended. Normoactive bowel sounds x4. Radhika tube in place with dark greenish bile draining. MUSCULOSKELETAL: No obvious deformities. Extremities without clubbing, cyanosis , or edema. NEUROLOGICAL: Awake and alert. No obvious cranial nerve deficits. Motor grossly within normal limits. 5/5 muscle strength in bilateral upper and lower extremities. Normal speech. PSYCHIATRIC: Appropriate mood and affect; insight and judgment normal. Procedures 12/17/16: Cholecystostomy tube placement 12/27/16: Cholecystostomy tube exchanged Medications and IVs Current Medications Medications (Trade) Dose Ordered Sig/Ludwig Route Start Time Stop Time Status Last Admin (Tylenol) 650 mg Q4H PRN PO 11/26/16 16:45 (Vitamin B1) 100 mg DAILY PO 11/27/16 09:00 01/14/17 08:30 (Theragran) 1 tab DAILY PO 11/27/16 09:00 01/14/17 08:30 (Folate) 1 mg DAILY PO 11/27/16 09:00 01/14/17 08:30 (Protonix) 40 mg DAILY PO 11/27/16 09:00 01/14/17 08:30 (CeleXA) 20 mg DAILY PO 11/27/16 12:35 01/14/17 08:30 (Tums Chew) 500 mg Q12HR CHEW 11/27/16 21:00 01/14/17 08:31 (Mag-Al Plus Susp Liq) 30 ml Q6H PRN PO 11/28/16 12:15 11/30/16 12:07 (Benadryl) 25 mg HS PRN PO 11/29/16 11:45 12/19/16 20:45 (Zofran Odt) 4 mg Q6H PRN PO 12/07/16 14:30 12/10/16 14:24 (Xifaxan) 550 mg DAILY PO 12/09/16 09:00 01/14/17 08:30 (Prinivil) 5 mg DAILY PO 12/28/16 09:00 01/14/17 08:30 (Roxicodone) 10 mg Q6HR PRN PO 01/09/17 21:00 01/14/17 11:30 (Roxicodone) 5 mg Q6H PRN PO 01/09/17 21:00 (Colace) 100 mg BID PO 01/11/17 21:00 01/14/17 08:30 A/P Problem List: (1) Cholecystitis ICD Code: K81.9 Status: Acute (2) HTN (hypertension) ICD Code: I10 Status: Acute (3) Metabolic encephalopathy ICD Code: G93.41 Status: Resolved (4) Alcohol withdrawal ICD Code: F10.239 Status: Resolved (5) Elevated LFTs ICD Code: R94.5 Status: Resolved (6) Anemia ICD Code: D64.9 Status: Acute (7) Acute kidney injury ICD Code: N17.9 Status: Resolved (8) Hyperglycemia ICD Code: R73.9 Status: Resolved (9) Conjunctivitis ICD Code: H10.9 Status: Resolved Assessment and Plan Cholecystitis, acalculous Laboratory studies were unremarkable for any obstructive process Gallbladder ultrasound indicated sludge in the gallbladder with thickening of the gallbladder wall at 5 mm, this is characteristic of chronic bladder disease CT scan done of the abdomen shows abnormal gallbladder with distention, diffuse wall thickening, septation and prominent sinuses. Recommended HIDA scan to evaluate for cystic duct obstruction. HIDA scan shows nonvisualization the gallbladder characteristic of acute cholecystitis. GI consultation was requested and indicated need for surgical consultation General surgery was consulted. Dr. Berg indicates if patient tolerates management with cholecystotomy tube then outpatient laparoscopic cholecystectomy can be performed in 6-8 weeks. If patient continues to have pain and does not improve then he may benefit from cholecystectomy while in the hospital. Cholecystotomy drain currently in place. S/p 10 day course of Levaquin. Tube exchanged on 12/27. Patient has pain at the site since exchange, but appears comfortable. Afebrile. General surgery was reconsulted on 12/31 due to peritoneal signs. 01/02: CT scan of the abdomen indicates cholecystoscopy tube in good position 01/04: Dr. Martin reevaluated the patient; states to keep the radhika tube for 3 weeks and perform cholangiogram through the tube and if cystic duct is patent can pull the tube and send home. Oxycodone as needed for pain. Wean. 01/12: RUQ pain stable; pain over entire lower abdomen may be related to constipation. Although having regular BMs, patient did admit to hard stools. Continue Colace bid. Monitor clinically. 01/13: Patient had 4 BMs in the last 24 hours. Although still has abdominal pain , it appears improved on exam. 01/14: Discussed with Selam PUCKETT today. Plan for cholangiogram. Will follow up on GS recommendations following study results. Hypertension: Blood pressure was running low and Atenolol and Cozaar were discontinued. Persistent diastolic measurements high 90s to low 100s for the past several days. Increase Lisinopril to 10mg daily. Monitor and adjust regimen as needed. Metabolic encephalopathy, likely secondary to alcohol withdrawal, hepatic encephalopathy. Resolved Ammonia level less than 10 on 12/08. Continue rifaximin Lactulose discontinued due to diarrhea Alcohol withdrawal, resolved Ativan as needed per KATHLEENWA, has not needed Ativan since 11/29/16. Discontinued MVI, thiamine, folic acid Celexa for depression Discontinue Librium Elevated liver enzymes, resolved Likely secondary to chronic alcohol use US liver consistent with hepatic steatosis Hepatitis panel was negative Avoid hepatotoxins Anemia: Hemoglobin stable. No evidence of bleeding. Acute kidney injury, resolved Likely secondary to hypotension and poor by mouth intake Improved with IV fluids Renal ultrasound was negative for any obstruction Hyperglycemia Hemoglobin A1c 6.6 diet controlled Conjunctivitis, resolved Status post ciprofloxacin eyedrops Physical deconditioning Continue physical therapy 7 days a week Discharge Planning D/C plan is to return to home once cholecystectomy tube removed Problem Qualifiers (1) Alcohol withdrawal: Qualified Code: F10.230 - Alcohol withdrawal, uncomplicated Marva Salinas Jan 14, 2017 16:03
[2017-01-14] MEDS ORDERED: IOHEXOL 350 MG/ML 10 ML VIAL (for RAD DIAG) TUBE ONE (16:05)
--- NOTE | 2017-01-14 16:25 | PD.RAD ---
Post Procedure Progress Note Pre Procedure Diagnosis: (1) Cholecystitis (2) Elevated LFTs Post Procedure Diagnosis: (1) Elevated LFTs (2) Cholecystitis Procedure Date: Jan 14, 2017 Supervising Radiologist: Cm Rodríguez Plan of Activity Patient to Unit: Nursing Unit Patient Condition: Fair Additional Comments: Cholangiogram completed: Multiple stones and sludge in the gallbladder neck. Cystic duct is patent. Intrahepatic ducts normal. 3 small stones evident in the distal CBD just above ampula. Full dictated report to follow. See PACS Report for procedural detail/treatment Cm Rodríguez MD Jan 14, 2017 16:25
[2017-01-14 20:00] VITALS: BP 115/91; PULSE 69; RESP 21; TEMP 97.8; O2SAT 100
[2017-01-15 07:41] VITALS: BP 134/103; PULSE 70; RESP 14; TEMP 97.8; O2SAT 99
[2017-01-15] MEDS: MULTIVITAMIN TAB PO SCH (07:44)
[2017-01-15] MEDS: CITALOPRAM HYDROBROMIDE 20 MG TAB PO SCH (07:44)
[2017-01-15] MEDS: PANTOPRAZOLE SOD 40 MG DELAYED RELEASE TAB PO SCH (07:44)
[2017-01-15] MEDS: CALCIUM CARBONATE 500 MG CHEWABLE TAB CHEW SCH ×2 (07:44→21:05)
[2017-01-15] MEDS: THIAMINE HCL 100 MG TAB PO SCH (07:44)
[2017-01-15] MEDS: DOCUSATE SODIUM 100 MG CAP PO SCH ×2 (07:44→21:05)
[2017-01-15] MEDS: RIFAXIMIN 550 MG TAB PO SCH (07:45)
[2017-01-15] MEDS: LISINOPRIL 10 MG TAB PO SCH (07:45)
[2017-01-15] MEDS: FOLIC ACID 1 MG TAB PO SCH (07:45)
[2017-01-15 08:00] VITALS: BP 134/103; PULSE 70; RESP 14; TEMP 97.8; O2SAT 99
--- NOTE | 2017-01-15 10:07 | HHI.PR ---
Subjective Subjective Notes no acute issues, tolerating diet, still with mild persistent abdominal, pain cholangiogram shows cbd stones, no new recent labs Objective Vitals/I&O Vital Signs Date Time Temp Pulse Resp B/P Pulse Ox O2 Delivery O2 Flow Rate FiO2 01/15/17 08:00 97.8 70 14 134/103 99 Cardiovascular: Regular Lungs: Clear Abdomen: Non-distended, Other (drain in place bile in bag, mild ttp no rebound) A/P Assessment and Plan recent cholangiogram shows stones in cbd Plan The patient appears overall improved but does have some pain. I discussed with the patient that he will likely need ERCP for stone removal We will discuss with GI for possible ERCP Pt is close to 4weeks since michael tube He is a more appropriate candidate for lap michael now that inflammation should be improving. We will await GI recs and findings. Possible lap michael soon pending these results. He states understanding. Nicolas Berg MD Jan 15, 2017 10:07
--- NOTE | 2017-01-15 11:09 | RADHPO ---
EXAM DATE/TIME: 01/14/2017 16:45 CORRECTION Corrected on: January 15, 2017; CORRECTION Corrected on: January 15, 2017; corrected exam date to Jan 14, 2017 [facility] COMPARISON: No previous studies available for comparison. INDICATIONS : Patient with a history of cholecystitis. MEDICAL HISTORY : Denies SURGICAL HISTORY : None ENCOUNTER: Subsequent ACUITY: 1 month PAIN SCORE: 5/10 LOCATION: Bilateral Abdomen FLUORO TIME: 2.09 minutes CONTRAST: 20 cc Omnipaque (iohexol) 350 PROCEDURE : 1. cholangiogram The risks, benefits and alternatives to the procedure were explained and verbal and written consent w as obtained. The site was prepped in sterile fashion. Full sterile technique was used, including ca p, mask, sterile gloves and gown and a large sterile sheet. Hand hygiene and 2% chlorhexidine and/or betadine/alcohol prep was utilized per protocol for cutaneous antisepsis. The patient's existing cholecystostomy tube was accessed using sterile technique. Approximately 20 cc of contrast was administered through the tube. The exam demonstrates a large amount of sludge and punctate stones within the neck of the gallbladder . The cystic Dr. is patent but again, there are stones and sludge within the proximal cystic duct as well. The intrahepatic ducts are normal in caliber. The common duct is mildly dilated. There are least 3 st ones seen within the distal common bile duct just above the ampulla. CONCLUSION: 1. There are 3 small stones seen in the distal common duct just above the ampulla. 2. There are multiple punctate stones and sludge evident within the neck of the gallbladder. Cm Rodríguez MD on January 15, 2017 at 11:06 Board Certified Radiologist. This report was verified electronically. Board Certified Radiologist. This report was verified electronically.
--- NOTE | 2017-01-15 14:55 | HHI.PR ---
Subjective Remarks Follow-up on patient with cholecystitis. Patient seen and examined. Patient does report some nausea today, denies any vomiting. Otherwise states he feels well. Coronary angiogram performed yesterday revealed CBD stones. Objective Vitals Vital Signs Date Time Temp Pulse Resp B/P Pulse Ox O2 Delivery O2 Flow Rate FiO2 01/15/17 08:00 97.8 70 14 134/103 99 01/15/17 07:41 97.8 70 14 134/103 99 01/14/17 20:00 97.8 69 21 115/91 100 I/O 01/14/17 01/14/17 01/14/17 01/15/17 01/15/17 01/15/17 07:00 15:00 23:00 07:00 15:00 23:00 Intake Total 240 ml 1920 ml 480 ml 220 ml Output Total 75 ml 100 ml 200 ml Balance 165 ml 1920 ml 380 ml 20 ml Intake Oral 240 ml 1920 ml 480 ml 220 ml Stool Total 0 ml Drainage Total 75 ml 100 ml 200 ml # Voids 2 6 2 2 # Bowel Movements 0 3 0 Objective Remarks GENERAL: Well-nourished, well-developed patient in NAD. Pleasant and conversant. SKIN: Warm and dry. No rash. HEAD: Normocephalic. Atraumatic. CARDIOVASCULAR: Regular rate and rhythm. S1, S2 noted. No murmur appreciated. RESPIRATORY: No accessory muscle use. Clear to auscultation. Breath sounds equal bilaterally. GASTROINTESTINAL: Abdomen soft, non-tender, nondistended. Normoactive bowel sounds x4. Radhika tube in place with dark greenish bile draining. MUSCULOSKELETAL: No obvious deformities. Extremities without clubbing, cyanosis , or edema. NEUROLOGICAL: Awake and alert. No obvious cranial nerve deficits. Motor grossly within normal limits. 5/5 muscle strength in bilateral upper and lower extremities. Normal speech. PSYCHIATRIC: Appropriate mood and affect; insight and judgment normal. Procedures 12/17/16: Cholecystostomy tube placement 12/27/16: Cholecystostomy tube exchanged Medications and IVs Current Medications Medications (Trade) Dose Ordered Sig/Ludwig Route Start Time Stop Time Status Last Admin (Tylenol) 650 mg Q4H PRN PO 11/26/16 16:45 (Vitamin B1) 100 mg DAILY PO 11/27/16 09:00 01/15/17 07:44 (Theragran) 1 tab DAILY PO 11/27/16 09:00 01/15/17 07:44 (Folate) 1 mg DAILY PO 11/27/16 09:00 01/15/17 07:45 (Protonix) 40 mg DAILY PO 11/27/16 09:00 01/15/17 07:44 (CeleXA) 20 mg DAILY PO 11/27/16 12:35 01/15/17 07:44 (Tums Chew) 500 mg Q12HR CHEW 11/27/16 21:00 01/15/17 07:44 (Mag-Al Plus Susp Liq) 30 ml Q6H PRN PO 11/28/16 12:15 11/30/16 12:07 (Benadryl) 25 mg HS PRN PO 11/29/16 11:45 12/19/16 20:45 (Zofran Odt) 4 mg Q6H PRN PO 12/07/16 14:30 12/10/16 14:24 (Xifaxan) 550 mg DAILY PO 12/09/16 09:00 01/15/17 07:45 (Roxicodone) 10 mg Q6HR PRN PO 01/09/17 21:00 01/15/17 07:43 (Roxicodone) 5 mg Q6H PRN PO 01/09/17 21:00 (Colace) 100 mg BID PO 01/11/17 21:00 01/15/17 07:44 (Prinivil) 10 mg DAILY PO 01/15/17 09:00 01/15/17 07:45 A/P Problem List: (1) Cholecystitis ICD Code: K81.9 Status: Acute (2) HTN (hypertension) ICD Code: I10 Status: Acute (3) Metabolic encephalopathy ICD Code: G93.41 Status: Resolved (4) Alcohol withdrawal ICD Code: F10.239 Status: Resolved (5) Elevated LFTs ICD Code: R94.5 Status: Resolved (6) Anemia ICD Code: D64.9 Status: Acute (7) Acute kidney injury ICD Code: N17.9 Status: Resolved (8) Hyperglycemia ICD Code: R73.9 Status: Resolved (9) Conjunctivitis ICD Code: H10.9 Status: Resolved Assessment and Plan Cholecystitis, acalculous Laboratory studies were unremarkable for any obstructive process Gallbladder ultrasound indicated sludge in the gallbladder with thickening of the gallbladder wall at 5 mm, this is characteristic of chronic bladder disease CT scan done of the abdomen shows abnormal gallbladder with distention, diffuse wall thickening, septation and prominent sinuses. Recommended HIDA scan to evaluate for cystic duct obstruction. HIDA scan shows nonvisualization the gallbladder characteristic of acute cholecystitis. GI consultation was requested and indicated need for surgical consultation General surgery was consulted. Dr. Berg indicates if patient tolerates management with cholecystotomy tube then outpatient laparoscopic cholecystectomy can be performed in 6-8 weeks. If patient continues to have pain and does not improve then he may benefit from cholecystectomy while in the hospital. Cholecystotomy drain currently in place. S/p 10 day course of Levaquin. Tube exchanged on 12/27. Patient has pain at the site since exchange, but appears comfortable. Afebrile. General surgery was reconsulted on 12/31 due to peritoneal signs. 01/02: CT scan of the abdomen indicates cholecystoscopy tube in good position 01/04: Dr. Martin reevaluated the patient; states to keep the radhika tube for 3 weeks and perform cholangiogram through the tube and if cystic duct is patent can pull the tube and send home. Oxycodone as needed for pain. Wean. 01/12: RUQ pain stable; pain over entire lower abdomen may be related to constipation. Although having regular BMs, patient did admit to hard stools. Continue Colace bid. Monitor clinically. 01/13: Patient had 4 BMs in the last 24 hours. Although still has abdominal pain , it appears improved on exam. 01/14: Discussed with Selam PUCKETT today. Plan for cholangiogram. Will follow up on GS recommendations following study results. 01/15: Cholangiogram revealing CBD stones. Discussed with Dr. Berg, plan to transfer to the [facility] hospital today for ERCP for stone removal and possible cholecystectomy. Hypertension: Blood pressure was running low and Atenolol and Cozaar were discontinued, now hypertensive. Lisinopril increased to 10 mg daily yesterday due to elevated diastolic measurements. Monitor and adjust regimen as needed. Metabolic encephalopathy, likely secondary to alcohol withdrawal, hepatic encephalopathy. Resolved Ammonia level less than 10 on 12/08. Continue rifaximin Lactulose discontinued due to diarrhea Alcohol withdrawal, resolved Ativan as needed per KATHLEENWA, has not needed Ativan since 11/29/16. Discontinued MVI, thiamine, folic acid Celexa for depression Discontinue Librium Elevated liver enzymes, resolved Likely secondary to chronic alcohol use US liver consistent with hepatic steatosis Hepatitis panel was negative Avoid hepatotoxins Anemia: Hemoglobin stable. No evidence of bleeding. Acute kidney injury, resolved Likely secondary to hypotension and poor by mouth intake Improved with IV fluids Renal ultrasound was negative for any obstruction Hyperglycemia Hemoglobin A1c 6.6 diet controlled Conjunctivitis, resolved Status post ciprofloxacin eyedrops Physical deconditioning Continue physical therapy 7 days a week Discharge Planning Plan to transfer to [facility] hospital today for ERCP and removal of CBD stones and possible cholecystectomy. DC planning dependent on clinical course. Problem Qualifiers (1) Alcohol withdrawal: Qualified Code: F10.230 - Alcohol withdrawal, uncomplicated Marva Salinas Jan 15, 2017 14:55
[2017-01-15] MEDS ORDERED: PROPOFOL 200 MG/20 ML AMP IV ONE (16:37)
--- NOTE | 2017-01-15 17:04 | PD.PROCEDR ---
GI Procedure REFERRING PHYSICIAN bala PROCEDURE PERFORMED ERCP with balloon extraction INDICATION FOR PROCEDURE Choledocholithiasis as evidenced by cholangiogram PROCEDURE: The procedure, risks and benefits were discussed with Mr. Trinidad and informed consent was obtained. Anesthesia sedated him with Diprivan. He was placed in the left lateral decubitus position. ERCP: Patient was placed in a prone position. The Pentax videoscope was introduced through the oropharynx and advanced to the second portion of the duodenum where the ampula was identified. FINDINGS: The ampulla had the appearance of a prior sphincterotomy the bile duct was noted to be wide open this was an easy cannulation the bile duct appeared to be of normal caliber measuring about 7-8 mm there were 3 distal CBD filling defects a 12 mm balloon was inserted and the common bile duct was swept clean no distinct stones were seen but little debris was noted to have been pulled out an obstructive cholangiogram revealed no further filling defects and at this point the procedure was terminated there was no filling of the gallbladder and the intrahepatics were unremarkable ESTIMATED BLOOD LOSS: None SPECIMENS REMOVED: None COMPLICATIONS: None IMPRESSION: Choledocholithiasis PLAN: Supportive care Further plans as per the Gen. surgery service regarding cholecystectomy Monitor labs GI will sign off at this point Reymundo Liu MD Jan 15, 2017 17:04
[2017-01-15] MEDS ORDERED: DO NOT ADM ANY ANTICOAGULANT DRUGS XX PRN (17:15)
[2017-01-15] MEDS ORDERED: MORPHINE SULFATE 4 MG/ML INJ ONE (17:54)
--- NOTE | 2017-01-15 18:28 | RADRPT ---
EXAM DATE/TIME: 01/15/2017 16:39 [facility] COMPARISON: CHOLANGIOGRAM THRU EXISTING CATHETER, January 14, 2017, 16:45. INDICATIONS : Obstruction. FLUORO TIME: 2.1 minutes IMAGE COUNT: 6 CONTRAST: Instilled by Ordering Physician MEDICAL HISTORY : None. SURGICAL HISTORY : None. ENCOUNTER: Subsequent ACUITY: 1 month PAIN SCORE: Non-responsive. LOCATION: Abdomen. FINDINGS: An ERCP was performed by the ordering physician. The images demonstrate multiple filling defects within the distal common bile duct. Extraction of the stones is documented. CONCLUSION: ERCP as above. Hemant Muñoz MD on January 15, 2017 at 18:25 Board Certified Radiologist. This report was verified electronically.
[2017-01-15 19:55] VITALS: BP 134/96; PULSE 84; RESP 20; TEMP 97.5; O2SAT 98
[2017-01-16 00:48] VITALS: BP 101/63; PULSE 20; RESP 20; TEMP 98.3; O2SAT 95
[2017-01-16 04:26] VITALS: BP 103/65; PULSE 62; RESP 20; TEMP 98; O2SAT 96
[2017-01-16 06:26] LABS: HEMATOCRIT 34.6 % (39.0-51.0); MEAN CELL VOLUME 93.4 FL (80.0-100.0); MEAN CORPUSCULAR HEMOGLOBIN 31.8 PG (27.0-34.0); MEAN CORPUSCULAR HGB CONC 34.1 % (32.0-36.0); PLATELET COUNT 189 TH/MM3 (150-450); RED BLOOD COUNT 3.71 MIL/MM3 (4.50-5.90); RED CELL DISTRIBUTION WIDTH 14.3 % (11.6-17.2); REVIEW FLAG FINAL; WHITE BLOOD COUNT 5.7 TH/MM3 (4.0-11.0)
[2017-01-16 06:54] LABS: ANION GAP 9 MEQ/L (5-15); AST (GOT) 18 U/L (15-37); BICARBONATE 25.9 MEQ/L (21.0-32.0); BLOOD UREA NITROGEN 10 MG/DL (7-18); CHLORIDE 105 MEQ/L (98-107); GLOMERULAR FILTRATION RATE 107 ML/MIN (>89); POTASSIUM 3.8 MEQ/L (3.5-5.1); SODIUM (NA) 140 MEQ/L (136-145)
[2017-01-16 06:57] LABS: ALKALINE PHOSPHATASE 44 U/L (45-117); ALT (GPT) 12 U/L (12-78); TOTAL BILIRUBIN ADULT 0.7 MG/DL (0.2-1.0)
[2017-01-16 07:06] VITALS: BP 104/73; PULSE 77; RESP 18; TEMP 98.4; O2SAT 95
--- NOTE | 2017-01-16 08:20 | HHI.PR ---
Subjective Remarks Follow up for cholecystitis. The patient is s/p ERCP yesterday. He has some discomfort at the RUQ but no nausea/vomiting. He tolerated his clear liquid diet last night. Denies fevers/chills. He has no other medical complaints at this time. He is hoping to have cholecystectomy soon. Objective Vitals Vital Signs Date Time Temp Pulse Resp B/P Pulse Ox O2 Delivery O2 Flow Rate FiO2 01/16/17 07:06 98.4 77 18 104/73 95 01/16/17 04:26 98.0 62 20 103/65 96 01/16/17 00:48 98.3 20 20 101/63 95 01/15/17 19:55 97.5 84 20 134/96 98 01/15/17 18:15 98.0 66 16 142/93 97 Room Air 01/15/17 18:15 14 01/15/17 18:00 68 17 145/98 96 Room Air 01/15/17 17:45 67 16 152/107 99 Nasal Cannula 3 01/15/17 17:15 97.8 74 18 128/92 99 Nasal Cannula 3 01/15/17 08:00 97.8 70 14 134/103 99 I/O 01/15/17 01/15/17 01/15/17 01/16/17 01/16/17 01/16/17 07:00 15:00 23:00 07:00 15:00 23:00 Intake Total 220 ml 900 ml Output Total 200 ml 200 ml 300 ml Balance 20 ml 700 ml -300 ml Intake Oral 220 ml 0 ml Other 900 ml Output Urine Total 0 ml Drainage Total 200 ml 200 ml 300 ml # Voids 2 2 2 # Bowel Movements 0 1 Result Diagram: 01/16/17 0553 01/16/17 0553 Imaging Last Impressions GI Procedure 01/15/17 0000 Signed Impressions: Service Date/Time: Sunday, January 15, 2017 16:39 - CONCLUSION: ERCP as above. Hemant Muñoz MD Cholangiogram 01/14/17 0000 Signed Impressions: Service Date/Time: Saturday, January 14, 2017 16:45 - CONCLUSION: 1. There are 3 small stones seen in the distal common duct just above the ampulla. 2. There are multiple punctate stones and sludge evident within the neck of the gallbladder. Cm Rodríguez MD Abdomen/Pelvis CT 01/02/17 0000 Signed Impressions: Service Date/Time: December 21:17 - CONCLUSION: Cholecystoscopy tube in good position. Chato Amezcua MD Catheter Change 12/27/16 0000 Signed Impressions: Service Date/Time: Tuesday, December 27, 2016 16:47 - CONCLUSION: Uncomplicated biliary catheter change. Hemant Muñoz MD Percutaneous Cholangiogram 12/17/16 0000 Signed Impressions: Service Date/Time: Saturday, December 17, 2016 16:18 - CONCLUSION: Uncomplicated percutaneous cholecystostomy as above. Chato Glass MD Hepatobiliary Scan Nuclear Medicine 12/16/16 0000 Signed Impressions: Service Date/Time: Friday, December 16, 2016 13:03 - CONCLUSION: 1. Nonvisualization of the gallbladder characteristic of acute cholecystitis Jez Tay MD ADDENDUM: The patient was brought back for imaging at 24 hours. Still no gallbladder activity is identified. Concerning for calculus or acalculous cholecystitis. Karri Barnes MD Gall Bladder Ultrasound 12/14/16 1110 Signed Impressions: Service Date/Time: Wednesday, December 14, 2016 12:41 - CONCLUSION: 1. There is sludge in the gallbladder with thickening of the gallbladder wall at 5 mm. This is characteristic of chronic gallbladder disease. 2. No biliary tract obstruction. 3. Fatty infiltration of the liver. Feng Singh MD Renal Ultrasound 12/03/16 0000 Signed Impressions: Service Date/Time: Saturday, December 03, 2016 14:57 - CONCLUSION: 1. No evidence of obstruction 2. Debris within the bladder which may be related to infection or hemorrhage Jez Tay MD Head CT 12/02/16 0000 Signed Impressions: Service Date/Time: Friday, December 02, 2016 15:51 - CONCLUSION: No acute disease. Juwan Rodríguez MD FACR Liver Ultrasound 11/27/16 0000 Signed Impressions: Service Date/Time: Sunday, November 27, 2016 15:12 - CONCLUSION: 1. Mild hepatomegaly. The echotexture of the liver is consistent with hepatic steatosis. 2. Cholelithiasis. The common bile duct is not visualized on this exam secondary to bowel gas. No evidence of intrahepatic biliary obstruction. 3. Given the cortical thinning and increased echogenicity concerning for renal disease. Recommend correlating with the patient's GFR.. Kateryna Lopez MD Chest X-Ray 11/26/16 1503 Signed Impressions: Service Date/Time: Saturday, November 26, 2016 15:35 - CONCLUSION: No acute cardiopulmonary abnormality is identified. Chaot Meyer MD Objective Remarks GENERAL: Well-nourished, well-developed middle aged male patient in [facility]. SKIN: Warm and dry. No rash. HEENT: Normocephalic. Atraumatic. Pupils equal and round. No scleral icterus. No injection or drainage. ENT: No nasal bleeding or discharge. Mucous membranes pink and moist. NECK: Supple. Trachea midline. CARDIOVASCULAR: Regular rate and rhythm. S1, S2 noted. No murmur appreciated. RESPIRATORY: No accessory muscle use. Clear to auscultation. Breath sounds equal bilaterally. GASTROINTESTINAL: Abdomen soft, non-tender, nondistended. Normoactive bowel sounds x4. Cholecystostomy tube in place. MUSCULOSKELETAL: No obvious deformities. Extremities without clubbing, cyanosis , or edema. NEUROLOGICAL: Awake and alert. No obvious cranial nerve deficits. Motor grossly within normal limits. Normal speech. PSYCHIATRIC: Appropriate mood and affect; insight and judgment normal. Procedures 12/17/16: Cholecystostomy tube placement 12/27/16: Cholecystostomy tube exchanged 01/15/17: ERCP Medications and IVs Current Medications Medications (Trade) Dose Ordered Sig/Ludwig Route Start Time Stop Time Status Last Admin (Tylenol) 650 mg Q4H PRN PO 11/26/16 16:45 (Vitamin B1) 100 mg DAILY PO 11/27/16 09:00 01/15/17 07:44 (Theragran) 1 tab DAILY PO 11/27/16 09:00 01/15/17 07:44 (Folate) 1 mg DAILY PO 11/27/16 09:00 01/15/17 07:45 (Protonix) 40 mg DAILY PO 11/27/16 09:00 01/15/17 07:44 (CeleXA) 20 mg DAILY PO 11/27/16 12:35 01/15/17 07:44 (Tums Chew) 500 mg Q12HR CHEW 11/27/16 21:00 01/15/17 21:05 (Mag-Al Plus Susp Liq) 30 ml Q6H PRN PO 11/28/16 12:15 11/30/16 12:07 (Benadryl) 25 mg HS PRN PO 11/29/16 11:45 12/19/16 20:45 (Zofran Odt) 4 mg Q6H PRN PO 12/07/16 14:30 12/10/16 14:24 (Xifaxan) 550 mg DAILY PO 12/09/16 09:00 01/15/17 07:45 (Roxicodone) 10 mg Q6HR PRN PO 01/09/17 21:00 01/15/17 21:05 (Roxicodone) 5 mg Q6H PRN PO 01/09/17 21:00 (Colace) 100 mg BID PO 01/11/17 21:00 01/15/17 21:05 (Prinivil) 10 mg DAILY PO 01/15/17 09:00 01/15/17 07:45 Miscellaneous Information ALL NURSING DEPARTME... UNSCH PRN XX 01/15/17 17:15 01/16/17 17:14 (Flu (Quadrivalent) Vaccine Inj) 0.5 ml ONCE ONCE IM 01/16/17 09:00 01/16/17 09:01 Urinary Catheter: No Vascular Central Line Catheter: No A/P Problem List: (1) Cholecystitis ICD Code: K81.9 Status: Acute (2) HTN (hypertension) ICD Code: I10 Status: Acute (3) Metabolic encephalopathy ICD Code: G93.41 Status: Resolved (4) Alcohol withdrawal ICD Code: F10.239 Status: Resolved (5) Elevated LFTs ICD Code: R94.5 Status: Resolved (6) Anemia ICD Code: D64.9 Status: Acute (7) Acute kidney injury ICD Code: N17.9 Status: Resolved (8) Hyperglycemia ICD Code: R73.9 Status: Resolved (9) Conjunctivitis ICD Code: H10.9 Status: Resolved Assessment and Plan Cholecystitis, acalculous Laboratory studies were unremarkable for any obstructive process Gallbladder ultrasound indicated sludge in the gallbladder with thickening of the gallbladder wall at 5 mm, this is characteristic of chronic bladder disease 12/15 CT abdomen shows abnormal gallbladder with distention, diffuse wall thickening, septation and prominent sinuses. Recommended HIDA scan to evaluate for cystic duct obstruction. 12/16 HIDA scan shows nonvisualization the gallbladder characteristic of acute cholecystitis. GI consultation was requested and indicated need for surgical consultation General surgery consulted. Dr. Berg indicates if patient tolerates management with cholecystotomy tube then outpatient laparoscopic cholecystectomy can be performed in 6-8 weeks. If patient continues to have pain and does not improve then he may benefit from cholecystectomy while in the hospital. Cholecystotomy drain in place. S/p 10 day course of Levaquin. 12/27 Tube exchanged. Patient has pain at the site since exchange, but appears comfortable. Afebrile. 12/31 General surgery was reconsulted due to peritoneal signs. 01/02: CT abdomen indicates cholecystostomy tube in good position 01/04: Dr. Martin reevaluated the patient; states to keep the michael tube for 3 weeks and perform cholangiogram through the tube and if cystic duct is patent can pull the tube and send home. Oxycodone as needed for pain. Wean. 01/12: RUQ pain stable; pain over entire lower abdomen may be related to constipation. Although having regular BMs, patient did admit to hard stools. Continue Colace bid. Monitor clinically. 01/13: Patient had 4 BMs in the last 24 hours. Although still has abdominal pain , it appears improved on exam. 01/14: Discussed with Selam PUCKETT today. Plan for cholangiogram. Will follow up on GS recommendations following study results. 01/15: Cholangiogram revealing CBD stones. Discussed with Dr. Berg, plan to transfer to the main hospital today for ERCP for stone removal and possible cholecystectomy. 01/16: S/p ERCP yesterday. GS to consider cholecystectomy. Hypertension: Blood pressure was running low and Atenolol and Cozaar were discontinued, now hypertensive. Lisinopril increased to 10 mg daily yesterday due to elevated diastolic measurements. Monitor and adjust regimen as needed. Metabolic encephalopathy, likely secondary to alcohol withdrawal, hepatic encephalopathy. Resolved Ammonia level less than 10 on 12/08. Continue rifaximin Lactulose discontinued due to diarrhea Alcohol withdrawal, resolved Ativan as needed per CIWA, has not needed Ativan since 11/29/16. Discontinued MVI, thiamine, folic acid Celexa for depression Discontinue Librium Elevated liver enzymes, resolved Likely secondary to chronic alcohol use US liver consistent with hepatic steatosis Hepatitis panel was negative Avoid hepatotoxins Anemia: Hemoglobin stable. No evidence of bleeding. Acute kidney injury, resolved Likely secondary to hypotension and poor by mouth intake Improved with IV fluids Renal ultrasound was negative for any obstruction Hyperglycemia Hemoglobin A1c 6.6 diet controlled Conjunctivitis, resolved Status post ciprofloxacin eyedrops Physical deconditioning Continue physical therapy 7 days a week DVT Prophylaxis: teds/SCDs, hold chemical prophylaxis with possible upcoming surgery. Discharge Planning GS to evaluate possible cholecystectomy. Problem Qualifiers (1) Alcohol withdrawal: Qualified Code: F10.230 - Alcohol withdrawal, uncomplicated Desiree Comer PA-C Jan 16, 2017 08:20
[2017-01-16] MEDS: RIFAXIMIN 550 MG TAB PO SCH (09:00)
[2017-01-16] MEDS: MULTIVITAMIN TAB PO SCH (09:00)
[2017-01-16] MEDS: THIAMINE HCL 100 MG TAB PO SCH (09:00)
[2017-01-16] MEDS: FOLIC ACID 1 MG TAB PO SCH (09:00)
[2017-01-16] MEDS: CALCIUM CARBONATE 500 MG CHEWABLE TAB CHEW SCH ×2 (09:00→21:00)
[2017-01-16] MEDS: CITALOPRAM HYDROBROMIDE 20 MG TAB PO SCH (09:00)
[2017-01-16] MEDS: PANTOPRAZOLE SOD 40 MG DELAYED RELEASE TAB PO SCH (09:00)
[2017-01-16] MEDS: LISINOPRIL 10 MG TAB PO SCH (09:00)
[2017-01-16] MEDS: DOCUSATE SODIUM 100 MG CAP PO SCH ×2 (09:00→21:00)
[2017-01-16] MEDS ORDERED: INFLUENZA VIRUS VACCINE (QUADRIVALENT) 0.5 ML SYR IM ONE (09:00)
[2017-01-16] MEDS ORDERED: BUPIVACAINE/EPINEPHRINE 0.25% PF 30 ML VIAL ONE ×2 (10:16→10:18)
[2017-01-16] MEDS ORDERED: LIDOCAINE 1%/EPINEPHrine 1:100,000 SOLN 30 ML VIAL ONE (10:33)
[2017-01-16] MEDS ORDERED: HYDROmorphone HCL PF 2 MG/ML VIAL ONE (10:43)
[2017-01-16] MEDS ORDERED: ACETAMINOPHEN 1000 MG/100 ML VIAL IV ONE (10:43)
[2017-01-16] MEDS ORDERED: fentaNYL CITRATE 250 MCG/5 ML AMP ONE ×2 (10:43→16:12)
[2017-01-16] MEDS ORDERED: MIDAZOLAM HCL 2 MG/2 ML VIAL ONE (10:43)
[2017-01-16] MEDS ORDERED: ceFAZolin 2 GM PREMIX 50 ML ONE (10:50)
[2017-01-16] MEDS ORDERED: ONDANSETRON HCL 4 MG/2 ML VIAL IV PUSH ONE (12:00)
[2017-01-16] MEDS ORDERED: ePHEDrine/NS 25 MG/5 ML SYR IV ONE (12:00)
[2017-01-16] MEDS ORDERED: SUGAMMADEX SODIUM 200 MG/2 ML VIAL IV PUSH ONE ×2 (12:00)
[2017-01-16] MEDS ORDERED: NEOSTIGMINE 3 MG/3 ML SYR IV ONE (12:00)
[2017-01-16] MEDS ORDERED: PHENYLEPH/NS 1000 MCG/10 ML SYR IV ONE (12:00)
[2017-01-16] MEDS ORDERED: LACTATED RINGER'S 1000 ML INJ 1,000 ML IV ONE (12:00)
[2017-01-16] MEDS ORDERED: PROPOFOL 200 MG/20 ML AMP IV ONE (12:00)
[2017-01-16] MEDS ORDERED: NORMOSOL R INJ 2,000 ML IV ONE (12:00)
[2017-01-16] MEDS ORDERED: IOHEXOL 300 MG/ML 50 ML BTL (for RAD DIAG) ONE (14:25)
[2017-01-16] MEDS ORDERED: GLUCAGON 1 MG/ML VIAL ONE (14:25)
--- NOTE | 2017-01-16 15:33 | RADRPT ---
EXAM DATE/TIME: 01/16/2017 14:27 [facility] COMPARISON: No previous studies available for comparison. INDICATIONS : Obstruction. FLUORO TIME: 1.8 minutes IMAGE COUNT: 4 MEDICAL HISTORY : None. SURGICAL HISTORY : None. ENCOUNTER: Subsequent ACUITY: 3 days PAIN SCORE: Non-responsive. LOCATION: Right upper quadrant PROCEDURE: CHOLANGIOGRAM, OPERATIVE 1. Intraoperative cholangiogram. In the operating room, the cystic duct stump was injected and radiographs obtained. The examination demonstrates initially 2 faint filling defects in the common bile duct distally. One of the filling defects was removed. The other appears to be just a prominent fold of the ampulla. CONCLUSION: No residual evidence of common duct stone. Karri Barnes MD on January 16, 2017 at 15:30 Board Certified Radiologist. This report was verified electronically.
--- NOTE | 2017-01-16 15:58 | HHI.PR ---
Immediate Post Op Note Procedure Date: Jan 16, 2017 Pre Op Diagnosis: cholecystitis with cholelithiasis and choledocholithiasis Post Op Diagnosis: same Surgeon: Nicolas Berg MD [employer] Coordinator(s): Dr. Joseph Martin needed due to the complex laparoscopic and open case. Needed for assistance with retraction, exposure, camera management. Procedure: lap converted to open cholecystectomy, with laparoscopic lysis of adhesions open common bile exploration through cystic duct with ureterscope and cbd stone extraction intraoperative cholangiogram intraoperative fluoroscopy Findings: fibrosis with multiple Gallstones and cbd stone, IOC with filling defect, stones cleared by visualization on urteteroscope, distal duodenal diverticula near ampula Complications: none Specimen(s) removed: gallbladder Estimated blood loss: 450 Anesthesia: General Drains: BRENDAN IVF ([id number]) Patient to: PACU Patient Condition: Good Nicolas Berg MD Jan 16, 2017 15:58
[2017-01-16] MEDS ORDERED: NALOXONE HCL 0.4 MG/ML AMP IV PRN (16:00)
[2017-01-16] MEDS ORDERED: DO NOT ADM ANY ANTICOAGULANT DRUGS XX PRN (16:09)
[2017-01-16] MEDS ORDERED: *morphine SULFATE 8 MG/ML PERIprocedure ONLY ONE ×3 (16:16→16:32)
[2017-01-16] MEDS: SODIUM CHLOR 0.9% 1000 ML INJ 1,000 ML IV SCH (16:48)
[2017-01-16] MEDS: MORPHINE SULFATE 30 MG/30 ML PCA IV SCH (16:48)
[2017-01-16 17:33] LABS: AUTOMATED NEUTROPHIL # 8.3 TH/MM3 (1.8-7.7); BASOPHIL % 0.3 % (0.0-2.0); EOSINOPHIL % 0.1 % (0.0-4.0); HEMATOCRIT 33.7 % (39.0-51.0); HEMO FLAGS DIFF FINAL; LYMPH % 8.4 % (9.0-44.0); LYMPHOCYTE # 0.8 TH/MM3 (1.0-4.8); MEAN CELL VOLUME 94.2 FL (80.0-100.0); MEAN CORPUSCULAR HEMOGLOBIN 31.4 PG (27.0-34.0); MEAN CORPUSCULAR HGB CONC 33.3 % (32.0-36.0); MONO % 4.6 % (0.0-8.0); NEUT % 86.6 % (16.0-70.0); PLATELET COUNT 210 TH/MM3 (150-450); RED BLOOD COUNT 3.58 MIL/MM3 (4.50-5.90); RED CELL DISTRIBUTION WIDTH 14.5 % (11.6-17.2); WHITE BLOOD COUNT 9.6 TH/MM3 (4.0-11.0)
[2017-01-16 17:38] LABS: BICARBONATE 25.2 MEQ/L (21.0-32.0); POTASSIUM 3.8 MEQ/L (3.5-5.1)
[2017-01-16 21:00] VITALS: BP 104/64; PULSE 66; RESP 18; TEMP 96.9; O2SAT 96
[2017-01-17] VITALS: BP 105/65; PULSE 69; RESP 19; TEMP 97.1; O2SAT 97
[2017-01-17] MEDS: SODIUM CHLOR 0.9% 1000 ML INJ 1,000 ML IV SCH ×2 (02:30→06:29)
[2017-01-17 04:30] VITALS: BP 106/71; PULSE 75; RESP 18; TEMP 97.6; O2SAT 99
[2017-01-17] MEDS: PCA - TOTAL MG MORPHINE DELIVERED PER SHIFT SCH ×2 (06:00→14:00)
[2017-01-17 08:00] VITALS: BP 111/78; PULSE 84; RESP 20; TEMP 97.2; O2SAT 100
[2017-01-17 09:12] LABS: AUTOMATED NEUTROPHIL # 6.2 TH/MM3 (1.8-7.7); BASOPHIL # 0.1 TH/MM3 (0-0.2); BASOPHIL % 0.6 % (0.0-2.0); EOSINOPHIL # 0.1 TH/MM3 (0-0.4); HEMATOCRIT 33.6 % (39.0-51.0); HEMO FLAGS DIFF FINAL; LYMPH % 14.4 % (9.0-44.0); LYMPHOCYTE # 1.3 TH/MM3 (1.0-4.8); MEAN CELL VOLUME 94.1 FL (80.0-100.0); MEAN CORPUSCULAR HGB CONC 32.9 % (32.0-36.0); MONO % 14.5 % (0.0-8.0); NEUT % 69.5 % (16.0-70.0); PLATELET COUNT 202 TH/MM3 (150-450); RED BLOOD COUNT 3.57 MIL/MM3 (4.50-5.90); RED CELL DISTRIBUTION WIDTH 14.1 % (11.6-17.2)
[2017-01-17 09:34] LABS: ALKALINE PHOSPHATASE 39 U/L (45-117); ALT (GPT) 15 U/L (12-78); ANION GAP 6 MEQ/L (5-15); AST (GOT) 26 U/L (15-37); BLOOD UREA NITROGEN 9 MG/DL (7-18); CHLORIDE 103 MEQ/L (98-107); GLOMERULAR FILTRATION RATE 109 ML/MIN (>89); POTASSIUM 4.2 MEQ/L (3.5-5.1); SODIUM (NA) 136 MEQ/L (136-145); TOTAL BILIRUBIN ADULT 0.8 MG/DL (0.2-1.0)
[2017-01-17] MEDS: PANTOPRAZOLE SOD 40 MG DELAYED RELEASE TAB PO SCH (09:34)
[2017-01-17] MEDS: DOCUSATE SODIUM 100 MG CAP PO SCH ×2 (09:34→22:47)
[2017-01-17] MEDS: MULTIVITAMIN TAB PO SCH (09:34)
[2017-01-17] MEDS: RIFAXIMIN 550 MG TAB PO SCH (09:35)
[2017-01-17] MEDS: THIAMINE HCL 100 MG TAB PO SCH (09:36)
[2017-01-17] MEDS: LISINOPRIL 10 MG TAB PO SCH (09:36)
[2017-01-17] MEDS: FOLIC ACID 1 MG TAB PO SCH (09:36)
[2017-01-17] MEDS: CALCIUM CARBONATE 500 MG CHEWABLE TAB CHEW SCH ×2 (09:37→22:47)
[2017-01-17] MEDS: CITALOPRAM HYDROBROMIDE 20 MG TAB PO SCH (09:37)
--- NOTE | 2017-01-17 09:46 | HHI.PR ---
Subjective Remarks Follow-up for abdominal pain Abdominal pain still bad, 31/08 allegedly, not relieved by pain medications, afebrile. No nausea or vomiting. No gas or bowel movements yet. No shortness of breath. Objective Vitals Vital Signs Date Time Temp Pulse Resp B/P Pulse Ox O2 Delivery O2 Flow Rate FiO2 01/17/17 08:00 97.2 84 20 111/78 100 01/17/17 06:00 20 01/17/17 04:30 97.6 75 18 106/71 99 01/17/17 00:00 97.1 69 19 105/65 97 01/16/17 21:00 96.9 66 18 104/64 96 01/16/17 20:00 98.5 79 12 118/66 97 Nasal Cannula 2 01/16/17 19:00 69 14 100/65 99 Nasal Cannula 2 01/16/17 18:00 79 12 112/75 98 Nasal Cannula 2 01/16/17 17:45 84 14 114/85 98 Nasal Cannula 2 01/16/17 17:30 76 14 106/63 99 Nasal Cannula 2 01/16/17 17:15 74 14 96/64 97 Nasal Cannula 2 01/16/17 17:00 72 16 97/55 99 Nasal Cannula 2 01/16/17 16:48 14 01/16/17 16:45 74 16 99/59 99 Nasal Cannula 2 01/16/17 16:40 68 16 92/60 97 01/16/17 16:30 66 16 90/56 98 Nasal Cannula 2 01/16/17 16:15 72 16 102/66 99 Nasal Cannula 2 01/16/17 16:10 71 16 103/65 99 01/16/17 16:03 98.2 75 16 97/59 99 Nasal Cannula 2 01/16/17 11:30 I/O 01/16/17 01/16/17 01/16/17 01/17/17 01/17/17 01/17/17 07:00 15:00 23:00 07:00 15:00 23:00 Intake Total 4845 ml 2855 ml Output Total 300 ml 1395 ml 960 ml Balance -300 ml 3450 ml 1895 ml Intake Oral 950 ml 2000 ml IV Total 1295 ml 855 ml Other 2600 ml Output Urine Total 825 ml 900 ml Drainage Total 300 ml 120 ml 60 ml Estimated Blood Loss 450 ml # Voids 2 # Bowel Movements 0 0 Result Diagram: 01/17/17 0856 01/17/17 0856 Objective Remarks GENERAL: Not in distress. SKIN: Warm and dry. No rash. HEENT: Normocephalic. Atraumatic. Pupils equal and round. No scleral icterus. No injection or drainage. CARDIOVASCULAR: Regular rate and rhythm. S1, S2 noted. No murmur appreciated. RESPIRATORY: No accessory muscle use. Clear to auscultation. Breath sounds equal bilaterally. GASTROINTESTINAL: Abdomen soft, non-tender, nondistended. Normoactive bowel sounds x4. Cholecystostomy tube in place. Dressing in place. MUSCULOSKELETAL: No obvious deformities. No edema. NEUROLOGICAL: Awake and alert, oriented 3. No obvious cranial nerve deficits. Motor grossly within normal limits. Normal speech. Procedures 12/17/16: Cholecystostomy tube placement 12/27/16: Cholecystostomy tube exchanged 01/15/17: ERCP 01/16/17: lap converted to open cholecystectomy, with laparoscopic lysis of adhesions open common bile exploration through cystic duct with ureterscope and cbd stone extraction intraoperative cholangiogram intraoperative fluoroscopy A/P Problem List: (1) Cholecystitis ICD Code: K81.9 Status: Acute (2) HTN (hypertension) ICD Code: I10 Status: Acute (3) Metabolic encephalopathy ICD Code: G93.41 Status: Resolved (4) Alcohol withdrawal ICD Code: F10.239 Status: Resolved (5) Elevated LFTs ICD Code: R94.5 Status: Resolved (6) Anemia ICD Code: D64.9 Status: Acute (7) Acute kidney injury ICD Code: N17.9 Status: Resolved (8) Hyperglycemia ICD Code: R73.9 Status: Resolved (9) Conjunctivitis ICD Code: H10.9 Status: Resolved Assessment and Plan Cholecystitis, acalculous Gallbladder ultrasound indicated sludge in the gallbladder with thickening of the gallbladder wall at 5 mm,12/15 CT abdomen shows abnormal gallbladder with distention, diffuse wall thickening, septation and prominent sinuses. HIDA scan supports acute cholecystitis. GI and surgery were consulted. Status post Cholecystotomy, status post Levaquin. Status post tube exchange. 01/16: S/p ERCP 01/17/17 followed by laparoscopic converted to open cholecystectomy, with lysis of adhesions and extraction of common bile duct stones. Continue morphine intravenously via FENCE ERECTOR pump and oxycodone. Hypertension: Continue lisinopril Metabolic encephalopathy, likely secondary to alcohol withdrawal, hepatic encephalopathy. Resolved Stop rifaximin, will need to switch back to lactulose if develops any confusion Alcohol withdrawal MVI, thiamine, folic acid Celexa for depression Anemia: Hemoglobin stable. No evidence of bleeding. Acute kidney injury - resolved, renal ultrasound was negative for any obstruction Hyperglycemia Hemoglobin A1c 6.6 diet controlled Physical deconditioning Continue physical therapy 7 days a week DVT Prophylaxis: teds/SCDs Discharge Planning Discharge once cleared by surgery. Problem Qualifiers (1) Alcohol withdrawal: Qualified Code: F10.230 - Alcohol withdrawal, uncomplicated May Uriarte MD Jan 17, 2017 09:46 Ativan as needed per CIWA, has not needed Ativan since 11/29/16. Discontinued MVI, thiamine, folic acid Celexa for depression Discontinue Librium Elevated liver enzymes, resolved Likely secondary to chronic alcohol use US liver consistent with hepatic steatosis Hepatitis panel was negative Avoid hepatotoxins Anemia: Hemoglobin stable. No evidence of bleeding. Acute kidney injury, resolved Likely secondary to hypotension and poor by mouth intake Improved with IV fluids Renal ultrasound was negative for any obstruction Hyperglycemia Hemoglobin A1c 6.6 diet controlled Conjunctivitis, resolved Status post ciprofloxacin eyedrops Physical deconditioning Continue physical therapy 7 days a week DVT Prophylaxis: teds/SCDs, hold chemical prophylaxis with possible upcoming surgery. lap converted to open cholecystectomy, with laparoscopic lysis of adhesions open common bile exploration through cystic duct with ureterscope and cbd stone extraction intraoperative cholangiogram intraoperative fluoroscopy Problem Qualifiers (1) Alcohol withdrawal: Qualified Code: F10.230 - Alcohol withdrawal, uncomplicated May Uriarte MD Jan 17, 2017 09:46
--- NOTE | 2017-01-17 11:41 | HHI.PR ---
Subjective Subjective Notes Painful when moves , no nausea Objective Vitals/I&O Vital Signs Date Time Temp Pulse Resp B/P Pulse Ox O2 Delivery O2 Flow Rate FiO2 01/17/17 08:00 97.2 84 20 111/78 100 01/16/17 20:00 Nasal Cannula 2 Labs Laboratory Tests Test 01/16/17 01/17/17 16:58 08:56 White Blood Count 9.6 9.0 Red Blood Count 3.58 3.57 Hemoglobin 11.2 11.1 Hematocrit 33.7 33.6 Mean Corpuscular Volume 94.2 94.1 Mean Corpuscular Hemoglobin 31.4 31.0 Mean Corpuscular Hemoglobin 33.3 32.9 Concent Red Cell Distribution Width 14.5 14.1 Platelet Count 210 202 Mean Platelet Volume 10.3 10.1 Neutrophils (%) (Auto) 86.6 69.5 Lymphocytes (%) (Auto) 8.4 14.4 Monocytes (%) (Auto) 4.6 14.5 Eosinophils (%) (Auto) 0.1 1.0 Basophils (%) (Auto) 0.3 0.6 Neutrophils # (Auto) 8.3 6.2 Lymphocytes # (Auto) 0.8 1.3 Monocytes # (Auto) 0.4 1.3 Eosinophils # (Auto) 0.0 0.1 Basophils # (Auto) 0.0 0.1 CBC Comment DIFF FINAL DIFF FINAL Differential Comment Sodium Level 140 136 Potassium Level 3.8 4.2 Chloride Level 105 103 Carbon Dioxide Level 25.2 27.0 Anion Gap 10 6 Blood Urea Nitrogen 11 9 Creatinine 0.85 0.73 Estimat Glomerular Filtration 91 109 Rate Random Glucose 159 92 Calcium Level 8.3 8.0 Total Bilirubin 0.8 Aspartate Amino Transf 26 (AST/SGOT) Alanine Aminotransferase 15 (ALT/SGPT) Alkaline Phosphatase 39 Total Protein 6.1 Albumin 2.5 Lipase 43 Cardiovascular: Regular Lungs: Clear Abdomen: Other (RUQ incision; BRENDAN with SS drainage ) Extremities: No edema A/P Assessment and Plan 61 year old male with cholecystitis s/p IR drain placement -POD1 open cholecystectomy IOC, CBD exploration -Advance to full liquids -Add Toradol -OOB -Patient seen by Dr. Berg Attending Statement stable overnight c/o pain doing well Attestation The exam, history, and the medical decision-making described in the above note were completed with the assistance of the mid-level provider. I reviewed and agree with the findings presented. I attest that I had a [id number] encounter with the patient on the same day, and personally performed and documented my assessment and findings in the medical record. Selam England Jan 17, 2017 11:41 Nicolas Berg MD Jan 28, 2017 05:28
[2017-01-17] MEDS ORDERED: KETOROLAC TROMETHAMINE 30 MG/ML (IVP) VIAL IV PUSH PRN (11:45)
[2017-01-17 12:23] VITALS: BP 109/74; PULSE 72; RESP 20; TEMP 98.8; O2SAT 96
[2017-01-17 16:00] VITALS: BP 108/69; PULSE 91; RESP 20; TEMP 98.1; O2SAT 98
[2017-01-17] MEDS: MORPHINE SULFATE 30 MG/30 ML PCA IV SCH (17:48)
[2017-01-17 20:30] VITALS: BP 98/68; PULSE 85; RESP 17; TEMP 98.2; O2SAT 96
[2017-01-17] MEDS: METOCLOPRAMIDE HCL 10 MG/2 ML VIAL IV PUSH SCH (23:30)
[2017-01-18 00:15] VITALS: BP 110/70; PULSE 80; RESP 18; TEMP 97.9; O2SAT 97
[2017-01-18 04:45] VITALS: BP 120/75; PULSE 88; RESP 17; TEMP 98.3; O2SAT 98
[2017-01-18] MEDS: METOCLOPRAMIDE HCL 10 MG/2 ML VIAL IV PUSH SCH ×3 (05:39→22:22)
--- NOTE | 2017-01-18 07:22 | HHI.PR ---
Subjective Subjective Notes no acute issues, still some distension, +flatus, c/o pain but better Objective Vitals/I&O Vital Signs Date Time Temp Pulse Resp B/P Pulse Ox O2 Delivery O2 Flow Rate FiO2 01/18/17 04:45 98.3 88 17 120/75 98 01/16/17 20:00 Nasal Cannula 2 Labs Laboratory Tests Test 01/17/17 08:56 White Blood Count 9.0 Red Blood Count 3.57 Hemoglobin 11.1 Hematocrit 33.6 Mean Corpuscular Volume 94.1 Mean Corpuscular Hemoglobin 31.0 Mean Corpuscular Hemoglobin 32.9 Concent Red Cell Distribution Width 14.1 Platelet Count 202 Mean Platelet Volume 10.1 Neutrophils (%) (Auto) 69.5 Lymphocytes (%) (Auto) 14.4 Monocytes (%) (Auto) 14.5 Eosinophils (%) (Auto) 1.0 Basophils (%) (Auto) 0.6 Neutrophils # (Auto) 6.2 Lymphocytes # (Auto) 1.3 Monocytes # (Auto) 1.3 Eosinophils # (Auto) 0.1 Basophils # (Auto) 0.1 CBC Comment DIFF FINAL Differential Comment Sodium Level 136 Potassium Level 4.2 Chloride Level 103 Carbon Dioxide Level 27.0 Anion Gap 6 Blood Urea Nitrogen 9 Creatinine 0.73 Estimat Glomerular Filtration 109 Rate Random Glucose 92 Calcium Level 8.0 Total Bilirubin 0.8 Aspartate Amino Transf 26 (AST/SGOT) Alanine Aminotransferase 15 (ALT/SGPT) Alkaline Phosphatase 39 Total Protein 6.1 Albumin 2.5 Lipase 43 Cardiovascular: Regular Lungs: Clear Abdomen: Other (soft distension, vivain no leak, iain serosang) A/P Assessment and Plan s/p lap converted to open michael with IOC and CBD exploration Plan OOB pain control full liq diet keep dressing in place reglan d/c underwood today f/u labs Nicolas Berg MD Jan 18, 2017 07:22
[2017-01-18 07:58] LABS: AUTOMATED NEUTROPHIL # 5.9 TH/MM3 (1.8-7.7); BASOPHIL # 0.1 TH/MM3 (0-0.2); BASOPHIL % 0.6 % (0.0-2.0); EOSINOPHIL # 0.2 TH/MM3 (0-0.4); EOSINOPHIL % 2.4 % (0.0-4.0); HEMATOCRIT 33.1 % (39.0-51.0); HEMO FLAGS DIFF FINAL; LYMPH % 16.2 % (9.0-44.0); LYMPHOCYTE # 1.5 TH/MM3 (1.0-4.8); MEAN CELL VOLUME 93.3 FL (80.0-100.0); MEAN CORPUSCULAR HEMOGLOBIN 31.4 PG (27.0-34.0); MEAN CORPUSCULAR HGB CONC 33.7 % (32.0-36.0); MONO % 16.1 % (0.0-8.0); NEUT % 64.7 % (16.0-70.0); PLATELET COUNT 203 TH/MM3 (150-450); RED BLOOD COUNT 3.55 MIL/MM3 (4.50-5.90); RED CELL DISTRIBUTION WIDTH 14.2 % (11.6-17.2); WHITE BLOOD COUNT 9.1 TH/MM3 (4.0-11.0)
[2017-01-18 08:00] VITALS: BP 92/64; PULSE 91; RESP 20; TEMP 97.2; O2SAT 94
[2017-01-18 08:23] LABS: ALKALINE PHOSPHATASE 42 U/L (45-117); ALT (GPT) 12 U/L (12-78); ANION GAP 7 MEQ/L (5-15); AST (GOT) 22 U/L (15-37); BICARBONATE 27.8 MEQ/L (21.0-32.0); BLOOD UREA NITROGEN 7 MG/DL (7-18); CHLORIDE 102 MEQ/L (98-107); GLOMERULAR FILTRATION RATE 112 ML/MIN (>89); POTASSIUM 3.4 MEQ/L (3.5-5.1); SODIUM (NA) 137 MEQ/L (136-145); TOTAL BILIRUBIN ADULT 0.9 MG/DL (0.2-1.0)
[2017-01-18] MEDS: THIAMINE HCL 100 MG TAB PO SCH (09:00)
[2017-01-18] MEDS: LISINOPRIL 10 MG TAB PO SCH ×2 (09:00→10:10)
[2017-01-18] MEDS: CALCIUM CARBONATE 500 MG CHEWABLE TAB CHEW SCH ×2 (10:09→22:21)
[2017-01-18] MEDS: PANTOPRAZOLE SOD 40 MG DELAYED RELEASE TAB PO SCH (10:10)
[2017-01-18] MEDS: MULTIVITAMIN TAB PO SCH (10:11)
[2017-01-18] MEDS: DOCUSATE SODIUM 100 MG CAP PO SCH (10:12)
[2017-01-18] MEDS: CITALOPRAM HYDROBROMIDE 20 MG TAB PO SCH (10:13)
[2017-01-18] MEDS: FOLIC ACID 1 MG TAB PO SCH (10:13)
[2017-01-18 12:00] VITALS: BP 114/74; PULSE 80; RESP 20; TEMP 98.6; O2SAT 95
[2017-01-18] MEDS ORDERED: POTASSIUM CHLORIDE 20 MEQ CONTROLLED RELEASE TAB PO ONE (13:00)
--- NOTE | 2017-01-18 13:21 | HHI.PR ---
Subjective Remarks Follow up for abdominal pain, s/p cholecystectomy. The patient is seen sitting upright on side of bed. Feels like he may have to have a BM. Last BM 3days ago. He reports continued abdominal pain throughout right abdomen, overall slightly improved. Denies fevers/chills. Denies nausea/vomiting. Tolerating his full liquid diet. Montano removed this morning, patient voiding spontaneously. Objective Vitals Vital Signs Date Time Temp Pulse Resp B/P Pulse Ox O2 Delivery O2 Flow Rate FiO2 01/18/17 12:00 98.6 80 20 114/74 95 01/18/17 08:00 97.2 91 20 92/64 94 01/18/17 04:45 98.3 88 17 120/75 98 01/18/17 00:15 97.9 80 18 110/70 97 01/17/17 20:30 98.2 85 17 98/68 96 01/17/17 18:50 18 01/17/17 17:54 18 01/17/17 17:48 20 01/17/17 16:00 98.1 91 20 108/69 98 01/17/17 14:00 16 I/O 01/17/17 01/17/17 01/17/17 01/18/17 01/18/17 01/18/17 07:00 15:00 23:00 07:00 15:00 23:00 Intake Total 2855 ml 480 ml 1200 ml 2500 ml Output Total 960 ml 650 ml 350 ml 1535 ml 220 ml Balance 1895 ml -170 ml 850 ml 965 ml -220 ml Intake Oral 2000 ml 480 ml 1200 ml 2500 ml IV Total 855 ml Output Urine Total 900 ml 650 ml 300 ml 1500 ml 220 ml Drainage Total 60 ml 50 ml 35 ml # Voids 1 # Bowel Movements 0 0 0 Result Diagram: 01/18/17 0558 01/18/17 0558 Imaging Last Impressions Cholangiogram 01/16/17 0000 Signed Impressions: Service Date/Time: January 14:27 - CONCLUSION: No residual evidence of common duct stone. Karri Barnes MD GI Procedure 01/15/17 0000 Signed Impressions: Service Date/Time: Sunday, January 15, 2017 16:39 - CONCLUSION: ERCP as above. Hemant Muñoz MD Abdomen/Pelvis CT 01/02/17 0000 Signed Impressions: Service Date/Time: December 21:17 - CONCLUSION: Cholecystoscopy tube in good position. Chato Amezcua MD Catheter Change 12/27/16 0000 Signed Impressions: Service Date/Time: Tuesday, December 27, 2016 16:47 - CONCLUSION: Uncomplicated biliary catheter change. Hemant Muñoz MD Percutaneous Cholangiogram 12/17/16 0000 Signed Impressions: Service Date/Time: Saturday, December 17, 2016 16:18 - CONCLUSION: Uncomplicated percutaneous cholecystostomy as above. Chato Glass MD Hepatobiliary Scan Nuclear Medicine 12/16/16 0000 Signed Impressions: Service Date/Time: Friday, December 16, 2016 13:03 - CONCLUSION: 1. Nonvisualization of the gallbladder characteristic of acute cholecystitis Jez Tay MD ADDENDUM: The patient was brought back for imaging at 24 hours. Still no gallbladder activity is identified. Concerning for calculus or acalculous cholecystitis. Karri Barnes MD Gall Bladder Ultrasound 12/14/16 1110 Signed Impressions: Service Date/Time: Wednesday, December 14, 2016 12:41 - CONCLUSION: 1. There is sludge in the gallbladder with thickening of the gallbladder wall at 5 mm. This is characteristic of chronic gallbladder disease. 2. No biliary tract obstruction. 3. Fatty infiltration of the liver. Feng Singh MD Renal Ultrasound 12/03/16 0000 Signed Impressions: Service Date/Time: Saturday, December 03, 2016 14:57 - CONCLUSION: 1. No evidence of obstruction 2. Debris within the bladder which may be related to infection or hemorrhage Jez Tay MD Head CT 12/02/16 0000 Signed Impressions: Service Date/Time: Friday, December 02, 2016 15:51 - CONCLUSION: No acute disease. Juwan Rodríguez MD FACR Liver Ultrasound 11/27/16 0000 Signed Impressions: Service Date/Time: Sunday, November 27, 2016 15:12 - CONCLUSION: 1. Mild hepatomegaly. The echotexture of the liver is consistent with hepatic steatosis. 2. Cholelithiasis. The common bile duct is not visualized on this exam secondary to bowel gas. No evidence of intrahepatic biliary obstruction. 3. Given the cortical thinning and increased echogenicity concerning for renal disease. Recommend correlating with the patient's GFR.. Kateryna Lopez MD Chest X-Ray 11/26/16 1509 Signed Impressions: Service Date/Time: Saturday, November 26, 2016 15:35 - CONCLUSION: No acute cardiopulmonary abnormality is identified. Chato Meyer MD Objective Remarks GENERAL: Well-nourished, well-developed middle aged male patient in [facility]. SKIN: Warm and dry. No rash. HEENT: Normocephalic. Atraumatic. Pupils equal and round. No scleral icterus. No injection or drainage. Mucous membranes pink and moist. NECK: Supple. Trachea midline. CARDIOVASCULAR: Regular rate and rhythm. S1, S2 noted. No murmur appreciated. RESPIRATORY: No accessory muscle use. Clear to auscultation. Breath sounds equal bilaterally. GASTROINTESTINAL: Abdomen soft, nondistended, mild diffuse right sided abdominal TTP. Normoactive bowel sounds x4. Cholecystostomy tube in place, surgical dressing in place, CDI. MUSCULOSKELETAL: No obvious deformities. Extremities without clubbing, cyanosis , or edema. NEUROLOGICAL: Awake and alert. No obvious cranial nerve deficits. Motor grossly within normal limits. Normal speech. PSYCHIATRIC: Appropriate mood and affect; insight and judgment normal. Procedures 12/17/16: Cholecystostomy tube placement 12/27/16: Cholecystostomy tube exchanged 01/15/17: ERCP 01/16/17: lap converted to open cholecystectomy, with laparoscopic lysis of adhesions open common bile exploration through cystic duct with ureterscope and cbd stone extraction intraoperative cholangiogram intraoperative fluoroscopy Medications and IVs Current Medications Medications (Trade) Dose Ordered Sig/Ludwig Route Start Time Stop Time Status Last Admin (Tylenol) 650 mg Q4H PRN PO 11/26/16 16:45 (Vitamin B1) 100 mg DAILY PO 11/27/16 09:00 01/18/17 09:00 (Theragran) 1 tab DAILY PO 11/27/16 09:00 01/18/17 10:11 (Folate) 1 mg DAILY PO 11/27/16 09:00 01/18/17 10:13 (Protonix) 40 mg DAILY PO 11/27/16 09:00 01/18/17 10:10 (CeleXA) 20 mg DAILY PO 11/27/16 12:35 01/18/17 10:13 (Tums Chew) 500 mg Q12HR CHEW 11/27/16 21:00 01/18/17 10:09 (Mag-Al Plus Susp Liq) 30 ml Q6H PRN PO 11/28/16 12:15 11/30/16 12:07 (Benadryl) 25 mg HS PRN PO 11/29/16 11:45 12/19/16 20:45 (Zofran Odt) 4 mg Q6H PRN PO 12/07/16 14:30 12/10/16 14:24 (Roxicodone) 10 mg Q6HR PRN PO 01/09/17 21:00 01/18/17 12:37 (Roxicodone) 5 mg Q6H PRN PO 01/09/17 21:00 (Colace) 100 mg BID PO 01/11/17 21:00 01/18/17 10:12 (Prinivil) 10 mg DAILY PO 01/15/17 09:00 01/17/17 09:36 (Narcan Inj) 0.4 mg UNSCH PRN IV 01/16/17 16:00 (Morphine 1 Mg/ ml G[employer]ACHINE OPERATOR) 30 mg UNSCH IV 01/16/17 16:00 01/17/17 17:48 [employer]INE OPERATOR Dosage Infused (Pha) 1 Q8HR .XX 01/16/17 16:00 01/17/17 14:00 (Toradol Inj) 30 mg Q6HR PRN IV PUSH 01/17/17 11:45 01/20/17 12:00 01/17/17 11:58 (Reglan Inj) 10 mg Q8HR IV PUSH 01/17/17 23:30 01/18/17 05:39 Urinary Catheter: No Date of Removal: Jan 18, 2017 A/P Problem List: (1) Cholecystitis ICD Code: K81.9 Status: Acute (2) HTN (hypertension) ICD Code: I10 Status: Acute (3) Metabolic encephalopathy ICD Code: G93.41 Status: Resolved (4) Alcohol withdrawal ICD Code: F10.239 Status: Resolved (5) Elevated LFTs ICD Code: R94.5 Status: Resolved (6) Anemia ICD Code: D64.9 Status: Acute (7) Acute kidney injury ICD Code: N17.9 Status: Resolved (8) Hyperglycemia ICD Code: R73.9 Status: Resolved (9) Conjunctivitis ICD Code: H10.9 Status: Resolved Assessment and Plan Cholecystitis, acalculous Gallbladder ultrasound indicated sludge in the gallbladder with thickening of the gallbladder wall at 5 mm,12/15 CT abdomen shows abnormal gallbladder with distention, diffuse wall thickening, septation and prominent sinuses. HIDA scan supports acute cholecystitis. GI and surgery were consulted. Status post Cholecystotomy, status post Levaquin. Status post tube exchange. 01/16: S/p ERCP 01/17/17 followed by laparoscopic converted to open cholecystectomy, with lysis of adhesions and extraction of common bile duct stones. -Continue morphine IV via GAUGE [employer] WEIGH MACHINE OPERATOR pump and oxycodone po prn pain scale; bowel regimen Constipation: no BM x3days per patient, passing flatus -change colace to Elisa-Colace bid -start Miralax daily -monitor for BM Hypertension: Continue lisinopril 10mg daily Metabolic encephalopathy, likely secondary to alcohol withdrawal, hepatic encephalopathy. Resolved Stop rifaximin, will need to switch back to lactulose if develops any confusion Alcohol withdrawal MVI, thiamine, folic acid Celexa for depression Anemia: Hemoglobin stable. No evidence of bleeding. Acute kidney injury: resolved, renal ultrasound was negative for any obstruction Hyperglycemia, diet controlled Hemoglobin A1c 6.6 Physical deconditioning Continue physical therapy 7 days a week DVT Prophylaxis: teds/SCDs Discussed with Dr. Uriarte. Discharge Planning Discharge when cleared by general surgery. Problem Qualifiers (1) Alcohol withdrawal: Qualified Code: F10.230 - Alcohol withdrawal, uncomplicated Desiree Comer PA-C Jan 18, 2017 13:21
[2017-01-18] MEDS ORDERED: POLYETHYLENE GLYCOL 17 GM PKG PO ONE (13:30)
--- NOTE | 2017-01-18 15:32 | MP ---
cc: PEGGY BERG MD DATE OF SURGERY: 01/16/2017 PREOPERATIVE DIAGNOSIS: Cholecystitis, cholelithiasis, choledocholithiasis. POSTOPERATIVE DIAGNOSIS: Cholecystitis, cholelithiasis, choledocholithiasis. OPERATIVE PROCEDURE PERFORMED: 1. Laparoscopic converted to open cholecystectomy. 2. Laparoscopic lysis of adhesions greater than 60 minutes. 3. Common bile duct exploration with ureteroscope. 4. Common bile duct stone extraction with basket extractor. 5. Intraoperative cholangiogram. 6. Intraoperative fluoroscopy. SURGEON: Peggy Berg MD. EFFICIENCY MINER: Pb Martin MD. (due to the complex nature of the laparoscopic case and open operative procedure was necessary for Dr. Martin to assist in camera control, retraction and surgical assistance). ANESTHESIA: General endotracheal anesthesia. IV FLUIDS: 2600 cc. ESTIMATED BLOOD LOSS: 450 cc. DRAINS: 10-British Phil drain placed in the right upper quadrant. COMPLICATIONS: None. WOUND CLASSIFICATION: Clean / contaminated. SPECIMENS: Gallbladder sent to pathology. FINDINGS: Significant thick adhesions with fibrosis tissue. Common bile duct stones on intraoperative cholangiogram confirmed with choledochoscope, ureteroscope, common bile duct periampullary duodenal diverticulum, good hemostasis, completion cholangiogram and completion choledochoscope showing completely patent common bile duct. Cholangiogram with likely distal duodenal diverticula. INDICATIONS FOR THE PROCEDURE: The patient is a 61-year-old male who initially presented with ethyl alcohol withdrawal, intoxication, transaminitis and high ammonia levels with minimal abdominal pain. The patient was treated medically throughout his hospital course and developed significant gallbladder dilation with cholecystitis. A cholecystostomy tube was placed with gallbladder decompression and purulent drainage noted. The patient was placed on antibiotics and continued medical workup and treatment. The patient's pain did improve from this point. The patient is status post approximately four weeks from placement of cholecystostomy tube. Therefore decision was made for cholangiogram which showed concern for distal common bile duct stone for which the patient underwent ERCP with findings of sludge and removal of this sludge. He also underwent sphincterotomy. His AST, ALT and total bilirubin were within complete normal limits. Decision was made at this point to undergo a laparoscopic cholecystectomy with full discussion with the patient regarding the high risk of needing to convert to an open procedure and potential intraoperative cholangiogram with possible exploration. This again was discussed with the patient in detail who stated an understanding and agreed. DESCRIPTION OF THE PROCEDURE IN DETAIL: The patient was taken to the operating room suite and placed in supine position. He was prepped and draped in the usual sterile fashion after induction of general endotracheal anesthesia. Brief time-out demonstrating the correct patient, procedure surgical site and all were in agreement with this. Attention was directed to the umbilicus. A small stab emmanuelle incision made. Prior to this, local anesthetic injected. Veress needle insufflated intra-abdominally confirmed with saline drop test. 2 liters pneumoperitoneum. The 5-mm trocar with laparoscope was inserted. On cursory inspection, no evidence of injury. On inspection of the right upper quadrant, there was noted to be a cholecystostomy tube in place. There were multiple adherent adhesions along with omentum that was stuck in the right upper quadrant. Three other ports were placed, one 12 mm epigastric followed by two 5 mm right subcostal ports. These were all done under direct visualization. Adhesions were taken down. This was a very tedious step and there were noted to be multiple adhesions at this point. The patient was placed in reverse Trendelenburg position and planed to the left. Adhesiolysis took greater than 60 minutes. The omentum was eventually cleared from the gallbladder. The gallbladder was noted to be significantly indurated and somewhat fibrosed. Once the adhesions were taken down, there was still difficulty in identifying the infundibulum and cystic duct. The gallbladder was attempted to be removed in a dome-down fashion using a hook electrocautery. This again was done very meticulously. The gallbladder was approximately 50% from the gallbladder fossa but again given the significant timing, amount of fibrosis and continued difficulty in identifying structures safely, decision at this point was made to convert to open. Again, Dr. Pb Martin assisted in this procedure. The laparoscope was removed. All ports were removed. The right subcostal ports were connected using a 10 blade scalpel. This was done through the skin. Further dissection with Bovie electrocautery through the multiple muscle layers. After we gained access to the abdomen and hemostasis was obtained, a lap pad was placed in the right upper quadrant to assist with hemostasis and the Bookwalter self-retaining retractor was placed to retract the small bowel cephalad malleable caudad and medial another thin malleable. This gave us adequate view and exposure of the gallbladder along with its components. Further dissection was continued with a right-angle clamp and bovie electrocautery. Again, there were significant adhesions that needed to be mobilized. The gallbladder had already been entered. Several stones were removed and the cystic duct was able to be cannulated with an olive-tip probe. Once we identified the direction of the cystic duct, further fibrous tissue was removed around this. The distal portion of the gallbladder was ligated and added to the pathology specimen. Next decision was made for intraoperative cholangiogram. A cholangiocatheter was obtained and full-strength contrast was obtained. The C-arm was focused in the right upper quadrant after the cholangiocath was secured into the cystic duct. This was done with a silk without evidence of leaking after securing it. The cholangiogram was obtained and there was noted to be contrast flowing into the duodenum, however, there was high concern that there were several stones in the distal common bile duct based on cholangiogram findings. Again, the cystic duct was cannulated to access the common bile duct. Next 1 milligrams of Glucagon was given in attempts to dilate the sphincter. Decision was made for a common bile duct exploration. This was done with a ureteroscope. The ureteroscope was obtained and advanced into the cystic duct down to the common bile duct. Upon exploration, there was noted to be a large stone mid-distal portion of the common bile duct. A basket grasper was obtained and introduced through the ureteroscope and I was able to snatch and remove and break up the common duct stone. The ureteroscope was continued to be used to flush the common bile duct. The common bile duct was intubated all the way through the distal to the ampulla and to the duodenum. Several pictures were taken and we confirmed on several occasions approximately three passes of the duodenoscope to make sure that the common bile duct was clear of any debris and stones. Once we were satisfied with this, a cholangiogram was then reobtained and again secured in place with 2-0 silk tie. Intraoperative cholangiogram did show some mild concern to the distal ampulla of the common bile duct showing some dilation and then questionable stone. Upon discussion with radiology and the fact that we had confirmed that the common bile duct was completely clear of any debris or stones, this was likely either a duodenal diverticula or after discussing with gastroenterology, the patient was likely to have had a pre-sphincterotomy and on top of this had a recent sphincterotomy that could be causing this image. Again noted that the choledochoscope was passed several times without any evidence of retained stones following this procedure. Once we were satisfied with this, the distal portion of the gallbladder was ligated. The cholangiocath was removed. A #0 silk tie was placed around the cystic duct and the cystic duct was ligated. Once we were satisfied with this, hemostasis was obtained to the right upper quadrant, gallbladder fossa and adhesions. Next the abdomen was thoroughly irrigated with normal saline. Following this, Janie was placed in the right upper quadrant surgical bed. Next a 10 British Jimy-Mitchell drain was obtained through a separate stab emmanuelle incision was made and the Jimy-Mitchell drain was placed in the right upper quadrant in the gallbladder fossa. This was secured in place with a 3-0 nylon suture. Next the omentum was placed anatomically and placed back where the gallbladder fossa is. The abdomen was then closed in several layers with two layers of two #1 looped PDS were used in a running fashion to approximate fascial layers. Again, hemostasis was obtained. The skin was then closed with akua. A DONOVAN dressing placed. The epigastric port was closed with #0 Vicryl on a UR6 [id number] fashion followed by akua. The umbilical trocar site was also closed with akua. Local anesthetic was injected at all incision sites. The patient tolerated the procedure well. There were no intraoperative complications. All lap and instrument counts were correct at the end of the procedure. The patient was extubated and taken stable to the post-anesthesia care unit. MD ALISSA Baker/TOMAS /9:24 PM /2:51 PM ELI
[2017-01-18 16:33] VITALS: BP 135/89; PULSE 93; RESP 20; TEMP 99.2; O2SAT 97
[2017-01-18] MEDS: MORPHINE SULFATE 30 MG/30 ML PCA IV SCH (19:38)
[2017-01-18 20:32] VITALS: BP 115/79; PULSE 97; RESP 18; TEMP 100; O2SAT 96
[2017-01-18] MEDS: DOCUSATE SODIUM 50 MG/SENNA 8.6 MG TAB PO SCH (22:21)
[2017-01-19 00:21] VITALS: BP 134/89; PULSE 95; RESP 18; TEMP 97.3; O2SAT 95
[2017-01-19 04:14] VITALS: BP 124/88; PULSE 84; RESP 16; TEMP 97.2; O2SAT 96
[2017-01-19] MEDS: METOCLOPRAMIDE HCL 10 MG/2 ML VIAL IV PUSH SCH ×3 (05:51→23:23)
[2017-01-19] MEDS: MULTIVITAMIN TAB PO SCH (08:09)
[2017-01-19] MEDS: CITALOPRAM HYDROBROMIDE 20 MG TAB PO SCH (08:09)
[2017-01-19] MEDS: THIAMINE HCL 100 MG TAB PO SCH (08:10)
[2017-01-19] MEDS: PANTOPRAZOLE SOD 40 MG DELAYED RELEASE TAB PO SCH (08:10)
[2017-01-19] MEDS: FOLIC ACID 1 MG TAB PO SCH (08:11)
[2017-01-19] MEDS: CALCIUM CARBONATE 500 MG CHEWABLE TAB CHEW SCH ×2 (08:11→23:23)
[2017-01-19] MEDS: LISINOPRIL 10 MG TAB PO SCH (08:14)
[2017-01-19] MEDS: POLYETHYLENE GLYCOL 17 GM PKG PO SCH (08:14)
[2017-01-19 08:38] VITALS: BP 111/73; PULSE 76; RESP 18; TEMP 97.5; O2SAT 95
[2017-01-19] MEDS: DOCUSATE SODIUM 50 MG/SENNA 8.6 MG TAB PO SCH ×2 (09:26→23:23)
--- NOTE | 2017-01-19 10:45 | HHI.PR ---
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 wants some food. Objective Vitals/I&O Vital Signs Date Time Temp Pulse Resp B/P Pulse Ox O2 Delivery O2 Flow Rate FiO2 01/19/17 08:38 97.5 76 18 111/73 95 01/16/17 20:00 Nasal Cannula 2 Cardiovascular: Regular Lungs: Clear Abdomen: Non-distended, Post-op tenderness, BS normal Narrative Exam iain with minimal serous output, no bile Wound Wound : Wound Location: Abdomen Appearance: Clean & Dry Dressing: VAC A/P Assessment and Plan pod 2 open michael, cbd exploration doing well regular diet transition to po meds. Gary Bassett MD Jan 19, 2017 10:45
[2017-01-19 12:00] VITALS: BP 105/78; PULSE 73; RESP 18; TEMP 97; O2SAT 95
--- NOTE | 2017-01-19 12:20 | HHI.PR ---
Subjective Remarks Follow-up for abdominal pain status post cholecystectomy. The patient continues to complain of abdominal pain and distention today, but states it is continuing to slowly improve. He denies any nausea or vomiting overnight. He had 2 bowel movements overnight. He is excited to try more solid food today. Objective Vitals Vital Signs Date Time Temp Pulse Resp B/P Pulse Ox O2 Delivery O2 Flow Rate FiO2 01/19/17 08:38 97.5 76 18 111/73 95 01/19/17 04:14 97.2 84 16 124/88 96 01/19/17 00:21 97.3 95 18 134/89 95 01/18/17 20:32 100.0 97 18 115/79 96 01/18/17 19:38 18 01/18/17 16:33 99.2 93 20 135/89 97 I/O 01/18/17 01/18/17 01/18/17 01/19/17 01/19/17 01/19/17 07:00 15:00 23:00 07:00 15:00 23:00 Intake Total 2500 ml 1080 ml Output Total 1535 ml 420 ml 210 ml 1200 ml Balance 965 ml 660 ml -210 ml -1200 ml Intake Oral 2500 ml 1080 ml Output Urine Total 1500 ml 420 ml 210 ml 1200 ml Drainage Total 35 ml # Voids 2 2 # Bowel Movements 0 1 1 Result Diagram: 01/18/17 0558 01/18/17 0558 Imaging Last Impressions Cholangiogram 01/16/17 0000 Signed Impressions: Service Date/Time: January 14:27 - CONCLUSION: No residual evidence of common duct stone. Karri Barnes MD GI Procedure 01/15/17 0000 Signed Impressions: Service Date/Time: Sunday, January 15, 2017 16:39 - CONCLUSION: ERCP as above. Hemant Muñoz MD Abdomen/Pelvis CT 01/02/17 0000 Signed Impressions: Service Date/Time: December 21:17 - CONCLUSION: Cholecystoscopy tube in good position. Chato Amezcua MD Catheter Change 12/27/16 0000 Signed Impressions: Service Date/Time: Tuesday, December 27, 2016 16:47 - CONCLUSION: Uncomplicated biliary catheter change. Hemant Muñoz MD Percutaneous Cholangiogram 12/17/16 0000 Signed Impressions: Service Date/Time: Saturday, December 17, 2016 16:18 - CONCLUSION: Uncomplicated percutaneous cholecystostomy as above. Chato Glass MD Hepatobiliary Scan Nuclear Medicine 12/16/16 0000 Signed Impressions: Service Date/Time: Friday, December 16, 2016 13:03 - CONCLUSION: 1. Nonvisualization of the gallbladder characteristic of acute cholecystitis Jez Tay MD ADDENDUM: The patient was brought back for imaging at 24 hours. Still no gallbladder activity is identified. Concerning for calculus or acalculous cholecystitis. Karri Barnes MD Gall Bladder Ultrasound 12/14/16 1110 Signed Impressions: Service Date/Time: Wednesday, December 14, 2016 12:41 - CONCLUSION: 1. There is sludge in the gallbladder with thickening of the gallbladder wall at 5 mm. This is characteristic of chronic gallbladder disease. 2. No biliary tract obstruction. 3. Fatty infiltration of the liver. Feng Singh MD Renal Ultrasound 12/03/16 0000 Signed Impressions: Service Date/Time: Saturday, December 03, 2016 14:57 - CONCLUSION: 1. No evidence of obstruction 2. Debris within the bladder which may be related to infection or hemorrhage Jez Tay MD Head CT 12/02/16 0000 Signed Impressions: Service Date/Time: Friday, December 02, 2016 15:51 - CONCLUSION: No acute disease. Juwan Rodríguez MD FACR Liver Ultrasound 11/27/16 0000 Signed Impressions: Service Date/Time: Sunday, November 27, 2016 15:12 - CONCLUSION: 1. Mild hepatomegaly. The echotexture of the liver is consistent with hepatic steatosis. 2. Cholelithiasis. The common bile duct is not visualized on this exam secondary to bowel gas. No evidence of intrahepatic biliary obstruction. 3. Given the cortical thinning and increased echogenicity concerning for renal disease. Recommend correlating with the patient's GFR.. Kateryna Lopez MD Chest X-Ray 11/26/16 1503 Signed Impressions: Service Date/Time: Saturday, November 26, 2016 15:35 - CONCLUSION: No acute cardiopulmonary abnormality is identified. Chato Meyer MD Objective Remarks GENERAL: Well-developed well-nourished. In no acute distress. SKIN: Warm and dry. No lesions noted. HEENT: Normocephalic. Pupils equal and round. Mucous membranes pink and moist. CARDIOVASCULAR: Regular rate and rhythm. No murmur appreciated. RESPIRATORY: No accessory muscle use. Clear to auscultation. Breath sounds equal bilaterally. GASTROINTESTINAL: Abdomen soft, non-tender, mildly distended. Bowel sounds hyperactive. Cholecystostomy tube in place, surgical dressing in place, CDI. MUSCULOSKELETAL: No obvious deformities. No clubbing or cyanosis. No edema. NEUROLOGICAL: Awake and alert. No focal neurological deficits. Moves upper and lower extremities spontaneously. Normal speech. PSYCHIATRIC: Appropriate mood and affect; insight and judgment normal. Procedures 12/17/16: Cholecystostomy tube placement 12/27/16: Cholecystostomy tube exchanged 01/15/17: ERCP 01/16/17: lap converted to open cholecystectomy, with laparoscopic lysis of adhesions open common bile exploration through cystic duct with ureterscope and cbd stone extraction intraoperative cholangiogram intraoperative fluoroscopy Date of Removal: Jan 18, 2017 A/P Problem List: (1) Cholecystitis ICD Code: K81.9 Status: Acute (2) HTN (hypertension) ICD Code: I10 Status: Acute (3) Metabolic encephalopathy ICD Code: G93.41 Status: Resolved (4) Alcohol withdrawal ICD Code: F10.239 Status: Resolved (5) Elevated LFTs ICD Code: R94.5 Status: Resolved (6) Anemia ICD Code: D64.9 Status: Acute (7) Acute kidney injury ICD Code: N17.9 Status: Resolved (8) Hyperglycemia ICD Code: R73.9 Status: Resolved (9) Conjunctivitis ICD Code: H10.9 Status: Resolved Assessment and Plan 62-year-old male with a past medical history of alcohol dependence and deconditioning here with: Cholecystitis, acalculous Gallbladder ultrasound indicated sludge in the gallbladder with thickening of the gallbladder wall at 5 mm,12/15 CT abdomen shows abnormal gallbladder with distention, diffuse wall thickening, septation and prominent sinuses. HIDA scan supports acute cholecystitis. GI and surgery were consulted. Status post Cholecystotomy, status post Levaquin. Status post tube exchange. 01/16: S/p ERCP 01/17/17 followed by laparoscopic converted to open cholecystectomy, with lysis of adhesions and extraction of common bile duct stones. 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 Oxycodone po prn pain scale; bowel regimen Diet per surgery Constipation: Resolved today. -Continue Elisa-Colace bid and MiraLAX daily -monitor BMs Hypertension: Continue lisinopril 10mg daily Metabolic encephalopathy, likely secondary to alcohol withdrawal, hepatic encephalopathy. Resolved Stopped on rifaximin, will need to switch back to lactulose if develops any confusion Alcohol withdrawal MVI, thiamine, folic acid Celexa for depression Anemia: Hemoglobin stable. No evidence of bleeding. Acute kidney injury: resolved, renal ultrasound was negative for any obstruction Hyperglycemia, diet controlled Hemoglobin A1c 6.6 Physical deconditioning Continue physical therapy 7 days a week DVT Prophylaxis: teds/SCDs Problem Qualifiers (1) Alcohol withdrawal: Qualified Code: F10.230 - Alcohol withdrawal, uncomplicated Sean Friedman Jan 19, 2017 12:20
[2017-01-19 16:00] VITALS: BP 122/78; PULSE 80; RESP 18; TEMP 97.9; O2SAT 97
[2017-01-19] MEDS: MORPHINE SULFATE 30 MG/30 ML PCA IV SCH (16:22)
[2017-01-19 20:00] VITALS: BP 115/76; PULSE 76; RESP 20; TEMP 97.8; O2SAT 93
[2017-01-20] VITALS: BP_SYST 115; BP_SYST 118; BP_DIAS 74; BP_DIAS 76; PULSE 75; PULSE 76; RESP 20; TEMP 97.8; TEMP 98.3; O2SAT 93; O2SAT 94
[2017-01-20 04:00] VITALS: BP 105/74; PULSE 79; RESP 20; TEMP 96.7; O2SAT 97
[2017-01-20] MEDS: METOCLOPRAMIDE HCL 10 MG/2 ML VIAL IV PUSH SCH ×3 (05:55→22:57)
[2017-01-20 08:00] VITALS: BP 103/75; PULSE 96; RESP 21; TEMP 95.3; O2SAT 95
[2017-01-20] MEDS: MULTIVITAMIN TAB PO SCH (10:10)
[2017-01-20] MEDS: POLYETHYLENE GLYCOL 17 GM PKG PO SCH (10:10)
[2017-01-20] MEDS: THIAMINE HCL 100 MG TAB PO SCH (10:10)
[2017-01-20] MEDS: CALCIUM CARBONATE 500 MG CHEWABLE TAB CHEW SCH ×2 (10:10→22:56)
[2017-01-20] MEDS: CITALOPRAM HYDROBROMIDE 20 MG TAB PO SCH (10:11)
[2017-01-20] MEDS: LISINOPRIL 10 MG TAB PO SCH (10:11)
[2017-01-20] MEDS: DOCUSATE SODIUM 50 MG/SENNA 8.6 MG TAB PO SCH ×2 (10:11→22:56)
[2017-01-20] MEDS: FOLIC ACID 1 MG TAB PO SCH (10:11)
[2017-01-20] MEDS: PANTOPRAZOLE SOD 40 MG DELAYED RELEASE TAB PO SCH (10:11)
[2017-01-20 12:00] VITALS: BP 130/83; PULSE 78; RESP 20; TEMP 96.8; O2SAT 100
--- NOTE | 2017-01-20 12:15 | HHI.PR ---
Subjective Subjective Notes no acute issues, tolerating diet, +bms Objective Vitals/I&O Vital Signs Date Time Temp Pulse Resp B/P Pulse Ox O2 Delivery O2 Flow Rate FiO2 01/20/17 08:00 95.3 96 21 103/75 95 01/16/17 20:00 Nasal Cannula 2 Abdomen: Other (incisional tenderness, scant drainage on dressing) A/P Assessment and Plan s/p lap converted to open michael with IOC and CBD exploration POD 3 Plan OOB pain control reg diet will change dressing waldemar henderson f/u labs Nicolas Berg MD Jan 20, 2017 12:15
--- NOTE | 2017-01-20 12:44 | HHI.PR ---
Subjective Remarks Follow-up for abdominal pain status post cholecystectomy. Patient has tolerated full diet. No nausea or vomiting. He continues to pass flatus, but no BM. Abdomen continues to be distended. Trying to wean himself off of RELATIONSHIP MGR. Objective Vitals Vital Signs Date Time Temp Pulse Resp B/P Pulse Ox O2 Delivery O2 Flow Rate FiO2 01/20/17 12:00 96.8 78 20 130/83 100 01/20/17 08:00 95.3 96 21 103/75 95 01/20/17 04:00 96.7 79 20 105/74 97 01/20/17 00:00 98.3 75 20 118/74 94 01/19/17 20:00 97.8 76 20 115/76 93 01/19/17 16:22 15 01/19/17 16:00 97.9 80 18 122/78 97 I/O 01/19/17 01/19/17 01/19/17 01/20/17 01/20/17 01/20/17 07:00 15:00 23:00 07:00 15:00 23:00 Intake Total 560 ml 360 ml 360 ml Output Total 1225 ml 725 ml 400 ml 25 ml Balance -1225 ml -165 ml -40 ml 335 ml Intake Oral 560 ml 360 ml 360 ml Output Urine Total 1200 ml 725 ml 400 ml Drainage Total 25 ml 25 ml # Voids 2 6 1 # Bowel Movements 1 4 1 0 Result Diagram: 01/18/17 0558 01/18/17 0558 Objective Remarks GENERAL: Well-developed well-nourished. In no acute distress. SKIN: Warm and dry. No lesions noted. HEENT: Normocephalic. Pupils equal and round. Mucous membranes pink and moist. CARDIOVASCULAR: Regular rate and rhythm. No murmur appreciated. RESPIRATORY: No accessory muscle use. Clear to auscultation. Breath sounds equal bilaterally. GASTROINTESTINAL: Abdomen soft, non-tender, mildly distended. Bowel sounds x4. Cholecystostomy tube in place, surgical dressings in place, CDI. MUSCULOSKELETAL: No obvious deformities. No clubbing or cyanosis. No edema. NEUROLOGICAL: Awake and alert. No focal neurological deficits. Moves upper and lower extremities spontaneously. Normal speech. PSYCHIATRIC: Appropriate mood and affect; insight and judgment normal. Procedures 12/17/16: Cholecystostomy tube placement 12/27/16: Cholecystostomy tube exchanged 01/15/17: ERCP 01/16/17: lap converted to open cholecystectomy, with laparoscopic lysis of adhesions open common bile exploration through cystic duct with ureterscope and cbd stone extraction intraoperative cholangiogram intraoperative fluoroscopy Date of Removal: Jan 18, 2017 A/P Problem List: (1) Cholecystitis ICD Code: K81.9 Status: Acute (2) HTN (hypertension) ICD Code: I10 Status: Acute (3) Metabolic encephalopathy ICD Code: G93.41 Status: Resolved (4) Alcohol withdrawal ICD Code: F10.239 Status: Resolved (5) Elevated LFTs ICD Code: R94.5 Status: Resolved (6) Anemia ICD Code: D64.9 Status: Acute (7) Acute kidney injury ICD Code: N17.9 Status: Resolved (8) Hyperglycemia ICD Code: R73.9 Status: Resolved (9) Conjunctivitis ICD Code: H10.9 Status: Resolved Assessment and Plan 62-year-old male with a past medical history of alcohol dependence and deconditioning here with: Cholecystitis, acalculous Gallbladder ultrasound indicated sludge in the gallbladder with thickening of the gallbladder wall at 5 mm,12/15 CT abdomen shows abnormal gallbladder with distention, diffuse wall thickening, septation and prominent sinuses. HIDA scan supports acute cholecystitis. GI and surgery were consulted. Status post Cholecystotomy, status post Levaquin. Status post tube exchange. 01/16: S/p ERCP 01/17/17 followed by laparoscopic converted to open cholecystectomy, with lysis of adhesions and extraction of common bile duct stones. Continue morphine IV RELATIONSHIP MGR for now. Oxycodone po prn pain scale; bowel regimen Diet as tolerated per surgery Constipation: -Continue Elisa-Colace bid and MiraLAX daily -monitor BMs Hypertension: Continue lisinopril 10mg daily Metabolic encephalopathy, likely secondary to alcohol withdrawal, hepatic encephalopathy. Resolved Stopped on rifaximin, will need to switch back to lactulose if develops any confusion Alcohol withdrawal MVI, thiamine, folic acid Celexa for depression Anemia: Hemoglobin stable. No evidence of bleeding. Acute kidney injury: resolved, renal ultrasound was negative for any obstruction Hyperglycemia, diet controlled Hemoglobin A1c 6.6 Resume diabetic diet Physical deconditioning Continue physical therapy 7 days a week DVT Prophylaxis: teds/SCDs Problem Qualifiers (1) Alcohol withdrawal: Qualified Code: F10.230 - Alcohol withdrawal, uncomplicated Long,Sean D. PA Jan 20, 2017 12:43
[2017-01-20 16:00] VITALS: BP 126/84; PULSE 80; RESP 21; TEMP 98.1; O2SAT 98
[2017-01-20] MEDS ORDERED: PIPERACIL-TAZO 3.375 GM PREMIX 50 ML IV SCH (16:45)
[2017-01-20] MEDS: MORPHINE SULFATE 30 MG/30 ML PCA IV SCH (16:53)
[2017-01-20] MEDS: PIPERACIL-TAZO 3.375 GM PREMIX 50 ML IV SCH (17:20)
[2017-01-20 20:00] VITALS: BP 137/94; PULSE 72; RESP 18; TEMP 97.2; O2SAT 95
[2017-01-21] VITALS: BP 133/79; PULSE 98; RESP 18; TEMP 97; O2SAT 93
[2017-01-21] MEDS: PIPERACIL-TAZO 3.375 GM PREMIX 50 ML IV SCH ×3 (02:00→17:25)
[2017-01-21 04:00] VITALS: BP 135/99; PULSE 79; RESP 18; TEMP 97.5; O2SAT 97
[2017-01-21] MEDS: METOCLOPRAMIDE HCL 10 MG/2 ML VIAL IV PUSH SCH ×3 (05:13→21:20)
[2017-01-21 08:00] VITALS: BP 133/85; PULSE 75; RESP 19; TEMP 97.2; O2SAT 97
[2017-01-21] MEDS: MULTIVITAMIN TAB PO SCH (09:31)
[2017-01-21] MEDS: LISINOPRIL 10 MG TAB PO SCH (09:31)
[2017-01-21] MEDS: POLYETHYLENE GLYCOL 17 GM PKG PO SCH (09:31)
[2017-01-21] MEDS: THIAMINE HCL 100 MG TAB PO SCH (09:31)
[2017-01-21] MEDS: FOLIC ACID 1 MG TAB PO SCH (09:31)
[2017-01-21] MEDS: CALCIUM CARBONATE 500 MG CHEWABLE TAB CHEW SCH ×2 (09:31→21:21)
[2017-01-21] MEDS: CITALOPRAM HYDROBROMIDE 20 MG TAB PO SCH (09:31)
[2017-01-21] MEDS: DOCUSATE SODIUM 50 MG/SENNA 8.6 MG TAB PO SCH ×2 (09:31→21:21)
[2017-01-21] MEDS: PANTOPRAZOLE SOD 40 MG DELAYED RELEASE TAB PO SCH (09:31)
[2017-01-21 10:38] LABS: AUTOMATED NEUTROPHIL # 5.5 TH/MM3 (1.8-7.7); BASOPHIL # 0.1 TH/MM3 (0-0.2); BASOPHIL % 0.9 % (0.0-2.0); EOSINOPHIL # 0.3 TH/MM3 (0-0.4); EOSINOPHIL % 3.3 % (0.0-4.0); HEMATOCRIT 34.4 % (39.0-51.0); HEMO FLAGS DIFF FINAL; LYMPH % 19.5 % (9.0-44.0); LYMPHOCYTE # 1.7 TH/MM3 (1.0-4.8); MEAN CORPUSCULAR HEMOGLOBIN 31.9 PG (27.0-34.0); MEAN CORPUSCULAR HGB CONC 34.3 % (32.0-36.0); MONO % 12.3 % (0.0-8.0); PLATELET COUNT 332 TH/MM3 (150-450); RED CELL DISTRIBUTION WIDTH 13.7 % (11.6-17.2); WHITE BLOOD COUNT 8.6 TH/MM3 (4.0-11.0)
[2017-01-21 11:11] LABS: ALKALINE PHOSPHATASE 54 U/L (45-117); ALT (GPT) 11 U/L (12-78); ANION GAP 12 MEQ/L (5-15); AST (GOT) 17 U/L (15-37); BICARBONATE 22.3 MEQ/L (21.0-32.0); BLOOD UREA NITROGEN 4 MG/DL (7-18); CHLORIDE 103 MEQ/L (98-107); GLOMERULAR FILTRATION RATE 99 ML/MIN (>89); SODIUM (NA) 137 MEQ/L (136-145); TOTAL BILIRUBIN ADULT 0.9 MG/DL (0.2-1.0)
[2017-01-21 11:15] LABS: POTASSIUM 2.9 MEQ/L (3.5-5.1)
[2017-01-21] MEDS: POTASSIUM CHLORIDE 20 MEQ CONTROLLED RELEASE TAB PO SCH ×2 (11:40→21:21)
[2017-01-21 11:54] VITALS: BP 142/96; PULSE 92; RESP 19; TEMP 96.3; O2SAT 95
[2017-01-21 14:00] VITALS: BP 169/94; PULSE 77; RESP 20; TEMP 98.6; O2SAT 97
[2017-01-21] MEDS ORDERED: MAGNESIUM SULFATE 1 GM PREMIX 100 ML IV ONE (14:45)
--- NOTE | 2017-01-21 17:36 | HHI.PR ---
Subjective Remarks Follow up for abdominal pain, constipation, s/p cholecystectomy. The patient reports feeling slightly better today. He has had 3 loose BMs today. Denies fevers/chills. Abdomen feeling less distended. Had some slight nausea that went away on its own this morning. Tolerating oral intake. He states he is weaning himself off the IV morphine pump, now using once an hour per the patient. He has no other medical complaints at this time. Objective Vitals Vital Signs Date Time Temp Pulse Resp B/P Pulse Ox O2 Delivery O2 Flow Rate FiO2 01/21/17 14:00 98.6 77 20 169/94 97 01/21/17 11:54 96.3 92 19 142/96 95 01/21/17 08:00 97.2 75 19 133/85 97 01/21/17 04:00 97.5 79 18 135/99 97 01/21/17 00:00 97.0 98 18 133/79 93 01/20/17 20:00 97.2 72 18 137/94 95 I/O 01/20/17 01/20/17 01/20/17 01/21/17 01/21/17 01/21/17 07:00 15:00 23:00 07:00 15:00 23:00 Intake Total 360 ml 480 ml 650 ml Output Total 25 ml 1000 ml Balance 335 ml 480 ml -1000 ml 650 ml Intake Oral 360 ml 480 ml 650 ml Output Urine Total 1000 ml Drainage Total 25 ml # Voids 1 2 3 # Bowel Movements 0 1 1 Result Diagram: 01/21/17 0855 01/21/17 0855 Imaging Last Impressions Cholangiogram 01/16/17 0000 Signed Impressions: Service Date/Time: January 14:27 - CONCLUSION: No residual evidence of common duct stone. Karri Barnes MD GI Procedure 01/15/17 0000 Signed Impressions: Service Date/Time: Sunday, January 15, 2017 16:39 - CONCLUSION: ERCP as above. Hemant Muñoz MD Abdomen/Pelvis CT 01/02/17 0000 Signed Impressions: Service Date/Time: December 21:17 - CONCLUSION: Cholecystoscopy tube in good position. Chato Amezcua MD Catheter Change 12/27/16 0000 Signed Impressions: Service Date/Time: Tuesday, December 27, 2016 16:47 - CONCLUSION: Uncomplicated biliary catheter change. Hemant Muñoz MD Percutaneous Cholangiogram 12/17/16 0000 Signed Impressions: Service Date/Time: Saturday, December 17, 2016 16:18 - CONCLUSION: Uncomplicated percutaneous cholecystostomy as above. Chato Glass MD Hepatobiliary Scan Nuclear Medicine 12/16/16 0000 Signed Impressions: Service Date/Time: Friday, December 16, 2016 13:03 - CONCLUSION: 1. Nonvisualization of the gallbladder characteristic of acute cholecystitis Jez Tay MD ADDENDUM: The patient was brought back for imaging at 24 hours. Still no gallbladder activity is identified. Concerning for calculus or acalculous cholecystitis. Karri Barnes MD Gall Bladder Ultrasound 12/14/16 1110 Signed Impressions: Service Date/Time: Wednesday, December 14, 2016 12:41 - CONCLUSION: 1. There is sludge in the gallbladder with thickening of the gallbladder wall at 5 mm. This is characteristic of chronic gallbladder disease. 2. No biliary tract obstruction. 3. Fatty infiltration of the liver. Feng Singh MD Renal Ultrasound 12/03/16 0000 Signed Impressions: Service Date/Time: Saturday, December 03, 2016 14:57 - CONCLUSION: 1. No evidence of obstruction 2. Debris within the bladder which may be related to infection or hemorrhage Jez Tay MD Head CT 12/02/16 0000 Signed Impressions: Service Date/Time: Friday, December 02, 2016 15:51 - CONCLUSION: No acute disease. Juwan Rodríguez MD FACR Liver Ultrasound 11/27/16 0000 Signed Impressions: Service Date/Time: Sunday, November 27, 2016 15:12 - CONCLUSION: 1. Mild hepatomegaly. The echotexture of the liver is consistent with hepatic steatosis. 2. Cholelithiasis. The common bile duct is not visualized on this exam secondary to bowel gas. No evidence of intrahepatic biliary obstruction. 3. Given the cortical thinning and increased echogenicity concerning for renal disease. Recommend correlating with the patient's GFR.. Kateryna Lopez MD Chest X-Ray 11/26/16 1503 Signed Impressions: Service Date/Time: Saturday, November 26, 2016 15:35 - CONCLUSION: No acute cardiopulmonary abnormality is identified. Chato Meyer MD Objective Remarks GENERAL: Well-nourished, well-developed middle aged male patient in [place]. SKIN: Warm and dry. No rash. HEENT: Normocephalic. Atraumatic. Pupils equal and round. No scleral icterus. No injection or drainage. Mucous membranes pink and moist. NECK: Supple. Trachea midline. CARDIOVASCULAR: Regular rate and rhythm. S1, S2 noted. No murmur appreciated. RESPIRATORY: No accessory muscle use. Clear to auscultation. Breath sounds equal bilaterally. GASTROINTESTINAL: Abdomen soft, nondistended, mild diffuse right sided abdominal TTP. Normoactive bowel sounds x4. Cholecystostomy tube in place, surgical dressing in place, CDI. MUSCULOSKELETAL: No obvious deformities. Extremities without clubbing, cyanosis , or edema. NEUROLOGICAL: Awake and alert. No obvious cranial nerve deficits. Motor grossly within normal limits. Normal speech. PSYCHIATRIC: Appropriate mood and affect; insight and judgment normal. Procedures 12/17/16: Cholecystostomy tube placement 12/27/16: Cholecystostomy tube exchanged 01/15/17: ERCP 01/16/17: lap converted to open cholecystectomy, with laparoscopic lysis of adhesions open common bile exploration through cystic duct with ureterscope and cbd stone extraction intraoperative cholangiogram intraoperative fluoroscopy Medications and IVs Current Medications Medications (Trade) Dose Ordered Sig/Ludwig Route Start Time Stop Time Status Last Admin (Tylenol) 650 mg Q4H PRN PO 11/26/16 16:45 (Vitamin B1) 100 mg DAILY PO 11/27/16 09:00 01/21/17 09:31 (Theragran) 1 tab DAILY PO 11/27/16 09:00 01/21/17 09:31 (Folate) 1 mg DAILY PO 11/27/16 09:00 01/21/17 09:31 (Protonix) 40 mg DAILY PO 11/27/16 09:00 01/21/17 09:31 (CeleXA) 20 mg DAILY PO 11/27/16 12:35 01/21/17 09:31 (Tums Chew) 500 mg Q12HR CHEW 11/27/16 21:00 01/21/17 09:31 (Mag-Al Plus Susp Liq) 30 ml Q6H PRN PO 11/28/16 12:15 11/30/16 12:07 (Benadryl) 25 mg HS PRN PO 11/29/16 11:45 12/19/16 20:45 (Zofran Odt) 4 mg Q6H PRN PO 12/07/16 14:30 12/10/16 14:24 (Roxicodone) 10 mg Q6HR PRN PO 01/09/17 21:00 01/20/17 22:56 (Roxicodone) 5 mg Q6H PRN PO 01/09/17 21:00 (Prinivil) 10 mg DAILY PO 01/15/17 09:00 01/21/17 09:31 (Narcan Inj) 0.4 mg UNSCH PRN IV 01/16/17 16:00 (Morphine 1 Mg/ ml SUPERVISOR CD AREA) 30 mg UNSCH IV 01/16/17 16:00 01/20/17 16:53 [employer]PERVISOR CD [employer] Dosage Infused (Pha) 1 Q8HR .XX 01/16/17 16:00 01/17/17 14:00 (Reglan Inj) 10 mg Q8HR IV PUSH 01/17/17 23:30 01/21/17 13:38 (Elisa-Colace) 2 tab BID PO 01/18/17 21:00 01/21/17 09:31 Polyethylene Glycol 17 gm 17 gm DAILY PO 01/19/17 09:00 01/21/17 09:31 (Zosyn 3.375 Gm Premix) 50 ml @ 100 mls/hr Q8H IV 01/20/17 18:00 01/21/17 17:25 (KCl) 40 meq Q12HR PO 01/21/17 11:30 01/21/17 11:40 Urinary Catheter: No Date of Removal: Jan 18, 2017 A/P Problem List: (1) Cholecystitis ICD Code: K81.9 Status: Acute (2) HTN (hypertension) ICD Code: I10 Status: Acute (3) Metabolic encephalopathy ICD Code: G93.41 Status: Resolved (4) Alcohol withdrawal ICD Code: F10.239 Status: Resolved (5) Elevated LFTs ICD Code: R94.5 Status: Resolved (6) Anemia ICD Code: D64.9 Status: Acute (7) Acute kidney injury ICD Code: N17.9 Status: Resolved (8) Hyperglycemia ICD Code: R73.9 Status: Resolved (9) Conjunctivitis ICD Code: H10.9 Status: Resolved Assessment and Plan 62-year-old male with a past medical history of alcohol dependence and deconditioning here with: Cholecystitis, acalculous Gallbladder U/S indicated sludge in the gallbladder with thickening of the gallbladder wall at 5 mm,12/15 CT abdomen shows abnormal gallbladder with distention, diffuse wall thickening, septation and prominent sinuses. HIDA scan supports acute cholecystitis. GI and surgery were consulted. Status post Cholecystotomy, status post Levaquin. Status post tube exchange. 01/16: S/p ERCP 01/17/17 followed by laparoscopic converted to open cholecystectomy, with lysis of adhesions and extraction of common bile duct stones. Continue morphine IV SUPERVISOR CD AREA for now. Oxycodone po prn pain scale; bowel regimen Diet as tolerated per surgery --Continue to wean off IV morphine pump, hopefully discontinue soon. Constipation: -Continue Elisa-Colace bid and MiraLAX daily -monitor BMs, s/p 3 loose BMs today, resolved Hypertension: Continue lisinopril 10mg daily Metabolic encephalopathy, likely secondary to alcohol withdrawal, hepatic encephalopathy. Resolved Stopped on rifaximin, will need to switch back to lactulose if develops any confusion Alcohol withdrawal MVI, thiamine, folic acid Celexa for depression Anemia: Hemoglobin stable. No evidence of bleeding. Acute kidney injury: resolved, renal ultrasound was negative for any obstruction Hyperglycemia, diet controlled Hemoglobin A1c 6.6 Resume diabetic diet Physical deconditioning Continue physical therapy 7 days a week DVT Prophylaxis: teds/SCDs Discussed with RN and Dr. Jones. Discharge Planning Discharge when cleared by general surgery. Problem Qualifiers (1) Alcohol withdrawal: Qualified Code: F10.230 - Alcohol withdrawal, uncomplicated Desiree Comer PA-C Jan 21, 2017 17:36 Fady Jones MD Jan 21, 2017 21:51
[2017-01-21 20:02] VITALS: BP 127/87; PULSE 77; RESP 18; TEMP 97.9; O2SAT 98
--- NOTE | 2017-01-21 21:22 | HHI.PR ---
Subjective Subjective Notes no acute issues, tolerating po +bms, still with abd pain but better Objective Vitals/I&O Vital Signs Date Time Temp Pulse Resp B/P Pulse Ox O2 Delivery O2 Flow Rate FiO2 01/21/17 20:02 97.9 77 18 127/87 98 Labs Laboratory Tests Test 01/21/17 08:55 White Blood Count 8.6 Red Blood Count 3.70 Hemoglobin 11.8 Hematocrit 34.4 Mean Corpuscular Volume 93.0 Mean Corpuscular Hemoglobin 31.9 Mean Corpuscular Hemoglobin 34.3 Concent Red Cell Distribution Width 13.7 Platelet Count 332 Mean Platelet Volume 9.8 Neutrophils (%) (Auto) 64.0 Lymphocytes (%) (Auto) 19.5 Monocytes (%) (Auto) 12.3 Eosinophils (%) (Auto) 3.3 Basophils (%) (Auto) 0.9 Neutrophils # (Auto) 5.5 Lymphocytes # (Auto) 1.7 Monocytes # (Auto) 1.1 Eosinophils # (Auto) 0.3 Basophils # (Auto) 0.1 CBC Comment DIFF FINAL Differential Comment Sodium Level 137 Potassium Level 2.9 Chloride Level 103 Carbon Dioxide Level 22.3 Anion Gap 12 Blood Urea Nitrogen 4 Creatinine 0.79 Estimat Glomerular Filtration 99 Rate Random Glucose 82 Calcium Level 8.6 Magnesium Level 1.6 Total Bilirubin 0.9 Aspartate Amino Transf 17 (AST/SGOT) Alanine Aminotransferase 11 (ALT/SGPT) Alkaline Phosphatase 54 Total Protein 6.9 Albumin 2.6 Cardiovascular: Regular Lungs: Clear Abdomen: Other (soft mild ttp, scant drainage on dressing iain serosang) A/P Assessment and Plan s/p lap converted to open michael with IOC and CBD exploration POD 4 Plan OOB pain control reg diet will change dressing reglan, zosyn d/c jira developer, po pain control Nicolas Berg MD Jan 21, 2017 21:22
[2017-01-21] MEDS ORDERED: MORPHINE SULFATE 4 MG/ML INJ IV PUSH PRN (21:30)
[2017-01-22] VITALS: BP 146/94; PULSE 75; RESP 20; TEMP 98.1; O2SAT 98
[2017-01-22 04:09] VITALS: BP 154/94; PULSE 82; RESP 20; TEMP 97.3; O2SAT 97
[2017-01-22] MEDS: PIPERACIL-TAZO 3.375 GM PREMIX 50 ML IV SCH ×3 (04:09→17:08)
[2017-01-22] MEDS: METOCLOPRAMIDE HCL 10 MG/2 ML VIAL IV PUSH SCH ×3 (05:03→20:59)
[2017-01-22 08:16] VITALS: BP 153/94; PULSE 72; RESP 20; TEMP 96.5; O2SAT 99
[2017-01-22 08:37] LABS: BICARBONATE 23.3 MEQ/L (21.0-32.0); MAGNESIUM 1.7 MG/DL (1.5-2.5); POTASSIUM 3.2 MEQ/L (3.5-5.1)
[2017-01-22] MEDS: POLYETHYLENE GLYCOL 17 GM PKG PO SCH (09:00)
[2017-01-22] MEDS: FOLIC ACID 1 MG TAB PO SCH (09:18)
[2017-01-22] MEDS: MULTIVITAMIN TAB PO SCH (09:18)
[2017-01-22] MEDS: PANTOPRAZOLE SOD 40 MG DELAYED RELEASE TAB PO SCH (09:19)
[2017-01-22] MEDS: POTASSIUM CHLORIDE 20 MEQ CONTROLLED RELEASE TAB PO SCH ×2 (09:19→20:58)
[2017-01-22] MEDS: CALCIUM CARBONATE 500 MG CHEWABLE TAB CHEW SCH ×2 (09:19→20:58)
[2017-01-22] MEDS: THIAMINE HCL 100 MG TAB PO SCH (09:19)
[2017-01-22] MEDS: LISINOPRIL 10 MG TAB PO SCH (09:19)
[2017-01-22] MEDS: CITALOPRAM HYDROBROMIDE 20 MG TAB PO SCH (09:19)
[2017-01-22] MEDS: DOCUSATE SODIUM 50 MG/SENNA 8.6 MG TAB PO SCH ×2 (09:19→21:00)
[2017-01-22 11:45] VITALS: BP 121/81; PULSE 94; RESP 20; TEMP 98.2; O2SAT 98
[2017-01-22 14:29] VITALS: BP 142/95; PULSE 67; RESP 20; TEMP 97.5; O2SAT 97
--- NOTE | 2017-01-22 16:58 | HHI.PR ---
Subjective Remarks Follow-up cholecystitis. Patient states he is doing okay pain controlled with pain pills. Discussed with RN Objective Vitals Vital Signs Date Time Temp Pulse Resp B/P Pulse Ox O2 Delivery O2 Flow Rate FiO2 01/22/17 14:29 97.5 67 20 142/95 97 01/22/17 11:45 98.2 94 20 121/81 98 01/22/17 08:16 96.5 72 20 153/94 99 01/22/17 04:09 97.3 82 20 154/94 97 01/22/17 00:00 98.1 75 20 146/94 98 01/21/17 20:02 97.9 77 18 127/87 98 I/O 01/21/17 01/21/17 01/21/17 01/22/17 01/22/17 01/22/17 06:59 14:59 22:59 06:59 14:59 22:59 Intake Total 650 ml 480 ml 800 ml Output Total 1000 ml 920 ml Balance -1000 ml 650 ml 480 ml -920 ml 800 ml Intake Oral 650 ml 480 ml 800 ml Output Urine Total 1000 ml 900 ml Drainage Total 20 ml # Voids 3 1 3 # Bowel Movements 1 1 1 Result Diagram: 01/21/17 0855 01/22/17 0647 Imaging Last Impressions Cholangiogram 01/16/17 0000 Signed Impressions: Service Date/Time: January 14:27 - CONCLUSION: No residual evidence of common duct stone. Karri Barnes MD GI Procedure 01/15/17 0000 Signed Impressions: Service Date/Time: Sunday, January 15, 2017 16:39 - CONCLUSION: ERCP as above. Hemant Muñoz MD Abdomen/Pelvis CT 01/02/17 0000 Signed Impressions: Service Date/Time: December 21:17 - CONCLUSION: Cholecystoscopy tube in good position. Chato Amezcua MD Catheter Change 12/27/16 0000 Signed Impressions: Service Date/Time: Tuesday, December 27, 2016 16:47 - CONCLUSION: Uncomplicated biliary catheter change. Hemant Muñoz MD Percutaneous Cholangiogram 12/17/16 0000 Signed Impressions: Service Date/Time: Saturday, December 17, 2016 16:18 - CONCLUSION: Uncomplicated percutaneous cholecystostomy as above. Chato Glass MD Hepatobiliary Scan Nuclear Medicine 12/16/16 0000 Signed Impressions: Service Date/Time: Friday, December 16, 2016 13:03 - CONCLUSION: 1. Nonvisualization of the gallbladder characteristic of acute cholecystitis Jez Tay MD ADDENDUM: The patient was brought back for imaging at 24 hours. Still no gallbladder activity is identified. Concerning for calculus or acalculous cholecystitis. Karri Barnes MD Gall Bladder Ultrasound 12/14/16 1110 Signed Impressions: Service Date/Time: Wednesday, December 14, 2016 12:41 - CONCLUSION: 1. There is sludge in the gallbladder with thickening of the gallbladder wall at 5 mm. This is characteristic of chronic gallbladder disease. 2. No biliary tract obstruction. 3. Fatty infiltration of the liver. Feng Singh MD Renal Ultrasound 12/03/16 0000 Signed Impressions: Service Date/Time: Saturday, December 03, 2016 14:57 - CONCLUSION: 1. No evidence of obstruction 2. Debris within the bladder which may be related to infection or hemorrhage Jez Tay MD Head CT 12/02/16 0000 Signed Impressions: Service Date/Time: Friday, December 02, 2016 15:51 - CONCLUSION: No acute disease. Juwan Rodríguez MD FACR Liver Ultrasound 11/27/16 0000 Signed Impressions: Service Date/Time: Sunday, November 27, 2016 15:12 - CONCLUSION: 1. Mild hepatomegaly. The echotexture of the liver is consistent with hepatic steatosis. 2. Cholelithiasis. The common bile duct is not visualized on this exam secondary to bowel gas. No evidence of intrahepatic biliary obstruction. 3. Given the cortical thinning and increased echogenicity concerning for renal disease. Recommend correlating with the patient's GFR.. Kateryna Lopez MD Chest X-Ray 11/26/16 1503 Signed Impressions: Service Date/Time: Saturday, November 26, 2016 15:35 - CONCLUSION: No acute cardiopulmonary abnormality is identified. Chato Meyer MD Objective Remarks GENERAL: Well-nourished, well-developed middle aged male patient in [facility]. SKIN: Warm and dry. No rash. HEENT: Normocephalic. Atraumatic. Pupils equal and round. No scleral icterus. No injection or drainage. Mucous membranes pink and moist. NECK: Supple. Trachea midline. CARDIOVASCULAR: Regular rate and rhythm. S1, S2 noted. No murmur appreciated. RESPIRATORY: No accessory muscle use. Clear to auscultation. Breath sounds equal bilaterally. GASTROINTESTINAL: Abdomen soft, nondistended, mild diffuse right sided abdominal TTP. Normoactive bowel sounds x4. Cholecystostomy tube in place, surgical dressing in place, CDI. MUSCULOSKELETAL: No obvious deformities. Extremities without clubbing, cyanosis , or edema. NEUROLOGICAL: Awake and alert. No obvious cranial nerve deficits. Motor grossly within normal limits. Normal speech. PSYCHIATRIC: Appropriate mood and affect; insight and judgment normal. Procedures 12/17/16: Cholecystostomy tube placement 12/27/16: Cholecystostomy tube exchanged 01/15/17: ERCP 01/16/17: lap converted to open cholecystectomy, with laparoscopic lysis of adhesions open common bile exploration through cystic duct with ureterscope and cbd stone extraction intraoperative cholangiogram intraoperative fluoroscopy Date of Removal: Jan 18, 2017 A/P Problem List: (1) Cholecystitis ICD Code: K81.9 Status: Acute (2) HTN (hypertension) ICD Code: I10 Status: Acute (3) Metabolic encephalopathy ICD Code: G93.41 Status: Resolved (4) Alcohol withdrawal ICD Code: F10.239 Status: Resolved (5) Elevated LFTs ICD Code: R94.5 Status: Resolved (6) Anemia ICD Code: D64.9 Status: Acute (7) Acute kidney injury ICD Code: N17.9 Status: Resolved (8) Hyperglycemia ICD Code: R73.9 Status: Resolved (9) Conjunctivitis ICD Code: H10.9 Status: Resolved Assessment and Plan 62-year-old male with a past medical history of alcohol dependence and deconditioning here with: Cholecystitis, acalculous Gallbladder U/S indicated sludge in the gallbladder with thickening of the gallbladder wall at 5 mm,12/15 CT abdomen shows abnormal gallbladder with distention, diffuse wall thickening, septation and prominent sinuses. HIDA scan supports acute cholecystitis. GI and surgery were consulted. Status post Cholecystotomy, status post Levaquin. Status post tube exchange. 01/16: S/p ERCP 01/17/17 followed by laparoscopic converted to open cholecystectomy, with lysis of adhesions and extraction of common bile duct stones. [employer] SUPERVISOR discontinued. Continue morphine IV NEEDED AND oxycodone po prn pain scale; bowel regimen Diet as tolerated per surgery Constipation: -Continue Elisa-Colace bid and MiraLAX daily -monitor BMs, s/p 3 loose BMs today, resolved Hypertension: Continue lisinopril 10mg daily Metabolic encephalopathy, likely secondary to alcohol withdrawal, hepatic encephalopathy. Resolved Stopped on rifaximin, will need to switch back to lactulose if develops any confusion Alcohol withdrawal MVI, thiamine, folic acid Celexa for depression Anemia: Hemoglobin stable. No evidence of bleeding. Acute kidney injury: resolved, renal ultrasound was negative for any obstruction Hyperglycemia, diet controlled Hemoglobin A1c 6.6 Resume diabetic diet Physical deconditioning Continue physical therapy 7 days a week DVT Prophylaxis: teds/SCDs Discharge Planning Discharge per general surgery who plans to keep patient until tomorrow when drain will be removed Problem Qualifiers (1) Alcohol withdrawal: Qualified Code: F10.230 - Alcohol withdrawal, uncomplicated Abando,Fady Queen MD Jan 22, 2017 16:58
--- NOTE | 2017-01-22 17:40 | HHI.PR ---
Subjective Subjective Notes pt continues to improve, tolerating po, no nausea Objective Vitals/I&O Vital Signs Date Time Temp Pulse Resp B/P Pulse Ox O2 Delivery O2 Flow Rate FiO2 01/22/17 14:29 97.5 67 20 142/95 97 Labs Laboratory Tests Test 01/22/17 06:47 Sodium Level 141 Potassium Level 3.2 Chloride Level 106 Carbon Dioxide Level 23.3 Anion Gap 12 Blood Urea Nitrogen 3 Creatinine 0.67 Estimat Glomerular Filtration 120 Rate Random Glucose 82 Calcium Level 8.2 Magnesium Level 1.7 Cardiovascular: Regular Lungs: Clear Abdomen: Other (incision scant dry drainage, iain serosang) A/P Assessment and Plan s/p lap converted to open michael with IOC and CBD exploration POD 5 Plan OOB pain control reg diet will change dressing reglan zosyn- transition to po abx po pain control anticipate dc tomorrow or friday Nicolas Berg MD Jan 22, 2017 17:40
[2017-01-22 20:00] VITALS: BP 138/96; PULSE 76; RESP 24; TEMP 97.6; O2SAT 96
[2017-01-23] VITALS: BP 121/86; PULSE 66; RESP 20; TEMP 97.3; O2SAT 98
[2017-01-23] MEDS: PIPERACIL-TAZO 3.375 GM PREMIX 50 ML IV SCH ×2 (02:45→10:02)
[2017-01-23 04:00] VITALS: BP_SYST 121; PULSE 72; RESP 18; TEMP 98.7; O2SAT 94
[2017-01-23] MEDS: METOCLOPRAMIDE HCL 10 MG/2 ML VIAL IV PUSH SCH (05:32)
[2017-01-23 08:27] VITALS: BP 135/89; PULSE 77; RESP 18; TEMP 97.9; O2SAT 97
--- NOTE | 2017-01-23 08:52 | HHI.PR ---
Subjective Remarks Follow up for cholecystitis. Patient seen ambulating the hallway today. Pain well controlled with oral pain medications. He complains of some constant mild right sided chest discomfort, worse when he coughs. Denies any shortness of breath, fevers/chills. Denies any other medical complaints at this time. Objective Vitals Vital Signs Date Time Temp Pulse Resp B/P Pulse Ox O2 Delivery O2 Flow Rate FiO2 01/23/17 08:27 97.9 77 18 135/89 97 01/23/17 04:00 98.7 72 18 121/ 94 01/23/17 00:00 97.3 66 20 121/86 98 01/22/17 20:00 97.6 76 24 138/96 96 01/22/17 14:29 97.5 67 20 142/95 97 01/22/17 11:45 98.2 94 20 121/81 98 I/O 01/22/17 01/22/17 01/22/17 01/23/17 01/23/17 01/23/17 07:00 15:00 23:00 07:00 15:00 23:00 Intake Total 800 ml 240 ml Output Total 920 ml 200 ml Balance -920 ml 800 ml 240 ml -200 ml Intake Oral 800 ml 240 ml Output Urine Total 900 ml 200 ml Drainage Total 20 ml # Voids 1 3 2 # Bowel Movements 1 1 Result Diagram: 01/21/17 0855 01/22/17 0647 Imaging Last Impressions Cholangiogram 01/16/17 0000 Signed Impressions: Service Date/Time: January 14:27 - CONCLUSION: No residual evidence of common duct stone. Karri Barnes MD GI Procedure 01/15/17 0000 Signed Impressions: Service Date/Time: Sunday, January 15, 2017 16:39 - CONCLUSION: ERCP as above. Hemant Muñoz MD Abdomen/Pelvis CT 01/02/17 0000 Signed Impressions: Service Date/Time: December 21:17 - CONCLUSION: Cholecystoscopy tube in good position. Chato Amezcua MD Catheter Change 12/27/16 0000 Signed Impressions: Service Date/Time: Tuesday, December 27, 2016 16:47 - CONCLUSION: Uncomplicated biliary catheter change. Hemant Muñoz MD Percutaneous Cholangiogram 12/17/16 0000 Signed Impressions: Service Date/Time: Saturday, December 17, 2016 16:18 - CONCLUSION: Uncomplicated percutaneous cholecystostomy as above. Chato Glass MD Hepatobiliary Scan Nuclear Medicine 12/16/16 0000 Signed Impressions: Service Date/Time: Friday, December 16, 2016 13:03 - CONCLUSION: 1. Nonvisualization of the gallbladder characteristic of acute cholecystitis Jez Tay MD ADDENDUM: The patient was brought back for imaging at 24 hours. Still no gallbladder activity is identified. Concerning for calculus or acalculous cholecystitis. Karri Barnes MD Gall Bladder Ultrasound 12/14/16 1110 Signed Impressions: Service Date/Time: Wednesday, December 14, 2016 12:41 - CONCLUSION: 1. There is sludge in the gallbladder with thickening of the gallbladder wall at 5 mm. This is characteristic of chronic gallbladder disease. 2. No biliary tract obstruction. 3. Fatty infiltration of the liver. Feng Singh MD Renal Ultrasound 12/03/16 0000 Signed Impressions: Service Date/Time: Saturday, December 03, 2016 14:57 - CONCLUSION: 1. No evidence of obstruction 2. Debris within the bladder which may be related to infection or hemorrhage Jez Tay MD Head CT 12/02/16 0000 Signed Impressions: Service Date/Time: Friday, December 02, 2016 15:51 - CONCLUSION: No acute disease. Juwan Rodríguez MD FACR Liver Ultrasound 11/27/16 0000 Signed Impressions: Service Date/Time: Sunday, November 27, 2016 15:12 - CONCLUSION: 1. Mild hepatomegaly. The echotexture of the liver is consistent with hepatic steatosis. 2. Cholelithiasis. The common bile duct is not visualized on this exam secondary to bowel gas. No evidence of intrahepatic biliary obstruction. 3. Given the cortical thinning and increased echogenicity concerning for renal disease. Recommend correlating with the patient's GFR.. Kateryna Lopez MD Chest X-Ray 11/26/16 1503 Signed Impressions: Service Date/Time: Saturday, November 26, 2016 15:35 - CONCLUSION: No acute cardiopulmonary abnormality is identified. Chato Meyer MD Objective Remarks GENERAL: Well-nourished, well-developed middle aged male patient in [facility]. SKIN: Warm and dry. No rash. HEENT: Normocephalic. Atraumatic. Pupils equal and round. No scleral icterus. No injection or drainage. Mucous membranes pink and moist. NECK: Supple. Trachea midline. CARDIOVASCULAR: Regular rate and rhythm. S1, S2 noted. No murmur appreciated. RESPIRATORY: No accessory muscle use. Clear to auscultation. Breath sounds equal bilaterally. GASTROINTESTINAL: Abdomen soft, nondistended, mild diffuse right sided abdominal TTP. Normoactive bowel sounds x4. Cholecystostomy tube in place, surgical dressing in place, CDI. MUSCULOSKELETAL: No obvious deformities. Extremities without clubbing, cyanosis , or edema. NEUROLOGICAL: Awake and alert. No obvious cranial nerve deficits. Motor grossly within normal limits. Normal speech. PSYCHIATRIC: Appropriate mood and affect; insight and judgment normal. Procedures 12/17/16: Cholecystostomy tube placement 12/27/16: Cholecystostomy tube exchanged 01/15/17: ERCP 01/16/17: lap converted to open cholecystectomy, with laparoscopic lysis of adhesions open common bile exploration through cystic duct with ureterscope and cbd stone extraction intraoperative cholangiogram intraoperative fluoroscopy Medications and IVs Current Medications Medications (Trade) Dose Ordered Sig/Ludwig Route Start Time Stop Time Status Last Admin (Tylenol) 650 mg Q4H PRN PO 11/26/16 16:45 (Vitamin B1) 100 mg DAILY PO 11/27/16 09:00 01/22/17 09:19 (Theragran) 1 tab DAILY PO 11/27/16 09:00 01/22/17 09:18 (Folate) 1 mg DAILY PO 11/27/16 09:00 01/22/17 09:18 (Protonix) 40 mg DAILY PO 11/27/16 09:00 01/22/17 09:19 (CeleXA) 20 mg DAILY PO 11/27/16 12:35 01/22/17 09:19 (Tums Chew) 500 mg Q12HR CHEW 11/27/16 21:00 01/22/17 20:58 (Mag-Al Plus Susp Liq) 30 ml Q6H PRN PO 11/28/16 12:15 11/30/16 12:07 (Benadryl) 25 mg HS PRN PO 11/29/16 11:45 12/19/16 20:45 (Zofran Odt) 4 mg Q6H PRN PO 12/07/16 14:30 12/10/16 14:24 (Roxicodone) 10 mg Q6HR PRN PO 01/09/17 21:00 01/23/17 05:32 (Roxicodone) 5 mg Q6H PRN PO 01/09/17 21:00 (Prinivil) 10 mg DAILY PO 01/15/17 09:00 01/22/17 09:19 (Reglan Inj) 10 mg Q8HR IV PUSH 01/17/17 23:30 01/23/17 05:32 (Elisa-Colace) 2 tab BID PO 01/18/17 21:00 01/22/17 09:19 Polyethylene Glycol 17 gm 17 gm DAILY PO 01/19/17 09:00 01/21/17 09:31 (Zosyn 3.375 Gm Premix) 50 ml @ 100 mls/hr Q8H IV 01/20/17 18:00 01/23/17 02:45 (KCl) 40 meq Q12HR PO 01/21/17 11:30 01/22/17 20:58 (Morphine Inj) 2 mg Q3H PRN IV PUSH 01/21/17 21:30 Urinary Catheter: No Date of Removal: Jan 18, 2017 A/P Problem List: (1) Cholecystitis ICD Code: K81.9 Status: Acute (2) HTN (hypertension) ICD Code: I10 Status: Acute (3) Metabolic encephalopathy ICD Code: G93.41 Status: Resolved (4) Alcohol withdrawal ICD Code: F10.239 Status: Resolved (5) Elevated LFTs ICD Code: R94.5 Status: Resolved (6) Anemia ICD Code: D64.9 Status: Acute (7) Acute kidney injury ICD Code: N17.9 Status: Resolved (8) Hyperglycemia ICD Code: R73.9 Status: Resolved (9) Conjunctivitis ICD Code: H10.9 Status: Resolved Assessment and Plan 62-year-old male with a past medical history of alcohol dependence and deconditioning here with: Cholecystitis, acalculous Gallbladder U/S indicated sludge in the gallbladder with thickening of the gallbladder wall at 5 mm,12/15 CT abdomen shows abnormal gallbladder with distention, diffuse wall thickening, septation and prominent sinuses. HIDA scan supports acute cholecystitis. GI and surgery were consulted. Status post Cholecystotomy, status post Levaquin. Status post tube exchange. 01/16: S/p ERCP 01/17/17 followed by laparoscopic converted to open cholecystectomy, with lysis of adhesions and extraction of common bile duct stones. [employer] discontinued. Continue morphine IV prn and oxycodone po prn pain scale; bowel regimen Diet as tolerated per surgery --hopefully discharge today to tomorrow when cleared by surgery Constipation: -Continue Elisa-Colace bid and MiraLAX daily -monitor BMs, s/p 3 loose BMs today, resolved Hypertension: Continue lisinopril 10mg daily Metabolic encephalopathy, likely secondary to alcohol withdrawal, hepatic encephalopathy. Resolved Stopped on rifaximin, will need to switch back to lactulose if develops any confusion Alcohol withdrawal MVI, thiamine, folic acid Celexa for depression Anemia: Hemoglobin stable. No evidence of bleeding. Acute kidney injury: resolved, renal ultrasound was negative for any obstruction Hyperglycemia, diet controlled Hemoglobin A1c 6.6 Resume diabetic diet Physical deconditioning Continue physical therapy 7 days a week Atypical Pleuritic Right Sided Chest Pain with Cough --Check CXR to rule out pneumonia DVT Prophylaxis: teds/SCDs Written by Desiree Comer, acting as scribe for Dr. Jones on 01/23/17 at 08:28. All or portions of this note were transcribed by scribe []. I, Dr. Fady Jones personally performed the history, physical exam, and medical decision making; and confirmed the accuracy of the information in the transcribed note. Authenticated by Dr. Fady Jones on 01/23/17 at 12:55. Discharge Planning Discharge when cleared by general surgery. Problem Qualifiers (1) Alcohol withdrawal: Qualified Code: F10.230 - Alcohol withdrawal, uncomplicated Desiree Comer PA-C Jan 23, 2017 08:51 Fady Jones MD Jan 23, 2017 12:55
[2017-01-23 08:56] LABS: BICARBONATE 24.6 MEQ/L (21.0-32.0); MAGNESIUM 1.7 MG/DL (1.5-2.5); POTASSIUM 3.4 MEQ/L (3.5-5.1)
[2017-01-23] MEDS ORDERED: OXYC-392 PO (09:28)
[2017-01-23] MEDS: CALCIUM CARBONATE 500 MG CHEWABLE TAB CHEW SCH (10:01)
[2017-01-23] MEDS: PANTOPRAZOLE SOD 40 MG DELAYED RELEASE TAB PO SCH (10:01)
[2017-01-23] MEDS: FOLIC ACID 1 MG TAB PO SCH (10:01)
[2017-01-23] MEDS: LISINOPRIL 10 MG TAB PO SCH (10:01)
[2017-01-23] MEDS: POLYETHYLENE GLYCOL 17 GM PKG PO SCH (10:02)
[2017-01-23] MEDS: THIAMINE HCL 100 MG TAB PO SCH (10:02)
[2017-01-23] MEDS: DOCUSATE SODIUM 50 MG/SENNA 8.6 MG TAB PO SCH (10:02)
[2017-01-23] MEDS: MULTIVITAMIN TAB PO SCH (10:02)
[2017-01-23] MEDS: CITALOPRAM HYDROBROMIDE 20 MG TAB PO SCH (10:02)
[2017-01-23] MEDS: POTASSIUM CHLORIDE 20 MEQ CONTROLLED RELEASE TAB PO SCH (10:02)
[2017-01-23] MEDS ORDERED: PANT40TA3 PO (10:55)
[2017-01-23] MEDS ORDERED: CEPH-460 PO (10:55)
[2017-01-23] MEDS ORDERED: LISI10TA3 PO (10:55)
[2017-01-23] MEDS ORDERED: CELE20TA PO (10:55)
--- NOTE | 2017-01-23 10:56 | HHI.DCPOC ---
Discharge Care Plan Diagnosis: (1) Cholecystitis (2) HTN (hypertension) Goals to Promote Your Health * To prevent worsening of your condition and complications * To maintain your health at the optimal level Directions to Meet Your Goals Take your medications as prescribed Follow your dietary instruction Follow activity as directed Keep your appointments as scheduled Take your immunizations and boosters as scheduled If your symptoms worsen call your PCP, if no PCP go to Urgent Care Center or Emergency Room Smoking is Dangerous to Your Health. Avoid second hand smoke Call the 24-hour hour crisis hotline for domestic abuse at Desiree Comer PA-C Jan 23, 2017 10:55 am
--- NOTE | 2017-01-23 11:07 | HHI.DS ---
Discharge Summary Admission Date Nov 26, 2016 at 16:43 Discharge Date: Jan 23, 2017 Admitting Diagnosis alcohol withdrawal. Hyponatremia. Elevated LFTs. (1) Cholecystitis ICD Code: K81.9 Diagnosis: Principal (2) HTN (hypertension) ICD Code: I10 Diagnosis: Secondary (3) Metabolic encephalopathy ICD Code: G93.41 Diagnosis: Principal (4) Alcohol withdrawal ICD Code: F10.239 Diagnosis: Principal (5) Elevated LFTs ICD Code: R94.5 Diagnosis: Secondary (6) Anemia ICD Code: D64.9 Diagnosis: Secondary (7) Acute kidney injury ICD Code: N17.9 Diagnosis: Secondary (8) Hyperglycemia ICD Code: R73.9 Diagnosis: Secondary (9) Conjunctivitis ICD Code: H10.9 Diagnosis: Secondary Procedures 12/17/16: Cholecystostomy tube placement 12/27/16: Cholecystostomy tube exchanged 01/15/17: ERCP 01/16/17: lap converted to open cholecystectomy, with laparoscopic lysis of adhesions open common bile exploration through cystic duct with ureterscope and cbd stone extraction intraoperative cholangiogram intraoperative fluoroscopy Brief History - From Admission Patient seen in ER as a 61 year old man with minimal PMHx who was brought in by his brothers due to severe and worsening EtOH dependence issues. He has a longstanding history of alcoholism and has become increasingly withdrawn, not eating and had lost his job. They have tried to get him help before and he has been at rehab before. Today he appears disheveled and has abnormal labs with will require medical management. On my review the xray is negative for acute cardiopulmonary disease. CBC/BMP: 01/21/17 0855 01/23/17 0702 Significant Findings Laboratory Tests Test 01/21/17 01/22/17 01/23/17 08:55 06:47 07:02 Red Blood Count 3.70 MIL/MM3 (4.50-5.90) Hemoglobin 11.8 GM/DL (13.0-17.0) Hematocrit 34.4 % (39.0-51.0) Monocytes (%) (Auto) 12.3 % (0.0-8.0) Monocytes # (Auto) 1.1 TH/MM3 (0-0.9) Potassium Level 2.9 MEQ/L 3.2 MEQ/L 3.4 MEQ/L (3.5-5.1) (3.5-5.1) (3.5-5.1) Blood Urea Nitrogen 4 MG/DL (7-18) 3 MG/DL (7-18) 2 MG/DL (7-18) Alanine Aminotransferase 11 U/L (12-78) (ALT/SGPT) Albumin 2.6 GM/DL (3.4-5.0) Calcium Level 8.2 MG/DL 8.2 MG/DL (8.5-10.1) (8.5-10.1) Imaging Last Impressions Chest X-Ray 01/23/17 0000 Signed Impressions: Service Date/Time: January 09:52 - CONCLUSION: 1. Small right-sided pleural effusion. Tortuous aorta. No pneumothorax. John Main MD Cholangiogram 01/16/17 0000 Signed Impressions: Service Date/Time: January 14:27 - CONCLUSION: No residual evidence of common duct stone. Karri Barnes MD GI Procedure 01/15/17 0000 Signed Impressions: Service Date/Time: Sunday, January 15, 2017 16:39 - CONCLUSION: ERCP as above. Hemant Muñoz MD Abdomen/Pelvis CT 01/02/17 0000 Signed Impressions: Service Date/Time: December 21:17 - CONCLUSION: Cholecystoscopy tube in good position. Chato Amezcua MD Catheter Change 12/27/16 0000 Signed Impressions: Service Date/Time: Tuesday, December 27, 2016 16:47 - CONCLUSION: Uncomplicated biliary catheter change. Hemant Muñoz MD Percutaneous Cholangiogram 12/17/16 0000 Signed Impressions: Service Date/Time: Saturday, December 17, 2016 16:18 - CONCLUSION: Uncomplicated percutaneous cholecystostomy as above. Chato Glass MD Hepatobiliary Scan Nuclear Medicine 12/16/16 0000 Signed Impressions: Service Date/Time: Friday, December 16, 2016 13:03 - CONCLUSION: 1. Nonvisualization of the gallbladder characteristic of acute cholecystitis Jez Tay MD ADDENDUM: The patient was brought back for imaging at 24 hours. Still no gallbladder activity is identified. Concerning for calculus or acalculous cholecystitis. Karri Barnes MD Gall Bladder Ultrasound 12/14/16 1110 Signed Impressions: Service Date/Time: Wednesday, December 14, 2016 12:41 - CONCLUSION: 1. There is sludge in the gallbladder with thickening of the gallbladder wall at 5 mm. This is characteristic of chronic gallbladder disease. 2. No biliary tract obstruction. 3. Fatty infiltration of the liver. Feng Singh MD Renal Ultrasound 12/03/16 0000 Signed Impressions: Service Date/Time: Saturday, December 03, 2016 14:57 - CONCLUSION: 1. No evidence of obstruction 2. Debris within the bladder which may be related to infection or hemorrhage Jez Tay MD Head CT 12/02/16 0000 Signed Impressions: Service Date/Time: Friday, December 02, 2016 15:51 - CONCLUSION: No acute disease. Juwan Rodríguez MD FACR Liver Ultrasound 11/27/16 0000 Signed Impressions: Service Date/Time: Sunday, November 27, 2016 15:12 - CONCLUSION: 1. Mild hepatomegaly. The echotexture of the liver is consistent with hepatic steatosis. 2. Cholelithiasis. The common bile duct is not visualized on this exam secondary to bowel gas. No evidence of intrahepatic biliary obstruction. 3. Given the cortical thinning and increased echogenicity concerning for renal disease. Recommend correlating with the patient's GFR.. Kateryna Lopez MD PE at Discharge GENERAL: Well-nourished, well-developed middle aged male patient in [facility]. SKIN: Warm and dry. No rash. HEENT: Normocephalic. Atraumatic. Pupils equal and round. No scleral icterus. No injection or drainage. Mucous membranes pink and moist. NECK: Supple. Trachea midline. CARDIOVASCULAR: Regular rate and rhythm. S1, S2 noted. No murmur appreciated. RESPIRATORY: No accessory muscle use. Clear to auscultation. Breath sounds equal bilaterally. GASTROINTESTINAL: Abdomen soft, nondistended, mild diffuse right sided abdominal TTP. Normoactive bowel sounds x4. Cholecystostomy tube in place, surgical dressing in place, CDI. MUSCULOSKELETAL: No obvious deformities. Extremities without clubbing, cyanosis , or edema. NEUROLOGICAL: Awake and alert. No obvious cranial nerve deficits. Motor grossly within normal limits. Normal speech. PSYCHIATRIC: Appropriate mood and affect; insight and judgment normal. Hospital Course 62-year-old male with a past medical history of alcohol dependence and deconditioning here with: Cholecystitis, acalculous Gallbladder U/S indicated sludge in the gallbladder with thickening of the gallbladder wall at 5 mm,12/15 CT abdomen shows abnormal gallbladder with distention, diffuse wall thickening, septation and prominent sinuses. HIDA scan supports acute cholecystitis. GI and surgery were consulted. Status post Cholecystotomy and tube exchange, status post treatment with Levaquin. ERCP 01/17/17 followed by laparoscopic converted to open cholecystectomy, with lysis of adhesions and extraction of common bile duct stones. [employer] now discontinued. Continue morphine IV prn and oxycodone po prn pain scale ; bowel regimen Diet as tolerated per surgery, patient tolerating well --Discussed with Dr. Berg, drain to be removed today, cleared for discharge on Keflex x7days for mild abdominal wall cellulitis at incision site Constipation: -Continue Elisa-Colace bid and MiraLAX daily -having normal BMs now, resolved Hypertension: Continue lisinopril 10mg daily Metabolic encephalopathy, likely secondary to alcohol withdrawal, hepatic encephalopathy. Resolved Stopped rifaximin, will need to switch back to lactulose if develops any confusion Alcohol withdrawal MVI, thiamine, folic acid Celexa for depression Anemia: Hemoglobin stable. No evidence of bleeding. Acute kidney injury: resolved, renal ultrasound was negative for any obstruction Hyperglycemia, diet controlled Hemoglobin A1c 6.6 Resume diabetic diet Physical deconditioning Continue physical therapy 7 days a week Atypical Pleuritic Right Sided Chest Pain with Cough --CXR images reviewed by me, shows small right sided pleural effusion, otherwise unremarkable, no infiltrate DVT Prophylaxis: teds/SCDs Written by Desiree Comer, acting as scribe for Dr. Jones on 01/23/17 at 08:28. Pt Condition on Discharge: Stable Discharge Disposition: Discharge Home Discharge Time: <= 30 minutes Discharge Instructions DIET: Follow Instructions for: Heart Healthy Diet Activities you can perform: Regular-No Restrictions Follow up Referrals: PCP Follow-up - 1 Week Surgical - 1 Week with Nicolas Berg MD New Medications: Cephalexin (Keflex) 500 Mg Cap 500 MG PO Q8H Infection #21 Ref 0 CAP Citalopram (Celexa) 20 Mg Tab 20 MG PO DAILY Depression Control #30 TAB Lisinopril (Lisinopril) 10 Mg Tab 10 MG PO DAILY Blood Pressure Management #30 TAB Oxycodone (Oxycodone) 5 Mg Tab 10 MG PO Q6HR PRN PAIN SCALE 7 TO 10 #28 TAB Pantoprazole (Pantoprazole) 40 Mg Tab 40 MG PO DAILY Manage Heartburn #30 TAB Desiree Comer PA-C Jan 23, 2017 11:07
--- NOTE | 2017-01-23 11:08 | RADRPT ---
EXAM DATE/TIME: 01/23/2017 09:52 [facility] COMPARISON: No previous studies available for comparison. INDICATIONS : Chest pain. MEDICAL HISTORY : None. SURGICAL HISTORY : Cholecystectomy. ENCOUNTER: Subsequent ACUITY: 2 months PAIN SCORE: 10/10 LOCATION: Right upper chest FINDINGS: There is a small right-sided pleural effusion. No focal consolidation. Left lung clear. Tortuous aort a. Heart size normal. CONCLUSION: 1. Small right-sided pleural effusion. Tortuous aorta. No pneumothorax. John Main MD on January 23, 2017 at 11:05 Board Certified Radiologist. This report was verified electronically.
--- NOTE | 2017-01-23 14:11 | HHI.PR ---
Subjective Subjective Notes pt continues to improve, pain controlled, +bms, no fevers Objective Vitals/I&O Vital Signs Date Time Temp Pulse Resp B/P Pulse Ox O2 Delivery O2 Flow Rate FiO2 01/23/17 08:27 97.9 77 18 135/89 97 Labs Laboratory Tests Test 01/23/17 07:02 Sodium Level 141 Potassium Level 3.4 Chloride Level 107 Carbon Dioxide Level 24.6 Anion Gap 9 Blood Urea Nitrogen 2 Creatinine 0.66 Estimat Glomerular Filtration 122 Rate Random Glucose 91 Calcium Level 8.2 Magnesium Level 1.7 Cardiovascular: Regular Lungs: Clear Abdomen: Other (incisions with staplces well approximated, iain serosang) A/P Assessment and Plan s/p lap converted to open michael with IOC and CBD exploration POD 6 Plan OOB pain control reg diet will change dressing po abx po pain control dc planning Nicolas Berg MD Jan 23, 2017 14:11
== END 2017-01-23 12:42 | disposition home or self-care (01) | DRG 981 ==
LOC: PHED 14:43 → PHEDA 16:43 → PHICU 17:48 → PH3A 12-01 20:54 → PH5A 12-07 15:50 → PHICU 12-17 17:47 → PH5A 12-18 11:30 → PH5B 01-15 14:26 → NEPGCP 01-15 15:55 → N05B 01-16 18:39 → N05A 01-16 20:29
PROVIDERS: ADMIT Internal Medicine; ATTEND Internal Medicine
PROC: 0F9430Z Drainage of Gallbladder with Drainage Device, Percutaneous Approach (ICD-10-PCS; 2016-12-17)
PROC: 0F24X0Z Change Drainage Device in Gallbladder, External Approach (ICD-10-PCS; 2016-12-27)
PROC: BF131ZZ Fluoroscopy of Gallbladder and Bile Ducts using Low Osmolar Contrast (ICD-10-PCS; 2017-01-14)
PROC: 0FC98ZZ Extirpation of Matter from Common Bile Duct, Via Natural or Artificial Opening Endoscopic (ICD-10-PCS; 2017-01-15)
PROC: 0DNW4ZZ Release Peritoneum, Percutaneous Endoscopic Approach (ICD-10-PCS; 2017-01-16)
PROC: 0FC90ZZ Extirpation of Matter from Common Bile Duct, Open Approach (ICD-10-PCS; 2017-01-16)
PROC: BF101ZZ Fluoroscopy of Bile Ducts using Low Osmolar Contrast (ICD-10-PCS; 2017-01-16)
PROC: 0FT40ZZ Resection of Gallbladder, Open Approach (ICD-10-PCS; principal; 2017-01-16 10:55)
DX: F10.230 Alcohol dependence with withdrawal, uncomplicated (principal); G93.41 Metabolic encephalopathy; J90 Pleural effusion, not elsewhere classified; N17.9 Acute kidney failure, unspecified; K80.66 Calculus of gallbladder and bile duct with acute and chronic cholecystitis without obstruction; E87.1 Hypo-osmolality and hyponatremia; K70.10 Alcoholic hepatitis without ascites; F17.210 Nicotine dependence, cigarettes, uncomplicated; E86.0 Dehydration; K57.10 Diverticulosis of small intestine without perforation or abscess without bleeding; K66.0 Peritoneal adhesions (postprocedural) (postinfection); I10 Essential (primary) hypertension; H10.9 Unspecified conjunctivitis; E11.65 Type 2 diabetes mellitus with hyperglycemia; F32.9 Major depressive disorder, single episode, unspecified; Y90.2 Blood alcohol level of 40-59 mg/100 ml; K76.0 Fatty (change of) liver, not elsewhere classified; D64.9 Anemia, unspecified; E87.6 Hypokalemia; G47.00 Insomnia, unspecified; K59.00 Constipation, unspecified; K72.90 Hepatic failure, unspecified without coma; Z23 Encounter for immunization; Z53.31 Laparoscopic surgical procedure converted to open procedure; Z88.0 Allergy status to penicillin
CPT/HCPCS: 47490; 47531; 47532; 49423; 70450; 71010; 71020; 74177; 74300; 74330; 75984; 75989; 76705; 76775; 76942; 77003; 78226; 80048; 80053; 80061; 80074; 80076; 80320; 81001; 82140; 82948; 83036; 83540; 83550; 83690; 83735; 83930; 83935; 84300; 84436; 84443; 84480; 85025; 85027; 85610; 85730; 88304; 90471; 90686; 93005; 93308; 96365; 96375; A9537; C1729; C1757; C1769; C9113; G0008; J0131; J0690; J1170; J1610; J1885; J1956; J2060; J2250; J2270; J2370; J2405; J2543; J2710; J2765; J3010; J3411; J3475; J3480; J7030; J7040; J7050; J7120; Q2038; Q9963; Q9967

== ENCOUNTER 2017-07-09 08:00 | Emergency (ER) | payer SELFPAY ==
[~2017-07-09] VITALS: Ht 177.8 cm; Wt 75.0 kg
[~2017-07-09 08:00] MED LIST changes: +CELE20TA PO; +CEPH-460 PO; +CEPH500C3 PO; +LISI10TA3 PO; +OXYC-392 PO; +PANT40TA3 PO
[2017-07-09] MEDS ORDERED: SODIUM CHLOR 0.9% 1000 ML INJ 1,000 ML IV SCH (08:03)
[2017-07-09 08:07] VITALS: BP 132/92; PULSE 144; RESP 16; TEMP 98.3; O2SAT 98
[2017-07-09 08:10] VITALS: O2SAT 98
[2017-07-09] MEDS ORDERED: SODIUM CHLOR 0.9% 1000 ML INJ 1,000 ML IV ONE (08:15)
[2017-07-09] MEDS ORDERED: LORazepam 2 MG/ML VIAL IV PUSH ONE ×2 (08:15→09:00)
[2017-07-09 08:18] VITALS: O2SAT 98
--- NOTE | 2017-07-09 08:51 | PD ---
HPI Chief Complaint: Alcohol/Drug Intoxication Time Seen by Provider: 08:03 Travel History International Travel<30 days: No Contact w/Intl Traveler<30days: No Traveled to known affect area: No History of Present Illness HPI [id number] male arrives by EMS. He drinks alcohol, daily, 8 large high alcohol content beers. This morning at 7 AM he went to buy more beer and then on the way home the felt tremulous and called EMS. He denies history of alcohol withdrawal seizures. No history of DVTs. No fever. He has no other complaints at the time of ER evaluation. EMS reports patient was standing on scene. He evidently was able to walk to a convenience store and long term home. Heart rate was 140 en route here. No chest pain or shortness of breath. Last alcohol was about 6 hours prior to ER arrival. PFSH Past Medical History Blood Disorders: No Anxiety: Yes Depression: Yes Heart Rhythm Problems: No Cancer: No Cardiovascular Problems: Yes High Cholesterol: No Chest Pain: Yes ("every now and then") Congestive Heart Failure: No Cerebrovascular Accident: No Diminished Hearing: No Endocrine: No Gastrointestinal Disorders: Yes Genitourinary: No Headaches: No Hypertension: No Immune Disorder: No Implanted Vascular Access Dvce: No Musculoskeletal: No Neurologic: Yes Psychiatric: Yes ("everybody gets that") Reproductive: No Respiratory: Yes Migraines: No Seizures: No Past Surgical History Abdominal Surgery: Yes (GALLBLADDER DRAINAGE) Other Surgery: Yes (ankle surgery as a child) Social History Alcohol Use: Yes (6-8 beers daily) Tobacco Use: Yes (1 CIG DAILY) Substance Use: No Allergies-Medications (Allergen,Severity, Reaction): Coded Allergies: No Known Allergies (Verified , 07/09/17) Reported Meds & Prescriptions Reported Meds & Active Scripts Active No Active Prescriptions or Reported Medications Review of Systems Except as stated in HPI: all other systems reviewed are Neg General / Constitutional: No: Fever Psychiatric: Positive: Substance Abuse Physical Exam Narrative GENERAL: 62 M, WNWD, mildly anxious SKIN: Warm and dry. HEAD: Atraumatic. Normocephalic. EYES: Pupils equal and round. No scleral icterus. No injection or drainage. ENT: No nasal bleeding or discharge. Mucous membranes pink and moist. NECK: Trachea midline. No JVD. CARDIOVASCULAR: Regular rate and rhythm. RESPIRATORY: No accessory muscle use. Clear to auscultation. Breath sounds equal bilaterally. GASTROINTESTINAL: Abdomen soft, non-tender, nondistended. Hepatic and splenic margins not palpable. MUSCULOSKELETAL: Extremities without clubbing, cyanosis, or edema. No obvious deformities. NEUROLOGICAL: Diffuse tremor, mild, speaking full sentences, normal gait. PSYCHIATRIC: Appropriate mood and affect; insight and judgment normal. Data Data Last Documented VS Vital Signs Date Time Temp Pulse Resp B/P (MAP) Pulse Ox O2 Delivery O2 Flow Rate FiO2 07/09/17 08:18 98 07/09/17 08:10 Room Air 07/09/17 08:07 98.3 144 16 132/92 (105) VS reviewed, heart rate normal at time reassessment, 10:25 AM with a heart rate of 70s. Orders Orders Iv Access Insert/Monitor (07/09/17 08:03) Ecg Monitoring (07/09/17 08:03) Oximetry (07/09/17 08:03) NPO (07/09/17 08:03) Sodium Chlor 0.9% 1000 Ml Inj (Ns 1000 M (07/09/17 08:03) Sodium Chlor 0.9% 1000 Ml Inj (Ns 1000 M (07/09/17 08:15) Lorazepam Inj (Ativan Inj) (07/09/17 08:15) Remove Malik (07/09/17 08:22) Lorazepam Inj (Ativan Inj) (07/09/17 09:00) MDM Medical Decision Making Medical Screen Exam Complete: Yes Emergency Medical Condition: Yes Differential Diagnosis EtOH withdrawal, alcoholism, tremors, dehydration Narrative Course Patient received Ativan and IV fluids. In total 1 mg Ativan followed by 2 mg in addition to 3 L normal saline stabilize the vital signs and tremors. Patient requests food at 10:20 AM in is ready for discharge. Diagnosis Primary Impression: Alcohol withdrawal Qualified Codes: F10.230 - Alcohol dependence with withdrawal, uncomplicated Referrals: [facility] 2 days Additional Instructions: You have a choice when it comes to health care, and we are glad that you chose [facility]. Hopefully, we have met your expectations on today's visit. You are welcome to return to [facility] at any time, as we are committed to meeting the health care needs of our community. Med/Other Pt SpecificInfo: No Change to Meds Scripts No Active Prescriptions or Reported Meds Disposition: 01 DISCHARGE HOME Condition: Stable Cm Burns MD Jul 09, 2017 08:51
[2017-07-09 10:44] VITALS: BP 132/99
== END 2017-07-09 10:57 | disposition home or self-care (01) ==
LOC: PHED 08:00
DX: F10.230 Alcohol dependence with withdrawal, uncomplicated (principal); F17.210 Nicotine dependence, cigarettes, uncomplicated
CPT/HCPCS: 96361; 96374; 96376; 99284; J2060; J7030

== ENCOUNTER 2017-07-28 12:43 | Inpatient (IN) | payer SELFPAY ==
[~2017-07-28] VITALS: Ht 172.7 cm; Wt 81.5 kg
[2017-07-28] VITALS (14 sets, daily range): BP systolic 83–105; BP diastolic 59–76; PULSE 77–106; RESP 13–24; TEMP 95.8–97.2; O2SAT 96–100
[~2017-07-28 12:43] MED LIST changes: -CELE20TA PO; -CEPH-460 PO; -LISI10TA3 PO; -OXYC-392 PO; -PANT40TA3 PO
[2017-07-28] MEDS ORDERED: SODIUM CHLOR 0.9% 1000 ML INJ 1,000 ML IV SCH (13:06)
[2017-07-28] MEDS ORDERED: TETANUS/DIPHTHERIA TOXOID ADULT 0.5 ML VIAL IM ONE (13:15)
[2017-07-28] MEDS ORDERED: LORazepam 2 MG/ML VIAL IV PUSH ONE (13:15)
[2017-07-28] MEDS ORDERED: SODIUM CHLORIDE 0.9% FLUSH 5 ML FLUSH IV FLUSH PRN (13:15)
--- NOTE | 2017-07-28 13:32 | PD ---
HPI Chief Complaint: Alcohol/Drug Intoxication Time Seen by Provider: 13:00 Travel History International Travel<30 days: No Contact w/Intl Traveler<30days: No Traveled to known affect area: No History of Present Illness HPI The patient is a 62-year-old male who presents to the emergency department for altered mental status. According to EMS the patient has a history of alcohol abuse, was recently discharged from the hospital in June and advised to follow-up at [facility]. The patient has not been seen by his neighbors for 2-3 days and when EMS arrived they found the patient on the side of the house with several be a cans surrounding himself. The patient is able to answer simple questions in regards to his name, but is a somewhat limited and poor historian. The patient does have a history of alcohol abuse and alcohol withdrawal. EMS states that the patient appeared to have vomited and to have defecated himself on the side of the house. The patient denies any headache, chest pain, shortness breath, nausea, vomiting, or abdominal pain. PFSH Past Medical History Blood Disorders: No Anxiety: Yes Depression: Yes Heart Rhythm Problems: No Cancer: No Cardiovascular Problems: Yes High Cholesterol: No Chest Pain: Yes ("every now and then") Congestive Heart Failure: No Cerebrovascular Accident: No Diminished Hearing: No Endocrine: No Gastrointestinal Disorders: Yes Genitourinary: No Headaches: No Hypertension: No Immune Disorder: No Implanted Vascular Access Dvce: No Musculoskeletal: No Neurologic: Yes Psychiatric: Yes ("everybody gets that") Reproductive: No Respiratory: Yes Migraines: No Seizures: No Past Surgical History Abdominal Surgery: Yes (GALLBLADDER DRAINAGE) Other Surgery: Yes (ankle surgery as a child) Social History Alcohol Use: Yes (6-8 beers daily) Tobacco Use: Yes (1 CIG DAILY) Substance Use: No Allergies-Medications (Allergen,Severity, Reaction): Coded Allergies: No Known Allergies (Verified , 07/09/17) Reported Meds & Prescriptions Reported Meds & Active Scripts Active No Active Prescriptions or Reported Medications Review of Systems ROS Limitations: Clinical Condition, Poor Historian Except as stated in HPI: all other systems reviewed are Neg General / Constitutional: No: Fever Cardiovascular: No: Chest Pain or Discomfort Respiratory: No: Shortness of Breath Gastrointestinal: No: Abdominal Pain Neurologic: Positive: Change in Mentation Psychiatric: Positive: Substance Abuse (history of alcohol abuse) Physical Exam Narrative GENERAL: 62-year-old male who appears his stated age, appears somewhat disheveled, is a poor historian on examination. SKIN: Focused skin assessment warm/dry. HEAD: Atraumatic. Normocephalic. Dried emesis on both maxillary facial areas. EYES: Pupils equal and round. Pupils are 2 mm bilateral and reactive. Patient is wearing glasses. ENT: No nasal bleeding or discharge. Dry mucous membranes. NECK: Trachea midline. No JVD. CARDIOVASCULAR: Regular, tachycardic with a heart rate in the 120s. RESPIRATORY: No accessory muscle use. Diminished breath sounds right base. GASTROINTESTINAL: Abdomen soft, non-tender, nondistended. No rebound tenderness. MUSCULOSKELETAL: Ecchymosis noted over the medial right knee, however, patient is able flex the hip and knee. Positive distal pulses. NEUROLOGICAL: Awake, eyes open, responds to name, poor historian. Moves all 4 extremities. PSYCHIATRIC: Slightly confused. Data Data Last Documented VS Vital Signs Date Time Temp Pulse Resp B/P (MAP) Pulse Ox O2 Delivery O2 Flow Rate FiO2 07/28/17 13:05 90 Nasal Cannula 07/28/17 12:55 98 20 105/60 (75) Orders Orders Electrocardiogram (07/28/17 13:06) Ammonia (07/28/17 13:06) Complete Blood Count With Diff (07/28/17 13:06) Comprehensive Metabolic Panel (07/28/17 13:06) Creatine Kinase (Cpk) (07/28/17 13:06) Prothrombin Time / Inr (Pt) (07/28/17 13:06) Act Partial Throm Time (Ptt) (07/28/17 13:06) Thyroid Stimulating Hormone (07/28/17 13:06) Urinalysis - C+S If Indicated (07/28/17 13:06) Chest, Single Ap (07/28/17 13:06) Ct Brain W/O Iv Contrast(Rout) (07/28/17 13:06) Blood Glucose (07/28/17 13:06) Ecg Monitoring (07/28/17 13:06) Iv Access Insert/Monitor (07/28/17 13:06) Oximetry (07/28/17 13:06) Sodium Chloride 0.9% Flush (Ns Flush) (07/28/17 13:15) Sodium Chlor 0.9% 1000 Ml Inj (Ns 1000 M (07/28/17 13:06) Drug Screen, Random Urine (07/28/17 13:06) Alcohol (Ethanol) (07/28/17 13:06) Lactic Acid (07/28/17 13:06) Lorazepam Inj (Ativan Inj) (07/28/17 13:15) Tetanus/Diphtheria Tox Adult (Tetanus/Di (07/28/17 13:15) Wound Care (07/28/17 13:12) Sodium Chlor 0.9% 1000 Ml Inj (Ns 1000 M (07/28/17 14:30) Ceftriaxone Inj (Rocephin Inj) (07/28/17 15:15) Azithromycin Inj (Zithromax Inj) (07/28/17 15:15) Blood Culture (07/28/17 15:07) Admit Order (Ed Use Only) (07/28/17 15:12) Labs Laboratory Tests Test 07/28/17 13:50 White Blood Count 11.5 TH/MM3 Red Blood Count 3.52 MIL/MM3 Hemoglobin 10.6 GM/DL Hematocrit 31.8 % Mean Corpuscular Volume 90.3 FL Mean Corpuscular Hemoglobin 30.1 PG Mean Corpuscular Hemoglobin Concent 33.3 % Red Cell Distribution Width 14.6 % Platelet Count 453 TH/MM3 Mean Platelet Volume 8.4 FL Neutrophils (%) (Auto) 69.5 % Lymphocytes (%) (Auto) 12.3 % Monocytes (%) (Auto) 17.0 % Eosinophils (%) (Auto) 0.4 % Basophils (%) (Auto) 0.8 % Neutrophils # (Auto) 8.0 TH/MM3 Lymphocytes # (Auto) 1.4 TH/MM3 Monocytes # (Auto) 2.0 TH/MM3 Eosinophils # (Auto) 0.0 TH/MM3 Basophils # (Auto) 0.1 TH/MM3 CBC Comment DIFF FINAL Differential Comment Blood Urea Nitrogen 25 MG/DL Creatinine 0.75 MG/DL Random Glucose 91 MG/DL Total Protein 7.5 GM/DL Albumin 2.1 GM/DL Calcium Level 8.2 MG/DL Alkaline Phosphatase 81 U/L Aspartate Amino Transf (AST/SGOT) 53 U/L Alanine Aminotransferase (ALT/SGPT) 31 U/L Total Bilirubin 0.5 MG/DL Sodium Level 140 MEQ/L Potassium Level 3.2 MEQ/L Chloride Level 107 MEQ/L Carbon Dioxide Level 12.3 MEQ/L Anion Gap 21 MEQ/L Estimat Glomerular Filtration Rate 105 ML/MIN Ammonia 36 MCMOL/L Total Creatine Kinase 122 U/L Thyroid Stimulating Hormone 3rd Gen 2.430 uIU/ML Ethyl Alcohol Level LESS THAN 3 MG/DL MDM Medical Decision Making Medical Screen Exam Complete: Yes Emergency Medical Condition: Yes Medical Record Reviewed: Yes Interpretation(s) Last Impressions Head CT 07/28/17 1306 Signed Impressions: Service Date/Time: Saturday, July 29, 2017 13:34 - CONCLUSION: 1. No acute abnormality seen. 2. Mild atrophy. Chato Amezcua MD Chest X-Ray 07/28/17 1306 Signed Impressions: Service Date/Time: Friday, July 28, 2017 14:12 - CONCLUSION: 1. Mild right lower lobe airspace disease and associated volume loss consistent with atelectasis. Antione Pierson MD Laboratory Tests Test 07/28/17 13:50 White Blood Count 11.5 TH/MM3 Red Blood Count 3.52 MIL/MM3 Hemoglobin 10.6 GM/DL Hematocrit 31.8 % Mean Corpuscular Volume 90.3 FL Mean Corpuscular Hemoglobin 30.1 PG Mean Corpuscular Hemoglobin Concent 33.3 % Red Cell Distribution Width 14.6 % Platelet Count 453 TH/MM3 Mean Platelet Volume 8.4 FL Neutrophils (%) (Auto) 69.5 % Lymphocytes (%) (Auto) 12.3 % Monocytes (%) (Auto) 17.0 % Eosinophils (%) (Auto) 0.4 % Basophils (%) (Auto) 0.8 % Neutrophils # (Auto) 8.0 TH/MM3 Lymphocytes # (Auto) 1.4 TH/MM3 Monocytes # (Auto) 2.0 TH/MM3 Eosinophils # (Auto) 0.0 TH/MM3 Basophils # (Auto) 0.1 TH/MM3 CBC Comment DIFF FINAL Differential Comment Blood Urea Nitrogen 25 MG/DL Creatinine 0.75 MG/DL Random Glucose 91 MG/DL Total Protein 7.5 GM/DL Albumin 2.1 GM/DL Calcium Level 8.2 MG/DL Alkaline Phosphatase 81 U/L Aspartate Amino Transf (AST/SGOT) 53 U/L Alanine Aminotransferase (ALT/SGPT) 31 U/L Total Bilirubin 0.5 MG/DL Sodium Level 140 MEQ/L Potassium Level 3.2 MEQ/L Chloride Level 107 MEQ/L Carbon Dioxide Level 12.3 MEQ/L Anion Gap 21 MEQ/L Estimat Glomerular Filtration Rate 105 ML/MIN Ammonia 36 MCMOL/L Total Creatine Kinase 122 U/L Thyroid Stimulating Hormone 3rd Gen 2.430 uIU/ML Ethyl Alcohol Level LESS THAN 3 MG/DL Differential Diagnosis Differential diagnosis includes alcohol withdrawal, alcohol intoxication, hyponatremia, subdural hemorrhage, elevated ammonia level, encephalopathy. Narrative Course IV was established, labs are drawn and sent, and the patient was placed on cardiac telemetry monitoring and continuous pulse oximetry monitoring. EKG was ordered and interpreted. The patient was administered Ativan 1 mg intravenously , 1 L of IV fluids, and chest x-ray was obtained. CT of the brain was obtained. The patient's white count is 11.5. Chest x-ray reveals airspace disease right lower lobe, most likely aspiration pneumonia. CT of the brain is negative. The patient's CO2 is low on BMP at 12.3, most likely acidosis from dehydration. Lactic acid was pending. The patient was administered a second dose of normal saline. The patient was slightly hypothermic and 95.8, therefore , was placed in warm blankets. The patient appears to have alcohol withdrawal with aspiration pneumonia, will be admitted to the intermediate intensive care unit. Therefore, I'll call was placed to the on-call hospitalist at 3:06 PM for admission. The patient will be admitted to the intermediate intensive care unit overnight. Physician Communication Physician Communication [facility] hospitalists were paged for admission. I discussed the patient with Dr. Paniagua who agrees with admission. Diagnosis Primary Impression: Alcohol withdrawal Qualified Codes: F10.231 - Alcohol dependence with withdrawal delirium Additional Impressions: Aspiration pneumonia Qualified Codes: J69.0 - Pneumonitis due to inhalation of food and vomit Dehydration Admitting Information Admitting Physician Requests: Admit Scripts No Active Prescriptions or Reported Meds Condition: Stable Monico Carney MD Jul 28, 2017 13:32
[2017-07-28 14:07] LABS: BASOPHIL # 0.1 TH/MM3 (0-0.2); BASOPHIL % 0.8 % (0.0-2.0); EOSINOPHIL % 0.4 % (0.0-4.0); HEMATOCRIT 31.8 % (39.0-51.0); LYMPH % 12.3 % (9.0-44.0); LYMPHOCYTE # 1.4 TH/MM3 (1.0-4.8); MEAN CELL VOLUME 90.3 FL (80.0-100.0); MEAN CORPUSCULAR HEMOGLOBIN 30.1 PG (27.0-34.0); MEAN CORPUSCULAR HGB CONC 33.3 % (32.0-36.0); NEUT % 69.5 % (16.0-70.0); PLATELET COUNT 453 TH/MM3 (150-450); RED BLOOD COUNT 3.52 MIL/MM3 (4.50-5.90); RED CELL DISTRIBUTION WIDTH 14.6 % (11.6-17.2); WHITE BLOOD COUNT 11.5 TH/MM3 (4.0-11.0)
--- NOTE | 2017-07-28 14:08 | RADRPT ---
EXAM DATE/TIME: 07/28/2017 13:54 [place] Corrected on: July 28, 2017; changed exam date from July 29, 2017 13:34 to July 28 13:54 [facility] COMPARISON: CT BRAIN W/O CONTRAST, December 02, 2016, 15:51. INDICATIONS : Altered mental status. RADIATION DOSE: 63.39 CTDIvol (mGy) MEDICAL HISTORY : Non-responsive. SURGICAL HISTORY : Non-responsive. ENCOUNTER: Initial ACUITY: 1 day PAIN SCALE: Non-responsive LOCATION: cranial TECHNIQUE: Multiple contiguous axial images were obtained of the head. Using automated exposure control and adj ustment of the mA and/or kV according to patient size, radiation dose was kept as low as reasonably a chievable to obtain optimal diagnostic quality images. DICOM format image data is available electro nically for review and comparison. FINDINGS: CEREBRUM: The ventricles and cortical sulci are mildly widened. There is mild decreased density in the perivent ricular white matter in the frontal regions. No evidence of midline shift, mass lesion, hemorrhage o r acute infarction. No extra-axial fluid collections are seen. POSTERIOR FOSSA: The cerebellum and brainstem are intact. The 4th ventricle is midline. The cerebellopontine angle i s unremarkable. EXTRACRANIAL: The visualized portion of the orbits is intact. SKULL: The calvaria is intact. No evidence of skull fracture. CONCLUSION: 1. No acute abnormality seen. 2. Mild atrophy. Chato Amezcua MD on July 28, 2017 at 14:05 Board Certified Radiologist. This report was verified electronically. on July 28, 2017 at 16:29 Board Certified Radiologist. This report was verified electronically.
[2017-07-28 14:14] LABS: HEMO FLAGS DIFF FINAL
--- NOTE | 2017-07-28 14:17 | RADRPT ---
EXAM DATE/TIME: 07/28/2017 14:12 [facility] COMPARISON: CHEST SINGLE AP, November 26, 2016, 15:35. INDICATIONS : Short of breath. Vomiting. Altered mental status. MEDICAL HISTORY : Unobtainable. SURGICAL HISTORY : Cholecystectomy. ENCOUNTER: Initial ACUITY: 1 day PAIN SCORE: Non-responsive. LOCATION: chest FINDINGS: Mild right lower lobe airspace disease and associated volume loss. Cardiomediastinal contours are wit hin normal limits. Healed left-sided rib fractures again noted. CONCLUSION: 1. Mild right lower lobe airspace disease and associated volume loss consistent with atelectasis. Antione Pierson MD on July 28, 2017 at 14:15 Board Certified Radiologist. This report was verified electronically.
[2017-07-28 14:23] LABS: CHLORIDE 107 MEQ/L (98-107); POTASSIUM 3.2 MEQ/L (3.5-5.1); SODIUM (NA) 140 MEQ/L (136-145)
[2017-07-28 14:28] LABS: ANION GAP 21 MEQ/L (5-15); BICARBONATE 12.3 MEQ/L (21.0-32.0); BLOOD UREA NITROGEN 25 MG/DL (7-18)
[2017-07-28 14:30] LABS: ALT (GPT) 31 U/L (12-78)
[2017-07-28] MEDS ORDERED: SODIUM CHLOR 0.9% 1000 ML INJ 1,000 ML IV ONE (14:30)
[2017-07-28 14:31] LABS: AST (GOT) 53 U/L (15-37); GLOMERULAR FILTRATION RATE 105 ML/MIN (>89)
[2017-07-28 14:32] LABS: TOTAL BILIRUBIN ADULT 0.5 MG/DL (0.2-1.0)
[2017-07-28 14:33] LABS: ALKALINE PHOSPHATASE 81 U/L (45-117); CREATINE KINASE 122 U/L (39-308)
[2017-07-28 14:49] LABS: ALCOHOL LESS THAN 3 MG/DL (0-5)
[2017-07-28] MEDS ORDERED: SODIUM CHLORIDE 0.9% FLUSH 10 ML FLUSH IV FLUSH PRN (15:15)
[2017-07-28] MEDS ORDERED: LORazepam 2 MG TAB PO PRN (15:15)
[2017-07-28] MEDS ORDERED: NALOXONE HCL 0.4 MG/ML AMP IV PRN (15:15)
[2017-07-28] MEDS ORDERED: LACTULOSE SYRUP 20 GM/30 ML CUP PO PRN (15:15)
[2017-07-28] MEDS ORDERED: ONDANSETRON HCL 4 MG/2 ML VIAL IVP PRN (15:15)
[2017-07-28] MEDS ORDERED: MAGNESIUM HYDROXIDE SUSP 30 ML CUP PO PRN (15:15)
[2017-07-28] MEDS ORDERED: FLUMAZENIL 0.5 MG/5 ML VIAL IV PUSH PRN (15:15)
[2017-07-28] MEDS ORDERED: cefTRIAXone INJ 1,000 MG in SODIUM CHLORIDE 0.9% INJ 100 ML IV ONE (15:15)
[2017-07-28] MEDS ORDERED: SENNOSIDES 8.6 MG TAB PO PRN (15:15)
[2017-07-28] MEDS ORDERED: BISACODYL 10 MG SUPP RECTAL PRN (15:15)
[2017-07-28] MEDS ORDERED: AZITHROMYCIN INJ 500 MG in SODIUM CHLOR 0.9% 250 ML INJ 250 ML IV ONE (15:15)
[2017-07-28] MEDS ORDERED: POTASSIUM CHLORIDE 10 MEQ CONTROLLED RELEASE TAB PO ONE (15:30)
[2017-07-28] MEDS: RESP: ALBUTEROL 2.5 MG/IPRATROPIUM 0.5 MG NEB (SCH) NEB ×2 (15:38→17:22)
[2017-07-28 15:56] LABS: APTT (PATIENT) 34.4 SEC (24.3-30.1); INTERNATIONAL NORMALIZED RATIO 1.1 RATIO; PROTHROMBIN TIME - PATIENT 12.3 SEC (9.8-11.6)
[2017-07-28] MEDS: LORazepam 2 MG/ML VIAL IV PUSH PRN ×2 (17:21→23:08)
--- NOTE | 2017-07-28 17:23 | HHI.HP ---
[facility] Unknown Admission Diagnosis alcohol withdrawal, delirium, aspiration pneumonia, dehydration Diagnoses: Travel History International Travel<30 Days: No Contact w/Intl Traveler <30 Da: No Traveled to Known Affected Are: No History of Present Illness This is a 62 year-old male with past medical history of alcoholism, alcohol encephalopathy/dementia who is known to me from previous hospital admission who presented to the hospital after his neighbors had not heard from him in 2-3 days, [facility] was called. Apparently he was found on the side of the house with pure cans around him and that he appeared to have vomited and defecated himself on the side of the house. The patient is confused and unable to provide further history. At baseline he is a poor historian secondary to the encephalopathy. Further review systems not obtainable at this time. Past Family Social History Past Medical History Alcoholism Alcohol-related dementia/encephalopathy Hypertension Chronic anemia Past Surgical History Cholecystectomy Allergies: Coded Allergies: No Known Allergies (Verified , 07/09/17) Family History Reviewed and noncontributory Social History As per history of present illness Physical Exam Vital Signs Vital Signs Date Time Temp Pulse Resp B/P (MAP) Pulse Ox O2 Delivery O2 Flow Rate FiO2 07/28/17 17:00 81 16 92/59 (70) 97 Nasal Cannula 2.00 07/28/17 15:38 98 Nasal Cannula 2.00 07/28/17 15:00 95.8 07/28/17 14:30 16 97 Room Air 07/28/17 13:05 90 Nasal Cannula 07/28/17 12:55 98 20 105/60 (75) Physical Exam GENERAL: Well-nourished, well-developed somewhat disheveled male patient. SKIN: Warm and dry. HEAD: Normocephalic. EYES: No scleral icterus. No injection or drainage. NECK: Supple, trachea midline. No JVD or lymphadenopathy. CARDIOVASCULAR: Regular rate and rhythm without murmurs, gallops, or rubs. RESPIRATORY: Breath sounds equal bilaterally. No wheezing. No accessory muscle use. GASTROINTESTINAL: Abdomen soft, non-tender, nondistended. EXTREMITIES: No cyanosis, or edema. NEUROLOGICAL: Awake, alert, oriented to self but not place. Nonfocal. Laboratory Laboratory Tests Test 07/28/17 13:50 07/28/17 13:57 07/28/17 15:10 White Blood Count 11.5 Red Blood Count 3.52 Hemoglobin 10.6 Hematocrit 31.8 Mean Corpuscular Volume 90.3 Mean Corpuscular Hemoglobin 30.1 Mean Corpuscular Hemoglobin Concent 33.3 Red Cell Distribution Width 14.6 Platelet Count 453 Mean Platelet Volume 8.4 Neutrophils (%) (Auto) 69.5 Lymphocytes (%) (Auto) 12.3 Monocytes (%) (Auto) 17.0 Eosinophils (%) (Auto) 0.4 Basophils (%) (Auto) 0.8 Neutrophils # (Auto) 8.0 Lymphocytes # (Auto) 1.4 Monocytes # (Auto) 2.0 Eosinophils # (Auto) 0.0 Basophils # (Auto) 0.1 CBC Comment DIFF FINAL Differential Comment Blood Urea Nitrogen 25 Creatinine 0.75 Random Glucose 91 Total Protein 7.5 Albumin 2.1 Calcium Level 8.2 Alkaline Phosphatase 81 Aspartate Amino Transf (AST/SGOT) 53 Alanine Aminotransferase (ALT/SGPT) 31 Total Bilirubin 0.5 Sodium Level 140 Potassium Level 3.2 Chloride Level 107 Carbon Dioxide Level 12.3 Anion Gap 21 Estimat Glomerular Filtration Rate 105 Ammonia 36 Total Creatine Kinase 122 Thyroid Stimulating Hormone 3rd Gen 2.430 Ethyl Alcohol Level LESS THAN 3 Magnesium Level 2.1 Prothrombin Time 12.3 Prothromb Time International Ratio 1.1 Activated Partial Thromboplast Time 34.4 Lactic Acid Level 0.7 Date/Time Source Procedure Growth Status 07/28/17 15:30 Blood Peripheral Aerobic Blood Culture Pending Received 07/28/17 15:30 Blood Peripheral Anaerobic Blood Culture Pending Received Result Diagram: 07/28/17 1350 07/28/17 1350 Imaging Last Impressions Head CT 07/28/17 1306 Signed Impressions: Service Date/Time: Friday, July 28, 2017 13:54 - CONCLUSION: 1. No acute abnormality seen. 2. Mild atrophy. Chato Amezcua MD Chest X-Ray 07/28/17 1306 Signed Impressions: Service Date/Time: Friday, July 28, 2017 14:12 - CONCLUSION: 1. Mild right lower lobe airspace disease and associated volume loss consistent with atelectasis. MD Rowena Mckinney VTE Risk Assessment Caprini VTE Risk Assessment: Mod/High Risk (score >= 2) Caprini Risk Assessment Model Point Value = 1 Point Value = 2 Point Value = 3 Point Value = 5 Age 41-60 Minor surgery BMI > 25 kg/m2 Swollen legs Varicose veins or History of unexplained or recurrent spontaneous Oral contraceptives or hormone replacement Sepsis (< 1 month) Serious lung disease, including pneumonia (< 1 month) Abnormal pulmonary function Acute myocardial infarction Congestive heart failure (< 1 month) History of inflammatory bowel disease Medical patient at bed rest Age 61-74 Arthroscopic surgery Major open surgery (> 45 min) Laparoscopic surgery (> 45 min) Malignancy Confined to bed (> 72 hours) Immobilizing plaster cast Central venous access Age >= 75 History of VTE Family history of VTE Factor V Leiden Prothrombin [id number] Lupus anticoagulant Anticardiolipin antibodies Elevated serum homocysteine Heparin-induced thrombocytopenia Other congenital or acquired thrombophilia Stroke (< 1 month) Elective arthroplasty Hip, pelvis, or leg fracture Acute spinal cord injury (< 1 month) Prophylaxis Regimen Total Risk Factor Score Risk Level Prophylaxis Regimen 0-1 Low Early ambulation 2 Moderate Order ONE of the following: *Sequential Compression Device (SCD) *Heparin 5000 units SQ BID 3-4 Higher Order ONE of the following medications: *Heparin 5000 units SQ TID *Enoxaparin/Lovenox 40 mg SQ daily (WT < 150 kg, CrCl > 30 mL/min) *Enoxaparin/Lovenox 30 mg SQ daily (WT < 150 kg, CrCl > 10-29 mL/min) *Enoxaparin/Lovenox 30 mg SQ BID (WT < 150 kg, CrCl > 30 mL/min) AND/OR *Sequential Compression Device (SCD) 5 or more Highest Order ONE of the following medications: *Heparin 5000 units SQ TID (Preferred with Epidurals) *Enoxaparin/Lovenox 40 mg SQ daily (WT < 150 kg, CrCl > 30 mL/min) *Enoxaparin/Lovenox 30 mg SQ daily (WT < 150 kg, CrCl > 10-29 mL/min) *Enoxaparin/Lovenox 30 mg SQ BID (WT < 150 kg, CrCl > 30 mL/min) AND *Sequential Compression Device (SCD) Assessment and Plan Problem List: (1) Hypothermia ICD Code: T68.XXXA - Hypothermia, initial encounter (2) Dehydration ICD Code: E86.0 - Dehydration Status: Acute (3) Aspiration pneumonia ICD Code: J69.0 - Pneumonitis due to inhalation of food and vomit Status: Acute (4) Alcohol withdrawal ICD Code: F10.239 - Alcohol dependence with withdrawal, unspecified Status: Resolved (5) Metabolic encephalopathy ICD Code: G93.41 - Metabolic encephalopathy Status: Resolved Assessment and Plan -Dehydration with hypothermia and acute metabolic acidosis-treat with IVF. -atelectasis versus aspiration pneumonia with right lower lobe airspace disease on chest x-ray -lactic acid is not elevated. We'll treat with Levaquin, DuoNeb' s when necessary. O2 via nasal cannula as needed. -Alcohol withdrawal-start on CIWA protocol, rally pack. High risk for progression to DTs. -Acute metabolic encephalopathy superimposed on top of alcohol-induced dementia -Hypertension-monitor blood pressure and use clonidine when necessary for now. -Chronic anemia-monitor H&H. Normally around 11. -Mild type 2 diabetes-place on diabetic diet. -Physical deconditioning-consult PT. -DVT prophylaxis with Lovenox and SCDs. Problem Qualifiers (1) Aspiration pneumonia: Qualified Codes: J69.0 - Pneumonitis due to inhalation of food and vomit (2) Alcohol withdrawal: Qualified Codes: F10.231 - Alcohol dependence with withdrawal delirium Heather Paniagua MD Jul 28, 2017 17:23
[2017-07-28] MEDS ORDERED: RESP: ALBUTEROL 2.5 MG/IPRATROPIUM 0.5 MG NEB (PRN) NEB ×2 (17:30→18:00)
[2017-07-28] MEDS ORDERED: ENOXAPARIN SODIUM 40 MG/0.4 ML SYRINGE SQ SCH (17:30)
[2017-07-28] MEDS: LEVOFLOXACIN 750 MG PREMIX INJ 150 ML IV SCH (17:59)
[2017-07-28] MEDS: SODIUM CHLOR 0.9% 1000 ML INJ 1,000 ML IV SCH (17:59)
[2017-07-28] MEDS: ENOXAPARIN SODIUM 40 MG/0.4 ML SYRINGE SQ SCH (18:00)
[2017-07-28 19:19] LABS: BLOOD, URINE NEG (NEG); GLUCOSE,URINE NEG (NEG); KETONE, URINE 80 OR GREATER mg/dL (NEG); NITRITE,URINE NEG (NEG)
[2017-07-28 19:36] LABS: URINE COLOR YELLOW (YELLW/STRAW)
[2017-07-28 19:37] LABS: COMMENT (UR) CULT NOT INDICATED; CULTURE IF INDICATED CULT NOT INDICATED; SQUAMOUS EPITHELIAL CELL URINE 0-5 /hpf (0-5); WBC, URINE 0-2 /hpf (0-5)
[2017-07-28] MEDS: DOCUSATE SODIUM 50 MG/SENNA 8.6 MG TAB PO SCH (20:55)
[2017-07-28] MEDS: SODIUM CHLORIDE 0.9% FLUSH 10 ML FLUSH IV FLUSH SCH (20:56)
[2017-07-29] VITALS (18 sets, daily range): BP systolic 94–112; BP diastolic 66–79; PULSE 68–100; RESP 6–29; TEMP 97.4–98.8; O2SAT 89–100
[2017-07-29 05:20] LABS: AUTOMATED NEUTROPHIL # 6.4 TH/MM3 (1.8-7.7); BASOPHIL # 0.1 TH/MM3 (0-0.2); BASOPHIL % 0.7 % (0.0-2.0); EOSINOPHIL # 0.1 TH/MM3 (0-0.4); EOSINOPHIL % 1.4 % (0.0-4.0); HEMATOCRIT 30.6 % (39.0-51.0); LYMPH % 15.5 % (9.0-44.0); LYMPHOCYTE # 1.5 TH/MM3 (1.0-4.8); MEAN CELL VOLUME 90.5 FL (80.0-100.0); MEAN CORPUSCULAR HEMOGLOBIN 29.1 PG (27.0-34.0); MEAN CORPUSCULAR HGB CONC 32.2 % (32.0-36.0); MONO % 13.8 % (0.0-8.0); NEUT % 68.6 % (16.0-70.0); PLATELET COUNT 463 TH/MM3 (150-450); RED BLOOD COUNT 3.38 MIL/MM3 (4.50-5.90); RED CELL DISTRIBUTION WIDTH 15.6 % (11.6-17.2); WHITE BLOOD COUNT 9.4 TH/MM3 (4.0-11.0)
[2017-07-29 05:38] LABS: CHLORIDE 110 MEQ/L (98-107); POTASSIUM 3.3 MEQ/L (3.5-5.1); SODIUM (NA) 143 MEQ/L (136-145)
[2017-07-29 05:43] LABS: ANION GAP 17 MEQ/L (5-15); BICARBONATE 15.9 MEQ/L (21.0-32.0); BLOOD UREA NITROGEN 15 MG/DL (7-18)
[2017-07-29 05:46] LABS: ALT (GPT) 26 U/L (12-78); AST (GOT) 41 U/L (15-37); GLOMERULAR FILTRATION RATE 157 ML/MIN (>89)
[2017-07-29 05:47] LABS: TOTAL BILIRUBIN ADULT 0.4 MG/DL (0.2-1.0)
[2017-07-29 05:49] LABS: ALKALINE PHOSPHATASE 67 U/L (45-117)
[2017-07-29] MEDS: SODIUM CHLOR 0.9% 1000 ML INJ 1,000 ML IV SCH ×3 (05:51→23:02)
[2017-07-29 05:55] LABS: HEMO FLAGS DIFF FINAL
[2017-07-29] MEDS: LORazepam 2 MG/ML VIAL IV PUSH PRN ×2 (06:00→23:07)
[2017-07-29] MEDS: DOCUSATE SODIUM 50 MG/SENNA 8.6 MG TAB PO SCH ×2 (09:00→20:32)
[2017-07-29] MEDS: SODIUM CHLORIDE 0.9% FLUSH 10 ML FLUSH IV FLUSH SCH ×2 (09:00→20:32)
[2017-07-29] MEDS ORDERED: POTASSIUM CHLORIDE 10 MEQ CONTROLLED RELEASE TAB PO ONE (09:15)
--- NOTE | 2017-07-29 13:44 | EKG ---
Date Performed: 07/28/2017 Time Performed: 17:13:44 PTAGE: 62 years EKG: Sinus rhythm MODERATE INTRAVENTRICULAR CONDUCTION DELAY PROLONGED QT INTERVAL ABNORMAL ECG PREVIOUS TRACING : 11/28/2016 12.44 Since the prior tracing, the premature atrial contractions have resolved, but the QT prolongation is new. Clinical correlation advised. DOCTOR: Kierra Medrano Interpretating Date/Time 07/29/2017 13:42:55
--- NOTE | 2017-07-29 14:40 | HHI.PR ---
Subjective Remarks Patient has been alert, cooperative, not requiring Ativan no withdrawal symptoms. Patient seems that his baseline mental state. Temperature stable. Objective Vitals Vital Signs Date Time Temp Pulse Resp B/P (MAP) Pulse Ox O2 Delivery O2 Flow Rate FiO2 07/29/17 12:00 98.1 90 25 99 07/29/17 12:00 100 07/29/17 11:01 90 22 111/76 (88) 99 07/29/17 11:00 26 98 07/29/17 10:00 14 100 07/29/17 09:00 68 11 98/71 (80) 98 07/29/17 08:00 100 Nasal Cannula 2.00 07/29/17 08:00 98.0 74 12 89 07/29/17 08:00 92 Nasal Cannula 2.00 07/29/17 08:00 76 07/29/17 07:00 70 12 112/79 (90) 100 07/29/17 04:00 84 07/29/17 04:00 97.6 70 14 106/79 (88) 100 07/29/17 01:00 97.4 70 13 100/72 (81) 100 07/29/17 00:00 100 Nasal Cannula 2.00 07/29/17 00:00 70 07/28/17 23:00 94 15 104/65 (78) 100 07/28/17 21:00 102 15 99/73 (82) 100 07/28/17 20:00 96.9 24 99/76 (84) 100 07/28/17 20:00 78 07/28/17 19:20 100 Nasal Cannula 2.00 07/28/17 19:00 100 Nasal Cannula 2.00 07/28/17 18:12 77 07/28/17 18:11 77 13 97/68 (78) 100 07/28/17 18:06 100 Nasal Cannula 2.00 07/28/17 17:48 97.2 106 18 83/67 (72) 99 07/28/17 17:24 07/28/17 17:00 81 16 92/59 (70) 97 Nasal Cannula 2.00 07/28/17 16:30 16 97 Nasal Cannula 2.00 07/28/17 16:00 84 16 92/65 (74) 97 Nasal Cannula 2.00 07/28/17 15:38 98 Nasal Cannula 2.00 07/28/17 15:00 95.8 I/O 07/28/17 07/28/17 07/28/17 07/29/17 07/29/17 07/29/17 07:00 15:00 23:00 07:00 15:00 23:00 Intake Total 2450 ml 1093 ml Output Total 1150 ml Balance 2450 ml -57 ml Intake IV Total 2450 ml 1093 ml Output Urine Total 1150 ml Result Diagram: 07/29/1744207/29/17442 Objective Remarks GENERAL: Well-nourished, well-developed somewhat disheveled male patient. SKIN: Warm and dry. HEAD: Normocephalic. EYES: No scleral icterus. No injection or drainage. NECK: Supple, trachea midline. No JVD or lymphadenopathy. CARDIOVASCULAR: Regular rate and rhythm without murmurs, gallops, or rubs. RESPIRATORY: Breath sounds equal bilaterally. No wheezing. No accessory muscle use. GASTROINTESTINAL: Abdomen soft, non-tender, nondistended. EXTREMITIES: No cyanosis, or edema. NEUROLOGICAL: Awake, alert, oriented to self but not place. Nonfocal. A/P Problem List: (1) Hypothermia ICD Code: T68.XXXA - Hypothermia, initial encounter (2) Dehydration ICD Code: E86.0 - Dehydration Status: Acute (3) Aspiration pneumonia ICD Code: J69.0 - Pneumonitis due to inhalation of food and vomit Status: Acute (4) Alcohol withdrawal ICD Code: F10.239 - Alcohol dependence with withdrawal, unspecified Status: Resolved (5) Metabolic encephalopathy ICD Code: G93.41 - Metabolic encephalopathy Status: Resolved Assessment and Plan -Dehydration with hypothermia and acute metabolic resolved status post IV fluids. -atelectasis versus aspiration pneumonia with right lower lobe airspace disease on chest x-ray -lactic acid is not elevated. Continue Levaquin, DuoNeb's when necessary. O2 via nasal cannula as needed. -Alcohol withdrawal-mild. Continue CIWA protocol, rally pack. High risk for progression to DTs. -Acute metabolic encephalopathy superimposed on top of alcohol-induced dementia , improved he seems at his baseline mental status. -Hypertension-monitor blood pressure and use clonidine when necessary for now. -Chronic anemia-stable. Monitor H&H. Normally around 11. -Mild type 2 diabetes-place on diabetic diet. -Physical deconditioning-consult PT. -DVT prophylaxis with Lovenox and SCDs. Problem Qualifiers (1) Aspiration pneumonia: Qualified Codes: J69.0 - Pneumonitis due to inhalation of food and vomit (2) Alcohol withdrawal: Qualified Codes: F10.231 - Alcohol dependence with withdrawal delirium Heather Paniagua MD Jul 29, 2017 14:40
[2017-07-29] MEDS: ENOXAPARIN SODIUM 40 MG/0.4 ML SYRINGE SQ SCH (17:09)
[2017-07-29] MEDS: LEVOFLOXACIN 750 MG PREMIX INJ 150 ML IV SCH (17:09)
[2017-07-30] VITALS (17 sets, daily range): BP systolic 99–152; BP diastolic 55–98; PULSE 72–97; RESP 10–29; TEMP 97–98.9; O2SAT 96–100
[2017-07-30] MEDS: LORazepam 2 MG/ML VIAL IV PUSH PRN (02:44)
[2017-07-30 05:21] LABS: CHLORIDE 113 MEQ/L (98-107); POTASSIUM 3.2 MEQ/L (3.5-5.1); SODIUM (NA) 143 MEQ/L (136-145)
[2017-07-30 05:26] LABS: ANION GAP 8 MEQ/L (5-15); BICARBONATE 21.8 MEQ/L (21.0-32.0); BLOOD UREA NITROGEN 10 MG/DL (7-18)
[2017-07-30 05:29] LABS: ALT (GPT) 26 U/L (12-78); AST (GOT) 45 U/L (15-37); GLOMERULAR FILTRATION RATE 142 ML/MIN (>89)
[2017-07-30 05:30] LABS: TOTAL BILIRUBIN ADULT 0.3 MG/DL (0.2-1.0)
[2017-07-30 05:32] LABS: ALKALINE PHOSPHATASE 68 U/L (45-117)
[2017-07-30] MEDS: DOCUSATE SODIUM 50 MG/SENNA 8.6 MG TAB PO SCH ×2 (09:00→20:44)
[2017-07-30] MEDS: SODIUM CHLORIDE 0.9% FLUSH 10 ML FLUSH IV FLUSH SCH ×2 (09:00→20:44)
[2017-07-30] MEDS: POTASSIUM CHLORIDE 20 MEQ PWD PACKET PO SCH ×2 (12:30→20:44)
--- NOTE | 2017-07-30 13:20 | HHI.PR ---
Subjective Remarks [place] to uremia patient seen and evaluated today in follow-up for alcoholic liver disease and for encephalopathy. Had been improving however does appear to have a return of encephalopathy. It is difficult to ascertain this however due to increased doses of Ativan overnight. Patient's hypokalemic and this will need to be replaced. Patient does not complain of anything today. Objective Vitals Vital Signs Date Time Temp Pulse Resp B/P (MAP) Pulse Ox O2 Delivery O2 Flow Rate FiO2 07/30/17 09:00 78 23 100 07/30/17 08:00 99 Nasal Cannula 2.00 07/30/17 08:00 91 07/30/17 08:00 98.5 90 12 111/80 (90) 100 07/30/17 08:00 100 Room Air 07/30/17 07:24 82 11 101/55 (70) 100 07/30/17 07:00 86 17 98 07/30/17 04:00 94 07/30/17 04:00 98.9 94 18 99/66 (77) 96 07/30/17 00:00 98.6 94 29 107/75 (86) 97 07/30/17 00:00 97 07/29/17 23:27 97 Nasal Cannula 2.00 07/29/17 20:00 97 07/29/17 20:00 98.8 93 20 109/76 (87) 97 07/29/17 19:00 97 Room Air 07/29/17 18:00 29 97 07/29/17 17:00 90 25 101/72 (82) 97 07/29/17 16:00 88 19 97 07/29/17 16:00 95 07/29/17 15:00 90 6 94/68 (77) 97 07/29/17 14:00 84 21 98 I/O 07/29/17 07/29/17 07/29/17 07/30/17 07/30/17 07/30/17 07:00 15:00 23:00 07:00 15:00 23:00 Intake Total 1093 ml 390 ml 120 ml Output Total 1150 ml 950 ml 350 ml Balance -57 ml -560 ml -230 ml Intake Oral 240 ml 120 ml IV Total 1093 ml 150 ml Output Urine Total 1150 ml 950 ml 350 ml # Bowel Movements 1 Result Diagram: 07/29/17 0443 07/30/17 0425 Other Results Last Impressions Head CT 07/28/17 1306 Signed Impressions: Service Date/Time: Friday, July 28, 2017 13:54 - CONCLUSION: 1. No acute abnormality seen. 2. Mild atrophy. Chato Amezcua MD Chest X-Ray 07/28/17 1306 Signed Impressions: Service Date/Time: Friday, July 28, 2017 14:12 - CONCLUSION: 1. Mild right lower lobe airspace disease and associated volume loss consistent with atelectasis. Antione Pierson MD Objective Remarks Multiple skin tears and bruises GENERAL: This is a well-nourished, calm but confused CARDIOVASCULAR: Regular rate and rhythm without murmurs, gallops, or rubs. RESPIRATORY: Clear to auscultation. Breath sounds equal bilaterally. No wheezes , rales, or rhonchi. GASTROINTESTINAL: Abdomen soft, non-tender, nondistended. Normal active bowel sounds MUSCULOSKELETAL: Extremities without clubbing, cyanosis, or edema. NEURO: Confused but moves all ext x4 A/P Problem List: (1) Dehydration ICD Code: E86.0 - Dehydration Status: Acute Plan: Improved, DC IV fluids and encourage oral intake Follow electrolytes (2) Aspiration pneumonia ICD Code: J69.0 - Pneumonitis due to inhalation of food and vomit Status: Acute Plan: Continue Levaquin, if tolerating oral well we'll change to by mouth (3) Alcohol withdrawal ICD Code: F10.239 - Alcohol dependence with withdrawal, unspecified Status: Resolved Plan: Patient with chronic alcoholism and in fact was extended stay patient here for sequelae of alcoholism. Patient unfortunately has now returned back to alcohol. We'll continue with [place] protocol and vitamin support Add Librium (4) Metabolic encephalopathy ICD Code: G93.41 - Metabolic encephalopathy Status: Resolved Plan: Ammonia level elevated initially, will repeat today and continue lactulose as needed (5) Hypokalemia ICD Code: E87.6 - Hypokalemia Plan: we'll replace and follow trend Check phosphate level Discharge Planning home when stable Last admission was quite extended due to patient's inability to care for himself Problem Qualifiers (1) Aspiration pneumonia: Qualified Codes: J69.0 - Pneumonitis due to inhalation of food and vomit (2) Alcohol withdrawal: Qualified Codes: F10.231 - Alcohol dependence with withdrawal delirium Clary Acuna MD Jul 30, 2017 13:20
[2017-07-30] MEDS: ENOXAPARIN SODIUM 40 MG/0.4 ML SYRINGE SQ SCH (15:43)
[2017-07-31] VITALS (7 sets, daily range): BP systolic 119–160; BP diastolic 71–105; PULSE 78–89; RESP 18–20; TEMP 96.4–99.1; O2SAT 94–97
[2017-07-31] MEDS: DOCUSATE SODIUM 50 MG/SENNA 8.6 MG TAB PO SCH ×2 (08:50→21:04)
[2017-07-31] MEDS: SODIUM CHLORIDE 0.9% FLUSH 10 ML FLUSH IV FLUSH SCH ×2 (08:51→21:05)
[2017-07-31] MEDS: POTASSIUM CHLORIDE 20 MEQ PWD PACKET PO SCH ×2 (08:51→21:00)
[2017-07-31] MEDS: LACTULOSE SYRUP 20 GM/30 ML CUP PO SCH ×3 (12:06→21:04)
[2017-07-31] MEDS: LEVOFLOXACIN 750 MG TAB PO SCH (12:06)
--- NOTE | 2017-07-31 12:55 | HHI.PR ---
Subjective Remarks Patient seen in follow-up for alcohol related cirrhosis Ammonia level 39 Patient ate a bit better today care plan discussed with Eric SALAZAR Objective Vitals Vital Signs Date Time Temp Pulse Resp B/P (MAP) Pulse Ox O2 Delivery O2 Flow Rate FiO2 07/31/17 12:00 96.9 87 18 127/72 (90) 95 07/31/17 08:00 96.8 81 18 160/88 (112) 95 07/31/17 07:39 94 21 07/31/17 04:00 98.3 86 20 119/91 (100) 94 07/31/17 00:00 99.1 78 20 127/95 (106) 97 07/30/17 22:00 97.0 80 20 130/90 (103) 98 07/30/17 20:48 96 21 07/30/17 19:15 98.0 72 22 152/95 (114) 97 07/30/17 19:00 97 Room Air 07/30/17 17:00 72 16 129/88 (102) 100 07/30/17 16:00 98.3 76 17 117/77 (90) 100 07/30/17 15:00 80 12 127/93 (104) 100 07/30/17 14:00 72 14 142/88 (106) 100 07/30/17 13:00 74 10 141/98 (112) 100 I/O 07/30/17 07/30/17 07/30/17 07/31/17 07/31/17 07/31/17 07:00 15:00 23:00 07:00 15:00 23:00 Intake Total 120 ml 800 ml 180 ml 0 ml Output Total 350 ml 1100 ml 1050 ml Balance -230 ml 800 ml -920 ml -1050 ml Intake Oral 120 ml 180 ml 0 ml IV Total 800 ml Output Urine Total 350 ml 1100 ml 1050 ml # Bowel Movements 1 Result Diagram: 07/29/17 0443 07/30/17 0425 Objective Remarks Multiple skin tears and bruises GENERAL: This is a well-nourished, calm but confused CARDIOVASCULAR: Regular rate and rhythm without murmurs, gallops, or rubs. RESPIRATORY: Clear to auscultation. Breath sounds equal bilaterally. No wheezes , rales, or rhonchi. GASTROINTESTINAL: Abdomen soft, non-tender, nondistended. Normal active bowel sounds MUSCULOSKELETAL: Extremities without clubbing, cyanosis, or edema. NEURO: Confused but less than yesterday, moves all 4 A/P Problem List: (1) Dehydration ICD Code: E86.0 - Dehydration Status: Acute Plan: Improved, encourage oral intake Follow electrolytes (2) Aspiration pneumonia ICD Code: J69.0 - Pneumonitis due to inhalation of food and vomit Status: Acute (3) Alcohol withdrawal ICD Code: F10.239 - Alcohol dependence with withdrawal, unspecified Status: Resolved Plan: Patient with chronic alcoholism and in fact was extended stay patient here for sequelae of alcoholism. Patient unfortunately has now returned back to alcohol. We'll continue with ciwa protocol and vitamin support Continue Librium (4) Metabolic encephalopathy ICD Code: G93.41 - Metabolic encephalopathy Status: Resolved Plan: Continue lactulose 3 times a day and follow ammonia level (5) Hypokalemia ICD Code: E87.6 - Hypokalemia Plan: we'll replace and follow trend Discharge Planning home when stable Last admission was quite extended due to patient's inability to care for himself Problem Qualifiers (1) Aspiration pneumonia: Qualified Codes: J69.0 - Pneumonitis due to inhalation of food and vomit (2) Alcohol withdrawal: Qualified Codes: F10.231 - Alcohol dependence with withdrawal delirium Clary Acuna MD Jul 31, 2017 12:55
[2017-07-31] MEDS: ENOXAPARIN SODIUM 40 MG/0.4 ML SYRINGE SQ SCH (16:52)
[2017-08-01] VITALS: BP 138/88; PULSE 83; RESP 20; TEMP 99.2; O2SAT 97
[2017-08-01 08:17] VITALS: BP 126/73; PULSE 56; RESP 16; TEMP 97.6; O2SAT 98
[2017-08-01 08:24] LABS: CHLORIDE 107 MEQ/L (98-107); SODIUM (NA) 142 MEQ/L (136-145)
[2017-08-01 08:28] LABS: ANION GAP 10 MEQ/L (5-15); BICARBONATE 25.1 MEQ/L (21.0-32.0); BLOOD UREA NITROGEN 5 MG/DL (7-18)
[2017-08-01 08:31] LABS: ALT (GPT) 27 U/L (12-78); AST (GOT) 51 U/L (15-37); GLOMERULAR FILTRATION RATE 211 ML/MIN (>89)
[2017-08-01 08:33] LABS: TOTAL BILIRUBIN ADULT 0.4 MG/DL (0.2-1.0)
[2017-08-01 08:34] LABS: ALKALINE PHOSPHATASE 69 U/L (45-117)
[2017-08-01] MEDS: DOCUSATE SODIUM 50 MG/SENNA 8.6 MG TAB PO SCH ×2 (08:41→21:00)
[2017-08-01] MEDS: LACTULOSE SYRUP 20 GM/30 ML CUP PO SCH ×4 (08:42→21:00)
[2017-08-01] MEDS: SODIUM CHLORIDE 0.9% FLUSH 10 ML FLUSH IV FLUSH SCH ×2 (09:28→21:32)
[2017-08-01] MEDS: POTASSIUM CHLORIDE 20 MEQ PWD PACKET PO SCH ×2 (09:38→21:00)
--- NOTE | 2017-08-01 11:13 | HHI.PR ---
Subjective Remarks Patient seen and evaluated today in follow-up for hepatic encephalopathy with known alcoholic liver disease. Patient is a little more coherent today. Still pretty weak. Complaining of some insomnia Objective Vitals Vital Signs Date Time Temp Pulse Resp B/P (MAP) Pulse Ox O2 Delivery O2 Flow Rate FiO2 08/01/17 08:17 97.6 56 16 126/73 (90) 98 08/01/17 00:00 99.2 83 20 138/88 (105) 97 07/31/17 20:00 96.4 87 20 137/105 (116) 96 07/31/17 20:00 96 21 07/31/17 16:00 99.1 89 20 131/71 (91) 95 07/31/17 14:25 99 Room Air 07/31/17 12:00 96.9 87 18 127/72 (90) 95 I/O 07/31/17 07/31/17 07/31/17 08/01/17 08/01/17 08/01/17 07:00 15:00 23:00 07:00 15:00 23:00 Intake Total 0 ml 0 ml 480 ml 240 ml 100 ml Output Total 1050 ml 650 ml 200 ml 875 ml Balance -1050 ml -650 ml 280 ml -635 ml 100 ml Intake Oral 0 ml 0 ml 480 ml 240 ml 100 ml Output Urine Total 1050 ml 650 ml 200 ml 875 ml # Voids 0 # Bowel Movements 2 3 Result Diagram: 07/29/17 0443 08/01/17 0725 Objective Remarks Multiple skin tears and bruises GENERAL: This is a well-nourished, calm but confused CARDIOVASCULAR: Regular rate and rhythm without murmurs, gallops, or rubs. RESPIRATORY: Clear to auscultation. Breath sounds equal bilaterally. No wheezes , rales, or rhonchi. GASTROINTESTINAL: Abdomen soft, non-tender, nondistended. Normal active bowel sounds MUSCULOSKELETAL: Extremities without clubbing, cyanosis, or edema. NEURO: Confused but less than yesterday, moves all 4 A/P Problem List: (1) Dehydration ICD Code: E86.0 - Dehydration Status: Acute Plan: improved with ivf oral intake improved (2) Aspiration pneumonia ICD Code: J69.0 - Pneumonitis due to inhalation of food and vomit Status: Acute Plan: cont levaquin po 03/23 (3) Alcohol withdrawal ICD Code: F10.239 - Alcohol dependence with withdrawal, unspecified Status: Resolved Plan: Patient with chronic alcoholism a continue ciwa for now and ptn on librium ammonia elevated (4) Metabolic encephalopathy ICD Code: G93.41 - Metabolic encephalopathy Status: Resolved Plan: Continue lactulose 3 times a day and follow ammonia level (5) Hypokalemia ICD Code: E87.6 - Hypokalemia Plan: increase replacement recheck mag Discharge Planning home when stable, currently max assist with PT Last admission was quite extended due to patient's inability to care for himself Problem Qualifiers (1) Aspiration pneumonia: Qualified Codes: J69.0 - Pneumonitis due to inhalation of food and vomit (2) Alcohol withdrawal: Qualified Codes: F10.231 - Alcohol dependence with withdrawal delirium Clary Acuna MD Aug 01, 2017 11:13
[2017-08-01] MEDS: LEVOFLOXACIN 750 MG TAB PO SCH (11:40)
[2017-08-01 12:07] VITALS: BP 114/79; PULSE 87; RESP 16; TEMP 97.6; O2SAT 96
[2017-08-01 15:57] VITALS: BP 123/93; PULSE 90; RESP 16; TEMP 97.2; O2SAT 100
[2017-08-01] MEDS: ENOXAPARIN SODIUM 40 MG/0.4 ML SYRINGE SQ SCH (16:34)
[2017-08-01 20:00] VITALS: BP 130/97; PULSE 87; RESP 20; TEMP 97.5; O2SAT 95
[2017-08-01] MEDS: LORazepam 1 MG TAB PO PRN (21:33)
[2017-08-02] VITALS: BP 136/94; PULSE 83; RESP 16; TEMP 99.4; O2SAT 96
[2017-08-02 07:44] VITALS: BP 131/94; PULSE 82; RESP 16; TEMP 97.6; O2SAT 97
[2017-08-02] MEDS: LACTULOSE SYRUP 20 GM/30 ML CUP PO SCH ×2 (08:28→21:28)
[2017-08-02] MEDS: DOCUSATE SODIUM 50 MG/SENNA 8.6 MG TAB PO SCH (08:28)
[2017-08-02] MEDS: SODIUM CHLORIDE 0.9% FLUSH 10 ML FLUSH IV FLUSH SCH ×2 (08:29→21:00)
[2017-08-02] MEDS: POTASSIUM CHLORIDE 20 MEQ PWD PACKET PO SCH ×2 (09:00→21:00)
[2017-08-02 11:00] LABS: POTASSIUM 3.3 MEQ/L (3.5-5.1)
[2017-08-02 11:56] VITALS: BP 134/80; PULSE 82; RESP 16; TEMP 98; O2SAT 98
--- NOTE | 2017-08-02 12:16 | HHI.PR ---
Subjective Remarks Patient complains of dry cough and requests cough syrup. Objective Vitals Vital Signs Date Time Temp Pulse Resp B/P (MAP) Pulse Ox O2 Delivery O2 Flow Rate FiO2 08/02/17 11:56 98.0 82 16 134/80 (98) 98 08/02/17 07:44 97 Room Air 08/02/17 07:44 97.6 82 16 131/94 (106) 97 08/02/17 00:00 99.4 83 16 136/94 (108) 96 08/01/17 20:00 Room Air 08/01/17 20:00 97.5 87 20 130/97 (108) 95 08/01/17 15:57 97.2 90 16 123/93 (103) 100 08/01/17 13:38 96 Room Air I/O 08/01/17 08/01/17 08/01/17 08/02/17 08/02/17 08/02/17 07:00 15:00 23:00 07:00 15:00 23:00 Intake Total 240 ml 100 ml 120 ml 220 ml Output Total 875 ml 200 ml 425 ml 100 ml Balance -635 ml 100 ml -80 ml -205 ml -100 ml Intake Oral 240 ml 100 ml 120 ml 220 ml Output Urine Total 875 ml 200 ml 425 ml 100 ml # Voids 3 # Bowel Movements 3 2 1 Result Diagram: 07/29/17 0443 08/02/17 0712 Objective Remarks GENERAL: Well-nourished, well-developed somewhat disheveled male patient. SKIN: Warm and dry. HEAD: Normocephalic. EYES: No scleral icterus. No injection or drainage. NECK: Supple, trachea midline. No JVD or lymphadenopathy. CARDIOVASCULAR: Regular rate and rhythm without murmurs, gallops, or rubs. RESPIRATORY: Breath sounds equal bilaterally. No wheezing. No accessory muscle use. GASTROINTESTINAL: Abdomen soft, non-tender, nondistended. EXTREMITIES: No cyanosis, or edema. NEUROLOGICAL: Awake, alert, oriented to self place and month and year. A/P Problem List: (1) Dehydration ICD Code: E86.0 - Dehydration Status: Acute (2) Aspiration pneumonia ICD Code: J69.0 - Pneumonitis due to inhalation of food and vomit Status: Acute (3) Alcohol withdrawal ICD Code: F10.239 - Alcohol dependence with withdrawal, unspecified Status: Resolved (4) Metabolic encephalopathy ICD Code: G93.41 - Metabolic encephalopathy Status: Resolved (5) Hypokalemia ICD Code: E87.6 - Hypokalemia Assessment and Plan -Dehydration with hypothermia and acute metabolic resolved status post IV fluids. -atelectasis versus aspiration pneumonia with right lower lobe airspace disease on chest x-ray -lactic acid is not elevated. Continue Levaquin - total 7 days stop date 08/03, DuoNeb's when necessary. O2 via nasal cannula as needed. -Alcohol withdrawal-mild. Much improved. Decrease Librium to 10 mg twice a day. Continue CIWA protocol, rally pack. High risk for progression to DTs. -Acute metabolic encephalopathy superimposed on top of alcohol-induced dementia , improved he seems at his baseline mental status. It is now alert and oriented 3. Continue lactulose but decrease frequency. -Hypertension-monitor blood pressure and use clonidine when necessary for now. -Chronic anemia-stable. Monitor H&H. Normally around 11. -Mild type 2 continue diabetic diet. -Physical deconditioning-consult PT. -DVT prophylaxis with Lovenox and SCDs. Problem Qualifiers (1) Aspiration pneumonia: Qualified Codes: J69.0 - Pneumonitis due to inhalation of food and vomit (2) Alcohol withdrawal: Qualified Codes: F10.231 - Alcohol dependence with withdrawal delirium Heather Paniagua MD Aug 02, 2017 12:16
[2017-08-02] MEDS: LEVOFLOXACIN 750 MG TAB PO SCH (12:19)
[2017-08-02] MEDS: ENOXAPARIN SODIUM 40 MG/0.4 ML SYRINGE SQ SCH (15:33)
[2017-08-02 16:04] VITALS: BP 124/97; PULSE 88; RESP 16; TEMP 97.6
[2017-08-02 20:00] VITALS: BP 121/91; PULSE 95; RESP 16; TEMP 98.6; O2SAT 93
[2017-08-03 07:42] LABS: AUTOMATED NEUTROPHIL # 8.2 TH/MM3 (1.8-7.7); BASOPHIL # 0.1 TH/MM3 (0-0.2); BASOPHIL % 0.9 % (0.0-2.0); EOSINOPHIL # 0.2 TH/MM3 (0-0.4); EOSINOPHIL % 1.5 % (0.0-4.0); HEMATOCRIT 30.1 % (39.0-51.0); HEMO FLAGS DIFF FINAL; LYMPH % 13.3 % (9.0-44.0); LYMPHOCYTE # 1.5 TH/MM3 (1.0-4.8); MEAN CELL VOLUME 88.5 FL (80.0-100.0); MEAN CORPUSCULAR HEMOGLOBIN 28.5 PG (27.0-34.0); MEAN CORPUSCULAR HGB CONC 32.2 % (32.0-36.0); MONO % 12.6 % (0.0-8.0); NEUT % 71.7 % (16.0-70.0); PLATELET COUNT 442 TH/MM3 (150-450); RED CELL DISTRIBUTION WIDTH 15.2 % (11.6-17.2); WHITE BLOOD COUNT 11.5 TH/MM3 (4.0-11.0)
[2017-08-03 07:52] LABS: CHLORIDE 105 MEQ/L (98-107); POTASSIUM 3.5 MEQ/L (3.5-5.1); SODIUM (NA) 139 MEQ/L (136-145)
[2017-08-03 07:55] LABS: INTERNATIONAL NORMALIZED RATIO 1.1 RATIO
[2017-08-03 07:56] LABS: ANION GAP 8 MEQ/L (5-15); BICARBONATE 25.9 MEQ/L (21.0-32.0); BLOOD UREA NITROGEN 6 MG/DL (7-18)
[2017-08-03 07:59] LABS: ALT (GPT) 21 U/L (12-78); AST (GOT) 34 U/L (15-37)
[2017-08-03 08:00] VITALS: BP 135/90; PULSE 84; RESP 20; TEMP 96.2; O2SAT 95
[2017-08-03 08:00] LABS: GLOMERULAR FILTRATION RATE 224 ML/MIN (>89)
[2017-08-03 08:01] LABS: TOTAL BILIRUBIN ADULT 0.3 MG/DL (0.2-1.0)
[2017-08-03 08:02] LABS: ALKALINE PHOSPHATASE 64 U/L (45-117)
[2017-08-03] MEDS: LACTULOSE SYRUP 20 GM/30 ML CUP PO SCH ×2 (08:32→20:02)
[2017-08-03] MEDS: POTASSIUM CHLORIDE 20 MEQ PWD PACKET PO SCH ×2 (08:33→20:02)
[2017-08-03] MEDS: SODIUM CHLORIDE 0.9% FLUSH 10 ML FLUSH IV FLUSH SCH ×2 (08:33→20:03)
--- NOTE | 2017-08-03 11:15 | HHI.PR ---
Subjective Remarks Patient c/o cough. States he is too weak to get out of bed. Patient has refused PT. Objective Vitals Vital Signs Date Time Temp Pulse Resp B/P (MAP) Pulse Ox O2 Delivery O2 Flow Rate FiO2 08/03/17 08:00 96.2 84 20 135/90 (105) 95 08/03/17 00:00 08/02/17 20:00 98.6 95 16 121/91 (101) 93 Manual Cuff/Auscultation Automatic Cuff 08/02/17 16:04 97.6 88 16 124/97 (106) 08/02/17 11:56 98.0 82 16 134/80 (98) 98 I/O 08/02/17 08/02/17 08/02/17 08/03/17 08/03/17 08/03/17 07:00 15:00 23:00 07:00 15:00 23:00 Intake Total 220 ml 1000 ml 240 ml Output Total 425 ml 100 ml 950 ml 300 ml Balance -205 ml -100 ml 50 ml -60 ml Intake Oral 220 ml 1000 ml 240 ml Output Urine Total 425 ml 100 ml 950 ml 300 ml Stool Total 0 ml # Voids 0 # Bowel Movements 1 2 1 Result Diagram: 08/03/17 0734 08/03/17733 Objective Remarks GENERAL: Well-nourished, well-developed somewhat disheveled male patient. SKIN: Warm and dry. HEAD: Normocephalic. EYES: No scleral icterus. No injection or drainage. NECK: Supple, trachea midline. No JVD or lymphadenopathy. CARDIOVASCULAR: Regular rate and rhythm without murmurs, gallops, or rubs. RESPIRATORY: Breath sounds equal bilaterally. No wheezing. No accessory muscle use. GASTROINTESTINAL: Abdomen soft, non-tender, nondistended. EXTREMITIES: No cyanosis, or edema. NEUROLOGICAL: Awake, alert, oriented to self place and month and year. A/P Problem List: (1) Dehydration ICD Code: E86.0 - Dehydration Status: Acute (2) Aspiration pneumonia ICD Code: J69.0 - Pneumonitis due to inhalation of food and vomit Status: Acute (3) Alcohol withdrawal ICD Code: F10.239 - Alcohol dependence with withdrawal, unspecified Status: Resolved (4) Metabolic encephalopathy ICD Code: G93.41 - Metabolic encephalopathy Status: Resolved (5) Hypokalemia ICD Code: E87.6 - Hypokalemia Assessment and Plan -Dehydration with hypothermia and acute metabolic resolved status post IV fluids. -atelectasis versus aspiration pneumonia with right lower lobe airspace disease on chest x-ray -treated, completes 7 days of levaquin today, DuoNeb's when necessary. O2 via nasal cannula as needed. -Alcohol withdrawal-mild. Much improved. Decrease Librium to 10 mg daily x 2 days then DC. -Acute metabolic encephalopathy superimposed on top of alcohol-induced dementia , improved he seems at his baseline mental status. It is now alert and oriented 3. Continue lactulose. -Hypertension-monitor blood pressure and use clonidine when necessary for now. -Chronic anemia-stable. Monitor H&H. Normally around 11. -Mild type 2 continue diabetic diet. -Physical deconditioning-consult PT. Patient refusing PT. -DVT prophylaxis with Lovenox and SCDs. Discharge Planning Patient may be discharged home when ambulatory. Problem Qualifiers (1) Aspiration pneumonia: Qualified Codes: J69.0 - Pneumonitis due to inhalation of food and vomit (2) Alcohol withdrawal: Qualified Codes: F10.231 - Alcohol dependence with withdrawal delirium Heather Paniagua MD Aug 03, 2017 11:15
[2017-08-03] MEDS: LEVOFLOXACIN 750 MG TAB PO SCH (11:29)
[2017-08-03] MEDS: guaiFENesin SOLUTION 200 MG/10 ML CUP PO PRN ×3 (11:30→20:02)
[2017-08-03 12:00] VITALS: BP 134/92; PULSE 67; RESP 20; TEMP 97.4; O2SAT 95
[2017-08-03] MEDS: ENOXAPARIN SODIUM 40 MG/0.4 ML SYRINGE SQ SCH (15:58)
[2017-08-03 16:00] VITALS: BP 102/77; PULSE 77; RESP 20; TEMP 98; O2SAT 96
[2017-08-03 20:00] VITALS: BP_SYST 115; BP_SYST 131; BP_DIAS 85; BP_DIAS 99; PULSE 72; PULSE 87; RESP 16; RESP 22; TEMP 96.9; O2SAT 96
[2017-08-03] MEDS ORDERED: TEMAZEPAM 7.5 MG CAP PO ONE (22:45)
[2017-08-04] VITALS: BP 135/97; PULSE 84; RESP 20; TEMP 96.7; O2SAT 95
[2017-08-04 04:00] VITALS: BP 148/99; PULSE 82; RESP 16; TEMP 97; O2SAT 97
[2017-08-04 08:48] VITALS: BP 130/96; PULSE 81; RESP 16; TEMP 99.3; O2SAT 97
[2017-08-04] MEDS: POTASSIUM CHLORIDE 20 MEQ PWD PACKET PO SCH ×2 (09:00→21:29)
[2017-08-04] MEDS: LACTULOSE SYRUP 20 GM/30 ML CUP PO SCH ×2 (09:31→21:26)
[2017-08-04] MEDS: SODIUM CHLORIDE 0.9% FLUSH 10 ML FLUSH IV FLUSH SCH ×2 (09:32→21:27)
[2017-08-04 12:00] VITALS: BP 133/95; PULSE 95; RESP 18; TEMP 96.6; O2SAT 96
[2017-08-04] MEDS: guaiFENesin SOLUTION 200 MG/10 ML CUP PO PRN (13:55)
--- NOTE | 2017-08-04 14:52 | HHI.PR ---
Subjective Remarks Physical therapy reports that the patient is actually cooperating today and ambulating, still is rather shaky and does warrant rehabilitation upon discharge with a 4 wheeled walker. Patient himself says he feels like he is making progress, says his legs do feel "wobbly." Objective Vital Signs Date Time Temp Pulse Resp B/P (MAP) Pulse Ox O2 Delivery O2 Flow Rate FiO2 08/04/17 12:00 96.6 95 18 133/95 (108) 96 08/04/17 08:48 99.3 81 16 130/96 (107) 97 08/04/17 04:00 97.0 82 16 148/99 (115) 97 08/04/17 00:00 96.7 84 20 135/97 (110) 95 08/03/17 20:00 96.9 87 22 131/99 (110) 96 08/03/17 16:00 98.0 77 20 102/77 (85) 96 I/O 08/03/17 08/03/17 08/03/17 08/04/17 08/04/17 08/04/17 07:00 15:00 23:00 07:00 15:00 23:00 Intake Total 240 ml 660 ml 480 ml Output Total 300 ml 550 ml 1100 ml 600 ml Balance -60 ml 110 ml -620 ml -600 ml Intake Oral 240 ml 660 ml 480 ml Output Urine Total 300 ml 550 ml 1100 ml 600 ml # Bowel Movements 1 0 0 Result Diagram: 08/03/17 0734 08/03/17 0734 Objective Remarks Lying in bed, awake Alert, awake, oriented, no tremors unlabored breathing, clear bilaterally 4 out of 5 proximal bilateral lower extremity strength A/P Assessment and Plan admitted w/ dehydration with hypothermia and acute metabolic 2/2 ETOH usage. Resolved status post IV fluids. Completed tx for suspected PNA w/ levaquin. STable on RA. Assessment and Plan -Acute metabolic encephalopathy - resolved. -Alcohol withdrawal- improving, decreasing Librium down to 5 mg twice a day for 2 days - Hyperammonia - mildly elevated, continue lactulose. -Hypertension-monitor blood pressure and use clonidine when necessary for now. -Chronic anemia-stable -Mild type 2 continue diabetic diet. -Physical deconditioning-consult PT. Patient now participating in PT. Discussed case with case management regarding possible therapy options since the patient has no insurance, stated that they can look into seeing either home health or a [facility] inpatient rehabilitation bed somewhere - patient himself says he is "willing to look into " these options after understanding that this is the main thing holding up his discharge. -DVT prophylaxis with Lovenox Discharge Planning PT recs daily - medically cleared, just needs rehab clearance/assessment. Ortega Lopez MD Aug 04, 2017 14:52
[2017-08-04 16:00] VITALS: BP 126/94; PULSE 82; RESP 18; TEMP 98.5; O2SAT 97
[2017-08-04] MEDS: ENOXAPARIN SODIUM 40 MG/0.4 ML SYRINGE SQ SCH (16:03)
[2017-08-04 20:00] VITALS: BP 118/93; PULSE 80; RESP 18; TEMP 97.4; O2SAT 98
[2017-08-05] VITALS: BP 129/95; PULSE 82; RESP 18; TEMP 98; O2SAT 95
[2017-08-05] MEDS: LACTULOSE SYRUP 20 GM/30 ML CUP PO SCH ×2 (08:08→21:28)
[2017-08-05] MEDS: POTASSIUM CHLORIDE 20 MEQ PWD PACKET PO SCH ×2 (08:08→21:28)
[2017-08-05] MEDS: SODIUM CHLORIDE 0.9% FLUSH 10 ML FLUSH IV FLUSH SCH ×2 (08:09→21:27)
[2017-08-05 09:19] VITALS: BP 115/87; PULSE 87; RESP 16; TEMP 96.9; O2SAT 96
[2017-08-05] MEDS: guaiFENesin SOLUTION 200 MG/10 ML CUP PO PRN ×2 (09:57→21:32)
[2017-08-05] MEDS: ENOXAPARIN SODIUM 40 MG/0.4 ML SYRINGE SQ SCH (12:45)
[2017-08-05] MEDS: ACETAMINOPHEN 325 MG TAB PO PRN (12:46)
[2017-08-05 15:02] VITALS: BP 93/58; PULSE 90; RESP 15; TEMP 97.2; O2SAT 92
--- NOTE | 2017-08-05 16:17 | HHI.PR ---
Subjective Remarks Patient himself says he feels great and that he is getting better, says that his unsteadiness in his legs is improved even since yesterday. He states that he is not interested in a rehabilitation facility to be discharged to, he is very satisfied with the therapist at this particular facility. When offered the option of therapy at home, he declines that as well. Objective Vital Signs Date Time Temp Pulse Resp B/P (MAP) Pulse Ox O2 Delivery O2 Flow Rate FiO2 08/05/17 15:02 97.2 90 15 93/58 (70) 92 08/05/17 09:19 96.9 87 16 115/87 (96) 96 08/05/17 00:00 98.0 82 18 129/95 (106) 95 08/04/17 20:00 97.4 80 18 118/93 (101) 98 I/O 08/04/17 08/04/17 08/04/17 08/05/17 08/05/17 08/05/17 07:00 15:00 23:00 07:00 15:00 23:00 Intake Total 480 ml 1100 ml 100 ml Output Total 1100 ml 1250 ml 1400 ml Balance -620 ml -150 ml -1400 ml 100 ml Intake Oral 480 ml 1100 ml 100 ml Output Urine Total 1100 ml 1250 ml 1400 ml # Bowel Movements 0 1 Result Diagram: 08/03/17 0734 08/03/17733 Objective Remarks Lying in bed, awake Alert, awake, oriented, no tremors unlabored breathing 5 out of 5 proximal bilateral lower external strength A/P Assessment and Plan admitted w/ dehydration with hypothermia and acute metabolic 2/2 ETOH usage. Resolved status post IV fluids. Completed tx for suspected PNA w/ levaquin. STable on RA. Assessment and Plan -Acute metabolic encephalopathy - resolved. -Alcohol withdrawal- near resolution, decreasing Librium down to 5 mg twice a day for 2 days - Hyperammonemia - mildly elevated, continue lactulose. -Hypertension-monitor blood pressure and use clonidine when necessary for now. -Chronic anemia-stable -Mild type 2 continue diabetic diet. -Physical deconditioning-consult PT. Patient now participating in PT. Will d/w case management to speak w/ patient about dilemma of staying at acute care facility vs PT elsewhere after discharge. -DVT prophylaxis with Lovenox Discharge Planning PT recs daily - medically cleared, just needs rehab clearance/assessment. Ortega Lopez MD Aug 05, 2017 16:17
[2017-08-05 19:56] VITALS: BP 103/85; PULSE 80; RESP 16; TEMP 97.2; O2SAT 96
[2017-08-05 20:00] VITALS: BP 102/69; PULSE 87; RESP 20; TEMP 97.2; O2SAT 96
[2017-08-05] MEDS ORDERED: TEMAZEPAM 7.5 MG CAP PO PRN ×2 (20:15→23:15)
[2017-08-06] VITALS: BP 110/76; PULSE 81; RESP 20; TEMP 95.7; O2SAT 99
[2017-08-06 08:46] VITALS: BP 129/88; PULSE 89; RESP 16; TEMP 97.6; O2SAT 97
[2017-08-06] MEDS: SODIUM CHLORIDE 0.9% FLUSH 10 ML FLUSH IV FLUSH SCH ×2 (09:45→21:37)
[2017-08-06] MEDS: LACTULOSE SYRUP 20 GM/30 ML CUP PO SCH ×2 (09:45→21:38)
[2017-08-06] MEDS: POTASSIUM CHLORIDE 20 MEQ PWD PACKET PO SCH ×2 (09:45→21:00)
[2017-08-06] MEDS: guaiFENesin SOLUTION 200 MG/10 ML CUP PO PRN (09:46)
[2017-08-06 13:35] VITALS: BP 111/70; PULSE 78; RESP 20; TEMP 97.3; O2SAT 100
[2017-08-06] MEDS: ACETAMINOPHEN 325 MG TAB PO PRN (14:14)
[2017-08-06] MEDS: ENOXAPARIN SODIUM 40 MG/0.4 ML SYRINGE SQ SCH (15:33)
--- NOTE | 2017-08-06 16:02 | HHI.FF ---
Face to Face Verification Diagnosis: (1) Unsteady gait (2) Debility Physical Therapy Order: Evaluate and Treat Home Health Nursing Order: Nursing assessment with vital signs I have seen patient Holland Trinidad on 08/06/17. My clinical findings support the need for the requested home health care services because: Deconditioned w/ increased weakness High risk of falls I certify that my clinical findings support that this patient is homebound because: Impaired cognitive ability/safety Unsteady gait/balance Unsafe to leave home unassisted Ortega Lopez MD Aug 06, 2017 16:02
[2017-08-06] MEDS ORDERED: POTA-245 PO (16:07)
[2017-08-06] MEDS ORDERED: LACT10SO PO (16:09)
--- NOTE | 2017-08-06 16:11 | HHI.DCPOC ---
Discharge Care Plan Additional Problems If assistance is available, do not attempt to ambulate or transfer yourself without assistance. Use is your wheeled walker at all times. DO NOT DRINK ANY ALCOHOL. Goals to Promote Your Health * To prevent worsening of your condition and complications * To maintain your health at the optimal level Directions to Meet Your Goals Take your medications as prescribed Follow your dietary instruction Follow activity as directed Keep your appointments as scheduled Take your immunizations and boosters as scheduled If your symptoms worsen call your PCP, if no PCP go to Urgent Care Center or Emergency Room Smoking is Dangerous to Your Health. Avoid second hand smoke Call the 24-hour hour crisis hotline for domestic abuse at Ortega Lopez MD Aug 06, 2017 16:11
[2017-08-06] MEDS ORDERED: ROLLER WALKER1 MI1 (16:14)
--- NOTE | 2017-08-06 16:18 | HHI.PR ---
Subjective Remarks Seen patient with physical therapy working well, physical therapy states that he is made further progress today than he did yesterday, increasing his ambulation distance. Patient went back and forth between excepting home health , later on in the day says he doesn't feel as if he is ready to be able to go home and feels safe today. Objective Vital Signs Date Time Temp Pulse Resp B/P (MAP) Pulse Ox O2 Delivery O2 Flow Rate FiO2 08/06/17 15:31 18 08/06/17 13:35 97.3 78 20 111/70 (84) 100 08/06/17 08:46 97.6 89 16 129/88 (102) 97 08/06/17 00:00 95.7 81 20 110/76 (87) 99 08/05/17 20:00 97.2 87 20 102/69 (80) 96 08/05/17 19:56 97.2 80 16 103/85 (91) 96 I/O 08/05/17 08/05/17 08/05/17 08/06/17 08/06/17 08/06/17 07:00 15:00 23:00 07:00 15:00 23:00 Intake Total 100 ml 1200 ml 240 ml Output Total 1400 ml 650 ml Balance -1400 ml 100 ml 1200 ml -410 ml Intake Oral 100 ml 1200 ml 240 ml Output Urine Total 1400 ml 650 ml # Voids 5 1 # Bowel Movements 2 Result Diagram: 08/03/1734 08/03/1734 Objective Remarks Walking down the hallway, using walker, very steady gait, no tremors noted Unlabored breathing awake, alert, oriented A/P Assessment and Plan admitted w/ dehydration with hypothermia and acute metabolic 2/2 ETOH usage. Resolved status post IV fluids. Completed tx for suspected PNA w/ levaquin. STable on RA. Assessment and Plan -Acute metabolic encephalopathy - resolved. -Alcohol withdrawal- librium to be stopped by tomorrow. - Hyperammonemia - mildly elevated, continue lactulose. -Hypertension-monitor blood pressure and use clonidine when necessary for now. -Chronic anemia-stable. Suspect iron deficiency, will obtain lab work for a.m. - hypokalemia - continue daily replacements -Mild type 2 continue diabetic diet. -Physical deconditioning-patient excepting to do home health, but feels that he needs to stay another night, discharge anticipated in a.m. -DVT prophylaxis with Lovenox Ortega Lopez MD Aug 06, 2017 16:18
[2017-08-06 16:51] VITALS: BP 98/79; PULSE 89; RESP 16; TEMP 97.8; O2SAT 96
[2017-08-06 20:00] VITALS: BP 103/76; PULSE 84; RESP 20; TEMP 97; O2SAT 98
[2017-08-07] VITALS: BP 130/96; PULSE 77; RESP 20; TEMP 96.6; O2SAT 98
[2017-08-07] MEDS ORDERED: TEMAZEPAM 7.5 MG CAP PO ONE (00:45)
[2017-08-07 08:00] VITALS: BP 113/89; PULSE 82; RESP 16; TEMP 97.2; O2SAT 98
[2017-08-07] MEDS: POTASSIUM CHLORIDE 20 MEQ PWD PACKET PO SCH (09:00)
[2017-08-07] MEDS: LORazepam 1 MG TAB PO PRN ×2 (09:00→09:26)
[2017-08-07] MEDS: LACTULOSE SYRUP 20 GM/30 ML CUP PO SCH (09:26)
[2017-08-07] MEDS: SODIUM CHLORIDE 0.9% FLUSH 10 ML FLUSH IV FLUSH SCH (09:26)
--- NOTE | 2017-08-07 09:42 | HHI.DS ---
Discharge Summary Admission Date Jul 28, 2017 at 15:13 Discharge Date: Aug 07, 2017 Admitting Diagnosis alcohol withdrawal, delirium, aspiration pneumonia, dehydration (1) Dehydration ICD Code: E86.0 - Dehydration Status: Acute (2) Aspiration pneumonia ICD Code: J69.0 - Pneumonitis due to inhalation of food and vomit Status: Acute (3) Alcohol withdrawal ICD Code: F10.239 - Alcohol dependence with withdrawal, unspecified Status: Resolved (4) Metabolic encephalopathy ICD Code: G93.41 - Metabolic encephalopathy Status: Resolved (5) Hypokalemia ICD Code: E87.6 - Hypokalemia Procedures none Brief History - From Admission This is a 62 year-old male with past medical history of alcoholism, alcohol encephalopathy/dementia who is known to me from previous hospital admission who presented to the hospital after his neighbors had not heard from him in 2-3 days, [facility] was called. Apparently he was found on the side of the house with pure cans around him and that he appeared to have vomited and defecated himself on the side of the house. The patient is confused and unable to provide further history. At baseline he is a poor historian secondary to the encephalopathy. Further review systems not obtainable at this time. CBC/BMP: 08/03/17 0734 08/03/17 0734 Significant Findings Laboratory Tests Test 08/06/17 16:53 08/07/17 06:45 Imaging Last Impressions Head CT 07/28/17 1306 Signed Impressions: Service Date/Time: Friday, July 28, 2017 13:54 - CONCLUSION: 1. No acute abnormality seen. 2. Mild atrophy. Chato Amezcua MD Chest X-Ray 07/28/17 1306 Signed Impressions: Service Date/Time: Friday, July 28, 2017 14:12 - CONCLUSION: 1. Mild right lower lobe airspace disease and associated volume loss consistent with atelectasis. Antione Pierson MD PE at Discharge GENERAL: Well-nourished, well-developed male patient. SKIN: Warm and dry. HEAD: Normocephalic. EYES: No scleral icterus. No injection or drainage. NECK: Supple, trachea midline. No JVD or lymphadenopathy. CARDIOVASCULAR: Regular rate and rhythm without murmurs, gallops, or rubs. RESPIRATORY: Breath sounds equal bilaterally. No wheezing. No accessory muscle use. GASTROINTESTINAL: Abdomen soft, non-tender, nondistended. EXTREMITIES: No cyanosis, or edema. NEUROLOGICAL: Awake, alert, oriented to self place and month and year. Hospital Course The patient was admitted to the hospital and treated for alcohol withdrawal and encephalopathy, aspiration pneumonia. Respiratory status remained stable. Mental status gradually improved to baseline. He had generalized weakness and was hospitalized for physical therapy. He has now completed antibiotics is stable on room air and ambulating 300 feet. He will be discharged home today with home health care. The patient was counseled extensively on alcohol abstinence. Pt Condition on Discharge: Stable Discharge Disposition: Disch w/ Home Health Serv Discharge Time: > 30 minutes Discharge Instructions DIET: Follow Instructions for: As Tolerated, No Restrictions Speech Therapy-Diet Recommends: Regular Activities you can perform: See Additionl Instruction Other Activity Instructions: Use walker at all times, if assistance is available contact for assistance before ambulating on your own or transfering on your own. New Medications: Lactulose Liq (Lactulose Liq) 10 Gm/15 Ml Soln 30 ML PO BID PRN for liver, #900 ML 0 Refills Misc. Devices (Roller Walker) 1 Mis Mis EA .ROUTE NOW, #1 Potassium Chloride Microencaps (Klor-Con M20) 20 Meq Tab 20 MEQ PO BID for Electrolyte Replacement, #60 TAB 0 Refills Heather Paniagua MD Aug 07, 2017 09:42
[2017-08-07 11:07] LABS: TRANSFERRIN IRON PROFILE 227 MG/DL (200-360)
[2017-08-07 12:00] VITALS: BP 97/77; PULSE 84; RESP 20; TEMP 97.5; O2SAT 100
== END 2017-08-07 16:18 | disposition home health service (06) | DRG 177 ==
LOC: PHEFT 12:43 → PHEDA 15:13 → PHICU 17:25 → PH5A 07-30 21:30
PROVIDERS: ADMIT Family Medicine; ATTEND Family Medicine
DX: J69.0 Pneumonitis due to inhalation of food and vomit (principal); G93.41 Metabolic encephalopathy; F10.231 Alcohol dependence with withdrawal delirium; E87.2 Acidosis; F10.27 Alcohol dependence with alcohol-induced persisting dementia; E11.9 Type 2 diabetes mellitus without complications; D50.9 Iron deficiency anemia, unspecified; K72.90 Hepatic failure, unspecified without coma; E86.0 Dehydration; E87.6 Hypokalemia; G47.00 Insomnia, unspecified; K70.30 Alcoholic cirrhosis of liver without ascites; F17.210 Nicotine dependence, cigarettes, uncomplicated; F32.9 Major depressive disorder, single episode, unspecified; F41.9 Anxiety disorder, unspecified; I10 Essential (primary) hypertension; R68.0 Hypothermia, not associated with low environmental temperature
CPT/HCPCS: 70450; 71010; 80048; 80053; 80307; 81001; 82140; 82550; 82728; 83540; 83550; 83605; 83735; 84100; 84443; 85025; 85610; 85730; 87040; 90471; 90714; 93005; 94640; 94664; 96361; 96374; J0456; J0696; J1650; J1956; J2060; J7030; J7050

== ENCOUNTER 2017-12-11 09:51 | Inpatient (IN) | payer SELFPAY ==
[~2017-12-11] VITALS: Ht 177.8 cm; Wt 79.6 kg
[~2017-12-11 09:51] MED LIST changes: +KLOR20TA3 PO; +LACT10SO PO; +ROLLER WALKER1 MI1
[2017-12-11 10:15] VITALS: BP 92/76; PULSE 112; RESP 16; TEMP 98; O2SAT 98
--- NOTE | 2017-12-11 11:02 | PD ---
HPI Chief Complaint: Skin Problem Time Seen by Provider: 10:46 Travel History International Travel<30 days: No Contact w/Intl Traveler<30days: No Traveled to known affect area: No History of Present Illness HPI This 62-year-old male has noted a swollen painful area overlying his abdomen since yesterday. Is not aware of fever or chills. He has no history of trauma. He did have an open cholecystectomy done last January. The original plan was for a laparoscopic cholecystectomy but he had a complicated course and ended up having open cholecystectomy. He is a heavy drinker. PFSH Past Medical History Blood Disorders: No Anxiety: Yes Depression: Yes Heart Rhythm Problems: No Cancer: No Cardiovascular Problems: Yes High Cholesterol: No Chest Pain: Yes ("every now and then") Congestive Heart Failure: No Cerebrovascular Accident: No Diminished Hearing: No Endocrine: No Gastrointestinal Disorders: Yes Genitourinary: No Headaches: No Hypertension: No Immune Disorder: No Implanted Vascular Access Dvce: No Musculoskeletal: No Neurologic: Yes Psychiatric: Yes ("everybody gets that") Reproductive: No Respiratory: Yes Migraines: No Seizures: No Tetanus Vaccination: < 5 Years Influenza Vaccination: Yes PNEUMOCCOCAL Vaccine (Year): 4 Past Surgical History Abdominal Surgery: Yes (GALLBLADDER DRAINAGE) Other Surgery: Yes (ankle surgery as a child) Social History Alcohol Use: Yes (6-8 beers daily) Tobacco Use: Yes (1PACK EVERY TWO DAYS) Substance Use: No Allergies-Medications (Allergen,Severity, Reaction): Coded Allergies: No Known Allergies (Verified Adverse Reaction, Unknown, 12/11/17) Reported Meds & Prescriptions Reported Meds & Active Scripts Active Review of Systems General / Constitutional: No: Fever, Chills Eyes: No: Diploplia, Blurred Vision HENT: No: Headaches Cardiovascular: No: Chest Pain or Discomfort, Palpitations Respiratory: No: Cough, Shortness of Breath Gastrointestinal: No: Nausea, Vomiting Genitourinary: No: Urgency, Frequency Musculoskeletal: No: Myalgias Skin: No Rash Neurologic: No: Weakness Hematologic/Lymphatic: No: Easy Bruising Physical Exam Narrative GENERAL: Somewhat disheveled male SKIN: Focused skin assessment warm/dry. Some spider angiomata HEAD: Atraumatic. Normocephalic. EYES: Pupils equal and round. No scleral icterus. No injection or drainage. ENT: No nasal bleeding or discharge. Mucous membranes pink and moist. NECK: Trachea midline. No JVD. CARDIOVASCULAR: Regular rate and rhythm. No murmur appreciated. RESPIRATORY: No accessory muscle use. Clear to auscultation. Breath sounds equal bilaterally. GASTROINTESTINAL: Abdomen soft, non-tender, nondistended. There is a scar from his previous cholecystectomy. There is an approximately 7 cm soft mass arising from the scar with an abscess MUSCULOSKELETAL: No obvious deformities. No clubbing. No cyanosis. No edema. NEUROLOGICAL: Awake and alert. No obvious cranial nerve deficits. Motor grossly within normal limits. Normal speech. PSYCHIATRIC: Appropriate mood and affect; insight and judgment normal. Data Data Last Documented VS Vital Signs Date Time Temp Pulse Resp B/P (MAP) Pulse Ox O2 Delivery O2 Flow Rate FiO2 12/11/17 10:15 98.0 112 16 92/76 (81) 98 Orders Orders Complete Blood Count With Diff (12/11/17 10:54) Comprehensive Metabolic Panel (12/11/17 10:54) Prothrombin Time / Inr (Pt) (12/11/17 10:54) Act Partial Throm Time (Ptt) (12/11/17 10:54) Ct Abd/Pel W Iv Contrast(Rout) (12/11/17 10:54) Iohexol 350 Inj (Omnipaque 350 Inj) (12/11/17 12:09) Sodium Chlor 0.9% 1000 Ml Inj (Ns 1000 M (12/11/17 13:00) Piperacil-Tazo 4.5 Gm Premix (Zosyn 4.5 (12/11/17 13:00) Ondansetron Inj (Zofran Inj) (12/11/17 13:00) Hydromorphone Pf Inj (Dilaudid Pf Inj) (12/11/17 13:00) Labs Laboratory Tests Test 12/11/17 11:15 White Blood Count 7.9 TH/MM3 Red Blood Count 4.26 MIL/MM3 Hemoglobin 12.1 GM/DL Hematocrit 37.4 % Mean Corpuscular Volume 87.9 FL Mean Corpuscular Hemoglobin 28.5 PG Mean Corpuscular Hemoglobin Concent 32.4 % Red Cell Distribution Width 17.9 % Platelet Count 211 TH/MM3 Mean Platelet Volume 8.1 FL Neutrophils (%) (Auto) 65.7 % Lymphocytes (%) (Auto) 21.6 % Monocytes (%) (Auto) 10.7 % Eosinophils (%) (Auto) 0.7 % Basophils (%) (Auto) 1.3 % Neutrophils # (Auto) 5.2 TH/MM3 Lymphocytes # (Auto) 1.7 TH/MM3 Monocytes # (Auto) 0.8 TH/MM3 Eosinophils # (Auto) 0.1 TH/MM3 Basophils # (Auto) 0.1 TH/MM3 CBC Comment DIFF FINAL Differential Comment Prothrombin Time 10.7 SEC Prothromb Time International Ratio 1.1 RATIO Activated Partial Thromboplast Time 29.8 SEC Blood Urea Nitrogen 5 MG/DL Creatinine 0.59 MG/DL Random Glucose 77 MG/DL Total Protein 8.8 GM/DL Albumin 2.8 GM/DL Calcium Level 8.3 MG/DL Alkaline Phosphatase 172 U/L Aspartate Amino Transf (AST/SGOT) 128 U/L Alanine Aminotransferase (ALT/SGPT) 32 U/L Total Bilirubin 0.7 MG/DL Sodium Level 136 MEQ/L Potassium Level 4.1 MEQ/L Chloride Level 99 MEQ/L Carbon Dioxide Level 23.5 MEQ/L Anion Gap 14 MEQ/L Estimat Glomerular Filtration Rate 139 ML/MIN MDM Medical Decision Making Medical Screen Exam Complete: Yes Emergency Medical Condition: Yes Medical Record Reviewed: Yes Differential Diagnosis Differential includes superficial skin abscess, intra-abdominal abscess with extension Narrative Course CT scan of the abdomen and pelvis has been obtained. CT findings are concerning for an intra-abdominal abscess which is dissected through the rectus muscle. I discussed the case with Dr. Berg who will evaluate the patient. He [facility] Primary Impression: Abdominal visceral abscess Additional Impression: Abdominal wall abscess Admitting Information Admitting Physician Requests: Admit Darrius Colvin MD Dec 11, 2017 11:02
[2017-12-11 11:28] LABS: AUTOMATED NEUTROPHIL # 5.2 TH/MM3 (1.8-7.7); BASOPHIL # 0.1 TH/MM3 (0-0.2); BASOPHIL % 1.3 % (0.0-2.0); EOSINOPHIL # 0.1 TH/MM3 (0-0.4); EOSINOPHIL % 0.7 % (0.0-4.0); HEMATOCRIT 37.4 % (39.0-51.0); HEMOGLOBIN 12.1 GM/DL (13.0-17.0); LYMPH % 21.6 % (9.0-44.0); LYMPHOCYTE # 1.7 TH/MM3 (1.0-4.8); MEAN CELL VOLUME 87.9 FL (80.0-100.0); MEAN CORPUSCULAR HEMOGLOBIN 28.5 PG (27.0-34.0); MEAN CORPUSCULAR HGB CONC 32.4 % (32.0-36.0); MEAN PLATELET VOLUME 8.1 FL (7.0-11.0); MONO % 10.7 % (0.0-8.0); MONOCYTE # 0.8 TH/MM3 (0-0.9); NEUT % 65.7 % (16.0-70.0); PLATELET COUNT 211 TH/MM3 (150-450); RED BLOOD COUNT 4.26 MIL/MM3 (4.50-5.90); RED CELL DISTRIBUTION WIDTH 17.9 % (11.6-17.2); WHITE BLOOD COUNT 7.9 TH/MM3 (4.0-11.0)
[2017-12-11 11:33] LABS: CHLORIDE 99 MEQ/L (98-107); SODIUM (NA) 136 MEQ/L (136-145)
[2017-12-11 11:36] LABS: CALCIUM 8.3 MG/DL (8.5-10.1)
[2017-12-11 11:37] LABS: ALBUMIN 2.8 GM/DL (3.4-5.0); BICARBONATE 23.5 MEQ/L (21.0-32.0); BLOOD UREA NITROGEN 5 MG/DL (7-18); GLUCOSE,RANDOM 77 MG/DL (74-106)
[2017-12-11 11:38] LABS: INTERNATIONAL NORMALIZED RATIO 1.1 RATIO; PROTHROMBIN TIME - PATIENT 10.7 SEC (9.8-11.6)
[2017-12-11 11:40] LABS: ALT (GPT) 32 U/L (12-78); AST (GOT) 128 U/L (15-37); CREATININE 0.59 MG/DL (0.60-1.30); GLOMERULAR FILTRATION RATE 139 ML/MIN (>89)
[2017-12-11 11:42] LABS: TOTAL BILIRUBIN ADULT 0.7 MG/DL (0.2-1.0); TOTAL PROTEIN 8.8 GM/DL (6.4-8.2)
[2017-12-11 11:43] LABS: ALKALINE PHOSPHATASE 172 U/L (45-117)
[2017-12-11] MEDS ORDERED: IOHEXOL 350 MG/ML 10 ML VIAL (for RAD DIAG) IVCONTRAST ONE (12:09)
--- NOTE | 2017-12-11 12:29 | RADRPT ---
EXAM DATE/TIME: 12/11/2017 12:02 [facility] COMPARISON: CT ABDOMEN & PELVIS W CONTRAST, January 02, 2017, 21:17. INDICATIONS : Right upper quadrant abdominal wall abscess, rule out abdominal origin. IV CONTRAST: 85 cc Omnipaque 350 (iohexol) IV ORAL CONTRAST: No oral contrast ingested. RADIATION DOSE: 10.31 CTDIvol (mGy) MEDICAL HISTORY : Cardiovascular disease. SURGICAL HISTORY : Cholecystectomy. ENCOUNTER: Initial ACUITY: 1 day PAIN SCALE: 10/10 LOCATION: Right upper quadrant TECHNIQUE: Volumetric scanning of the abdomen and pelvis was performed. Using automated exposure control and adjustment of the mA and/or kV according to patient size, radiation dose was kept as low as reasonably achievable to obtain optimal diagnostic quality images. DICOM format image data is av ailable electronically for review and comparison. FINDINGS: Abdomen CT: In the anterolateral anterior abdominal wall there is an area of well-defined fluid collection measur es 4.7 cm with significant inflammatory changes in the surrounding fascia extending to the level of t he rectus abdominis muscle. There is extension towards the posterior aspect of the muscle which also appears to be loculated intraperitoneal measures 3.3 cm also fluid containing with inflammatory vieyra es of the adjacent intraperitoneal fat. The spleen, pancreas, kidneys, adrenals are unremarkable. The liver is diffusely fatty with pneumobilia. There is no evidence for any appreciable pathological richardson nopathy, free fluid, or bowel obstruction. Slight right lung base atelectasis and/or infiltrate is s een. There is evidence for prior cholecystectomy. Pelvic CT: There is no evidence for mass, abscess formation, or any significant adenopathy within the pelvis. IMPRESSION: 1. Findings are almost certainly intra abdominal wall abscess with extension through the rectus abdom inis fascia and loculated intraperitoneal component with inflammatory changes surrounding the mesente ry fat adjacent to the anterior portion of the liver. 2. Extensive fatty infiltration of the liver. 3. Slight right lung base atelectasis and/or infiltrate is seen. Anel Alfonso MD on December 11, 2017 at 12:20 Board Certified Radiologist. This report was verified electronically.
[2017-12-11 13:00] VITALS: BP 120/94; PULSE 62; RESP 16; O2SAT 97
[2017-12-11] MEDS ORDERED: ONDANSETRON HCL 4 MG/2 ML VIAL IV PUSH ONE (13:00)
[2017-12-11] MEDS ORDERED: HYDROmorphone HCL PF 1 MG/ML VIAL IV PUSH ONE (13:00)
[2017-12-11] MEDS ORDERED: PIPERACIL-TAZO 4.5 GM PREMIX 100 ML IV ONE (13:00)
[2017-12-11] MEDS ORDERED: SODIUM CHLOR 0.9% 1000 ML INJ 1,000 ML IV ONE (13:00)
[2017-12-11] MEDS ORDERED: HYDROmorphone HCL PF 2 MG/ML VIAL IV PUSH ONE (13:30)
[2017-12-11] MEDS ORDERED: Vancomycin Consult Pharmacy 1 EA OTHER SCH (13:45)
--- NOTE | 2017-12-11 13:52 | HHI.HP ---
[facility] Service [facility] Primary Care Physician No Primary Care Physician Admission Diagnosis ABDOMINAL ABCESS Diagnoses: Chief Complaint: Belly pain Travel History International Travel<30 Days: No Contact w/Intl Traveler <30 Da: No Traveled to Known Affected Are: No History of Present Illness 62-year-old white male being admitted for abdominal abscess. Patient states he was in his usual state of health until about a few days ago when he began growing a painful mass like lesion on his right lower abdomen. He says this started growing slowly and eventually became red in color. Has had some mild nausea but no vomiting. He reports having some diarrhea. But denies any bloody stools. Denies any fevers or chills. Says this has never happened to him before in the past. Says that the pain can get very severe if the lesion is manipulated. He had a cholecystectomy a couple months ago. Review of Systems Except as stated in HPI: all other systems reviewed are Neg Past Family Social History Past Medical History Denies taking any prescribed medications on a regular basis. Past Surgical History Cholecystectomy Allergies: Coded Allergies: No Known Allergies (Verified Allergy, Unknown, 12/11/17) Family History History of diabetes. Social History Drinks a 4 pack every other day. Currently smokes. Denies all other illicit drug use. Physical Exam Vital Signs Vital Signs Date Time Temp Pulse Resp B/P (MAP) Pulse Ox O2 Delivery O2 Flow Rate FiO2 12/11/17 10:15 98.0 112 16 92/76 (81) 98 Physical Exam VS: afebrile GENERAL: Middle-aged white male, well-nourished, very pleasant mood, in no acute distress until his abdomen is palpated SKIN: Warm and dry. EYES: No scleral icterus. No injection or drainage. ENT: No nasal bleeding or discharge. CARDIOVASCULAR: Regular rate and rhythm. no murmurs RESPIRATORY: No accessory muscle use. Clear to auscultation. Breath sounds equal bilaterally. GASTROINTESTINAL: Abdomen soft, non-tender, nondistended. Has a very obvious baseball sized abscess appearing lesion within the postsurgical scar on his right lower quadrant that appears to be coming to ahead. It is exquisitely tender to palpation and the erythema is strictly localized to the edematous component of this lesion. There seems to be no induration surrounding the lesion or the erythema. Extremities: No clubbing, cyanosis, or edema. No obvious deformities. MUSCULOSKELETAL: grossly intact ROM with surprisingly 4 out of 5 strength in upper and lower extremities proximally; adequate muscle bulk and tone for age and habitus NEUROLOGICAL: Awake and alert. No obvious cranial nerve deficits. No facial droop nor slurred speech noted. PSYCHIATRIC: Appropriate mood and affect; insight and judgment normal. Laboratory Laboratory Tests Test 12/11/17 11:15 White Blood Count 7.9 Red Blood Count 4.26 Hemoglobin 12.1 Hematocrit 37.4 Mean Corpuscular Volume 87.9 Mean Corpuscular Hemoglobin 28.5 Mean Corpuscular Hemoglobin Concent 32.4 Red Cell Distribution Width 17.9 Platelet Count 211 Mean Platelet Volume 8.1 Neutrophils (%) (Auto) 65.7 Lymphocytes (%) (Auto) 21.6 Monocytes (%) (Auto) 10.7 Eosinophils (%) (Auto) 0.7 Basophils (%) (Auto) 1.3 Neutrophils # (Auto) 5.2 Lymphocytes # (Auto) 1.7 Monocytes # (Auto) 0.8 Eosinophils # (Auto) 0.1 Basophils # (Auto) 0.1 CBC Comment DIFF FINAL Differential Comment Prothrombin Time 10.7 Prothromb Time International Ratio 1.1 Activated Partial Thromboplast Time 29.8 Blood Urea Nitrogen 5 Creatinine 0.59 Random Glucose 77 Total Protein 8.8 Albumin 2.8 Calcium Level 8.3 Alkaline Phosphatase 172 Aspartate Amino Transf (AST/SGOT) 128 Alanine Aminotransferase (ALT/SGPT) 32 Total Bilirubin 0.7 Sodium Level 136 Potassium Level 4.1 Chloride Level 99 Carbon Dioxide Level 23.5 Anion Gap 14 Estimat Glomerular Filtration Rate 139 Date/Time Source Procedure Growth Status 12/11/17 13:20 Blood Peripheral Aerobic Blood Culture Pending Received 12/11/17 13:20 Blood Peripheral Anaerobic Blood Culture Pending Received Result Diagram: 12/11/17 1115 12/11/17 1115 Caprini VTE Risk Assessment Caprini VTE Risk Assessment: Mod/High Risk (score >= 2) Caprini Risk Assessment Model Point Value = 1 Point Value = 2 Point Value = 3 Point Value = 5 Age 41-60 Minor surgery BMI > 25 kg/m2 Swollen legs Varicose veins or History of unexplained or recurrent spontaneous Oral contraceptives or hormone replacement Sepsis (< 1 month) Serious lung disease, including pneumonia (< 1 month) Abnormal pulmonary function Acute myocardial infarction Congestive heart failure (< 1 month) History of inflammatory bowel disease Medical patient at bed rest Age 61-74 Arthroscopic surgery Major open surgery (> 45 min) Laparoscopic surgery (> 45 min) Malignancy Confined to bed (> 72 hours) Immobilizing plaster cast Central venous access Age >= 75 History of VTE Family history of VTE Factor V Leiden Prothrombin [id number] Lupus anticoagulant Anticardiolipin antibodies Elevated serum homocysteine Heparin-induced thrombocytopenia Other congenital or acquired thrombophilia Stroke (< 1 month) Elective arthroplasty Hip, pelvis, or leg fracture Acute spinal cord injury (< 1 month) Prophylaxis Regimen Total Risk Factor Score Risk Level Prophylaxis Regimen 0-1 Low Early ambulation 2 Moderate Order ONE of the following: *Sequential Compression Device (SCD) *Heparin 5000 units SQ BID 3-4 Higher Order ONE of the following medications: *Heparin 5000 units SQ TID *Enoxaparin/Lovenox 40 mg SQ daily (WT < 150 kg, CrCl > 30 mL/min) *Enoxaparin/Lovenox 30 mg SQ daily (WT < 150 kg, CrCl > 10-29 mL/min) *Enoxaparin/Lovenox 30 mg SQ BID (WT < 150 kg, CrCl > 30 mL/min) AND/OR *Sequential Compression Device (SCD) 5 or more Highest Order ONE of the following medications: *Heparin 5000 units SQ TID (Preferred with Epidurals) *Enoxaparin/Lovenox 40 mg SQ daily (WT < 150 kg, CrCl > 30 mL/min) *Enoxaparin/Lovenox 30 mg SQ daily (WT < 150 kg, CrCl > 10-29 mL/min) *Enoxaparin/Lovenox 30 mg SQ BID (WT < 150 kg, CrCl > 30 mL/min) AND *Sequential Compression Device (SCD) Assessment and Plan Assessment and Plan 62-year-old white male being admitted for for abdominal abscess. Abscess - Based upon the clinical exam and CT, it appears that this may have formed within the surgical scar line from his cholecystectomy and extends at least to the peritoneum. Discussed case with general surgery, recommends transferring the patient to the main hospital and continue antibiotics. Blood culture specimens have been obtained. starting vanc + Zosyn. We'll keep patient nothing by mouth until modified by surgery. IV fluids until then. Transaminitis - Appears to be due to alcohol abuse - Should improve with fluids, trend with CMP Alcohol use - We'll start with a low dose scheduled Librium for now to minimize DTs SCDs given possible invasive procedure anticipated. Physician Certification 2 Midnight Certification Type: Admission for Inpatient Services Order for Inpatient Services The services are ordered in accordance with Medicare regulations or non- Medicare payer requirements, as applicable. In the case of services not specified as inpatient-only, they are appropriately provided as inpatient services in accordance with the 2-midnight benchmark. Estimated LOS (days): 3 3 days is the estimated time the patient will need to remain in the hospital, assuming treatment plan goals are met and no additional complications. Post-Hospital Plan: Not yet determined Ortega Lopez MD Dec 11, 2017 13:52
[2017-12-11 14:30] VITALS: BP 126/85; PULSE 100; RESP 16; O2SAT 97
[2017-12-11] MEDS: LACTATED RINGER'S 1000 ML INJ 1,000 ML IV SCH (14:33)
[2017-12-11 16:06] VITALS: BP 124/82
[2017-12-11 16:30] VITALS: BP 122/85; PULSE 111; RESP 20; TEMP 98.4; O2SAT 95
[2017-12-11] MEDS: HYDROmorphone HCL PF 2 MG/ML VIAL IV PUSH PRN (16:54)
[2017-12-11] MEDS: VANCOMYCIN INJ 1,250 MG in SODIUM CHLOR 0.9% 250 ML INJ 250 ML IV SCH (16:59)
[2017-12-11 20:00] VITALS: BP 151/100; PULSE 102; RESP 21; TEMP 98.1; O2SAT 97
[2017-12-11] MEDS: PIPERACIL-TAZO 3.375 GM PREMIX 50 ML IV SCH (22:24)
[2017-12-12] VITALS: BP 132/89; PULSE 93; RESP 18; TEMP 98; O2SAT 99
[2017-12-12] MEDS: PIPERACIL-TAZO 3.375 GM PREMIX 50 ML IV SCH ×6 (02:56→23:30)
[2017-12-12] MEDS: LACTATED RINGER'S 1000 ML INJ 1,000 ML IV SCH ×2 (03:04→14:22)
[2017-12-12] MEDS: VANCOMYCIN INJ 1,250 MG in SODIUM CHLOR 0.9% 250 ML INJ 250 ML IV SCH ×2 (05:37→17:29)
[2017-12-12] MEDS ORDERED: LACTATED RINGER'S 1000 ML IV PRN (06:15)
[2017-12-12] MEDS ORDERED: POVIDONE IODINE 5% (ANTISEPSIS KIT) 4 APPLICATIONS EACH NARE PRN (06:15)
[2017-12-12] MEDS ORDERED: CHLORHEXIDINE GLUCONATE 2 % 1 PACK (2 CLOTHS) TOPICAL PRN (06:15)
[2017-12-12 06:29] LABS: AUTOMATED NEUTROPHIL # 3.9 TH/MM3 (1.8-7.7); BASOPHIL # 0.1 TH/MM3 (0-0.2); EOSINOPHIL % 0.6 % (0.0-4.0); HEMATOCRIT 34.8 % (39.0-51.0); HEMOGLOBIN 11.3 GM/DL (13.0-17.0); LYMPH % 19.7 % (9.0-44.0); LYMPHOCYTE # 1.2 TH/MM3 (1.0-4.8); MEAN CELL VOLUME 88.6 FL (80.0-100.0); MEAN CORPUSCULAR HEMOGLOBIN 28.9 PG (27.0-34.0); MEAN CORPUSCULAR HGB CONC 32.6 % (32.0-36.0); MEAN PLATELET VOLUME 8.4 FL (7.0-11.0); MONO % 15.8 % (0.0-8.0); NEUT % 62.9 % (16.0-70.0); PLATELET COUNT 156 TH/MM3 (150-450); RED BLOOD COUNT 3.92 MIL/MM3 (4.50-5.90); RED CELL DISTRIBUTION WIDTH 18.3 % (11.6-17.2); WHITE BLOOD COUNT 6.2 TH/MM3 (4.0-11.0)
[2017-12-12 06:37] LABS: CHLORIDE 95 MEQ/L (98-107); SODIUM (NA) 132 MEQ/L (136-145)
[2017-12-12 06:40] LABS: ALBUMIN 2.4 GM/DL (3.4-5.0); BICARBONATE 29.2 MEQ/L (21.0-32.0); BLOOD UREA NITROGEN 6 MG/DL (7-18); CALCIUM 8.3 MG/DL (8.5-10.1); GLUCOSE,RANDOM 96 MG/DL (74-106)
[2017-12-12 06:43] LABS: ALT (GPT) 24 U/L (12-78); AST (GOT) 80 U/L (15-37); GLOMERULAR FILTRATION RATE 168 ML/MIN (>89)
[2017-12-12 06:45] LABS: TOTAL BILIRUBIN ADULT 1.1 MG/DL (0.2-1.0); TOTAL PROTEIN 7.7 GM/DL (6.4-8.2)
[2017-12-12 06:46] LABS: ALKALINE PHOSPHATASE 137 U/L (45-117)
[2017-12-12] MEDS ORDERED: LIDOCAINE 1%/EPINEPHrine 1:100,000 SOLN 30 ML VIAL ONE (06:58)
--- NOTE | 2017-12-12 07:21 | HHI.PR ---
Immediate Post Op Note Procedure Date: Dec 12, 2017 Pre Op Diagnosis: abdominal wall abscess Post Op Diagnosis: same Surgeon: Nicolas Berg MD Ragman(s): none Procedure: I and D of abdominal wall abscess with vac Findings: pus Complications: none Specimen(s) removed: pus Estimated blood loss: 5cc Anesthesia: MAC Drains: Hemovac Patient to: PACU Patient Condition: Good Nicolas Berg MD Dec 12, 2017 07:21
[2017-12-12 08:00] VITALS: BP 167/115; PULSE 93; RESP 15; TEMP 98.3; O2SAT 99
[2017-12-12] MEDS ORDERED: MORPHINE SULFATE 2 MG/ML INJ ONE ×2 (08:02→08:19)
[2017-12-12] MEDS: HYDROmorphone HCL PF 2 MG/ML VIAL IV PUSH PRN ×4 (09:44→22:51)
--- NOTE | 2017-12-12 10:17 | MB ---
cc: PEGGY JOY MD DATE OF CONSULTATION 12/11/2017 REASON FOR CONSULTATION Right-sided abdominal pain, abscess. HISTORY OF PRESENT ILLNESS The patient is a 62-year-old male who presents with acute onset of right abdominal wall pain. He states he noticed a small pimple-like area on his right upper quadrant of the abdomen and continue to increase in size. He states redness and swelling. He states pain about 5/7, worse with movement, better with lying still. He denied any associated fevers, nausea or vomiting or change in bowel habits. The patient has a longstanding history of ETOH abuse and notes to be drinking daily. The patient further has a history of open common bile duct surgery greater than six months ago for common duct stones. PAST MEDICAL HISTORY 1. ETOH abuse. 2. Cholecystitis. 3. Choledocholithiasis. PAST SURGICAL HISTORY Open common bile duct exploration with open cholecystectomy. ALLERGIES No known drug allergies. MEDICATIONS See EMR. FAMILY HISTORY Diabetes. Denies coronary artery disease. SOCIAL HISTORY Drinks at least 4 beers every other day. Current smoker. Denies IVDA. REVIEW OF SYSTEMS GENERAL: Denies fevers or chills. HEENT: Denies eye pain or ear pain. NECK: Denies swelling or pain. LUNGS: Denies cough or wheeze. HEART: Denies palpitations or chest pain. ABDOMEN: Complained of superficial abdominal wall pain. INTEGUMENTARY: Complained of abscess. PSYCH: Appropriate insight, ETOH abuse. ENDOCRINE: Denies polyuria or polydipsia. PHYSICAL EXAMINATION GENERAL: Patient in no acute distress. VITAL SIGNS: Temperature 98, pulse 112, respirations 16, blood pressure 92/76, saturation 98%. HEENT: Pupils equal, round and reactive. NECK: Supple. Trachea midline. LUNGS: Clear to auscultation, bilateral expansion. HEART: S1, S2, regular. ABDOMEN: Soft. Positive tenderness to palpation. 4.5 x 4.5 cm abscess with erythema 7 x 7 cm at the right upper quadrant, tenting of skin fluctuance. EXTREMITIES: Warm and well-perfused. NEUROLOGIC: GCS 15. 5/5 motor in all extremities. PSYCH: Normal affect. BACK: Normal curvature. LABORATORY WBC 10.9, hemoglobin 12.1, hematocrit 37.4, platelets 211. Sodium 136, potassium 4.1, chloride 99, BUN 5, creatinine 0.5, AST 120, ALT 32. INR 1.1. IMAGING CT reviewed by myself showing a large fluid collection, abdominal wall abscess through rectus fascia and intra-abdominal abscess concern as well. Does not appear to violate peritoneum. Fatty liver atelectasis. ASSESSMENT The patient is a 62-year-old male who presents with abdominal wall abscess. PLAN At this point the patient needs IV antibiotics and pain control. He can have a regular diet now, needs to be n.p.o. after midnight. Will plan for operative intervention including incision and drainage with VAC placement. Discussed with the patient in detail, states understanding and agreed. Consideration of I&D at bedside; however, the patient does not appear to be able to tolerate this and abscess appears to be somewhat extensive as well. MD ALISSA Baker/SADIQ /9:49 PM /9:58 AM
[2017-12-12 10:26] VITALS: BP 120/82
[2017-12-12 12:00] VITALS: BP 123/91; PULSE 97; RESP 13; TEMP 97.8; O2SAT 96
--- NOTE | 2017-12-12 13:00 | HHI.PR ---
Subjective Remarks Nursing denies any deterioration since last night. Patient himself reports overall improvement. Had his wound VAC placed after incision and drainage. Objective Vital Signs Date Time Temp Pulse Resp B/P (MAP) Pulse Ox O2 Delivery O2 Flow Rate FiO2 12/12/17 10:26 120/82 (95) 12/12/17 08:27 81 16 132/93 (106) 97 Room Air 12/12/17 08:10 74 16 111/81 (91) 98 12/12/17 08:00 98.3 93 15 167/115 (132) 99 12/12/17 07:55 97.9 89 16 146/97 (113) 99 Room Air 12/12/17 06:43 98.0 93 18 132/89 (103) 99 12/12/17 00:00 98.0 93 18 132/89 (103) 99 12/11/17 20:00 98.1 102 21 151/100 (117) 97 12/11/17 16:30 98.4 111 20 122/85 (97) 95 12/11/17 16:06 72 16 124/82 (96) 97 12/11/17 14:30 100 16 126/85 (99) 97 Room Air 12/11/17 13:50 16 I/O 12/11/17 12/11/17 12/11/17 12/12/17 12/12/17 12/12/17 07:00 15:00 23:00 07:00 15:00 23:00 Intake Total 100 ml 460 ml 1000 ml 800 ml Output Total 600 ml 150 ml Balance 100 ml 460 ml 400 ml 650 ml Intake Oral 360 ml IV Total 100 ml 100 ml 1000 ml Other 800 ml Output Urine Total 600 ml 150 ml # Voids 1 Result Diagram: 12/12/17 0525 12/12/17 0525 Objective Remarks Abscess appears to be incised and drained, wound VAC in place. No abdominal tenderness otherwise, lying in bed, no acute distress A/P Assessment and Plan 62-year-old white male being admitted for for abdominal abscess. Abscess - Status post I&D with wound VAC placed by gen surg. continue abx. f/u bc's. Vanc and zosyn. Transaminitis - Appears to be due to alcohol abuse - improving, continue IVFs Alcohol use - low dose scheduled Librium for now to minimize DTs starting heparin. Ortega Lopez MD Dec 12, 2017 13:00
[2017-12-12 16:00] VITALS: BP 114/91; PULSE 98; RESP 15; TEMP 96.8; O2SAT 96
[2017-12-12] MEDS: HEPARIN SODIUM - SQ 10,000 UNITS/ML VIAL SQ SCH (17:40)
[2017-12-12 21:31] VITALS: BP 121/99; PULSE 82; RESP 16; TEMP 98; O2SAT 98
[2017-12-13 00:27] VITALS: BP 148/97; PULSE 80; RESP 18; TEMP 97.9; O2SAT 96
[2017-12-13] MEDS: HEPARIN SODIUM - SQ 10,000 UNITS/ML VIAL SQ SCH ×3 (02:46→17:05)
[2017-12-13] MEDS: HYDROmorphone HCL PF 2 MG/ML VIAL IV PUSH PRN ×5 (02:48→20:33)
[2017-12-13] MEDS ORDERED: PHARMACY ORDERED LAB ONE (04:45)
[2017-12-13] MEDS: PIPERACIL-TAZO 3.375 GM PREMIX 50 ML IV SCH ×5 (05:00→23:18)
[2017-12-13] MEDS: VANCOMYCIN INJ 1,250 MG in SODIUM CHLOR 0.9% 250 ML INJ 250 ML IV SCH (05:27)
[2017-12-13 08:00] VITALS: BP_SYST 118; BP_SYST 137; BP_DIAS 100; BP_DIAS 90; PULSE 107; RESP 18; TEMP 99.2; O2SAT 98
--- NOTE | 2017-12-13 09:38 | HHI.PR ---
Subjective Remarks Follow-up abdominal abscess. Patient seen and examined, lying in bed comfortably in no apparent distress. Wound VAC continued. Pain is well- controlled. Eating well with no complaints of abdominal pain, nausea or vomiting. Does complain of some constipation. Vital signs are stable afebrile. Objective Vitals Vital Signs Date Time Temp Pulse Resp B/P (MAP) Pulse Ox O2 Delivery O2 Flow Rate FiO2 12/13/17 08:00 99.2 107 18 137/100 (112) 98 118/90 (99) 12/13/17 05:00 12/13/17 00:27 97.9 80 18 148/97 (114) 96 12/12/17 21:31 98.0 82 16 121/99 (106) 98 12/12/17 16:00 96.8 98 15 114/91 (99) 96 12/12/17 12:00 97.8 97 13 123/91 (102) 96 12/12/17 10:26 120/82 (95) I/O 12/12/17 12/12/17 12/12/17 12/13/17 12/13/17 12/13/17 07:00 15:00 23:00 07:00 15:00 23:00 Intake Total 1000 ml 850 ml 612.5 ml 50 ml 250 ml Output Total 600 ml 450 ml 100 ml 650 ml Balance 400 ml 400 ml 512.5 ml -600 ml 250 ml IV Total 1000 ml 50 ml 612.5 ml 50 ml 250 ml Other 800 ml Output Urine Total 600 ml 450 ml 100 ml 650 ml # Voids 1 Result Diagram: 12/12/17 0525 12/12/[address] ab.pelvis 12/11/17 12:02 IMPRESSION: 1. Findings are almost certainly intra abdominal wall abscess with extension through the rectus abdominis fascia and loculated intraperitoneal component with inflammatory changes surrounding the mesentery fat adjacent to the anterior portion of the liver. 2. Extensive fatty infiltration of the liver. 3. Slight right lung base atelectasis and/or infiltrate is seen. Objective Remarks GENERAL: Well-nourished, well-developed patient in NAD. SKIN: Warm and dry. No rash. HEAD: Normocephalic. Atraumatic. EYES: Pupils equal and round. No scleral icterus. No injection or drainage. ENT: No nasal bleeding or discharge. Mucous membranes pink and moist. NECK: Supple. Trachea midline. CARDIOVASCULAR: Regular rate and rhythm. S1, S2 noted. No murmur appreciated. RESPIRATORY: No accessory muscle use. Clear to auscultation. Breath sounds equal bilaterally. GASTROINTESTINAL: Abdomen soft, round. Normoactive bowel sounds x4. Right upper quadrant wound VAC placed and continued. MUSCULOSKELETAL: No obvious deformities. Extremities without clubbing, cyanosis , or edema. NEUROLOGICAL: Awake and alert. No obvious cranial nerve deficits. Motor grossly within normal limits. 5/5 muscle strength in bilateral upper and lower extremities. Normal speech. PSYCHIATRIC: Appropriate mood and affect; insight and judgment normal. A/P Assessment and Plan 62-year-old white male being admitted for for abdominal abscess. Abdominal Abscess - Status post I&D with wound VAC placed by gen surg. continue abx. Vanc and zosyn. - Wound culture pending. Follow. Blood cultures are negative to date. Transaminitis - Appears to be due to alcohol abuse - improving, continue IVFs Alcohol use - low dose scheduled Librium for now to minimize DTs DVT prophylaxis: SCDs. Heparin. Torrie Shea Dec 13, 2017 09:38
[2017-12-13] MEDS ORDERED: MAGNESIUM HYDROXIDE SUSP 30 ML CUP PO PRN (09:45)
[2017-12-13] MEDS ORDERED: SENNOSIDES 8.6 MG TAB PO PRN (09:45)
[2017-12-13] MEDS ORDERED: BISACODYL 10 MG SUPP RECTAL PRN (09:45)
[2017-12-13 12:00] VITALS: BP_SYST 135; BP_SYST 138; BP_DIAS 100; BP_DIAS 102; PULSE 96; RESP 18; TEMP 97; O2SAT 97
[2017-12-13] MEDS: DOCUSATE SODIUM 50 MG/SENNA 8.6 MG TAB PO SCH ×2 (13:14→20:32)
[2017-12-13 16:00] VITALS: BP 138/90; PULSE 96; RESP 18; TEMP 98; O2SAT 98
[2017-12-13] MEDS: VANCOMYCIN 1,000 MG/NS 250 ML IV SCH ×2 (17:14)
[2017-12-13 20:00] VITALS: BP 146/101; PULSE 97; RESP 20; TEMP 96.7; O2SAT 97
[2017-12-13 22:00] VITALS: BP 127/99; PULSE 113; RESP 20; TEMP 96; O2SAT 98
[2017-12-14] VITALS: BP 116/87; PULSE 87; RESP 20; TEMP 97.6; O2SAT 98
[2017-12-14] MEDS: HEPARIN SODIUM - SQ 10,000 UNITS/ML VIAL SQ SCH ×3 (02:02→17:22)
[2017-12-14] MEDS: HYDROmorphone HCL PF 2 MG/ML VIAL IV PUSH PRN ×5 (02:11→21:18)
[2017-12-14] MEDS: VANCOMYCIN 1,000 MG/NS 250 ML IV SCH ×2 (05:05)
[2017-12-14] MEDS: PIPERACIL-TAZO 3.375 GM PREMIX 50 ML IV SCH ×4 (05:06→22:59)
[2017-12-14 08:00] VITALS: BP 107/67; PULSE 95; RESP 18; TEMP 98.3; O2SAT 95
[2017-12-14 08:22] LABS: CREATININE 1.4 MG/DL (0.60-1.30)
[2017-12-14] MEDS: DOCUSATE SODIUM 50 MG/SENNA 8.6 MG TAB PO SCH ×2 (08:48→21:10)
[2017-12-14 12:00] VITALS: BP 143/115; PULSE 90; RESP 18; TEMP 97.8; O2SAT 95
[2017-12-14] MEDS ORDERED: SODIUM CHLOR 0.9% 1000 ML INJ 1,000 ML IV ONE (14:15)
--- NOTE | 2017-12-14 14:41 | HHI.PR ---
Subjective Remarks Nursing denies any deterioration since last night. Patient himself reports overall improvement. He does appear mildly confused. He is undressed, covering his groin with a pillow. When asked why, he says "Im hot." But he does complain about being too weak to be able to ambulate. Objective Vital Signs Date Time Temp Pulse Resp B/P (MAP) Pulse Ox O2 Delivery O2 Flow Rate FiO2 12/14/17 12:24 18 12/14/17 12:00 97.8 90 18 143/115 (124) 95 12/14/17 08:00 98.3 95 18 107/67 (80) 95 12/14/17 00:00 97.6 87 20 116/87 (97) 98 12/13/17 22:00 96.0 113 20 127/99 (108) 98 12/13/17 20:00 96.7 97 20 146/101 (116) 97 12/13/17 16:00 98.0 96 18 138/90 (106) 98 I/O 12/13/17 12/13/17 12/13/17 12/14/17 12/14/17 12/14/17 06:59 14:59 22:59 06:59 14:59 22:59 Intake Total 50 ml 250 ml 480 ml 830 ml Output Total 650 ml 1200 ml 350 ml 1200 ml Balance -600 ml -950 ml 130 ml -370 ml Intake Oral 480 ml 480 ml IV Total 50 ml 250 ml 350 ml Output Urine Total 650 ml 1200 ml 350 ml 1200 ml # Voids 1 5 # Bowel Movements 0 1 Result Diagram: 12/12/17 0525 12/14/17 0744 Objective Remarks Lying in bed, undressed, covering his groin with a pillow In no acute distress Erythema is virtually gone from his right-sided abdominal incision site where the wound VAC is placed, only very subtle tenderness to palpation over the right side of the abdomen A/P Assessment and Plan 62-year-old white male being admitted for for abdominal abscess. Abdominal Abscess - Status post I&D with wound VAC placed by gen surg. continue abx. Vanc and zosyn. - Wound culture pending. Follow. Blood cultures are negative to date. Transaminitis - Appears to be due to alcohol abuse - improving, continue IVFs Alcohol use - low dose scheduled Librium for now to minimize DTs We'll order for Zofran therapy and occupational therapy eval given that the patient is complaining of unsteady gait. DVT prophylaxis: SCDs. Heparin. Ortega Lopez MD Dec 14, 2017 14:40
[2017-12-14 16:00] VITALS: BP 138/100; PULSE 90; RESP 18; TEMP 97.8; O2SAT 95
[2017-12-14 21:22] VITALS: BP 150/90; PULSE 82; RESP 20; TEMP 98.1; O2SAT 95
[2017-12-15 00:32] VITALS: BP 147/89; PULSE 79; RESP 18; TEMP 98.3; O2SAT 96
[2017-12-15] MEDS: HEPARIN SODIUM - SQ 10,000 UNITS/ML VIAL SQ SCH ×3 (02:55→17:27)
[2017-12-15] MEDS ORDERED: PHARMACY ORDERED LAB ONE (04:45)
[2017-12-15] MEDS: PIPERACIL-TAZO 3.375 GM PREMIX 50 ML IV SCH ×2 (05:09→11:10)
[2017-12-15 06:34] LABS: BICARBONATE 27.3 MEQ/L (21.0-32.0); CALCIUM 8.2 MG/DL (8.5-10.1); CREATININE 1.2 MG/DL (0.60-1.30)
[2017-12-15 08:00] VITALS: BP 139/106; PULSE 72; RESP 18; TEMP 97.4; O2SAT 99
[2017-12-15 08:11] LABS: MAGNESIUM 1.4 MG/DL (1.5-2.5)
[2017-12-15 08:22] LABS: RANDOM VANCOMYCIN 18.1 COMMENT
--- NOTE | 2017-12-15 08:30 | MP ---
cc: NICOLAS BERG MD DATE OF SURGERY: 12/12/2017 PREOPERATIVE DIAGNOSIS Abdominal wall abscess. POSTOPERATIVE DIAGNOSIS Abdominal wall abscess. PROCEDURE PERFORMED Incision and drainage with excisional debridement of subcutaneous and soft tissue of abdominal wall abscess and vac placement. SURGEON Dr. Nicolas Berg. IT NETWORK ADMINISTRATOR None. ANESTHESIA MAC. IV FLUIDS See anesthesia sheet. ESTIMATED BLOOD LOSS 5 ccs. DRAINS Hemovac placement. COMPLICATIONS None. WOUND CLASSIFICATION Dirty. SPECIMENS Purulent drainage sent for cultures. FINDINGS Cavity with pus and some minimal necrotic subcutaneous tissue. INDICATION The patient is a 62-year-old male who presented with acute onset of pain and swelling to the right abdomen. This has been going on for several days, increased in size. The patient had no fevers. He had a CT scan showing abdominal wall abscess with possible intra-abdominal component that did not appear to violate the peritoneum but did look like it transversed the fascia. Therefore, decision was made for operative intervention including I&D of abscess. PROCEDURE IN DETAIL The patient was taken to the operating suite, placed in supine position. He was prepped and draped in usual sterile fashion after induction of anesthesia. Brief time-out was done stating correct patient, procedure, surgical site, we were all in agreement with this. Attention was directed to the right upper abdomen where the abscess cavity noted to have some drainage. Incision was extended cephalad over previous scar and this was done with 15 blade. Further dissection with electro Bovie cautery, purulent cavity was opened. Culture swabs were done of the purulent drainage and sent for cultures. Irrigation was done to thoroughly irrigate the cavity. Minimal subcutaneous and soft tissue was debrided and noted to be somewhat necrotic and purulent and fibrinous in nature. This was removed with excisional debridement and hemostasis obtained with electro Bovie cautery. Again, the cavity was thoroughly irrigated ___ was dry. A Q-tip was used to tent the probe to see what sort of trans-fascial communication was done, which was not overtly evident at this time. Therefore a vac sponge was cut to size and placed in the abscess cavity. A plastic drape was then placed. A track pad was placed and the vac connected and placed to a suction. The patient tolerated the procedure well. There was no intraoperative complications. All lap and instrument counts were correct at the end of the procedure. The patient was extubated and taken to PACU. MD JOSE D Baker /7:53 AM /8:11 AM ELI
[2017-12-15] MEDS ORDERED: POTASSIUM CHLORIDE 20 MEQ CONTROLLED RELEASE TAB PO ONE (10:00)
[2017-12-15] MEDS ORDERED: POTASSIUM CHLOR 20 MEQ PREMIX 100 ML IV ONE (10:00)
[2017-12-15] MEDS: DOCUSATE SODIUM 50 MG/SENNA 8.6 MG TAB PO SCH ×3 (11:15→20:46)
[2017-12-15] MEDS: amLODIPine BESYLATE 5 MG TAB PO SCH (11:15)
--- NOTE | 2017-12-15 12:06 | HHI.FF ---
Face to Face Verification Diagnosis: (1) Abdominal wall abscess Physical Therapy Order: Evaluate and Treat, Improve ambulation Occupational Therapy Order: Evaluate and Treat, Improve ADL, Gross motor coordination, Fine motor coordination I have seen patient Holland Trinidad on 12/15/17. My clinical findings support the need for the requested home health care services because: Deconditioned w/ increased weakness I certify that my clinical findings support that this patient is homebound because: Unsteady gait/balance Torrie Shea Dec 15, 2017 12:06
[2017-12-15] MEDS ORDERED: VANCOMYCIN 1,000 MG/NS 250 ML IV SCH ×2 (14:00)
--- NOTE | 2017-12-15 15:48 | HHI.PR ---
Subjective Remarks Follow-up abdominal abscess. Patient seen and examined, no change in clinical condition. Awaiting surgical to remove wound VAC and make wound care recommendations. Patient requesting by mouth pain medicines rather than IV Dilaudid. Objective Vitals Vital Signs Date Time Temp Pulse Resp B/P (MAP) Pulse Ox O2 Delivery O2 Flow Rate FiO2 12/15/17 08:00 97.4 72 18 139/106 (117) 99 12/15/17 05:55 12/15/17 00:32 98.3 79 18 147/89 (108) 96 12/14/17 21:22 98.1 82 20 150/90 (110) 95 12/14/17 16:00 97.8 90 18 138/100 (113) 95 12/14/17 15:59 18 I/O 12/14/17 12/14/17 12/14/17 12/15/17 12/15/17 12/15/17 07:00 15:00 23:00 07:00 15:00 23:00 Intake Total 830 ml 1050 ml Output Total 1200 ml 750 ml Balance -370 ml 1050 ml -750 ml Intake Oral 480 ml IV Total 350 ml 1050 ml Output Urine Total 1200 ml 750 ml # Bowel Movements 1 1 Result Diagram: 12/12/17 0525 12/15/17 0607 Objective Remarks GENERAL: Well-nourished, well-developed patient in NAD. SKIN: Warm and dry. No rash. HEAD: Normocephalic. Atraumatic. EYES: Pupils equal and round. No scleral icterus. No injection or drainage. ENT: No nasal bleeding or discharge. Mucous membranes pink and moist. NECK: Supple. Trachea midline. CARDIOVASCULAR: Regular rate and rhythm. S1, S2 noted. No murmur appreciated. RESPIRATORY: No accessory muscle use. Clear to auscultation. Breath sounds equal bilaterally. GASTROINTESTINAL: Abdomen soft, round. Normoactive bowel sounds x4. Right upper quadrant wound VAC placed and continued. MUSCULOSKELETAL: No obvious deformities. Extremities without clubbing, cyanosis , or edema. NEUROLOGICAL: Awake and alert. No obvious cranial nerve deficits. Motor grossly within normal limits. 5/5 muscle strength in bilateral upper and lower extremities. Normal speech. PSYCHIATRIC: Appropriate mood and affect; insight and judgment normal. A/P Assessment and Plan 62-year-old white male being admitted for for abdominal abscess. Abdominal Abscess - Status post I&D with wound VAC placed by general surgery. Continue antibiotics , change from IV to PO. - Wound culture no growth to date. blood cultures are negative to date. - Pain control, [place] available when necessary as needed per pain scale. Transaminitis - Appears to be due to alcohol abuse - improving, continue IVFs - Monitor labs in the a.m. Alcohol use - low dose scheduled Librium for now to minimize DTs DVT prophylaxis: SCDs. Heparin. Torrie Shea Dec 15, 2017 15:48
[2017-12-15] MEDS ORDERED: COMMODE 3-IN-11 MIS (15:51)
[2017-12-15 16:00] VITALS: BP 151/109; PULSE 60; RESP 16; TEMP 98; O2SAT 99
[2017-12-15] MEDS ORDERED: ACETAMINOPHEN/HYDROcodone 325 MG/5 MG TAB PO PRN (16:00)
[2017-12-15] MEDS: MAGNESIUM SULFATE 1 GM PREMIX 100 ML IV SCH ×2 (16:12→17:25)
[2017-12-15 17:47] LABS: MAGNESIUM 1.7 MG/DL (1.5-2.5)
[2017-12-15 20:00] VITALS: BP 144/108; PULSE 74; RESP 18; TEMP 97.5; O2SAT 96
[2017-12-15] MEDS: oxyCODONE/ACETAMINOPHEN 5 MG/325 MG TAB PO PRN (20:45)
[2017-12-15] MEDS: DOXYCYCLINE HYCLATE 100 MG CAP PO SCH (21:54)
[2017-12-16] VITALS: BP 136/86; PULSE 70; RESP 16; TEMP 96.8; O2SAT 97
[2017-12-16] MEDS: HEPARIN SODIUM - SQ 10,000 UNITS/ML VIAL SQ SCH ×2 (02:15→09:47)
[2017-12-16 06:45] LABS: AUTOMATED NEUTROPHIL # 2.8 TH/MM3 (1.8-7.7); BASOPHIL # 0.1 TH/MM3 (0-0.2); EOSINOPHIL # 0.1 TH/MM3 (0-0.4); EOSINOPHIL % 2.1 % (0.0-4.0); HEMOGLOBIN 10.4 GM/DL (13.0-17.0); LYMPH % 26.5 % (9.0-44.0); LYMPHOCYTE # 1.5 TH/MM3 (1.0-4.8); MEAN CELL VOLUME 89.5 FL (80.0-100.0); MEAN CORPUSCULAR HGB CONC 32.4 % (32.0-36.0); MEAN PLATELET VOLUME 8.8 FL (7.0-11.0); NEUT % 51.4 % (16.0-70.0); PLATELET COUNT 187 TH/MM3 (150-450); RED BLOOD COUNT 3.58 MIL/MM3 (4.50-5.90); RED CELL DISTRIBUTION WIDTH 17.4 % (11.6-17.2); WHITE BLOOD COUNT 5.5 TH/MM3 (4.0-11.0)
[2017-12-16 07:10] LABS: ALBUMIN 2.3 GM/DL (3.4-5.0); ALKALINE PHOSPHATASE 72 U/L (45-117); ALT (GPT) 15 U/L (12-78); AST (GOT) 35 U/L (15-37); BICARBONATE 25.8 MEQ/L (21.0-32.0); BLOOD UREA NITROGEN 8 MG/DL (7-18); CALCIUM 7.8 MG/DL (8.5-10.1); CHLORIDE 104 MEQ/L (98-107); CREATININE 0.97 MG/DL (0.60-1.30); GLOMERULAR FILTRATION RATE 78 ML/MIN (>89); GLUCOSE,RANDOM 89 MG/DL (74-106); SODIUM (NA) 138 MEQ/L (136-145); TOTAL PROTEIN 6.8 GM/DL (6.4-8.2)
[2017-12-16 08:00] VITALS: BP 147/101; PULSE 66; RESP 18; TEMP 96.5; O2SAT 98
[2017-12-16] MEDS ORDERED: POTASSIUM CHLORIDE 20 MEQ CONTROLLED RELEASE TAB PO ONE (08:00)
[2017-12-16] MEDS ORDERED: ACETAMINOPHEN/HYDROcodone 325 MG/5 MG TAB PO ONE (08:00)
[2017-12-16] MEDS: DOCUSATE SODIUM 50 MG/SENNA 8.6 MG TAB PO SCH (08:35)
[2017-12-16] MEDS: amLODIPine BESYLATE 5 MG TAB PO SCH (08:35)
--- NOTE | 2017-12-16 08:46 | PD.WCN.NOT ---
Wound Consult Description: Received consult from LAVERN [place] for VAC management to change wound VAC to abdomen today. Communicated with: MARIE Villeda [facility] 3rd floor, Torrie mckenna, Doctor Lopez, Doctor Fry surgery, and L[facility]ERN [place] Recommendation: Please follow orders from Surgeon Additional Information: Late entry for 12/15/2017 1800:Patient was seen on [facility] 3rd floor initially for wound VAC dressing change.Spoke LAVERN Fry was to take wound VAc dressing down today and apply wet to dry , but will not be here today and will take dressing down tomorrow. Called Doctor Fry, Doctor fry gave the OK to take down Wound VAC dressing tonight and do wet to dry dressing tonight. Removed Wound VAC dressing and applied wet to dry dressing in place. Patient tolerated dressing change fairly with complaints of pain with removal of dressing and with application of saline moistened gauze packing. Patient was offered Dilaudid prior to dressing change for pain. Patient states, " I don' t want the Dilaudid, it makes me hallucinate." MARIE Carmichael spoke with Doctor Lopez. Doctor Lopez put in order for Morphine for pain with dressing changes. Stephy Fuentes [facility] Dec 16, 2017 08:46
[2017-12-16] MEDS ORDERED: LEVOFLOXACIN 750 MG TAB PO SCH (09:00)
--- NOTE | 2017-12-16 09:08 | HHI.PR ---
Subjective Subjective Notes Resting in bed "I didn't sleep well last night." Objective Vitals/I&O Vital Signs Date Time Temp Pulse Resp B/P (MAP) Pulse Ox O2 Delivery O2 Flow Rate FiO2 12/16/17 00:00 96.8 70 16 136/86 (103) 97 12/12/17 08:27 Room Air Labs Laboratory Tests Test 12/15/17 17:15 12/16/17 04:40 Potassium Level 2.9 2.4 Magnesium Level 1.7 White Blood Count 5.5 Red Blood Count 3.58 Hemoglobin 10.4 Hematocrit 32.0 Mean Corpuscular Volume 89.5 Mean Corpuscular Hemoglobin 29.0 Mean Corpuscular Hemoglobin Concent 32.4 Red Cell Distribution Width 17.4 Platelet Count 187 Mean Platelet Volume 8.8 Neutrophils (%) (Auto) 51.4 Lymphocytes (%) (Auto) 26.5 Monocytes (%) (Auto) 19.0 Eosinophils (%) (Auto) 2.1 Basophils (%) (Auto) 1.0 Neutrophils # (Auto) 2.8 Lymphocytes # (Auto) 1.5 Monocytes # (Auto) 1.0 Eosinophils # (Auto) 0.1 Basophils # (Auto) 0.1 CBC Comment AUTO DIFF Differential Comment AUTO DIFF CONFIRMED Blood Urea Nitrogen 8 Creatinine 0.97 Random Glucose 89 Total Protein 6.8 Albumin 2.3 Calcium Level 7.8 Alkaline Phosphatase 72 Aspartate Amino Transf (AST/SGOT) 35 Alanine Aminotransferase (ALT/SGPT) 15 Total Bilirubin 1.0 Sodium Level 138 Chloride Level 104 Carbon Dioxide Level 25.8 Anion Gap 8 Estimat Glomerular Filtration Rate 78 Date/Time Source Procedure Growth Status 12/11/17 13:20 Blood Peripheral Aerobic Blood Culture - Preliminary NO GROWTH IN 4 DAYS Resulted 12/11/17 13:20 Blood Peripheral Anaerobic Blood Culture - Preliminary NO GROWTH IN 4 DAYS Resulted 12/12/17 07:38 Abscess Abdomen Gram Stain - Final Complete 12/12/17 07:38 Abscess Abdomen Wound Culture - Final Complete Cardiovascular: Regular Lungs: Clear Abdomen: Other (packing removed from open area on abdomen; wound bed beefy red ; clean; no purulent drainage; repacked ) Extremities: No edema A/P Assessment and Plan 62 year old male s/p I&D of subcutaneous and soft tissue of abdominal wall abscess -Wound Vac now removed -Transitioned to wet to dry dressings -Change BID; okay to shower inbetween dressing changes -GS clear for DC -Discussed with Selam Kumar Dec 16, 2017 09:08
[2017-12-16] MEDS: DOXYCYCLINE HYCLATE 100 MG CAP PO SCH (09:48)
[2017-12-16] MEDS: POTASSIUM CHLOR 20 MEQ PREMIX 100 ML IV SCH ×2 (09:48→12:29)
--- NOTE | 2017-12-16 10:45 | HHI.PR ---
Subjective Subjective Notes no fevers, pain better, abscess improved Objective Vitals/I&O Vital Signs Date Time Temp Pulse Resp B/P (MAP) Pulse Ox O2 Delivery O2 Flow Rate FiO2 12/16/17 09:45 18 12/16/17 08:00 96.5 66 147/101 (116) 98 12/12/17 08:27 Room Air Labs Laboratory Tests Test 12/15/17 17:15 12/16/17 04:40 Potassium Level 2.9 2.4 Magnesium Level 1.7 2.1 White Blood Count 5.5 Red Blood Count 3.58 Hemoglobin 10.4 Hematocrit 32.0 Mean Corpuscular Volume 89.5 Mean Corpuscular Hemoglobin 29.0 Mean Corpuscular Hemoglobin Concent 32.4 Red Cell Distribution Width 17.4 Platelet Count 187 Mean Platelet Volume 8.8 Neutrophils (%) (Auto) 51.4 Lymphocytes (%) (Auto) 26.5 Monocytes (%) (Auto) 19.0 Eosinophils (%) (Auto) 2.1 Basophils (%) (Auto) 1.0 Neutrophils # (Auto) 2.8 Lymphocytes # (Auto) 1.5 Monocytes # (Auto) 1.0 Eosinophils # (Auto) 0.1 Basophils # (Auto) 0.1 CBC Comment AUTO DIFF Differential Comment AUTO DIFF CONFIRMED Blood Urea Nitrogen 8 Creatinine 0.97 Random Glucose 89 Total Protein 6.8 Albumin 2.3 Calcium Level 7.8 Alkaline Phosphatase 72 Aspartate Amino Transf (AST/SGOT) 35 Alanine Aminotransferase (ALT/SGPT) 15 Total Bilirubin 1.0 Sodium Level 138 Chloride Level 104 Carbon Dioxide Level 25.8 Anion Gap 8 Estimat Glomerular Filtration Rate 78 Date/Time Source Procedure Growth Status 12/11/17 13:20 Blood Peripheral Aerobic Blood Culture - Preliminary NO GROWTH IN 4 DAYS Resulted 12/11/17 13:20 Blood Peripheral Anaerobic Blood Culture - Preliminary NO GROWTH IN 4 DAYS Resulted 12/12/17 07:38 Abscess Abdomen Gram Stain - Final Complete 12/12/17 07:38 Abscess Abdomen Wound Culture - Final Complete Abdomen: Other (soft, abscess cavity much improved, packing in place scant drainage) A/P Assessment and Plan s/p I and D of abscess and vac PLAN VAC removed, wet to dry dressing pt will need daily dressing changes. He states he has assistance with this by a neighbor abx check and correct electrolytes ok to d/c home from surgery stand point f/u with Dr. Berg in 2 weeks Nicolas Berg MD Dec 16, 2017 10:45
[2017-12-16 12:00] VITALS: BP 102/83; PULSE 79; RESP 18; TEMP 96.4; O2SAT 100
[2017-12-16] MEDS ORDERED: PROPOFOL 200 MG/20 ML AMP IV ONE ×2 (12:00)
--- NOTE | 2017-12-16 12:23 | HHI.PR ---
Subjective Remarks Pt tells me that he feels well however a bit "shaky". No nausea or vomiting. No longer has a wound vac Pain is controlled. Objective Vitals Vital Signs Date Time Temp Pulse Resp B/P (MAP) Pulse Ox O2 Delivery O2 Flow Rate FiO2 12/16/17 09:45 18 12/16/17 08:00 96.5 66 18 147/101 (116) 98 12/16/17 00:00 96.8 70 16 136/86 (103) 97 12/15/17 20:00 97.5 74 18 144/108 (120) 96 12/15/17 17:12 18 12/15/17 16:00 98.0 60 16 151/109 (123) 99 I/O 12/15/17 12/15/17 12/15/17 12/16/17 12/16/17 12/16/17 07:00 15:00 23:00 07:00 15:00 23:00 Intake Total 720 ml 600 ml 860 ml Output Total 750 ml 400 ml 1200 ml Balance -750 ml 320 ml 600 ml -340 ml Intake Oral 720 ml 860 ml IV Total 600 ml Output Urine Total 750 ml 400 ml 1200 ml # Voids 2 # Bowel Movements 1 2 0 Result Diagram: 12/16/170 12/16/17 0440 Objective Remarks GENERAL: laying in bed smiling EYES: Pupils equal and round. No scleral icterus. No injection or drainage. ENT: No nasal bleeding or discharge. Mucous membranes pink and moist. NECK: Supple. Trachea midline. CARDIOVASCULAR: Regular rate and rhythm. S1, S2 noted. No murmur appreciated. RESPIRATORY: No accessory muscle use. Clear to auscultation. Breath sounds equal bilaterally. GASTROINTESTINAL: Abdomen soft, round. Right upper quadrant w packed wound, no erythema MUSCULOSKELETAL: No obvious deformities. Extremities without edema. NEUROLOGICAL: Awake and alert. No obvious cranial nerve deficits. Motor grossly within normal limits. Normal speech. A/P Assessment and Plan 62-year-old white male being admitted for for abdominal abscess. Abdominal Abscess - Status post I&D with wound VAC placed by general surgery. Wound vac discontinued, Continue antibiotics, change from IV to PO. - Wound culture no growth to date. blood cultures are negative to date. - Pain control, [place] available when necessary as needed per pain scale. Transaminitis - Appears to be due to alcohol abuse - resolved Hypokalemia Continue to replace aggressively. Repeat K at 1pm Alcohol use - low dose scheduled Librium for now to minimize DTs DVT prophylaxis: SCDs. Heparin. Discharge Planning anticipate d/c later today f/u on K level Lucita Kwong MD Dec 16, 2017 12:23
[2017-12-16] MEDS ORDERED: OXYC1TAB63 PO (12:25)
[2017-12-16] MEDS ORDERED: DOXY100C PO (12:25)
[2017-12-16] MEDS ORDERED: LEVA750T9 PO (12:25)
[2017-12-16] MEDS ORDERED: AMLO5 PO (12:25)
--- NOTE | 2017-12-16 12:30 | HHI.DS ---
Discharge Summary Admission Date Dec 11, 2017 at 13:05 Discharge Date: Dec 16, 2017 Admitting Diagnosis ABDOMINAL ABCESS (1) Alcohol abuse ICD Code: F10.10 - Alcohol abuse, uncomplicated (2) Abdominal wall abscess ICD Code: L02.211 - Cutaneous abscess of abdominal wall Status: Acute (3) Unsteady gait ICD Code: R26.81 - Unsteadiness on feet Procedures I&D and wound vac placement Brief History - From Admission 62-year-old white male being admitted for abdominal abscess. Patient states he was in his usual state of health until about a few days ago when he began growing a painful mass like lesion on his right lower abdomen. He says this started growing slowly and eventually became red in color. Has had some mild nausea but no vomiting. He reports having some diarrhea. But denies any bloody stools. Denies any fevers or chills. Says this has never happened to him before in the past. Says that the pain can get very severe if the lesion is manipulated. He had a cholecystectomy a couple months ago. CBC/BMP: 12/16/17 0440 12/16/17 0440 Significant Findings Laboratory Tests Test 12/14/17 07:44 12/15/17 06:07 12/15/17 17:15 12/16/17 04:40 Creatinine 1.40 MG/DL (0.60-1.30) Estimat Glomerular Filtration Rate 51 ML/MIN (>89) 61 ML/MIN (>89) 78 ML/MIN (>89) Calcium Level 8.2 MG/DL (8.5-10.1) 7.8 MG/DL (8.5-10.1) Magnesium Level 1.4 MG/DL (1.5-2.5) Potassium Level 2.7 MEQ/L (3.5-5.1) 2.9 MEQ/L (3.5-5.1) 2.4 MEQ/L (3.5-5.1) Red Blood Count 3.58 MIL/MM3 (4.50-5.90) Hemoglobin 10.4 GM/DL (13.0-17.0) Hematocrit 32.0 % (39.0-51.0) Red Cell Distribution Width 17.4 % (11.6-17.2) Monocytes (%) (Auto) 19.0 % (0.0-8.0) Monocytes # (Auto) 1.0 TH/MM3 (0-0.9) Albumin 2.3 GM/DL (3.4-5.0) PE at Discharge GENERAL: laying in bed smiling EYES: Pupils equal and round. No scleral icterus. No injection or drainage. ENT: No nasal bleeding or discharge. Mucous membranes pink and moist. NECK: Supple. Trachea midline. CARDIOVASCULAR: Regular rate and rhythm. S1, S2 noted. No murmur appreciated. RESPIRATORY: No accessory muscle use. Clear to auscultation. Breath sounds equal bilaterally. GASTROINTESTINAL: Abdomen soft, round. Right upper quadrant w packed wound, no erythema MUSCULOSKELETAL: No obvious deformities. Extremities without edema. NEUROLOGICAL: Awake and alert. No obvious cranial nerve deficits. Motor grossly within normal limits. Normal speech. Hospital Course 62-year-old white male being admitted for for abdominal abscess. Abdominal Abscess - Status post I&D with wound VAC placed by general surgery. Wound vac discontinued, Continue antibiotics, change from IV to PO. Continue wet to dry dressing daily as an outpatient and pt has a friend who can help him w this - Wound culture no growth to date. blood cultures are negative to date. - Pain control, [place] available when necessary as needed per pain scale. Transaminitis - Appears to be due to alcohol abuse - resolved Hypokalemia Continue to replace aggressively. Repeat K at 1pm. If resolve, ok to d/c. Mg level wnl Alcohol use - low dose scheduled Librium for now to minimize DTs PT and OT evaluated the pt and recommend home health PT. Discussed w CM pt may not qualify for this but most likely can get a blue card and get outpatient PT. Pt Condition on Discharge: Stable Discharge Disposition: Disch w/ Home Health Serv Discharge Time: > 30 minutes Discharge Instructions DIET: Follow Instructions for: Heart Healthy Diet Activities you can perform: Regular-No Restrictions Follow up Referrals: Surgical - 2 Weeks with Nicolas Berg MD New Medications: Commode 3-in-1 (Commode 3-in-1) 1 Mis Mis EA .XX DIRECTED, #1 0 Refills Wheelchair (Wheelchair) 1 Mis Mis EA .XX DIRECTED, #1 0 Refills Amlodipine (Norvasc) 5 Mg Tab 5 MG PO DAILY, #30 TAB Doxycycline Hyclate (Doxycycline Hyclate) 100 Mg Cap 100 MG PO BID, #12 CAP Levofloxacin (Levaquin) 750 Mg Tablet 750 MG PO DAILY, #6 Oxycodone HCl/Acetaminophen (Oxycodone-Acetaminophen 5-325) 5 Mg-325 Mg Tablet 1 TAB PO Q6H PRN for pain, #20 Lucita Kwong MD Dec 16, 2017 12:30
[2017-12-16] MEDS: oxyCODONE/ACETAMINOPHEN 5 MG/325 MG TAB PO PRN (15:02)
[2017-12-16] MEDS ORDERED: WHEEMIS3 (15:49)
[2017-12-18] MEDS ORDERED: PHARMACY ORDERED LAB ONE (13:45)
== END 2017-12-16 16:22 | disposition home health service (06) | DRG 571 ==
LOC: PHED 09:51 → PHEDA 13:05 → PH3B 16:18
PROVIDERS: ADMIT Hospitalist; ATTEND Hospitalist
PROC: 0W9F0ZZ Drainage of Abdominal Wall, Open Approach (ICD-10-PCS; 2017-12-12)
PROC: 0JB80ZZ Excision of Abdomen Subcutaneous Tissue and Fascia, Open Approach (ICD-10-PCS; principal; 2017-12-12 07:20)
DX: L02.211 Cutaneous abscess of abdominal wall (principal); F10.231 Alcohol dependence with withdrawal delirium; K76.0 Fatty (change of) liver, not elsewhere classified; F17.210 Nicotine dependence, cigarettes, uncomplicated; R74.0 Nonspecific elevation of levels of transaminase and lactic acid dehydrogenase [LDH]; R26.81 Unsteadiness on feet; E87.6 Hypokalemia; F32.9 Major depressive disorder, single episode, unspecified; F41.9 Anxiety disorder, unspecified
CPT/HCPCS: 74177; 80048; 80053; 80202; 82565; 83735; 84132; 85025; 85610; 85730; 87040; 87070; 87205; J1170; J1644; J2270; J2405; J2543; J3010; J3370; J3475; J3480; J7030; J7050; J7120; Q9967